=== PATIENT | female | born 1950 | race Caucasian/White ===

== ENCOUNTER → 2016-08-25 | Outpatient (CLI) | payer OTHER ==
[~2016-08-25] MED LIST: ASMTWH INH; ASPI-461 PO; CHOL1000 PO; COLLCAP PO; CYAN250T PO; FERR1TAB23 PO; FLAX12003 PO; GLC5 PO; GLC850 PO; GLIP10TA10 PO; GLIP10TA9 PO; HYDR-5688 PO; HYDR25TA4 PO; INSDGI SC; INSDGIPEN SC; LEVO125T72 PO; LEVO50TA PO; METF-383 PO; MULT-506 PO; NAPR1TAB9 PO; NORT25CA PO; PANT1TAB48 PO; PANT40TA PO; PRAV20TA PO; PROP60CA PO; VITA10004 PO; VITA400C15 PO; VITAMIN D PO; ZOLP5TAB PO
[2016-08-25 18:53] LABS: LYME DISEASE AB IGG NEG (NEG); LYME DISEASE AB IGM NEG (NEG)
[2016-09-03 04:52] LABS: ANTI-CENTROMERE AB <1.0 NEG AI (<1.0 NEG); ANTI-SS-A <1.0 NEG AI (<1.0 NEG); ANTI-SS-B <1.0 NEG AI (<1.0 NEG); DNA ds CRITHIDIA NEGATIVE (NEGATIVE); Sm Antibody <1.0 NEG AI (<1.0 NEG)
[2016-09-04 14:39] LABS: ANA TITER > OR = 1:1280 TITER (<1:40)
== END | disposition home or self-care (01) ==
LOC: C.LABBFT 12:41
PROVIDERS: ATTEND Psychiatry & Neurology Neurology
DX: M54.81 Occipital neuralgia (principal)

== ENCOUNTER → 2016-08-31 | Outpatient (CLI) | payer OTHER ==
--- NOTE | 2016-08-31 12:17 | DIAGNOSTIC IMAGING REPORT ---
VIDEO SWALLOW STUDY CLINICAL HISTORY: Dysphagia. COMPARISON STUDY: CT scan of the neck dated 07/23/2014. Fluoroscopy time: 2.7 minutes. FINDINGS: Fluoroscopic guidance was provided to the Department of Speech Pathology in performing a video swallow study. The patient consumed barium-impregnated pudding, cracker with paste, nectar thick liquids, and thin barium while the swallowing mechanism was observed in real-time. No penetration or aspiration was seen with any of the sampled textures. Mild pharyngeal residuals were noted with the pudding and nectar thick liquid textures. IMPRESSION: No penetration or aspiration was seen with any of the sampled textures. See dedicated speech pathology report for detailed findings and recommendations. Electronically signed by: Hugo Barros M.D. 08/31/2016 12:15 PM Dictated Date/Time: 08/31/2016 12:13 PM
--- NOTE | 2016-08-31 14:39 | SWALLOWING EVALUATION ---
HISTORY: This 65 year-old woman was referred for a VFSS at [facility] in order to rule out aspiration address c/o coughing with meals. She also reports that medications tend to get stuck in her throat, in particular larger pills. The patient has a PMH significant for Chiari Malformation, cirrhosis due to steatohepatitis, grade 1 varices, DM II with neuropathy and gastroparesis, GERD, asthma, partial thyroidectomy, hypertension, and depression. Currently the patient's diet level is regular. PROCEDURE: The patient was seen in the Radiology Department of [facility] for the VFSS. Cursory examination of the oral cavity revealed adequate dentition. Movement of the articulators was WNL. The patient was seated on a stool and was viewed in both the Anterior-Posterior (A-P) and Lateral planes. Volitional phonation exercises completed in the A-P plane revealed bilateral vocal fold movement and vocal intensity within functional limits. In the lateral plane, the patient was given the following boluses: 1 tsp. thin liquid barium x 2, single swallow thin liquid barium self-presented from a cup, sequential swallows of thin liquid barium self-presented from a straw, 1 tsp. nectar-thick liquid barium, single swallow nectar-thick liquid barium self-presented from a cup, 1 tsp. barium pudding, and 1 club cracker with barium paste. The patient was then repositioned into the A-P plane and given the following boluses: 1 tsp. nectar-thick liquid barium, 1 tsp. barium pudding, and 1 barium tablet. RESULTS: Oral Stage: Lip closure was adequate. The patient was able to maintain a cohesive liquid bolus in the oral cavity without any lateral or posterior loss. Mastication was timely and efficient. Lingual motion for bolus transfer was brisk. There was trace retention along the tongue after the swallow. The initiation of the pharyngeal swallow occurred when the bolus head reached the valleculae. Pharyngeal Stage: Soft palate elevation was complete. Laryngeal elevation revealed complete superior motion of the thyroid cartilage with completed approximation of the arytenoids to the epiglottic base. Anterior hyoid excursion, epiglottic deflection, and laryngeal vestibular closure were complete. The pharyngeal stripping wave was present and complete, as was pharyngeal contraction. The opening to the pharyngoesophageal segment was complete with distention and duration of the opening. Tongue base retraction was complete. There was trace retention located in the valleculae and pyriforms after the swallow. There was no evidence of laryngeal penetration, aspiration, or significant retention located in the pharynx after the swallow. Esophageal Stage: In the lateral view, the patient presented with cervical osteophytes that did not appear to impact bolus flow. There was also an emerging cricopharyngeus impression. There was mild distal esophageal retention of solids, which did pass into the stomach given extra time. The same occurred with a barium tablet. SUMMARY/RECOMMENDATIONS: This patient presents with normal prashanth-pharyngeal swallowing mechanics. The patient presents with s/s esophageal dysfunction. The following is recommended: 1. Regular diet, slippery, and thin liquids. 2. GERD precautions. Do not lay flat including while sleeping. 3. Alternate solids and liquids. Place medications in a carrier (such as applesauce) as needed. 4. Follow up with PCP as needed. Adjust reflux medications as needed with any increased c/o esophageal dysfunction. A summary of the results and recommendations was discussed with the patient and verbal understanding was given. The patient indicated that she has difficulty with swallowing meats and red meat in particular. Information, both written and verbal, was provided on following a "slippery diet" (i.e., avoiding foods that are dry, thick, pasty). This was reviewed and verbal understanding was given. She reports she is currently taking reflux medications which she feels are generally effective. Thank you for referral of this patient. Please contact me at if any additional information is needed.
== END | disposition home or self-care (01) ==
LOC: C.RAD 11:11
PROVIDERS: ATTEND Hospitalist
DX: R13.10 Dysphagia, unspecified (principal)

== ENCOUNTER → 2016-09-01 | Outpatient (CLI) | payer OTHER ==
[2016-09-01 18:37] LABS: BLOOD UREA NITROGEN 19 mg/dl (7-18); BUN/CREATININE RATIO 18.9 (10-20); CALCIUM 9.4 mg/dl (8.5-10.1); CARBON DIOXIDE 22 mmol/L (21-32); CHLORIDE 98 mmol/L (98-107); GLUCOSE 321 mg/dl (70-99); POTASSIUM 4.1 mmol/L (3.5-5.1); SODIUM 134 mmol/L (136-145)
== END | disposition home or self-care (01) ==
LOC: C.LAB 17:16
PROVIDERS: ATTEND Surgery
DX: R51 Headache (principal); Z01.812 Encounter for preprocedural laboratory examination

== ENCOUNTER 2016-09-04 08:24 | Day surgery (SDC) | payer OTHER ==
[~2016-09-04] VITALS: Ht 158.8 cm; Wt 87.7 kg
[~2016-09-04 08:24] MED LIST changes: +CEFAZOLIN 2000 MG/60 ML D5W IV SCH; +CEFAZOLIN IV 2,000 MG in DEXTROSE 5% 50ML 50 ML IV SCH; -CHOL1000 PO; -COLLCAP PO; -FERR1TAB23 PO; -GLC5 PO; -GLIP10TA10 PO; -HYDR-5688 PO; -INSDGIPEN SC; -LEVO50TA PO; -METF-383 PO; -MULT-506 PO; -NAPR1TAB9 PO; -PANT1TAB48 PO; -PROP60CA PO; -VITA10004 PO
[2016-09-04 08:45] VITALS: BP 144/84; PULSE 75; TEMP 36.5; O2SAT 93; Ht 158.8 cm; Wt 87.7 kg
[2016-09-04] MEDS ORDERED: NAPR1TAB9 PO (09:07)
--- NOTE | 2016-09-04 09:07 | History & Physical Bridge Note ---
H&P Re-Evaluation Bridge Note: I have examined the patient, reviewed the History & Physical and in the interval since the performance of the History & Physical I have noted the following changes of clinical significance: No changes noted
[2016-09-04] MEDS ORDERED: EpHEDrine SULFATE INJ 50 MG/ML AMP IV PRN (09:15)
[2016-09-04] MEDS ORDERED: ATROPINE SULFATE 0.1 MG/ML 5ML SYR IV PRN (09:15)
[2016-09-04] MEDS ORDERED: LIDOCAINE HCL 2% 2 ML VIAL (20MG/ML) ONE (10:20)
[2016-09-04] MEDS ORDERED: MIDAZOLAM HCL 1 MG/ML 2ML VIAL ONE (10:20)
[2016-09-04] MEDS ORDERED: PROPOFOL IV EMULSION 10 MG/ML 20 ML VIAL IV ONE (10:20)
[2016-09-04] MEDS ORDERED: HYDR-5688 PO (10:42)
--- NOTE | 2016-09-04 10:43 | Discharge Instructions ---
Discharge Instructions Visit Reason for Visit: Headache, Diabetes Discharge Discharge Diagnosis / Problem: headache Discharge Goals Goal(s): Decrease discomfort, Improve function, Improve disease control Activity Recommendations Activity Limitations: as noted below Lifting Limitations: gradually increase as tolerated Exercise/Sports Limitations: until after follow-up appointment May Resume Sexual Activity: when tolerated Shower/Bathe: tomorrow Driving or Machine Use: resume 1 day after discharge SPECIAL CARE INSTRUCTIONS: * Cover incisions and change daily for comfort/drainage. * May use ibuprofen for pain as tolerated. * Expect some swelling and bruising. Call your doctor if: * Temperature above 101 degrees * Pain not relieved by pain medicine ordered * There is increased drainage or redness from any incision * You have any unanswered questions or concerns [phone]. FOLLOW UP VISIT: If not already scheduled, please call the office for a follow-up visit. for next week- [facility] OFFICE PHONE NUMBER: Dr. Galarza Office Anesthesia . Post Anesthesia Instructions: If you have had General Anesthesia or IV Sedation: * Do not drive today. * Resume driving when surgeon permits. * Do not make important decisions or sign legal documents today. * Call surgeon for: 1. Temperature elevations greater than 101 degrees F. 2. Uncontrollable pain. 3. Excessive bleeding. 4. Persistent nausea and vomiting. 5. Medication intolerance (nausea, vomiting or rash). * For nausea and vomiting use only clear liquids such as: tea, soda, bouillon until nausea subsides, then gradually increase diet as tolerated. * If you have any concerns or questions, call your surgeon's office. If physician is unavailable and it is an emergency, call 911 or go to the nearest emergency room. . Diet Recommendations Recommended Home Diet: resume previous diet Pending Studies Studies pending at discharge: no Medical Emergencies . Who to Call and When: Medical Emergencies: If at any time you feel your situation is an emergency, please call 911 immediately. . Non-Emergent Contact Non-Emergency issues call your: Surgeon . . "Provider Documentation" section prepared by Kel Galarza.
[2016-09-04] MEDS ORDERED: LIDOCAINE HCL 1% 20 ML VIAL INJ ONE (11:44)
--- NOTE | 2016-09-04 11:51 | [facility] Operative Report ---
Operative Report Operative Date Sep 04, 2016. Pre-Operative Diagnosis headache Post-Operative Diagnosis same Procedure(s) Performed Lt temporal artery bx Surgeon Dr. Kel Galarza Pharmacy Technician Per Diem Surgeon(s) None Estimated Blood Loss 5ml Findings temporal artery Specimens A. Left Temporal Artery Anesthesia local/ sedation Complication(s) None Disposition Recovery Room / PACU I attest to the content of the Intraoperative Record and any orders documented therein. Any exceptions are noted below.
[2016-09-04] MEDS ORDERED: HYDROCODONE/ACETAMOPHEN 5/325MG TAB PO PRN ×2 (12:00)
[2016-09-04] MEDS ORDERED: ONDANSETRON INJ 2 MG/ML 2 ML VIAL IV PRN (12:00)
--- NOTE | 2016-09-04 12:03 | OPERATIVE REPORT ---
DATE OF OPERATION: 09/04/2016 NAME OF OPERATION: Left temporal artery biopsy. PREOPERATIVE DIAGNOSIS: Headache. POSTOPERATIVE DIAGNOSIS: Same. STAFF SURGEON: Dr. Galarza. ANESTHESIA: 1% plain lidocaine with sedation. PROCEDURE: The patient was brought into the operating room and placed on the operating table in a supine position. Her hair in the left temporal artery area was clipped and then the patient prepped and draped in the usual fashion. Incision was made over the left temporal area using 1% plain lidocaine for skin and subcutaneous tissue, carrying dissection down through the fascia, identifying the artery. Approximately 1.5 to 2 cm of artery was dissected free, ligated on both ends using 2-0 chromic and 4-0 silk suture. At this point, the specimen was sent for routine pathology. Deep tissue was reapproximated using running 4-0 chromic catgut suture, then the skin reapproximated using running 5-0 Prolene suture. The patient was transferred to recovery room in stable condition. I attest to the content of the Intraoperative Record and any orders documented therein. Any exceptio ns are noted below.
--- NOTE | 2016-09-04 12:19 | Anesthesiology Progress Note ---
Anesthesia Post Op Note Date & Time Sep 04, 2016 at 12:19 Vital Signs Pain Intensity: 0 Vital Signs Past 12 Hours Date Time Temp Pulse Resp B/P Pulse Ox O2 Delivery O2 Flow Rate FiO2 09/04/16 12:05 66 12 117/65 94 Room Air 09/04/16 11:57 36.6 86 12 125/66 99 Room Air 09/04/16 08:45 36.5 75 20 144/84 93 Room Air Notes Mental Status: alert / awake / arousable, participated in evaluation Pt Amnestic to Procedure: Yes Nausea / Vomiting: adequately controlled Pain: adequately controlled Airway Patency, RR, SpO2: stable & adequate BP & HR: stable & adequate Hydration State: stable & adequate Anesthetic Complications: no major complications apparent
[2016-09-04 12:23] VITALS: BP 121/64; PULSE 68; TEMP 36.5; O2SAT 98
[2016-09-04 13:00] VITALS: BP 149/62; PULSE 72; TEMP 36.5; O2SAT 98
[2016-09-04] MEDS ORDERED: NURSING VERBAL MED ORDER ONE (13:00)
[2016-09-04] MEDS ORDERED: HYDROCODONE/ACETAMOPHEN 5/325MG TAB ONE (13:03)
[2016-09-04 13:29] VITALS: BP 149/62; PULSE 74; TEMP 36.4; O2SAT 100
[2016-09-04 13:50] VITALS: BP 131/56; PULSE 77; TEMP 36.5; O2SAT 99
== END 2016-09-04 14:10 | disposition home or self-care (01) ==
LOC: C.ACU 08:24
PROVIDERS: ATTEND Surgery
DX: R51 Headache (principal); J45.909 Unspecified asthma, uncomplicated; I10 Essential (primary) hypertension; E11.9 Type 2 diabetes mellitus without complications; Q07.00 Arnold-Chiari syndrome without spina bifida or hydrocephalus; Z98.890 Other specified postprocedural states; Z79.4 Long term (current) use of insulin; Z90.49 Acquired absence of other specified parts of digestive tract; F32.9 Major depressive disorder, single episode, unspecified; Z90.710 Acquired absence of both cervix and uterus; Z90.89 Acquired absence of other organs; Z83.3 Family history of diabetes mellitus; Z82.3 Family history of stroke; Z80.9 Family history of malignant neoplasm, unspecified

== ENCOUNTER → 2016-09-13 | Outpatient (CLI) | payer OTHER ==
[~2016-09-13] MED LIST changes: -ASPI-461 PO; -CEFAZOLIN 2000 MG/60 ML D5W IV SCH; -CEFAZOLIN IV 2,000 MG in DEXTROSE 5% 50ML 50 ML IV SCH; +CHOL1000 PO; +COLLCAP PO; +FERR1TAB23 PO; +GLC5 PO; +GLIP10TA10 PO; +HYDR-5688 PO; +INSDGIPEN SC; +LEVO50TA PO; +METF-383 PO; +MULT-506 PO; +NAPR1TAB9 PO; +PANT1TAB48 PO; +PROP60CA PO; +VITA10004 PO
[2016-09-13 17:50] LABS: URINE APPEARANCE CLEAR (CLEAR); URINE BILIRUBIN NEG (NEG); URINE COLOR YELLOW; URINE EPITHELIAL CELL AUTO >30 /lpf (0-5); URINE NITRITE NEG (NEG); URINE SPECIFIC GRAVITY 1.018 (1.000-1.030); UROBILINOGEN NEG (NEG)
[2016-09-13 17:54] LABS: MANUAL MICROSCOPIC REQUIRED? NO; REVIEW REQ? NO
== END | disposition home or self-care (01) ==
LOC: C.LABBFT 12:29
PROVIDERS: ATTEND Internal Medicine
DX: R39.9 Unspecified symptoms and signs involving the genitourinary system (principal)

== ENCOUNTER → 2016-09-15 | Outpatient (CLI) | payer OTHER ==
[2016-09-15 17:48] LABS: BLOOD UREA NITROGEN 12 mg/dl (7-18); BUN/CREATININE RATIO 14.1 (10-20); CALCIUM 9.2 mg/dl (8.5-10.1); CARBON DIOXIDE 25 mmol/L (21-32); CHLORIDE 96 mmol/L (98-107); CREATININE 0.88 mg/dl (0.60-1.20); GLUCOSE 183 mg/dl (70-99); POTASSIUM 3.7 mmol/L (3.5-5.1); SODIUM 133 mmol/L (136-145)
[2016-09-15 18:13] LABS: URINE APPEARANCE CLEAR (CLEAR); URINE COLOR ORANGE; URINE EPITHELIAL CELL AUTO >30 /lpf (0-5); URINE NITRITE POS (NEG); URINE PH 5.5 (4.5-7.5); URINE SPECIFIC GRAVITY 1.023 (1.000-1.030); UROBILINOGEN NEG (NEG)
[2016-09-15 18:15] LABS: MANUAL MICROSCOPIC REQUIRED? NO; REVIEW REQ? YES
[2016-09-15 18:17] LABS: URINE BILIRUBIN NEG (NEG)
== END | disposition home or self-care (01) ==
LOC: C.LABBFT 11:58
PROVIDERS: ATTEND Internal Medicine
DX: R53.83 Other fatigue (principal); R60.9 Edema, unspecified; R39.9 Unspecified symptoms and signs involving the genitourinary system

== ENCOUNTER → 2016-11-24 | Outpatient (CLI) | payer OTHER ==
[~2016-11-24] MED LIST changes: +CYAN100020 PO; +GADOXETATE DISODIUM (NON-WT BASED PROCEDURE) IV PRN; +ONDA4TAB46 PO; +PROP1TAB PO
--- NOTE | 2016-11-24 09:58 | DIAGNOSTIC IMAGING REPORT ---
MRI OF THE ABDOMEN COMBO CLINICAL HISTORY: Follow-up unspecified liver lesion. COMPARISON STUDY: Abdominal CT dated 08/23/2015. Abdominal ultrasound dated 06/08/2016. TECHNIQUE: MRI of the abdomen is performed transverse T1 and T2-weighted sequences in the axial and coronal planes. Contrast enhanced sequences were acquired following the IV administration of 10 cc of Eovist. Subtraction imaging was utilized. The examination is degraded by motion artifact. FINDINGS: Lower chest: No pleural effusion is identified. The heart is normal in size there is trace pericardial fluid. Liver: The liver is cirrhotic in morphology and heterogeneous in signal intensity. There is nodularity of the hepatic surface contour and hypertrophy of the caudate lobe. Mild central intrahepatic biliary ductal dilatation is note. No hepatic lesion is identified as clinically queried. The hepatic veins and portal veins are patent. There are perisplenic varices and a splenorenal shunt is identified. Gallbladder: Surgically absent. Spleen: The spleen is enlarged, measuring 16.6 cm in length. Pancreas: Unremarkable. Adrenal glands: Unremarkable. Kidneys: The kidneys are normal in size and without hydronephrosis. The kidneys enhance and excrete symmetrically. Abdominal aorta: Normal in course and caliber. Bowel: Visualized portions of the small bowel and colon show no evidence of obstruction. Peritoneum: There is no abdominal ascites. Lymphadenopathy: None. Skeletal structures: Visualized skeletal structures times are normal marrow signal intensity. IMPRESSION: 1. Cirrhotic liver morphology. 2. There is evidence of portal hypertension including splenomegaly, perisplenic varices, and a splenorenal shunt. 3. No hepatic lesion is identified as clinically queried. Correlation with the prior CT scan results will be required Electronically signed by: Hugo Barros M.D. 11/24/2016 9:55 AM Dictated Date/Time: 11/24/2016 9:46 AM
== END | disposition home or self-care (01) ==
LOC: C.MRI 08:28
PROVIDERS: ATTEND Internal Medicine Gastroenterology
DX: K76.9 Liver disease, unspecified (principal)

== ENCOUNTER → 2017-01-04 | Outpatient (CLI) | payer OTHER ==
[~2017-01-04] MED LIST changes: -GADOXETATE DISODIUM (NON-WT BASED PROCEDURE) IV PRN
--- NOTE | 2017-01-04 16:27 | DIAGNOSTIC IMAGING REPORT ---
CHEST 2 VIEWS ROUTINE HISTORY: Atypical CHEST PAIN,UNSPECIFIED CIRRHOSIS OF LIVER COMPARISON: Chest 08/23/2015. FINDINGS: The lungs are clear. Cardiac silhouette is normal in size. No pleural effusions. No pneumothorax. IMPRESSION: No acute process. Electronically signed by: Stephen Black M.D. 01/04/2017 4:26 PM Dictated Date/Time: 01/04/2017 4:22 PM
== END | disposition home or self-care (01) ==
LOC: C.RAD 16:04
PROVIDERS: ATTEND Internal Medicine Gastroenterology
DX: R07.9 Chest pain, unspecified (principal); K74.60 Unspecified cirrhosis of liver

== ENCOUNTER → 2017-02-14 | Outpatient (CLI) | payer OTHER ==
[2017-02-14 17:37] LABS: BASO % 0.4 %; BASO ABS # 0.01 K/uL (0-0.2); COMPLETE YES; EOS % 2.7 %; HEMATOCRIT 35.3 % (37-47); LYMPH ABS # 0.65 K/uL (1.2-3.4); MEAN CELL VOLUME 86.7 fL (80-100); MEAN CORPUSCULAR HEMOGLOBIN 26.3 pg (25-34); MEAN CORPUSCULAR HGB CONC 30.3 g/dl (32-36); MEAN PLATELET VOLUME 9.9 fL (7.4-10.4); MONO % 11.6 %; NEUT % 56.3 %; PLATELET COUNT 117 K/uL (130-400); RED BLOOD COUNT 4.07 M/uL (4.2-5.4); WHITE BLOOD COUNT 2.24 K/uL (4.8-10.8)
[2017-02-14 17:47] LABS: ALT/SGPT 36 U/L (12-78); BLOOD UREA NITROGEN 12 mg/dl (7-18); BUN/CREATININE RATIO 15.9 (10-20); CALCIUM 9.8 mg/dl (8.5-10.1); CARBON DIOXIDE 27 mmol/L (21-32); CHLORIDE 102 mmol/L (98-107); CREATININE 0.76 mg/dl (0.60-1.20); GLUCOSE 151 mg/dl (70-99); SODIUM 139 mmol/L (136-145)
[2017-02-14 17:50] LABS: ALB/GLOB RATIO 0.7 (0.9-2); ALKALINE PHOSPHATASE 92 U/L (45-117); AST/SGOT 30 U/L (15-37)
== END | disposition home or self-care (01) ==
LOC: C.LABBFT 12:19
PROVIDERS: ATTEND Internal Medicine
DX: E87.1 Hypo-osmolality and hyponatremia (principal); K74.60 Unspecified cirrhosis of liver; M85.80 Other specified disorders of bone density and structure, unspecified site

== ENCOUNTER → 2017-02-26 | Outpatient (CLI) | payer OTHER ==
[2017-03-01 08:11] LABS: ALBUMIN 3.3 G/DL (3.8-4.8); CREATININE UR 62 MG/DL (20-320); GAMMA GLOBULIN 1.3 G/DL (0.8-1.7); TOTAL PROTEIN 6.6 G/DL (6.2-8.3)
== END | disposition home or self-care (01) ==
LOC: C.LABBFT 12:23
PROVIDERS: ATTEND Internal Medicine
DX: R77.1 Abnormality of globulin (principal)

== ENCOUNTER → 2017-03-05 | Outpatient (CLI) | payer OTHER ==
[2017-03-08 05:45] LABS: CREATININE UR 28 MG/DL (20-320)
== END | disposition home or self-care (01) ==
LOC: C.LABBFT 09:05
PROVIDERS: ATTEND Internal Medicine
DX: R79.9 Abnormal finding of blood chemistry, unspecified (principal)

== ENCOUNTER 2017-04-17 09:41 | Inpatient (IN) | payer OTHER ==
[~2017-04-17] VITALS: Ht 157.5 cm; Wt 79.7 kg
[~2017-04-17 09:41] MED LIST changes: -CHOL1000 PO; -COLLCAP PO; -CYAN100020 PO; -FERR1TAB23 PO; -GLC5 PO; -GLIP10TA10 PO; -HYDR-5688 PO; -INSDGIPEN SC; -LEVO50TA PO; -METF-383 PO; -MULT-506 PO; -ONDA4TAB46 PO; -PANT1TAB48 PO; -PROP1TAB PO; -PROP60CA PO; -VITA10004 PO
[2017-04-17] MEDS ORDERED: SODIUM CHLORIDE 0.9% 250ML 250 ML IV STA (11:03)
[2017-04-17] MEDS ORDERED: FENTANYL CITRATE INJ 50 MCG/1 ML 2 ML VIAL IV STA (11:03)
[2017-04-17] MEDS ORDERED: SODIUM CHLORIDE 0.9% 1000ML 1,000 ML IV STA (11:03)
[2017-04-17] MEDS ORDERED: ONDANSETRON INJ 2 MG/ML 2 ML VIAL IV STA (11:03)
--- NOTE | 2017-04-17 11:07 | EMERGENCY ROOM VISIT NOTE ---
History Report prepared by Octaviano: Dayana Baldwin Under the Supervision of: Dr. Seema Hobson M.D. First contact with patient: 10:48 Chief Complaint: GI ASSESSMENT Stated Complaint: BLACK PASTY STOOLS, V, BK STUFF, FEVER, WEAK, FATI Nursing Triage Summary: "not feeling well for the past month or so. having abdominal pain and nausea." History of Present Illness The patient is a 66 year old female who presents to the Emergency Room with complaints of persistent abdominal pain that began a few days ago. She currently rates her discomfort as a 6/10 in severity. The patient reports that she had been experiencing abdominal pain and notes that she had a bowel movement that was black. She states that she also vomited, noting that her emesis was black. The patient reports a history of colitis with bleeding, noting that she had a blood transfusion in August 2015. She states that she additionally has a history of cirrhosis of the liver due to taking acetaminophen. The patient denies any hematochezia or hematemesis. She denies any history of diverticulitis. The patient reports weakness and fatigue today. She states that she was instructed to come to the emergency department today by her PCP. The patient notes frequent intermittent fevers and chills over the last couple months. Source of History: patient Onset: few days ago Position: abdomen Symptom Intensity: 6/10 Timing: other (persistent) Associated Symptoms: + fevers, + chills, + nausea, + vomiting, + melena, + fatigue, + weakness, No hematochezia Review of Systems See HPI for pertinent positives & negatives. A total of 10 systems reviewed and were otherwise negative. Past Medical & Surgical Medical Problems: (1) Acute blood loss anemia (2) Chiari malformation (3) Cirrhosis (4) H/O thyroidectomy Surgical Problems: (1) History of hysterectomy (2) Hx of brain surgery (3) Hx of cholecystectomy Family History Diabetes mellitus Social History Smoking Status: Never Smoker Alcohol Use: none Drug Use: none Marital Status: Housing Status: lives with significant other Occupation Status: retired Current/Historical Medications Scheduled Cholecalciferol (Vitamin D3), 1,000 UNITS PO DAILY Collagen-Vitamin C (Collagen Plus Vitamin C), 1 CAP PO DAILY Ferrous Sulfate (Iron), 325 MG PO DAILY Glipizide (Glipizide), 5 MG PO QAM Glipizide (Glipizide), 10 MG PO QPM Hydrochlorothiazide (Hctz), 25 MG PO DAILY Insulin Glargine (Lantus Solostar), 25 UNITS SC HS Levothyroxine Sodium (Synthroid), 112 MCG PO DAILY Metformin Hcl (Glucophage), 850 MG PO TIDM Multivitamin (Multivitamin), 1 TAB PO DAILY Pravastatin (Pravachol ), 10 MG PO HS Vitamin E (Vitamin E), 1 TAB PO DAILY Scheduled PRN Zolpidem Tartrate (Ambien), 5 MG PO HS PRN for Sleep Allergies Coded Allergies: No Known Allergies (Verified , 09/04/16) Physical Exam Vital Signs Date Time Temp Pulse Resp B/P (MAP) Pulse Ox O2 Delivery O2 Flow Rate FiO2 04/17/17 16:18 Room Air 04/17/17 15:26 90 18 129/76 100 Room Air 04/17/17 14:51 90 16 119/63 98 Room Air 04/17/17 13:31 88 13 04/17/17 13:16 87 13 04/17/17 13:06 133/62 97 Room Air 04/17/17 13:05 133/62 04/17/17 13:01 97 13 04/17/17 12:56 91 13 96 04/17/17 12:41 95 12 94 04/17/17 12:26 98 12 93 04/17/17 12:18 96 04/17/17 11:54 109/57 04/17/17 11:45 98 20 109/57 98 Room Air 04/17/17 09:47 36.7 109 18 131/61 97 Room Air Physical Exam Vital signs reviewed. General: Generally well-appearing female, in no significant distress. HEENT: No scleral icterus, PERRLA, neck supple. Atraumatic. Cardiovascular: Regular rate and rhythm, systolic ejection murmur. Pulmonary: Clear to auscultation bilaterally, normal work of breathing. Abdomen: Mildly obese abdomen, tender in right lower quadrant. Soft, nondistended, positive bowel sounds. Musculoskeletal: Atraumatic, no peripheral edema. Neurologic: Patient awake alert and oriented x 3 Skin: Warm, dry, no rash Stool Sample: Guaiac positive melanotic stool, normal rectal mucosa Medical Decision & Procedures ER Provider Diagnostic Interpretation: CT results as stated below per my review and radiologist interpretation: CT ABD/PELVIS IV CONTRAST ONLY CLINICAL HISTORY: Right lower quadrant abdominal pain. Gastrointestinal hemorrhage. COMPARISON STUDY: Hepatic MRI dated 11/24/2016, CT scan of the abdomen pelvis dated 08/23/2015 TECHNIQUE: Following the IV administration of 93 mL of Optiray-320, CT scan of the abdomen and pelvis was performed from the lung bases to the proximal femurs. Images are reviewed in the axial, sagittal, and coronal planes. IV contrast was administered without complication. A dose lowering technique was utilized adhering to the principles of ALARA. CT DOSE: 673.02 mGy.cm FINDINGS: Lower chest: The heart is normal in size and configuration, without pericardial effusion. The lung bases and pleural spaces are clear. Liver: The liver has a nodular cirrhotic surface consistent with cirrhosis. There are findings suggesting portal venous hypertension with splenomegaly and prominent perisplenic varices. Gallbladder: Surgically absent Spleen: The spleen is enlarged measuring 13 cm. Pancreas: Unremarkable. Adrenal glands: Unremarkable. Kidneys: No solid renal masses are visualized. There is no hydronephrosis. Bowel: There are no transition zone to indicate bowel obstruction. The appendix appears normal. There is no acute diverticulitis. There is mild nonspecific periduodenal edema. Peritoneum: There is no intraperitoneal free air or abdominal ascites. Vasculature: The abdominal aorta is normal in course and caliber. Adenopathy: None. Pelvic viscera: The uterus appears surgically absent. Skeletal structures: No destructive osseous lesions are seen. IMPRESSION: 1. Cirrhotic liver morphology with splenomegaly and prominent perisplenic varices 2. Mild nonspecific infiltration of the fat adjacent to the descending duodenum. A duodenitis cannot be excluded 3. No evidence of bowel obstruction. No evidence of free air 4. Normal appendix. No evidence of acute diverticulitis. Electronically signed by: Sumanth Johnson M.D. 04/17/2017 2:07 PM Dictated Date/Time: 04/17/2017 2:01 PM Laboratory Results Test 04/17/17 11:35 04/17/17 11:45 04/17/17 12:15 Immature Granulocyte % (Auto) 0.2 % White Blood Count 4.09 K/uL (4.8-10.8) Red Blood Count 3.66 M/uL (4.2-5.4) Hemoglobin 10.1 g/dL (12.0-16.0) Hematocrit 31.3 % (37-47) Mean Corpuscular Volume 85.5 fL (80-100) Mean Corpuscular Hemoglobin 27.6 pg (25-34) Mean Corpuscular Hemoglobin Concent 32.3 g/dl (32-36) Platelet Count 115 K/uL (130-400) Mean Platelet Volume 9.8 fL (7.4-10.4) Neutrophils (%) (Auto) 67.5 % Lymphocytes (%) (Auto) 24.2 % Monocytes (%) (Auto) 7.6 % Eosinophils (%) (Auto) 0.5 % Basophils (%) (Auto) 0.0 % Neutrophils # (Auto) 2.76 K/uL (1.4-6.5) Lymphocytes # (Auto) 0.99 K/uL (1.2-3.4) Monocytes # (Auto) 0.31 K/uL (0.11-0.59) Eosinophils # (Auto) 0.02 K/uL (0-0.5) Basophils # (Auto) 0.00 K/uL (0-0.2) Immature Granulocyte # (Auto) 0.01 K/uL (0.00-0.02) Prothrombin Time 11.6 SECONDS (9.0-12.0) Prothromb Time International Ratio 1.1 (0.9-1.1) Activated Partial Thromboplast Time 22.6 SECONDS (21.0-31.0) Partial Thromboplastin Ratio 0.9 Total Bilirubin 0.5 mg/dl (0.2-1) Direct Bilirubin 0.2 mg/dl (0-0.2) Aspartate Amino Transf (AST/SGOT) 43 U/L (15-37) Alanine Aminotransferase (ALT/SGPT) 46 U/L (12-78) Alkaline Phosphatase 97 U/L (45-117) Total Protein 7.1 gm/dl (6.4-8.2) Albumin 2.9 gm/dl (3.4-5.0) Lipase 238 U/L (73-393) Hepatitis C Antibody Screen NEG (NEG) Bedside Hemoglobin 10.9 g/dl (12.0-16.0) Bedside Hematocrit 32 % (37-47) Bedside Sodium 138 mEq/L (135-144) Bedside Potassium 4.2 mEq/L (3.3-5.0) Bedside Chloride 102 mEq/L (101-112) Bedside Total CO2 25 mEq/l (24-31) Bedside Blood Urea Nitrogen 35 mg/dl (7-18) Bedside Creatinine 0.6 mg/dl (0.6-1.3) Bedside Glucose (other) 133 mg/dl (70-99) Bedside Ionized Calcium ([place]) 1.27 mmol/l (1.12-1.32) Urine Color YELLOW Urine Appearance CLEAR (CLEAR) Urine pH 5.5 (4.5-7.5) Urine Specific [place] 1.025 (1.000-1.030) Urine Protein NEG (NEG) Urine Glucose (UA) NEG (NEG) Urine Ketones 1+ (NEG) Urine Occult Blood NEG (NEG) Urine Nitrite NEG (NEG) Urine Bilirubin NEG (NEG) Urine Urobilinogen NEG (NEG) Urine Leukocyte Esterase TRACE (NEG) Urine WBC (Auto) 1-5 /hpf (0-5) Urine RBC (Auto) 0-4 /hpf (0-4) Urine Hyaline Casts (Auto) 0 /lpf (0-5) Urine Epithelial Cells (Auto) >30 /lpf (0-5) Urine Bacteria (Auto) NEG (NEG) Urine Yeast (Auto) BUDDING (NONE PRSENT) Laboratory results per my review. Medications Administered Medications (Trade) Dose Ordered Sig/Gay Route Start Time Stop Time Status Last Admin Dose Admin Sodium Chloride 250 ml @ 999 mls/hr Q16M STAT IV 04/17/17 11:03 04/17/17 11:18 DC 04/17/17 11:03 999 MLS/HR Sodium Chloride 1,000 ml @ 125 mls/hr Q8H STAT IV 04/17/17 11:03 04/17/17 17:15 DC 04/17/17 11:58 125 MLS/HR Fentanyl Citrate (Fentanyl Inj) 50 mcg NOW STAT IV 04/17/17 11:03 04/17/17 11:06 DC 04/17/17 11:57 50 MCG Ondansetron HCl (Zofran Inj) 4 mg NOW STAT IV 04/17/17 11:03 04/17/17 11:06 DC 04/17/17 11:57 4 MG Pantoprazole Sodium 80 mg/ Dextrose 120 ml @ 400 mls/hr NOW IV 04/17/17 11:15 04/17/17 17:02 DC 04/17/17 12:07 400 MLS/HR Ondansetron HCl (Zofran Inj) 4 mg Q6H PRN IV 04/17/17 16:30 05/17/17 16:29 04/17/17 23:32 4 MG Zolpidem Tartrate (Ambien Tab) 5 mg HS PRN PO 04/17/17 16:30 05/17/17 16:29 04/17/17 23:29 5 MG Morphine Sulfate (MoRPHine SULFATE INJ) 2 mg Q3H PRN IV 04/17/17 16:30 05/01/17 16:29 04/18/17 22:02 2 MG ECG Indication: abdominal pain Rate (beats per minute): 94 Rhythm: normal sinus Findings: no acute ischemic change, no ectopy, other (likely previous inferior infarct) ED Course 1101: Past medical records reviewed. The patient was evaluated in room C2B. A complete history and physical examination was performed. 1103: Ordered Zofran Inj 4 mg IV, Fentanyl Inj 50 mcg IV, Sodium Chloride 1000 ml @ 125 mls/hr IV, Sodium Chloride 250 ml @ 999 mls/hr IV. 1115: Ordered Pantoprazole Sodium 80 mg/Dextrose 120 ml @ 400 mls/hr IV. 1300: I reevaluated the patient and she is resting comfortably. I discussed the exam findings with her and I discussed the treatment plan. She verbalized complete understanding and agreement. She will be evaluated for further treatment. 1440: I discussed the patients case with Dr. [place] [facility]. He is going to evaluate the patient for further treatment. Medical Decision Differential diagnosis: Etiologies such as diverticulosis, AVM, coagulopathy, colitis, inflammatory bowel disease, malignancy, Norma-Santos tear, esophagitis, peptic ulcer disease , variceal bleed, gastritis, epistaxis, fissure, hemorrhoids, as well as others were entertained. This pt was evaluated and appeared to be in no distress. IV access was obtained and lab work was drawn. PT was placed on the cardiac monitor technician. She was hydrated with NSS, given zofran for nausea. IV protonix 80 mg bolus was initiated. Stool guaiac is positive, melanotic stools. H/H is 06/05. Pt type and crossed for 2 U PRBC. No further vomiting in the ED. Case d/w the hospitalist service who will evaluate for further management. Pt is aware of the plan and agrees. Medication Reconcilliation Current Medication List: was personally reviewed by me Blood Pressure Screening Patient's blood pressure: Normal blood pressure Blood pressure disposition: Did not require urgent referral Consults Time Called: 1412 Consulting Physician: DOMINIQUE Wise Returned Call: 1440 I discussed the patients case with DOMINIQUE Wise. He is going to evaluate the patient for further treatment. Impression Primary Impression: Upper GI bleed Scribe Attestation The scribe's documentation has been prepared under my direction and personally reviewed by me in its entirety. I confirm that the note above accurately reflects all work, treatment, procedures, and medical decision making performed by me. Departure Information Dispostion Being Evaluated By Hospitalist Referrals Landen Shah M.D. (PCP)
[2017-04-17] MEDS ORDERED: PANTOprazole INJ 80 MG in DEXTROSE 5% 100ML 100 ML IV SCH (11:15)
[2017-04-17] MEDS ORDERED: OPTIRAY 320 IV PRN (11:15)
[2017-04-17 11:47] LABS: COMPLETE YES; EOS % 0.5 %; HEMATOCRIT 31.3 % (37-47); IG% 0.2 %; LYMPH % 24.2 %; LYMPH ABS # 0.99 K/uL (1.2-3.4); MEAN CELL VOLUME 85.5 fL (80-100); MEAN CORPUSCULAR HEMOGLOBIN 27.6 pg (25-34); MEAN CORPUSCULAR HGB CONC 32.3 g/dl (32-36); MEAN PLATELET VOLUME 9.8 fL (7.4-10.4); MONO % 7.6 %; NEUT % 67.5 %; PLATELET COUNT 115 K/uL (130-400); RED BLOOD COUNT 3.66 M/uL (4.2-5.4); WHITE BLOOD COUNT 4.09 K/uL (4.8-10.8)
[2017-04-17 11:56] LABS: ISTAT CREATININE 0.6 mg/dl (0.6-1.3); ISTAT HEMOGLOBIN 10.9 g/dl (12.0-16.0); ISTAT IONIZED CALCIUM 1.27 mmol/l (1.12-1.32)
[2017-04-17 11:58] LABS: INR 1.1 (0.9-1.1); PARTIAL THROMBOPLASTIN RATIO 0.9; PROTHROMBIN TIME (PATIENT) 11.6 SECONDS (9.0-12.0)
[2017-04-17] MEDS ORDERED: FERR1TAB23 PO (12:00)
[2017-04-17] MEDS ORDERED: VITA10004 PO (12:00)
[2017-04-17] MEDS ORDERED: METF-383 PO (12:00)
[2017-04-17] MEDS ORDERED: MULT-506 PO (12:00)
[2017-04-17] MEDS ORDERED: GLC5 PO (12:00)
[2017-04-17] MEDS ORDERED: CHOL1000 PO (12:00)
[2017-04-17] MEDS ORDERED: INSDGIPEN SC (12:00)
[2017-04-17] MEDS ORDERED: PRAV20TA PO (12:00)
[2017-04-17] MEDS ORDERED: COLLCAP PO (12:00)
[2017-04-17] MEDS ORDERED: HYDR25TA4 PO (12:00)
[2017-04-17] MEDS ORDERED: GLIP10TA10 PO (12:00)
[2017-04-17] MEDS ORDERED: ZOLP5TAB PO (12:00)
[2017-04-17 12:04] LABS: BUN/CREATININE RATIO 49.7 (10-20); CALCIUM 10.3 mg/dl (8.5-10.1); CREATININE 0.75 mg/dl (0.60-1.20); POTASSIUM 4.2 mmol/L (3.5-5.1)
[2017-04-17 12:41] LABS: URINE APPEARANCE CLEAR (CLEAR); URINE BILIRUBIN NEG (NEG); URINE COLOR YELLOW; URINE EPITHELIAL CELL AUTO >30 /lpf (0-5); URINE NITRITE NEG (NEG); URINE PH 5.5 (4.5-7.5); URINE SPECIFIC GRAVITY 1.025 (1.000-1.030); UROBILINOGEN NEG (NEG); ZZUR CULT IF INDIC CLEAN CATCH YES
[2017-04-17 12:51] LABS: MANUAL MICROSCOPIC REQUIRED? NO; REVIEW REQ? YES
--- NOTE | 2017-04-17 14:08 | DIAGNOSTIC IMAGING REPORT ---
CT ABD/PELVIS IV CONTRAST ONLY CLINICAL HISTORY: Right lower quadrant abdominal pain. Gastrointestinal hemorrhage. COMPARISON STUDY: Hepatic MRI dated 11/24/2016, CT scan of the abdomen pelvis dated 08/23/2015 TECHNIQUE: Following the IV administration of 93 mL of Optiray-320, CT scan of the abdomen and pelvis was performed from the lung bases to the proximal femurs. Images are reviewed in the axial, sagittal, and coronal planes. IV contrast was administered without complication. A dose lowering technique was utilized adhering to the principles of ALARA. CT DOSE: 673.02 mGy.cm FINDINGS: Lower chest: The heart is normal in size and configuration, without pericardial effusion. The lung bases and pleural spaces are clear. Liver: The liver has a nodular cirrhotic surface consistent with cirrhosis. There are findings suggesting portal venous hypertension with splenomegaly and prominent perisplenic varices. Gallbladder: Surgically absent Spleen: The spleen is enlarged measuring 13 cm. Pancreas: Unremarkable. Adrenal glands: Unremarkable. Kidneys: No solid renal masses are visualized. There is no hydronephrosis. Bowel: There are no transition zone to indicate bowel obstruction. The appendix appears normal. There is no acute diverticulitis. There is mild nonspecific periduodenal edema. Peritoneum: There is no intraperitoneal free air or abdominal ascites. Vasculature: The abdominal aorta is normal in course and caliber. Adenopathy: None. Pelvic viscera: The uterus appears surgically absent. Skeletal structures: No destructive osseous lesions are seen. IMPRESSION: 1. Cirrhotic liver morphology with splenomegaly and prominent perisplenic varices 2. Mild nonspecific infiltration of the fat adjacent to the descending duodenum. A duodenitis cannot be excluded 3. No evidence of bowel obstruction. No evidence of free air 4. Normal appendix. No evidence of acute diverticulitis. Electronically signed by: Sumanth Johnson M.D. 04/17/2017 2:07 PM Dictated Date/Time: 04/17/2017 2:01 PM
[2017-04-17 16:18] VITALS: Ht 157.5 cm; Wt 79.7 kg
[2017-04-17] MEDS ORDERED: ALUMINUM/MAGNESIUM/SIMETH (MAALOX MAX) 30 ML UDC PO PRN (16:30)
[2017-04-17] MEDS ORDERED: MoRPHine SULFATE 2 MG/ML CARP IV PRN (16:30)
[2017-04-17] MEDS ORDERED: DEXTROSE 50% 50 ML SYR IV PRN (16:30)
[2017-04-17] MEDS ORDERED: MAGNESIUM HYDROXIDE SUSP 30 ML UDC PO PRN (16:30)
[2017-04-17] MEDS ORDERED: GLUCAGON FOR INJ 1 MG VIAL SQ PRN (16:30)
[2017-04-17] MEDS ORDERED: POLYETHYLENE (MIRALAX) 17 GM PACK PO PRN (16:30)
[2017-04-17] MEDS ORDERED: GLUCOSE 40% GEL 15 GM TUBE PO PRN (16:30)
[2017-04-17] MEDS ORDERED: GLUCOSE 10 TABS/TUBE PO PRN (16:30)
[2017-04-17] MEDS ORDERED: LEVO50TA PO (16:43)
[2017-04-17] MEDS ORDERED: OCTREOTIDE IV BOLUS & DRIP IV STA (16:54)
[2017-04-17 16:55] LABS: HEMATOCRIT 28.1 % (37-47)
[2017-04-17 17:17] VITALS: BP 131/71; PULSE 83; TEMP 37; O2SAT 98
--- NOTE | 2017-04-17 17:25 | History and Physical ---
History & Physical Date & Time of Service: Apr 17, 2017 at 16:45 Chief Complaint: Black Pasty Stools, V, Bk Stuff, Fever, Weak, Fati Primary Care Physician: Landen Shah M.D. History of Present Illness Source: patient Ms. Nolen is a 66 y/o female with PMHx of Steatohepatitis with Cirrhosis, Grade I Esophageal Varices, Chronic Anemia, Hypothyroidism, and MGUS, S/P Cholecystectomy who presents to the ED c/o melena and hematemesis x a few days. She reports chronic fatigue and abdominal pain that has been present for a couple months with associated intermittent chills/fevers and unintentional weight loss of 20 lbs. However, she reports that her abdominal pain over the past couple days has been more intense than the chronic pain she feels. She describes the pain as tender and rated a 6/10 at its worse. She said she consumed a tomato last night and approx. 1 hour after had an upset stomach but no emesis. No others are having similar GI issues. Yesterday she also noted one episode of melanotic "pasty" stool. Today, she reports continuation of melanotic stool in approximately 4-5 episodes of black emesis. She does take daily iron supplement. She denies chronic NSAID use or chronic alcohol use. She is not on blood thinners or taking daily aspirin. She reports an admission in September in [place] for GI bleeding and underwent EGD. She states at that time there was no bleeding of her varices but cannot give further details. EGD in our records from 2014 show grade 1 esophageal varices. She was admitted in August 2015 for ischemic colitis. In the ED, she is hemodynamically stable. She is pancytopenic. Hemoglobin 10.1 with repeat draw of 9. BUN 37. EKG normal sinus rhythm without ischemic findings. CT with cirrhotic liver and splenomegaly without free air or ascites and evidence of a duodenitis. She received Protonix 80 mg IV 1 dose. She will be admitted to telemetry for GI bleed. Past Medical/Surgical History 1. T2DM 2. Anemia 3. Steatohepatitis with Cirrhosis 4. Grade I Esophageal Varices 5. Hypothyroidism 6. Chiari Malformation S/P Suboccipital Craniectomy 7. S/P Cholecystectomy 8. S/P Tonsillectomy 9. S/P Total Hysterectomy Family History Diabetes mellitus Social History Smoking Status: Never Smoker Smokeless Tobacco Use: No Alcohol Use: none Drug Use: none Marital Status: Housing status: lives with family Occupational Status: retired Immunizations History of Influenza Vaccine: N/A Influenza Vaccine Date: Oct 29, 2009 History of Tetanus Vaccine?: No History of Pneumococcal: No History of Hepatitis B Vaccine: No Multi-Drug Resistant Organisms History of MDRO: No Allergies Coded Allergies: No Known Allergies (Verified , 09/04/16) Home Medications Scheduled Cholecalciferol (Vitamin D3), 1,000 UNITS PO DAILY Collagen-Vitamin C (Collagen Plus Vitamin C), 1 CAP PO DAILY Ferrous Sulfate (Iron), 325 MG PO DAILY Glipizide (Glipizide), 5 MG PO QAM Glipizide (Glipizide), 10 MG PO QPM Hydrochlorothiazide (Hctz), 25 MG PO DAILY Insulin Glargine (Lantus Solostar), 25 UNITS SC HS Levothyroxine Sodium (Synthroid), 112 MCG PO DAILY Metformin Hcl (Glucophage), 850 MG PO TIDM Multivitamin (Multivitamin), 1 TAB PO DAILY Pravastatin (Pravachol ), 10 MG PO HS Vitamin E (Vitamin E), 1 TAB PO DAILY Scheduled PRN Zolpidem Tartrate (Ambien), 5 MG PO HS PRN for Sleep Review of Systems Constitutional: + fever (intermittent - chronic), + chills (intermittent - chronic), + weight loss (20 lbs), + fatigue ENT: No nasal symptoms, No sore throat Respiratory: No cough, No shortness of breath Cardiovascular: No chest pain, No palpitations Abdomen: + pain (RUQ with extension to mid-epigastric region), + nausea, + vomiting, + GI bleeding, No diarrhea, No constipation Musculoskeletal: No swelling, No calf pain Genitourinary - Female: No dysuria, No vaginal itching Hematologic / Lymphatic: No abnormal bleeding/bruising, No clotting problems Integumentary: No rash Physical Exam Vital Signs Date Time Temp Pulse Resp B/P (MAP) Pulse Ox O2 Delivery O2 Flow Rate FiO2 04/17/17 15:26 90 18 129/76 100 Room Air 04/17/17 14:51 90 16 119/63 98 Room Air 04/17/17 13:31 88 13 9/12/17 13:16 87 13 04/17/17 13:06 133/62 97 Room Air 04/17/17 13:05 133/62 04/17/17 13:01 97 13 04/17/17 12:56 91 13 96 04/17/17 12:41 95 12 94 04/17/17 12:26 98 12 93 04/17/17 12:18 96 04/17/17 11:54 109/57 04/17/17 11:45 98 20 109/57 98 Room Air 04/17/17 09:47 36.7 109 18 131/61 97 Room Air General Appearance: WD/WN, no apparent distress Head: normocephalic, atraumatic Eyes: sclerae normal ENT: hearing grossly normal Neck: supple, no JVD, trachea midline Respiratory/Chest: lungs clear, normal breath sounds, no respiratory distress, no accessory muscle use Cardiovascular: regular rate, rhythm, no gallop, + systolic murmur Abdomen/GI: normal bowel sounds, non tender (with light and deep palpation; could not appreciate liver borders), soft Back: no CVA tenderness Extremities/Musculoskelatal: no calf tenderness, no pedal edema Neurologic/Psych: alert, oriented x 3 Skin: normal color, warm/dry Diagnostics Laboratory Results Results Past 24 Hours Test 04/17/17 11:35 04/17/17 11:45 04/17/17 12:15 04/17/17 16:30 Range/Units White Blood Count 4.09 4.8-10.8 K/uL Red Blood Count 3.66 4.2-5.4 M/uL Hemoglobin 10.1 12.0-16.0 g/dL Hematocrit 31.3 37-47 % Mean Corpuscular Volume 85.5 80-100 fL Mean Corpuscular Hemoglobin 27.6 25-34 pg Mean Corpuscular Hemoglobin Concent 32.3 32-36 g/dl Platelet Count 115 130-400 K/uL Mean Platelet Volume 9.8 7.4-10.4 fL Neutrophils (%) (Auto) 67.5 % Lymphocytes (%) (Auto) 24.2 % Monocytes (%) (Auto) 7.6 % Eosinophils (%) (Auto) 0.5 % Basophils (%) (Auto) 0.0 % Neutrophils # (Auto) 2.76 1.4-6.5 K/uL Lymphocytes # (Auto) 0.99 1.2-3.4 K/uL Monocytes # (Auto) 0.31 0.11-0.59 K/uL Eosinophils # (Auto) 0.02 0-0.5 K/uL Basophils # (Auto) 0.00 0-0.2 K/uL RDW Standard Deviation 52.9 36.4-46.3 fL RDW Coefficient of Variation 16.8 11.5-14.5 % Immature Granulocyte % (Auto) 0.2 % Immature Granulocyte # (Auto) 0.01 0.00-0.02 K/uL Prothrombin Time 11.6 9.0-12.0 SECONDS Prothromb Time International Ratio 1.1 0.9-1.1 Activated Partial Thromboplast Time 22.6 21.0-31.0 SECONDS Partial Thromboplastin Ratio 0.9 Sodium Level 138 136-145 mmol/L Potassium Level 4.2 3.5-5.1 mmol/L Chloride Level 104 98-107 mmol/L Carbon Dioxide Level 26 21-32 mmol/L Anion Gap 8.0 17.0 16-25 mmol/L Blood Urea Nitrogen 37 7-18 mg/dl Creatinine 0.75 0.60-1.20 mg/dl Est Creatinine Clear Calc Drug Dose 69.8 ml/min Estimated GFR () 94.9 Estimated GFR (Non- 81.9 BUN/Creatinine Ratio 49.7 10-20 Random Glucose 128 70-99 mg/dl Calcium Level 10.3 8.5-10.1 mg/dl Total Bilirubin 0.5 0.2-1 mg/dl Direct Bilirubin 0.2 0-0.2 mg/dl Aspartate Amino Transf (AST/SGOT) 43 15-37 U/L Alanine Aminotransferase (ALT/SGPT) 46 12-78 U/L Alkaline Phosphatase 97 45-117 U/L Total Protein 7.1 6.4-8.2 gm/dl Albumin 2.9 3.4-5.0 gm/dl Lipase 238 73-393 U/L Bedside Hemoglobin 10.9 12.0-16.0 g/dl Bedside Hematocrit 32 37-47 % Bedside Sodium 138 135-144 mEq/L Bedside Potassium 4.2 3.3-5.0 mEq/L Bedside Chloride 102 101-112 mEq/L Bedside Total CO2 25 24-31 mEq/l Bedside Blood Urea Nitrogen 35 7-18 mg/dl Bedside Creatinine 0.6 0.6-1.3 mg/dl Bedside Glucose (other) 133 70-99 mg/dl Bedside Ionized Calcium (Mus[place]) 1.27 1.12-1.32 mmol/l Urine Color YELLOW Urine Appearance CLEAR CLEAR Urine pH 5.5 4.5-7.5 Urine Specific [place] 1.025 1.000-1.030 Urine Protein NEG NEG Urine Glucose (UA) NEG NEG Urine Ketones 1+ NEG Urine Occult Blood NEG NEG Urine Nitrite NEG NEG Urine Bilirubin NEG NEG Urine Urobilinogen NEG NEG Urine Leukocyte Esterase TRACE NEG Urine WBC (Auto) 1-5 0-5 /hpf Urine RBC (Auto) 0-4 0-4 /hpf Urine Hyaline Casts (Auto) 0 0-5 /lpf Urine Epithelial Cells (Auto) >30 0-5 /lpf Urine Bacteria (Auto) NEG NEG Urine Yeast (Auto) BUDDING NONE PRSENT Microbiology Results 04/17/17 Urine Culture, Received Pending Diagnostic Radiology CT ABD/PELVIS IV CONTRAST ONLY CT DOSE: 673.02 mGy.cm FINDINGS: Lower chest: The heart is normal in size and configuration, without pericardial effusion. The lung bases and pleural spaces are clear. Liver: The liver has a nodular cirrhotic surface consistent with cirrhosis. There are findings suggesting portal venous hypertension with splenomegaly and prominent perisplenic varices. Gallbladder: Surgically absent Spleen: The spleen is enlarged measuring 13 cm. Pancreas: Unremarkable. Adrenal glands: Unremarkable. Kidneys: No solid renal masses are visualized. There is no hydronephrosis. Bowel: There are no transition zone to indicate bowel obstruction. The appendix appears normal. There is no acute diverticulitis. There is mild nonspecific periduodenal edema. Peritoneum: There is no intraperitoneal free air or abdominal ascites. Vasculature: The abdominal aorta is normal in course and caliber. Adenopathy: None. Pelvic viscera: The uterus appears surgically absent. Skeletal structures: No destructive osseous lesions are seen. IMPRESSION: 1. Cirrhotic liver morphology with splenomegaly and prominent perisplenic varices 2. Mild nonspecific infiltration of the fat adjacent to the descending duodenum. A duodenitis cannot be excluded 3. No evidence of bowel obstruction. No evidence of free air 4. Normal appendix. No evidence of acute diverticulitis. EKG Normal sinus rhythm Normal ECG When compared with ECG of 01-SEP-2016 17:48, Right bundle branch block is no longer Present Confirmed by GIANFRANCO OLIVA ([id number]) on 04/17/2017 12:23:25 PM Impression Assessment and Plan Ms. Nolen is a 66 y/o female with PMHx of Steatohepatitis with Cirrhosis, Grade I Esophageal Varices, Chronic Anemia, Hypothyroidism, and MGUS, S/P Cholecystectomy who presents to the ED c/o melena and hematemesis x a few days. GI Bleed with Melena and Hematemesis: Known Grade I Esophageal Varices - H&H Q6H and will transfuse if Hgb < 7 - Protonix gtt and Octreotide bolus/gtt - Clear liquid diet with NPO at midnight for EGD tomorrow - NSS at 80 mL/hr - GI consulted - discussed case with Dr. Ontiveros and recommendations given; plan for EGD tomorrow AM possibly by Dr. Partida Pancytopenia 2/2 Likely Liver Cirrhosis: - Continue to monitor with routine labs Acute Blood Loss Anemia on Chronic Anemia: - Tx as above - hold iron supplement while NPO and with N/V T2DM: - Hold oral anti-diabetics and Lantus with limited oral intake and cover with SSI Hypothyroidism: - Levothyroxine 112 mcg daily when not NPO DVT Prophylaxis: SCDs Code Status: FULL RESUSCITATION Disposition: - Await EGD findings - possible D/C 2-3 days Level of Care Telemetry Advanced Directives Existing Living Will: Yes Existing Power of [employer] Analyst: Yes Resuscitation Status FULL RESUSCITATION VTE Prophylaxis VTE Risk Assessment Done? Y/N: Yes Risk Level: Moderate Given or contraindicated: SCD's Social Service Consult None Apply
[2017-04-17] MEDS ORDERED: OCTREOTIDE ACETATE INJ 100 MCG in SYRINGE 9 ML IV SCH (17:30)
[2017-04-17] MEDS: OCTREOTIDE ACETATE INJ 500 MCG in DEXTROSE 5% 100ML 100 ML IV SCH (18:08)
[2017-04-17] MEDS: PANTOprazole INJ 40 MG in DEXTROSE 5% 100ML IV SCH ×2 (18:08→22:27)
[2017-04-17] MEDS: SODIUM CHLORIDE 0.9% 1000ML 1,000 ML IV SCH (18:08)
[2017-04-17] MEDS: PRAVASTATIN SOD 10 MG TAB PO SCH (21:17)
[2017-04-17] MEDS: INSULIN ASPART 100 UNITS/ML 3 ML PEN SC SCH (21:19)
[2017-04-17 23:10] VITALS: BP 119/66; PULSE 74; TEMP 37; O2SAT 97
[2017-04-17] MEDS: ZOLPIDEM TARTRATE 5 MG TAB PO PRN (23:29)
[2017-04-17] MEDS: ONDANSETRON INJ 2 MG/ML 2 ML VIAL IV PRN (23:32)
[2017-04-18 03:40] VITALS: BP 106/78; PULSE 65; TEMP 36.7; O2SAT 95
[2017-04-18] MEDS: PANTOprazole INJ 40 MG in DEXTROSE 5% 100ML IV SCH ×5 (03:45→23:46)
[2017-04-18] MEDS: OCTREOTIDE ACETATE INJ 500 MCG in DEXTROSE 5% 100ML 100 ML IV SCH ×2 (03:45→13:26)
[2017-04-18 05:21] VITALS: BP 110/64; PULSE 84; TEMP 36.7; O2SAT 99
[2017-04-18] MEDS: LEVOTHYROXINE 112 MCG TAB PO SCH (06:27)
[2017-04-18] MEDS: SODIUM CHLORIDE 0.9% 1000ML 1,000 ML IV SCH ×2 (06:27→18:25)
[2017-04-18 07:31] LABS: HEMATOCRIT 24.2 % (37-47); MEAN CELL VOLUME 84.6 fL (80-100); MEAN CORPUSCULAR HEMOGLOBIN 28.3 pg (25-34); MEAN CORPUSCULAR HGB CONC 33.5 g/dl (32-36); RED BLOOD COUNT 2.86 M/uL (4.2-5.4); WHITE BLOOD COUNT 1.87 K/uL (4.8-10.8)
[2017-04-18 07:41] LABS: MEAN PLATELET VOLUME 9.7 fL (7.4-10.4); PLATELET COUNT 92 K/uL (130-400)
[2017-04-18] MEDS: INSULIN ASPART 100 UNITS/ML 3 ML PEN SC SCH ×4 (07:45→21:08)
[2017-04-18 07:58] LABS: BUN/CREATININE RATIO 30.8 (10-20); CREATININE 0.73 mg/dl (0.60-1.20); POTASSIUM 4.2 mmol/L (3.5-5.1)
[2017-04-18] MEDS: FERROUS SULFATE 325 MG TAB PO SCH (08:00)
[2017-04-18 08:08] VITALS: BP 109/67; PULSE 69; TEMP 36.6; O2SAT 98
[2017-04-18 11:30] VITALS: BP 110/64; PULSE 84; TEMP 36.7; O2SAT 99
[2017-04-18 11:41] LABS: HEMATOCRIT 27.1 % (37-47)
--- NOTE | 2017-04-18 12:32 | Hospitalist Progress Note ---
Hospitalist Progress Note Date of Service Apr 18, 2017. (Diane Pace PA-C) Subjective Pt evaluation today including: conversation w/ patient, conversation w/ family , physical exam, chart review, lab review, review of studies, review of inpatient medication list Patient seen and evaluated. No acute events overnight. Hgb dropped but remaining stable. Vitals stable. Continues to have intermittent abdominal pain but reporting some improvement. Did have episode of emesis last night during revisit but states it was not black. Continues to have melanotic stool. Due for EGD today. Constitutional: No fever, No chills Respiratory: No shortness of breath Cardiovascular: No chest pain, No palpitations Abdomen: + pain (intermittent RUQ), + vomiting (x1 episode last night - resolved), + GI bleeding (melena), No nausea, No diarrhea, No constipation Musculoskeletal: No swelling, No calf pain Female : No dysuria Heme: No abnormal bleeding/bruising (Diane Pace PA-C) Medications Current Inpatient Medications Medications (Trade) Dose Ordered Sig/Gay Route Start Time Stop Time Status Last Admin Dose Admin Ioversol (Optiray 320) 100 ml UD PRN IV 04/17/17 11:15 04/21/17 11:14 Sodium Chloride 1,000 ml @ 80 mls/hr [id number] IV 04/17/17 17:30 05/17/17 17:29 04/18/17 06:27 80 MLS/HR Al Hydrox/Mg Hydrox/Simethicone (Maalox Max Susp) 15 ml Q4H PRN PO 04/17/17 16:30 05/17/17 16:29 Magnesium Hydroxide (Milk Of Magnesia Susp) 30 ml Q12H PRN PO 04/17/17 16:30 05/17/17 16:29 Ondansetron HCl (Zofran Inj) 4 mg Q6H PRN IV 04/17/17 16:30 05/17/17 16:29 04/17/17 23:32 4 MG Polyethylene (Miralax Powder Packet) 17 gm DAILY PRN PO 04/17/17 16:30 05/17/17 16:29 Insulin Aspart (novoLOG ASPART) SLIDING SCALE If C... ACHS SC 04/17/17 21:00 05/17/17 20:59 9/12/17 21:19 2 UNITS Glucose (Glucose 40% Gel) 15-30 GRAMS 15 GRAMS... UD PRN PO 04/17/17 16:30 05/17/17 16:29 Glucose (Glucose Chew Tab) 4-8 Tablets 4 Tabl... UD PRN PO 04/17/17 16:30 05/17/17 16:29 Dextrose (Dextrose 50% 50ML Syringe) 25-50ML OF 50% DW IV FOR... UD PRN IV 04/17/17 16:30 05/17/17 16:29 Glucagon (Glucagon Inj) 1 mg UD PRN SQ 04/17/17 16:30 05/17/17 16:29 Pravastatin Sodium (Pravachol Tab) 10 mg HS PO 04/17/17 21:00 05/17/17 20:59 04/17/17 21:17 10 MG Zolpidem Tartrate (Ambien Tab) 5 mg HS PRN PO 04/17/17 16:30 05/17/17 16:29 04/17/17 23:29 5 MG Ferrous Sulfate (Feosol Tab) 325 mg DAILY PO 04/18/17 09:00 05/18/17 08:59 Morphine Sulfate (MoRPHine SULFATE INJ) 1 mg Q3H PRN IV 04/17/17 16:30 05/01/17 16:29 Morphine Sulfate (MoRPHine SULFATE INJ) 2 mg Q3H PRN IV 04/17/17 16:30 05/01/17 16:29 Levothyroxine Sodium (Synthroid Tab) 112 mcg DAILYBB PO 04/18/17 06:30 05/18/17 06:59 Pantoprazole Sodium 40 mg/ Dextrose 100 ml @ 20 mls/hr Q5H IV 04/17/17 17:30 05/17/17 17:29 04/18/17 08:07 20 MLS/HR Octreotide Acetate 500 mcg/ Dextrose 105 ml @ 10 mls/hr [id number] IV 04/17/17 17:30 05/17/17 17:29 04/18/17 03:45 10 MLS/HR Diphenhydramine HCl (Benadryl Cap) 25 mg HS PRN PO 04/17/17 23:15 05/17/17 23:14 (Diane Pace, MAGGI) Objective Vital Signs Date Time Temp Pulse Resp B/P (MAP) Pulse Ox O2 Delivery O2 Flow Rate FiO2 04/18/17 11:30 36.7 84 16 110/64 (79) 99 Room Air 04/18/17 08:08 36.6 69 16 109/67 (81) 98 Room Air 04/18/17 08:00 Room Air 04/18/17 05:02 Room Air 04/18/17 04:00 Room Air 04/18/17 03:40 36.7 65 16 106/78 (87) 95 Room Air 04/18/17 00:05 Room Air 04/17/17 23:10 37.0 74 18 119/66 (83) 97 Room Air 04/17/17 20:05 Room Air 04/17/17 17:17 37.0 83 16 131/71 (91) 98 Room Air 04/17/17 16:53 37.2 68 18 130/56 97 Room Air 04/17/17 16:18 Room Air 04/17/17 15:26 90 18 129/76 100 Room Air 04/17/17 14:51 90 16 119/63 98 Room Air 04/17/17 13:31 88 13 04/17/17 13:16 87 13 04/17/17 13:06 133/62 97 Room Air 04/17/17 13:05 133/62 04/17/17 13:01 97 13 04/17/17 12:56 91 13 96 04/17/17 12:41 95 12 94 (Diane Pace PA-C) Physical Exam General Appearance: WD/WN, no apparent distress Eyes: sclerae normal ENT: hearing grossly normal Neck: supple, no JVD, trachea midline Respiratory/Chest: lungs clear, normal breath sounds, no respiratory distress, no accessory muscle use Cardiovascular: regular rate, rhythm, no gallop, + systolic murmur Abdomen: normal bowel sounds, non tender, soft Extremities: no pedal edema, no calf tenderness Neurologic/Psychiatric: alert, oriented x 3 Skin: normal color, warm/dry (Diane Pace PA-C) Laboratory Results Last 24 Hours Test 04/17/17 16:50 04/17/17 20:57 04/17/17 22:39 04/18/17 06:46 Hemoglobin 9.0 g/dL 8.6 g/dL 8.1 g/dL Hematocrit 28.1 % 27.0 % 24.2 % Bedside Glucose 224 mg/dl White Blood Count 1.87 K/uL Red Blood Count 2.86 M/uL Mean Corpuscular Volume 84.6 fL Mean Corpuscular Hemoglobin 28.3 pg Mean Corpuscular Hemoglobin Concent 33.5 g/dl RDW Standard Deviation 52.9 fL RDW Coefficient of Variation 17.0 % Platelet Count 92 K/uL Mean Platelet Volume 9.7 fL Sodium Level 143 mmol/L Potassium Level 4.2 mmol/L Chloride Level 111 mmol/L Carbon Dioxide Level 26 mmol/L Anion Gap 6.0 mmol/L Blood Urea Nitrogen 22 mg/dl Creatinine 0.73 mg/dl Est Creatinine Clear Calc Drug Dose 72.4 ml/min Estimated GFR () 98.1 Estimated GFR (Non- 84.6 BUN/Creatinine Ratio 30.8 Random Glucose 128 mg/dl Calcium Level 8.0 mg/dl Magnesium Level 2.0 mg/dl Vitamin B12 Level 645 pg/mL Folate 17.67 ng/mL Test 04/18/17 07:02 04/18/17 11:09 04/18/17 11:24 Bedside Glucose 137 mg/dl 149 mg/dl Hemoglobin 8.7 g/dL Hematocrit 27.1 % (Diane Pace, PA-C) Assessment and Plan Ms. Nolen is a 66 y/o female with PMHx of Steatohepatitis with Cirrhosis, Grade I Esophageal Varices, Chronic Anemia, Hypothyroidism, and MGUS, S/P Cholecystectomy who presents to the ED c/o melena and hematemesis x a few days. GI Bleed with Melena and Hematemesis: Known Grade I Esophageal Varices - Hemoglobin stable in 8s. Continue to monitor and transfuse if < 7 - Protonix gtt and Octreotide bolus/gtt - NSS at 80 mL/hr - GI following - due for EGD today by Dr. Partida Pancytopenia 2/2 Likely Liver Cirrhosis: - Continue to monitor with routine labs Acute Blood Loss Anemia on Chronic Anemia: - Tx as above - hold iron supplement while NPO and with N/V T2DM: - Hold oral anti-diabetics and Lantus with limited oral intake and cover with SSI Hypothyroidism: - Levothyroxine 112 mcg daily when not NPO DVT Prophylaxis: SCDs Code Status: FULL RESUSCITATION Disposition: - Await EGD findings - treatment based on findings - possible D/C 1-2 days Continued [facility] stay due to: multiple IV medications needed Discharge planning: home (Diane Pace, PAAlirezaC) Reviewed: Pt Seen/Exam by Me (Amber [place], ) History Pt is very upset that she has had to wait for her EGD. Her only other concern is UE itching that has been ongoing since admission. She states that she did not report it to anyone "because I didn't want it to delay my test". No abd pain , n/v. Had continued to have black stools. Agree with HPI/ROS as noted. (Amber Rock, ) General Appearance: WD/WN, no apparent distress Respiratory: normal breath sounds, no respiratory distress Cardiovascular: normal peripheral pulses, regular rate, rhythm Gastrointestinal: non tender, soft Extremities: non-tender, no pedal edema Neurologic/Psychiatric: alert, oriented x 3 Skin Characteristics: normal color, warm/dry (Amber Rock, ) Assessment/Plan Agree with plan as outlined above EGD pending Hx of varices IV benadryl for itching (Amber Rock, )
[2017-04-18] MEDS ORDERED: DiphenhydrAMINE INJ 25 MG in SYRINGE 0 ML IV ONE (13:15)
[2017-04-18] MEDS ORDERED: DiphenhydrAMINE HCL 50 MG/ML VIAL IV ONE (13:45)
[2017-04-18] MEDS ORDERED: LIDOCAINE HCL 2% 2 ML VIAL (20MG/ML) ONE (15:32)
[2017-04-18] MEDS ORDERED: PROPOFOL IV EMULSION 10 MG/ML 20 ML VIAL IV ONE ×2 (15:32→16:15)
--- NOTE | 2017-04-18 15:32 | History & Physical Bridge Note ---
H&P Re-Evaluation Bridge Note: I have examined the patient, reviewed the History & Physical and in the interval since the performance of the History & Physical I have noted the following changes of clinical significance: No changes noted For EGD for melena- hx portal HTN
[2017-04-18 16:00] VITALS: O2SAT 100
--- NOTE | 2017-04-18 16:22 | GI REPORT ---
Procedure Date: 04/18/2017 3:39 PM Procedure: Upper GI endoscopy Indications: Coffee-ground emesis, Melena Medicines: Propofol per Anesthesia Complications: No immediate complications. Estimated blood loss: None. Estimated Blood Loss: Estimated blood loss: none. Procedure: Pre-Anesthesia Assessment: - Prior to the procedure, a History and Physical was performed, and patient medications and allergies were reviewed. The patient's tolerance of previous anesthesia was also reviewed. The risks and benefits of the procedure and the sedation options and risks were discussed with the patient. All questions were answered, and informed consent was obtained. Prior Anticoagulants: The patient has taken no previous anticoagulant or antiplatelet agents. ASA Grade Assessment: II - A patient with mild systemic disease. After reviewing the risks and benefits, the patient was deemed in satisfactory condition to undergo the procedure. After obtaining informed consent, the endoscope was passed under direct vision. Throughout the procedure, the patient's blood pressure, pulse, and oxygen saturations were monitored continuously. The scope was introduced through the mouth, and advanced to the second part of duodenum. The upper GI endoscopy was accomplished without difficulty. The patient tolerated the procedure well. Findings: The upper third of the esophagus was normal. Two columns of non-bleeding grade II varices were found in the middle third of the esophagus, in the lower third of the esophagus and at the gastroesophageal junction, 35 to 39 cm from the incisors. They were 3 mm in largest diameter. No stigmata of recent bleeding were evident and red santos signs were present. Two bands were successfully placed with complete eradication, resulting in deflation of varices. There was no bleeding during, and at the end, of the procedure. Mild portal hypertensive gastropathy was found in the gastric fundus and in the gastric body. The exam of the stomach was otherwise normal. The examined duodenum was normal. Retained gastric contents are not identified on this exam. The cardia and gastric fundus were otherwise normal on retroflexion. Impression: - Normal upper third of esophagus. - Non-bleeding grade II esophageal varices. Completely eradicated. Banded. - Portal hypertensive gastropathy. - Normal examined duodenum. - No specimens collected. Recommendation: - [facility]. - Full liquid diet today. - Repeat the upper endoscopy in 4 weeks per protocol. - Return to GI clinic as previously scheduled. - If Hb remains stable, can consider d/c octreotide. Non selective beta osvaldo for portal HTN can be considered. MD Gilberto Louis MD 04/18/2017 4:21:26 PM This report has been signed electronically. Note Initiated On: 04/18/2017 3:39 PM I attest to the content of the Intraoperative Record and orders documented therein, exceptions below
[2017-04-18] MEDS: MoRPHine SULFATE 2 MG/ML CARP IV PRN ×2 (17:31→22:02)
--- NOTE | 2017-04-18 17:41 | Anesthesiology Progress Note ---
Anesthesia Post Op Note Date & Time Apr 18, 2017 at 17:41 Vital Signs Pain Intensity: 8.0 Vital Signs Past 12 Hours Date Time Temp Pulse Resp B/P (MAP) Pulse Ox O2 Delivery O2 Flow Rate FiO2 04/18/17 16:47 67 16 121/80 (94) 97 Room Air 04/18/17 16:33 75 16 115/69 (84) 98 Room Air 04/18/17 16:24 69 16 128/79 (95) 98 Room Air 04/18/17 16:19 67 18 128/66 (86) 99 Room Air 04/18/17 16:00 100 Room Air 04/18/17 14:52 37 72 18 107/61 (76) 100 Room Air 04/18/17 12:00 Room Air 04/18/17 11:30 36.7 84 16 110/64 (79) 99 Room Air 04/18/17 08:08 36.6 69 16 109/67 (81) 98 Room Air 04/18/17 08:00 Room Air Notes Mental Status: alert / awake / arousable, participated in evaluation Pt Amnestic to Procedure: Yes Nausea / Vomiting: adequately controlled Pain: adequately controlled Airway Patency, RR, SpO2: stable & adequate BP & HR: stable & adequate Hydration State: stable & adequate Anesthetic Complications: no major complications apparent
[2017-04-18 20:00] VITALS: BP 126/57; PULSE 58; TEMP 36.7; O2SAT 100; O2SAT 97
[2017-04-18] MEDS: PRAVASTATIN SOD 10 MG TAB PO SCH (21:03)
[2017-04-19] VITALS (7 sets, daily range): BP systolic 94–152; BP diastolic 52–76; PULSE 65–80; TEMP 36.6–36.9; O2SAT 92–100
--- NOTE | 2017-04-19 00:11 | GASTROINTESTINAL CONSULTATION ---
DATE OF CONSULTATION: 04/18/2017 INDICATION: Coffee-ground emesis, now in history of portal hypertension and cirrhosis. HISTORY OF PRESENT ILLNESS: Ms. Nolen is a 66-year-old white female with a history of SHARMA with cirrhosis and prior upper endoscopy that revealed grade 1 esophageal varices along with chronic anemia, hypothyroidism, MGUS, and status post cholecystectomy. Her most recent upper endoscopy was in [place] in September 2016, where she had a GI bleeding event. At that time she does not recall any band ligation performed. She reports melena and hematemesis over the past couple days as well as an increasing level of fatigue and abdominal pain. The pain itself has been present off and on intermittently for the last couple months, that this may have intensified during this recent presentation to the ER. The patient reports weight loss in addition to a melenic stool, she had episodes of black emesis. The patient does not use NSAIDs or aspirin and does not use alcoholic beverages. She does use iron products. In 2014, patient had evidence of grade 1 esophageal varices. There was also a history of ischemic colitis. PAST MEDICAL HISTORY: Type 2 diabetes mellitus, anemia, SHARMA with cirrhosis, history of portal hypertension with prior grade I esophageal varices, hypothyroidism, Chiari malformation suboccipital craniotomy, cholecystectomy, tonsillectomy, and total hysterectomy. FAMILY HISTORY: Significant for diabetes but no specific liver diseases reported by patient. SOCIAL HISTORY: The patient denies tobacco use. Does not use alcoholic beverages. She is and lives with her family. She is retired. ALLERGIES: No known drug allergies. HOME MEDICATIONS: Include vitamin D3, vitamin C, iron tablets daily, glipizide, hydrochlorothiazide, insulin Glargine, levothyroxine, metformin, multivitamins, pravastatin. REVIEW OF SYSTEMS: Otherwise noncontributory based on 13-point exam except for mentioned above. She denies odynophagia, dysphagia, dysuria or hematuria. PHYSICAL EXAMINATION: VITAL SIGNS: On admission BP 131/61, heart rate 109, respirations 18, 97% on room air, 36.7 temperature. Subsequent values prior to endoscopy today revealed afebrile status at 36.7, blood pressure 110/64, respirations 16, heart rate 84, 99% on room air. The patient before endoscopy was interviewed and examined. GENERAL: The patient is awake, alert and oriented x3. HEENT: Sclerae are anicteric, conjunctiva moist. Oral mucosa moist. NEUROLOGIC: Nonfocal. The patient has normal range of motion in all extremities. HEART: Normal S1, S2. LUNGS: Clear to auscultation. ABDOMEN: Soft, nontender, nondistended with good bowel sounds. There is no rebound or guarding. I do not appreciate hepatosplenomegaly. There is no apparent ascites or shifting dullness. EXTREMITIES: Without clubbing, cyanosis or edema. I do not appreciate asterixis at this time. RECTAL: Deferred. LABORATORY STUDIES: On admission show white count 4, hemoglobin 10.1, MCV 85, platelets are 115,000. Hemoglobin on admission was 10.1 and prior to endoscopy today was 8.7. The patient did not receive any packed red blood cells. Serum chemistries; B12 and folic acid levels were in normal range. BUN and creatinine were elevated on admission at 37 and 0.75; after hydration and 18 hours later BUN was 22 and 0.73. Calcium is 8.0. LFTs show AST 43, ALT 46, alkaline phosphatase 97, albumin 2.9, lipase 238, total protein 7.1, total and direct bilirubin of 0.5 and 0.2 respectively. Hepatitis C antibody screen was negative. Imaging performed yesterday 04/17/2017 revealed a nodular cirrhotic surface of the liver, also changes of portal venous hypertension with splenomegaly and prominent perisplenic varices. There may be possible duodenitis in the descending duodenum. No evidence for bowel obstruction, diverticulitis, or appendicitis. Uterus is surgically absent. There was no evidence of ascites or free air on CT scan of the abdominal peritoneum. IMPRESSION: The patient with a history of nonalcoholic steatohepatitis cirrhosis with episodes of gastrointestinal bleeding in [place] in September 2016 and again during this admission through the Emergency Room. In the past, patient also had grade 1 esophageal varices. Differential includes portal hypertension, bleeding from portal gastropathy or esophageal or gastric varices as well as gastritis or possibly peptic ulcer disease, although there is no NSAID use. I made the following recommendations. EGD which was performed and did show evidence of 2-channel esophageal varices that did not flatten with insufflation (grade II) for which bands were placed distally just at the Z line with good obliteration of proximal variceal changes above the banding sites. The stomach had a mild pattern of portal gastropathy. There was no evidence for ulceration, blood in the stomach or esophagus, and the duodenum appeared normal. The patient was on with octreotide as well as a PPI drip. Based on these findings and the lack of any bleeding after band ligation today, I believe octreotide can be withdrawn. PPI should be continued. Consideration for a nonselective beta osvaldo if tolerated is prudent to reduce portal hypertension; this would be propranolol, nadolol, or carvedilol. These should be carefully titrated to heart rate with an approximate 20% reduction at baseline or to strive for heart rate of around 55-60. The patient will require repeat banding session in 4 weeks to ensure that the varices are obliterated in the esophagus or additional application as warranted. We will continue to follow with you. Would monitor hemoglobin daily serially. The patient can have a liquid diet this evening and this can be slowly advanced as tolerated. The patient is aware that the placement of the bands can sometimes lead to chest discomfort, particularly on the first banding session. All questions answered. MTDD
[2017-04-19] MEDS: OCTREOTIDE ACETATE INJ 500 MCG in DEXTROSE 5% 100ML 100 ML IV SCH (01:32)
[2017-04-19] MEDS: PANTOprazole INJ 40 MG in DEXTROSE 5% 100ML IV SCH ×4 (04:37→19:57)
[2017-04-19] MEDS: LEVOTHYROXINE 112 MCG TAB PO SCH (06:08)
[2017-04-19] MEDS: INSULIN ASPART 100 UNITS/ML 3 ML PEN SC SCH ×4 (06:30→21:05)
[2017-04-19] MEDS: SODIUM CHLORIDE 0.9% 1000ML 1,000 ML IV SCH (06:32)
[2017-04-19] MEDS: FERROUS SULFATE 325 MG TAB PO SCH (08:57)
[2017-04-19 10:33] LABS: MEAN CELL VOLUME 87.1 fL (80-100); MEAN CORPUSCULAR HEMOGLOBIN 27.2 pg (25-34); MEAN CORPUSCULAR HGB CONC 31.2 g/dl (32-36); RED BLOOD COUNT 2.87 M/uL (4.2-5.4)
[2017-04-19 10:45] LABS: MEAN PLATELET VOLUME 8.9 fL (7.4-10.4); PLATELET COUNT 90 K/uL (130-400)
[2017-04-19 11:16] LABS: BUN/CREATININE RATIO 14.7 (10-20); CREATININE 0.81 mg/dl (0.60-1.20); POTASSIUM 4.1 mmol/L (3.5-5.1)
[2017-04-19 11:32] LABS: PLT ESTIMATE DECREASED
[2017-04-19] MEDS ORDERED: COUGH DROP (SUGAR FREE) LOZ 24 LOZ/1 BOX PO PRN (12:00)
--- NOTE | 2017-04-19 13:34 | Hospitalist Progress Note ---
Hospitalist Progress Note Date of Service Apr 19, 2017. (Diane Pace PA-C) Subjective Pt evaluation today including: conversation w/ patient, physical exam, chart review, lab review, review of studies, review of inpatient medication list Patient seen and evaluated. No acute events overnight. EGD with grade II esophageal varices but not evidence of recent bleeding but were banded. Hemoglobin dropped to 7.8 but is asymptomatic and will recheck this afternoon. Reporting some irritative sore throat but no further emesis. Constitutional: No fever, No chills Cardiovascular: No chest pain, No palpitations Abdomen: No pain, No nausea, No vomiting Musculoskeletal: No swelling, No calf pain Female : No dysuria Heme: No abnormal bleeding/bruising (Diane Pace PA-C) Medications Current Inpatient Medications Medications (Trade) Dose Ordered Sig/Gay Route Start Time Stop Time Status Last Admin Dose Admin Ioversol (Optiray 320) 100 ml UD PRN IV 04/17/17 11:15 04/21/17 11:14 Sodium Chloride 1,000 ml @ 80 mls/hr [id number] IV 04/17/17 17:30 05/17/17 17:29 04/19/17 06:32 80 MLS/HR Al Hydrox/Mg Hydrox/Simethicone (Maalox Max Susp) 15 ml Q4H PRN PO 04/17/17 16:30 05/17/17 16:29 Magnesium Hydroxide (Milk Of Magnesia Susp) 30 ml Q12H PRN PO 04/17/17 16:30 05/17/17 16:29 Ondansetron HCl (Zofran Inj) 4 mg Q6H PRN IV 04/17/17 16:30 05/17/17 16:29 04/17/17 23:32 4 MG Polyethylene (Miralax Powder Packet) 17 gm DAILY PRN PO 04/17/17 16:30 05/17/17 16:29 Insulin Aspart (novoLOG ASPART) SLIDING SCALE If C... ACHS SC 04/17/17 21:00 05/17/17 20:59 04/18/17 21:08 2 UNITS Glucose (Glucose 40% Gel) 15-30 GRAMS 15 GRAMS... UD PRN PO 04/17/17 16:30 05/17/17 16:29 Glucose (Glucose Chew Tab) 4-8 Tablets 4 Tabl... UD PRN PO 04/17/17 16:30 05/17/17 16:29 Dextrose (Dextrose 50% 50ML Syringe) 25-50ML OF 50% DW IV FOR... UD PRN IV 04/17/17 16:30 05/17/17 16:29 Glucagon (Glucagon Inj) 1 mg UD PRN SQ 04/17/17 16:30 05/17/17 16:29 Pravastatin Sodium (Pravachol Tab) 10 mg HS PO 04/17/17 21:00 05/17/17 20:59 04/18/17 21:03 10 MG Zolpidem Tartrate (Ambien Tab) 5 mg HS PRN PO 04/17/17 16:30 05/17/17 16:29 04/17/17 23:29 5 MG Ferrous Sulfate (Feosol Tab) 325 mg DAILY PO 04/18/17 09:00 05/18/17 08:59 04/19/17 08:57 325 MG Morphine Sulfate (MoRPHine SULFATE INJ) 1 mg Q3H PRN IV 04/17/17 16:30 05/01/17 16:29 Morphine Sulfate (MoRPHine SULFATE INJ) 2 mg Q3H PRN IV 04/17/17 16:30 05/01/17 16:29 04/18/17 22:02 2 MG Levothyroxine Sodium (Synthroid Tab) 112 mcg DAILYBB PO 04/18/17 06:30 05/18/17 06:59 04/19/17 06:08 112 MCG Pantoprazole Sodium 40 mg/ Dextrose 100 ml @ 20 mls/hr Q5H IV 04/17/17 17:30 05/17/17 17:29 04/19/17 08:58 20 MLS/HR Diphenhydramine HCl (Benadryl Cap) 25 mg HS PRN PO 04/17/17 23:15 05/17/17 23:14 Menthol (Nice [place]ura) 1 ventura Q1H PRN PO 04/19/17 12:00 05/19/17 11:59 (Diane Pace, MAGGI) Objective Vital Signs Date Time Temp Pulse Resp B/P (MAP) Pulse Ox O2 Delivery O2 Flow Rate FiO2 04/19/17 11:24 36.8 71 18 126/69 (88) 98 Room Air 04/19/17 07:36 36.9 66 18 110/61 (77) 95 Room Air 04/19/17 05:41 36.6 73 18 122/68 (86) 92 Room Air 04/19/17 04:00 Room Air 04/19/17 00:15 36.8 65 18 94/59 (71) 95 Room Air 04/19/17 00:00 Room Air 04/18/17 20:00 100 Room Air 04/18/17 20:00 36.7 58 18 126/57 (80) 97 Room Air 04/18/17 16:47 67 16 121/80 (94) 97 Room Air 04/18/17 16:33 75 16 115/69 (84) 98 Room Air 04/18/17 16:24 69 16 128/79 (95) 98 Room Air 04/18/17 16:19 67 18 128/66 (86) 99 Room Air 04/18/17 16:00 100 Room Air 04/18/17 14:52 37 72 18 107/61 (76) 100 Room Air (Diane Pace, PA-C) Physical Exam General Appearance: WD/WN, no apparent distress Eyes: sclerae normal ENT: hearing grossly normal Neck: supple, no JVD, trachea midline Respiratory/Chest: lungs clear, normal breath sounds, no respiratory distress, no accessory muscle use Cardiovascular: regular rate, rhythm, no gallop, + systolic murmur Abdomen: normal bowel sounds, non tender, soft Extremities: no pedal edema, no calf tenderness Neurologic/Psychiatric: alert, oriented x 3 Skin: normal color, warm/dry (Diane Pace, PA-C) Laboratory Results Last 24 Hours Test 04/18/17 16:59 04/18/17 20:23 04/19/17 05:58 04/19/17 07:47 Bedside Glucose 126 mg/dl 232 mg/dl 158 mg/dl Sodium Level 140 mmol/L Potassium Level 4.1 mmol/L Chloride Level 109 mmol/L Carbon Dioxide Level 25 mmol/L Anion Gap 6.0 mmol/L Blood Urea Nitrogen 12 mg/dl Creatinine 0.81 mg/dl Est Creatinine Clear Calc Drug Dose 65.0 ml/min Estimated GFR () 86.5 Estimated GFR (Non- 74.6 BUN/Creatinine Ratio 14.7 Random Glucose 269 mg/dl Calcium Level 8.0 mg/dl Test 04/19/17 10:10 04/19/17 11:36 White Blood Count 2.00 K/uL Red Blood Count 2.87 M/uL Hemoglobin 7.8 g/dL Hematocrit 25.0 % Mean Corpuscular Volume 87.1 fL Mean Corpuscular Hemoglobin 27.2 pg Mean Corpuscular Hemoglobin Concent 31.2 g/dl RDW Standard Deviation 55.2 fL RDW Coefficient of Variation 17.3 % Platelet Count 90 K/uL Mean Platelet Volume 8.9 fL Platelet Estimate DECREASED Bedside Glucose 241 mg/dl (Diane Pace PA-C) Assessment and Plan Ms. Nolen is a 66 y/o female with PMHx of Steatohepatitis with Cirrhosis, Grade I Esophageal Varices, Chronic Anemia, Hypothyroidism, and MGUS, S/P Cholecystectomy who presents to the ED c/o melena and hematemesis x a few days. GI Bleed with Melena and Hematemesis: Known Esophageal Varices - Hemoglobin at 7.8 and will recheck today. Continue to monitor and transfuse if < 7 - EGD with grade II esophageal varices with bands placed - no signs of recent bleeding but some red santos signs present - Protonix gtt and will D/C Octreotide at this time - GI following - plan for F/U EGD in 4 weeks Pancytopenia 2/2 Likely Liver Cirrhosis: - Continue to monitor with routine labs Acute Blood Loss Anemia on Chronic Anemia: - Continue iron supplementation T2DM: - Hold oral anti-diabetics and Lantus with limited oral intake and cover with SSI Hypothyroidism: - Levothyroxine 112 mcg daily when not NPO DVT Prophylaxis: SCDs Code Status: FULL RESUSCITATION Disposition: - Await repeat Hgb - will await GI input for diet advancement - possible D/C tomorrow Continued [facility] stay due to: multiple IV medications needed Discharge planning: home (Diane Pace PA-C) I examined patient and agree with the SOAP note. Physical Exam General Appearance: WD/WN, no apparent distress Eyes: sclerae normal ENT: hearing grossly normal Neck: supple, no JVD, trachea midline Respiratory/Chest: lungs clear, normal breath sounds, no respiratory distress, no accessory muscle use Cardiovascular: regular rate, rhythm, no gallop, + systolic murmur Abdomen: normal bowel sounds, non tender, soft Extremities: no pedal edema, no calf tenderness Neurologic/Psychiatric: alert, oriented x 3 Skin: normal color, warm/dry I reviewed the A/P and discussed plan with APC. I agree with this plan (Cuate Warren M.D.)
[2017-04-19 15:07] LABS: HEMATOCRIT 27.8 % (37-47)
[2017-04-19] MEDS: MoRPHine SULFATE 2 MG/ML CARP IV PRN (16:27)
--- NOTE | 2017-04-19 16:47 | GASTROENTEROLOGY PROGRESS NOTE ---
DATE: 04/19/2017 SUBJECTIVE: The patient underwent an EGD yesterday for GI bleeding with detection of grade 2 esophageal varices and underwent banding with a band ligation with 2 bands. The patient is experience some chest discomfort, which is not unexpected following band placement. This seemed to control with the use of morphine. She is tolerating liquid and cream of wheat. She has had no melena, bright red blood per rectum, hematemesis or coffee-ground emesis since admission. Her laboratory studies this morning show a hemoglobin of 7.8, white count 2.0, and platelets 90,000. However, repeat hemoglobin at 03:00 p.m. was 8.7 without transfusions. MEDICATIONS: Reviewed. Octreotide was discontinued. PPI is continued. REVIEW OF SYSTEMS: Otherwise noncontributory based on 13-point exam. PHYSICAL EXAMINATION: VITAL SIGNS: Today blood pressure is 131/75, respirations 18, heart rate 77, afebrile at 36.9 and saturations 99% on room air. HEART: Normal S1 and S2. LUNGS: Clear to auscultation. ABDOMEN: Soft, nontender, and nondistended with good bowel sounds. EXTREMITIES: Without clubbing or cyanosis. Trace edema is noted. RECTAL: Deferred. IMPRESSION AND PLAN: The patient is with a history of nonalcoholic steatohepatitis cirrhosis with portal hypertension and grade 2 esophageal varices and underwent band ligation yesterday. There is no evidence of ongoing bleeding and except for some discomfort with swallowing and esophageal spasms, the patient is otherwise doing well. I made the following recommendations. Would check hemoglobin tomorrow and if stable, it is reasonable to discharge the patient. I will arrangements for the patient to follow up with Dr. Ontiveros over the next few weeks with band ligation per protocol in 4 weeks. A nonselective beta osvaldo could be considered provided that the patient can tolerate affects on heart rate and blood pressure. If needed either topical viscous Xylocaine or a GI cocktail, may relieve some of the spasms occurring in the chest. Would avoid extremes in temperature and citrus or acidic base foods. PPI should be continued. MTDD
[2017-04-19] MEDS: PRAVASTATIN SOD 10 MG TAB PO SCH (19:56)
[2017-04-19] MEDS: ZOLPIDEM TARTRATE 5 MG TAB PO PRN (23:11)
[2017-04-20] MEDS: PANTOprazole INJ 40 MG in DEXTROSE 5% 100ML IV SCH ×3 (00:49→10:35)
[2017-04-20 04:29] VITALS: BP 136/73; PULSE 70; TEMP 36.9; O2SAT 97
[2017-04-20] MEDS: LEVOTHYROXINE 112 MCG TAB PO SCH (05:31)
[2017-04-20 07:17] LABS: HEMATOCRIT 25.6 % (37-47); MEAN CELL VOLUME 85.9 fL (80-100); MEAN CORPUSCULAR HEMOGLOBIN 27.5 pg (25-34); RED BLOOD COUNT 2.98 M/uL (4.2-5.4); WHITE BLOOD COUNT 2.38 K/uL (4.8-10.8)
[2017-04-20] MEDS: ONDANSETRON INJ 2 MG/ML 2 ML VIAL IV PRN (07:28)
[2017-04-20 07:29] LABS: PLATELET COUNT 85 K/uL (130-400)
[2017-04-20 07:35] VITALS: BP 122/68; PULSE 74; TEMP 36.8; O2SAT 95
[2017-04-20 07:52] LABS: BUN/CREATININE RATIO 10.6 (10-20); CALCIUM 8.3 mg/dl (8.5-10.1); CREATININE 0.67 mg/dl (0.60-1.20); POTASSIUM 3.9 mmol/L (3.5-5.1)
[2017-04-20 08:00] VITALS: O2SAT 95
[2017-04-20] MEDS: FERROUS SULFATE 325 MG TAB PO SCH (08:36)
[2017-04-20] MEDS: INSULIN ASPART 100 UNITS/ML 3 ML PEN SC SCH ×2 (08:36→13:02)
[2017-04-20 12:03] VITALS: BP 123/73; PULSE 85; TEMP 37; O2SAT 100
[2017-04-20] MEDS ORDERED: PANT1TAB48 PO (16:10)
[2017-04-20] MEDS ORDERED: PROP60CA PO (16:10)
--- NOTE | 2017-04-20 16:15 | Discharge Instructions ---
Discharge Instructions Date of Service Apr 20, 2017. Admission Reason for Admission: Gi Bleed Discharge Discharge Diagnosis / Problem: Grade 2 Esophageal Varices 2nd to SHARMA Discharge Goals Goal(s): Improve function, Increase independence Activity Recommendations Activity Limitations: resume your previous activity Get up slowly from bed as medication will decrease heart rate reflex. . Instructions / Follow-Up Instructions / Follow-Up F/U in 4 weeks with gastro f/u WITH PCP in 7 days or less Current Hospital Diet Patient's current hospital diet: Regular Diet Discharge Diet Recommended Diet: Regular Diet Procedures Procedures Performed: EGD Pending Studies Studies pending at discharge: no Laboratory Results Test 04/17/17 11:35 04/17/17 11:45 04/17/17 12:15 04/18/17 06:46 Immature Granulocyte % (Auto) 0.2 White Blood Count 4.09 Red Blood Count 3.66 Hemoglobin 10.1 Hematocrit 31.3 Mean Corpuscular Volume 85.5 Mean Corpuscular Hemoglobin 27.6 Mean Corpuscular Hemoglobin Concent 32.3 Platelet Count 115 Mean Platelet Volume 9.8 Neutrophils (%) (Auto) 67.5 Lymphocytes (%) (Auto) 24.2 Monocytes (%) (Auto) 7.6 Eosinophils (%) (Auto) 0.5 Basophils (%) (Auto) 0.0 Neutrophils # (Auto) 2.76 Lymphocytes # (Auto) 0.99 Monocytes # (Auto) 0.31 Eosinophils # (Auto) 0.02 Basophils # (Auto) 0.00 Immature Granulocyte # (Auto) 0.01 Prothrombin Time 11.6 Prothrombin Time INR 1.1 PTT 22.6 Partial Thromboplastin Ratio 0.9 Total Bilirubin 0.5 Direct Bilirubin 0.2 Aspartate Amino Transferase (AST) 43 Alanine Aminotransferase (ALT) 46 Alkaline Phosphatase 97 Total Protein 7.1 Albumin 2.9 Lipase 238 Hepatitis C Antibody Screen NEG POC Hemoglobin 10.9 POC Hematocrit 32 POC Sodium 138 POC Potassium 4.2 POC Chloride 102 POC Total CO2 25 POC Blood Urea Nitrogen 35 POC Creatinine 0.6 POC Glucose 133 POC Ionized Calcium ([place]) 1.27 Urine Color YELLOW Urine Appearance CLEAR Urine pH 5.5 Urine Specific [place] 1.025 Urine Protein NEG Urine Glucose (UA) NEG Urine Ketones 1+ Urine Occult Blood NEG Urine Nitrite NEG Urine Bilirubin NEG Urine Urobilinogen NEG Urine Leukocyte Esterase TRACE Urine WBC (Auto) 1-5 Urine RBC (Auto) 0-4 Urine Hyaline Casts (Auto) 0 Urine Epithelial Cells (Auto) >30 Urine Bacteria (Auto) NEG Urine Yeast (Auto) BUDDING Magnesium Level 2.0 Vitamin B12 Level 645 Folate 17.67 Test 04/19/17 05:58 04/19/17 10:10 04/19/17 14:57 04/20/17 07:04 Sodium Level 140 139 Potassium Level 4.1 3.9 Chloride Level 109 108 Carbon Dioxide Level 25 27 Anion Gap 6.0 4.0 Blood Urea Nitrogen 12 7 Creatinine 0.81 0.67 Est Creatinine Clear Calc Drug Dose 65.0 78.6 Estimated GFR () 86.5 104.7 Estimated GFR (Non- 74.6 90.3 BUN/Creatinine Ratio 14.7 10.6 Random Glucose 269 172 Calcium Level 8.0 8.3 White Blood Count 2.00 2.38 Red Blood Count 2.87 2.98 Mean Corpuscular Volume 87.1 85.9 Mean Corpuscular Hemoglobin 27.2 27.5 Mean Corpuscular Hemoglobin Concent 31.2 32.0 RDW Standard Deviation 55.2 52.5 RDW Coefficient of Variation 17.3 16.8 Platelet Count 90 85 Mean Platelet Volume 8.9 9.0 Platelet Estimate DECREASED Hemoglobin 8.7 8.2 Hematocrit 27.8 25.6 POC Glucose 177 Test 04/20/17 11:32 POC Glucose 213 Medical Emergencies . Who to Call and When: Medical Emergencies: If at any time you feel your situation is an emergency, please call 911 immediately. . Non-Emergent Contact Non-Emergency issues call your: Primary Care Provider Call Non-Emergent contact if: you have any medication questions dizzy, blood in stool or sputum, or dark stools . "Provider Documentation" section prepared by Cuate Warren. . VTE Core Measure Inpt VTE Proph given/why not?: SCD's
[2017-04-20 16:23] VITALS: BP 123/73; PULSE 85; TEMP 37; O2SAT 100
--- NOTE | 2017-04-20 22:39 | Discharge Summary ---
Discharge Summary Date of Service Apr 20, 2017. Discharge Summary Admission Date: Apr 17, 2017 at 16:37 Discharge Date: Apr 20, 2017 Discharge Disposition: Home Principal Diagnosis: GI Bleed with Melena and Hematemesis: Known Esophageal Varices Problems/Secondary Diagnoses: CIRRHOSIS Immunizations: Have You Had Influenza Vaccine: N/A Influenza Vaccine Date: Oct 29, 2009 History of Tetanus Vaccine?: No History of Pneumococcal: No History of Hepatitis B Vaccine: No Medication Reconciliation New Medications: Pantoprazole (Protonix) 40 Mg Tab 40 MG PO DAILY for 30 Days, #30 TAB Propranolol HCl (Propranolol HCl ER) 60 Mg Capcr 1 CAP PO DAILY for 30 Days, #30 CAP 1 Refill Continued Medications: Cholecalciferol (Vitamin D3) 1,000 Unit Tab 1000 UNITS PO DAILY for 90 Days, TAB 3 Refills Collagen-Vitamin C (Collagen Plus Vitamin C) 1 Cap Cap 1 CAP PO DAILY Ferrous Sulfate (Iron) 325 Mg Tab 325 MG PO DAILY Glipizide (Glipizide) 5 Mg Tab 5 MG PO QAM Glipizide (Glipizide) 10 Mg Tab 10 MG PO QPM Hydrochlorothiazide (Hctz) 25 Mg Tab 25 MG PO DAILY, TAB Insulin Glargine (Lantus Solostar) 100 Unit/Ml Inj 25 UNITS SC HS, PEN Levothyroxine Sodium (Synthroid) 50 Mcg Tab 112 MCG PO DAILY Metformin Hcl (Glucophage) 850 Mg Tab 850 MG PO TIDM, TAB Multivitamin (Multivitamin) Tab 1 TAB PO DAILY, TAB Pravastatin (Pravachol ) 20 Mg Tab 10 MG PO HS, TAB Vitamin E (Vitamin E) 1,000 Unit Cap 1 TAB PO DAILY Zolpidem Tartrate (Ambien) 5 Mg Tab 5 MG PO HS PRN for Sleep, TAB Discharge Exam Review of Systems: Constitutional: No fever Eyes: No worsening of vision ENT: No hearing loss, No unusual epistaxis, No nasal symptoms, No sore throat, No tinnitus, No dental problems Respiratory: No cough, No sputum, No wheezing Cardiovascular: No chest pain, No orthopnea, No PND Abdomen: No pain, No nausea, No vomiting Musculoskeletal: No joint pain Genitourinary - Female: No dysuria Neurologic: No memory loss, No paralysis, No weakness Integumentary: + itch, No rash Physical Exam: General Appearance: WD/WN, no apparent distress ENT: normal ENT inspection Neck: supple, no adenopathy Respiratory/Chest: chest non-tender, lungs clear, normal breath sounds Cardiovascular: regular rate, rhythm, no edema, no gallop, + systolic murmur Abdomen / GI: normal bowel sounds, non tender, soft Skin: normal color, warm/dry Hospital Course HPI Ms. Nolen is a 66 y/o female with PMHx of Steatohepatitis with Cirrhosis, Grade I Esophageal Varices, Chronic Anemia, Hypothyroidism, and MGUS, S/P Cholecystectomy who presents to the ED c/o melena and hematemesis x a few days. She reports chronic fatigue and abdominal pain that has been present for a couple months with associated intermittent chills/fevers and unintentional weight loss of 20 lbs. However, she reports that her abdominal pain over the past couple days has been more intense than the chronic pain she feels. She describes the pain as tender and rated a 6/10 at its worse. She said she consumed a tomato last night and approx. 1 hour after had an upset stomach but no emesis. No others are having similar GI issues. Yesterday she also noted one episode of melanotic "pasty" stool. Today, she reports continuation of melanotic stool in approximately 4-5 episodes of black emesis. She does take daily iron supplement. She denies chronic NSAID use or chronic alcohol use. She is not on blood thinners or taking daily aspirin. She reports an admission in September in [place] for GI bleeding and underwent EGD. She states at that time there was no bleeding of her varices but cannot give further details. EGD in our records from 2014 show grade 1 esophageal varices. She was admitted in August 2015 for ischemic colitis. In the ED, she is hemodynamically stable. She is pancytopenic. Hemoglobin 10.1 with repeat draw of 9. BUN 37. EKG normal sinus rhythm without ischemic findings. CT with cirrhotic liver and splenomegaly without free air or ascites and evidence of a duodenitis. She received Protonix 80 mg IV 1 dose. She will be admitted to telemetry for GI bleed. Analysis and plan from last hospital day Ms. Nolen is a 66 y/o female with PMHx of Steatohepatitis with Cirrhosis, Grade I Esophageal Varices, Chronic Anemia, Hypothyroidism, and MGUS, S/P Cholecystectomy who presents to the ED c/o melena and hematemesis x a few days. GI Bleed with Melena and Hematemesis: Known Esophageal Varices - Hemoglobin remained staBle - EGD with grade II esophageal varices with bands placed - no signs of recent bleeding but some red santos signs present - Placed on oral PPI - GI following - plan for F/U EGD in 4 weeks Pancytopenia 2/2 Likely Liver Cirrhosis: - monitor as outpatient Acute Blood Loss Anemia on Chronic Anemia: - Continue iron supplementation T2DM: - resume home meds Hypothyroidism: - Levothyroxine 112 mcg daily DVT Prophylaxis: SCDs Code Status: FULL RESUSCITATION Total Time Spent: Greater than 30 minutes This includes examination of the patient, discharge planning, medication reconciliation, and communication with other providers. Discharge Instructions Please refer to the electronic Patient Visit Report (Discharge Instructions) for additional information. Follow-Up G/U with GI for repeat EGD in 4 weeks F/U with PCP in 1 week.
[2017-05-16] MEDS ORDERED: PANT40TA PO (13:15)
[2017-05-16] MEDS ORDERED: PROP1TAB PO (13:15)
[2017-05-16] MEDS ORDERED: ONDA4TAB46 PO (13:15)
[2017-05-16] MEDS ORDERED: CYAN100020 PO (13:15)
[2017-05-16] MEDS ORDERED: PRAV20TA PO (13:15)
== END 2017-04-20 16:45 | disposition home or self-care (01) | DRG 441 ==
LOC: C.EDB 09:43 → C.MED 16:37 → ENRESERV 16:52
PROVIDERS: ADMIT Hospitalist; ATTEND Family Medicine
PROC: 06L34CZ Occlusion of Esophageal Vein with Extraluminal Device, Percutaneous Endoscopic Approach (ICD-10-PCS; principal; 2017-04-18 14:50)
DX: K75.81 Nonalcoholic steatohepatitis (NASH) (principal); I85.11 Secondary esophageal varices with bleeding; K92.1 Melena; D61.818 Other pancytopenia; K76.6 Portal hypertension; D62 Acute posthemorrhagic anemia; K74.60 Unspecified cirrhosis of liver; E03.9 Hypothyroidism, unspecified; E11.9 Type 2 diabetes mellitus without complications; K31.89 Other diseases of stomach and duodenum

== ENCOUNTER → 2017-04-26 | Outpatient (CLI) | payer OTHER ==
[~2017-04-26] MED LIST changes: -ASMTWH INH; +CHOL1000 PO; +COLLCAP PO; +CYAN100020 PO; -CYAN250T PO; +FERR1TAB23 PO; -FLAX12003 PO; +GLC5 PO; -GLC850 PO; +GLIP10TA10 PO; -GLIP10TA9 PO; -INSDGI SC; +INSDGIPEN SC; -LEVO125T72 PO; +LEVO50TA PO; +METF-383 PO; +MULT-506 PO; -NAPR1TAB9 PO; -NORT25CA PO; +ONDA4TAB46 PO; +PANT1TAB48 PO; +PROP1TAB PO; +PROP60CA PO; +VITA10004 PO; -VITA400C15 PO; -VITAMIN D PO
[2017-04-26 17:36] LABS: HEMATOCRIT 27.2 % (37-47); MEAN CORPUSCULAR HEMOGLOBIN 27.5 pg (25-34); MEAN CORPUSCULAR HGB CONC 31.3 g/dl (32-36); PLATELET COUNT 120 K/uL (130-400); RED BLOOD COUNT 3.09 M/uL (4.2-5.4); WHITE BLOOD COUNT 2.26 K/uL (4.8-10.8)
[2017-04-26 17:45] LABS: BLOOD UREA NITROGEN 8 mg/dl (7-18); BUN/CREATININE RATIO 11.1 (10-20); CALCIUM 9.7 mg/dl (8.5-10.1); CARBON DIOXIDE 28 mmol/L (21-32); CHLORIDE 101 mmol/L (98-107); CREATININE 0.74 mg/dl (0.60-1.20); GLUCOSE 223 mg/dl (70-99); POTASSIUM 4.2 mmol/L (3.5-5.1); SODIUM 137 mmol/L (136-145)
== END | disposition home or self-care (01) ==
LOC: C.LABBFT 11:12
PROVIDERS: ATTEND Physician Assistant Medical
DX: I85.00 Esophageal varices without bleeding (principal)

== ENCOUNTER → 2017-05-23 | Outpatient (CLI) | payer OTHER ==
[~2017-05-23] MED LIST changes: -PANT1TAB48 PO; -PROP60CA PO
[2017-05-23 12:23] LABS: BASO % 0.3 %; BASO ABS # 0.01 K/uL (0-0.2); COMPLETE YES; HEMATOCRIT 29.4 % (37-47); LYMPH % 34.6 %; LYMPH ABS # 1.03 K/uL (1.2-3.4); MEAN CELL VOLUME 83.3 fL (80-100); MEAN CORPUSCULAR HEMOGLOBIN 26.3 pg (25-34); MEAN CORPUSCULAR HGB CONC 31.6 g/dl (32-36); MEAN PLATELET VOLUME 9.7 fL (7.4-10.4); MONO % 9.4 %; NEUT % 52.7 %; PLATELET COUNT 141 K/uL (130-400); RED BLOOD COUNT 3.53 M/uL (4.2-5.4); WHITE BLOOD COUNT 2.98 K/uL (4.8-10.8)
[2017-05-23 12:30] LABS: URINE APPEARANCE CLEAR (CLEAR); URINE BILIRUBIN NEG (NEG); URINE COLOR YELLOW; URINE EPITHELIAL CELL AUTO 20-30 /lpf (0-5); URINE NITRITE NEG (NEG); URINE PH 5.5 (4.5-7.5); URINE SPECIFIC GRAVITY 1.017 (1.000-1.030); UROBILINOGEN NEG (NEG)
[2017-05-23 12:32] LABS: MANUAL MICROSCOPIC REQUIRED? NO; REVIEW REQ? NO
[2017-05-27 20:21] LABS: ALBUMIN 3.4 G/DL (3.8-4.8); ANTI-CENTROMERE AB <1.0 NEG AI (<1.0 NEG); ANTI-SS-A <1.0 NEG AI (<1.0 NEG); ANTI-SS-B <1.0 NEG AI (<1.0 NEG); DNA ds CRITHIDIA NEGATIVE (NEGATIVE); GAMMA GLOBULIN 1.4 G/DL (0.8-1.7); Sm Antibody <1.0 NEG AI (<1.0 NEG); TOTAL PROTEIN 6.8 G/DL (6.2-8.3)
[2017-05-28 10:52] LABS: ANA TITER > OR = 1:1280 TITER (<1:40)
== END | disposition home or self-care (01) ==
LOC: C.LAB1850 11:09
PROVIDERS: ATTEND Internal Medicine Rheumatology
DX: D64.9 Anemia, unspecified (principal); R76.8 Other specified abnormal immunological findings in serum; K74.60 Unspecified cirrhosis of liver

== ENCOUNTER → 2017-05-30 | Day surgery (SDC) | payer OTHER ==
[2017-05-16 13:16] VITALS: Ht 159.4 cm; Wt 78.6 kg
[~2017-05-30] VITALS: Ht 159.4 cm; Wt 78.6 kg
[~2017-05-30] MED LIST changes: +LIDOCAINE HCL 2% 2 ML VIAL (20MG/ML) ONE; +PROPOFOL IV EMULSION 10 MG/ML 20 ML VIAL IV ONE; +SODIUM CHLORIDE 0.9% 500ML 500 ML IV ONE
--- NOTE | 2017-05-30 14:46 | Endo History and Physical ---
History & Physical Date of Service: May 30, 2017. Chief Complaint: eso varices for repeat banding Referring Physician: History of Present Illness eso varices- assess for rebanding Past Medical History Diabetes, Asthma, Gastrointestinal Disorder, Reflux, Cancer, High Cholesterol, Heart Disease, Hypertension, Thyroid Disease, Liver Disease, Depression Past Surgical History Hx Cardiac Surgery: No Hx Internal Defibrillator: No Hx Abdominal Surgery: Yes (HYSTERECTOMY, CAROL ANN) Hx Post-Op Nausea and Vomiting: No Hx Cancer Surgery: Yes (TOTAL THYROIDECTOMY) Hx Thoracic Surgery: No Hx Orthopedic: No Hx Urinary Tract Surgery: No Family History None Social History Smoking Status: Never Smoker Hx Substance Use: No Hx Alcohol Use: No Allergies Coded Allergies: No Known Allergies (Verified , 05/16/17) Current Medications Reported Home Medications Medications Dose Route/Sig Max Daily Dose Days Date Category Zofran (Ondansetron HCl) 4 Mg Tab 4 Mg PO DIRECTED PRN 05/16/17 Reported Pravachol (Pravastatin Sodium) 20 Mg Tab 10 Mg PO HS 05/16/17 Reported Vitamin B12 (Cyanocobalamin) 1,000 Mcg Tab 1 Tab PO DAILY 05/16/17 Reported Inderal (Propranolol HCl) 60 Mg Tab 60 Mg PO QAM 05/16/17 Reported Synthroid (Levothyroxine Sodium) 50 Mcg Tab 112 Mcg PO QAM 04/17/17 Reported Collagen Plus Vitamin C (Collagen-Vitamin C) 1 Cap Cap 1 Cap PO DAILY 04/17/17 Reported Multivitamin (Multivitamins) Tab 1 Tab PO DAILY 04/17/17 Reported Ambien (Zolpidem Tartrate) 5 Mg Tab 5 Mg PO HS PRN 04/17/17 Reported Vitamin E 1,000 Unit Cap 1 Tab PO DAILY 04/17/17 Reported Vitamin D3 (Cholecalciferol) 1,000 Unit Tab 1,000 Units PO DAILY 90 04/17/17 Reported Glucophage (Metformin Hcl) 850 Mg Tab 850 Mg PO TIDM 04/17/17 Reported Lantus Solostar (Insulin Glargine) 100 Unit/Ml Inj 25 Units SC HS 04/17/17 Reported Iron (Ferrous Sulfate) 325 Mg Tab 325 Mg PO DAILY 04/17/17 Reported Hctz (Hydrochlorothiazide) 25 Mg Tab 25 Mg PO QAM 04/17/17 Reported Glipizide 10 Mg Tab 10 Mg PO QPM 04/17/17 Reported Glipizide 5 Mg Tab 5 Mg PO QAM 04/17/17 Reported Vital Signs Weight (Kilograms): 78.64 Height (Feet): 5 Height (Inches): 2.75 Physical Exam General Appearance: WD/WN, no apparent distress Respiratory/Chest: Auscultation: breath sounds normal Cardiovascular: Heart Auscultation: RRR Abdomen: Bowel Sounds: normal Inspection & Palpation: soft, non-distended, no tenderness, guarding & rebound Assessment and Plan EGD for possible rebanding torin
--- NOTE | 2017-05-30 15:47 | Discharge Instructions ---
Endoscopy Patient Instructions Date / Procedure(s) Performed May 30, 2017. EGD Allergy Information Coded Allergies: No Known Allergies (Verified , 05/16/17) Discharge Date / Findings May 30, 2017. portal gastropathy no appreciable eso varices no bands placed today Medication Instructions Restart Stopped Medication(s): Reported Home Medications Medications Dose Route/Sig Max Daily Dose Days Date Category Zofran (Ondansetron HCl) 4 Mg Tab 4 Mg PO DIRECTED PRN 05/16/17 Reported Pravachol (Pravastatin Sodium) 20 Mg Tab 10 Mg PO HS 05/16/17 Reported Vitamin B12 (Cyanocobalamin) 1,000 Mcg Tab 1 Tab PO DAILY 05/16/17 Reported Inderal (Propranolol HCl) 60 Mg Tab 60 Mg PO QAM 05/16/17 Reported Synthroid (Levothyroxine Sodium) 50 Mcg Tab 112 Mcg PO QAM 04/17/17 Reported Collagen Plus Vitamin C (Collagen-Vitamin C) 1 Cap Cap 1 Cap PO DAILY 04/17/17 Reported Multivitamin (Multivitamins) Tab 1 Tab PO DAILY 04/17/17 Reported Ambien (Zolpidem Tartrate) 5 Mg Tab 5 Mg PO HS PRN 04/17/17 Reported Vitamin E 1,000 Unit Cap 1 Tab PO DAILY 04/17/17 Reported Vitamin D3 (Cholecalciferol) 1,000 Unit Tab 1,000 Units PO DAILY 90 04/17/17 Reported Glucophage (Metformin Hcl) 850 Mg Tab 850 Mg PO TIDM 04/17/17 Reported Lantus Solostar (Insulin Glargine) 100 Unit/Ml Inj 25 Units SC HS 04/17/17 Reported Iron (Ferrous Sulfate) 325 Mg Tab 325 Mg PO DAILY 04/17/17 Reported Hctz (Hydrochlorothiazide) 25 Mg Tab 25 Mg PO QAM 04/17/17 Reported Glipizide 10 Mg Tab 10 Mg PO QPM 04/17/17 Reported Glipizide 5 Mg Tab 5 Mg PO QAM 04/17/17 Reported Reported Home Medications Medications Dose Route/Sig Max Daily Dose Days Date Category Zofran (Ondansetron HCl) 4 Mg Tab 4 Mg PO DIRECTED PRN 05/16/17 Reported Pravachol (Pravastatin Sodium) 20 Mg Tab 10 Mg PO HS 05/16/17 Reported Vitamin B12 (Cyanocobalamin) 1,000 Mcg Tab 1 Tab PO DAILY 05/16/17 Reported Inderal (Propranolol HCl) 60 Mg Tab 60 Mg PO QAM 05/16/17 Reported Synthroid (Levothyroxine Sodium) 50 Mcg Tab 112 Mcg PO QAM 04/17/17 Reported Collagen Plus Vitamin C (Collagen-Vitamin C) 1 Cap Cap 1 Cap PO DAILY 04/17/17 Reported Multivitamin (Multivitamins) Tab 1 Tab PO DAILY 04/17/17 Reported Ambien (Zolpidem Tartrate) 5 Mg Tab 5 Mg PO HS PRN 04/17/17 Reported Vitamin E 1,000 Unit Cap 1 Tab PO DAILY 04/17/17 Reported Vitamin D3 (Cholecalciferol) 1,000 Unit Tab 1,000 Units PO DAILY 90 04/17/17 Reported Glucophage (Metformin Hcl) 850 Mg Tab 850 Mg PO TIDM 04/17/17 Reported Lantus Solostar (Insulin Glargine) 100 Unit/Ml Inj 25 Units SC HS 04/17/17 Reported Iron (Ferrous Sulfate) 325 Mg Tab 325 Mg PO DAILY 04/17/17 Reported Hctz (Hydrochlorothiazide) 25 Mg Tab 25 Mg PO QAM 04/17/17 Reported Glipizide 10 Mg Tab 10 Mg PO QPM 04/17/17 Reported Glipizide 5 Mg Tab 5 Mg PO QAM 04/17/17 Reported Provider Instructions Activity Restrictions - No exercising or heavy lifting for 24 hours. - Do not drink alcohol the day of the procedure. - Do not drive a car or operate machinery until the day after the procedure. - Do not make any important decisions or sign important papers in 24 hours after the procedure. Following Day: - Return to full activity which may include returning to work/school. Diet Start your diet with liquids and light foods (jello, soup, juice, toast). Then eat your usual diet if not nauseated. Treatment For Common After Affects For mild abdominal pain, bloating, or excessive gas: - Rest - Eat lightly - Lie on right side Follow-Up Information Follow-up with DR. DENNEY as scheduled Followup with Dr Ontiveros as previously scheduled. Anesthesia Information What You Should Know You have had a procedure that required some medicine to reduce anxiety and discomfort. This treatment is called moderate sedation. After receiving the treatment, you may be sleepy, but you will be able to breathe on your own. The effects of the treatment may last for several hours. Follow these instructions along with Activity/Diet recommendations noted above: * Do NOT do anything where dizziness or clumsiness would be dangerous. * Rest quietly at home today, then you can be up and about tomorrow. * Have a responsible person stay with you the rest of today. * You may have had an I.V. today. If so, you may take the dressing off later today. Recommendations Call your doctor if: * Trouble breathing * Continuous vomiting for more than 24 hours * Temperature above 101 degrees * Severe abdominal pain or bloating * Pain not relieved by pain medicine ordered * There is increased drainage or redness from any incision * A large amount of rectal bleeding greater than 2-3 tablespoons. (If you had a polyp/s removed or have hemorrhoids, a small amount of blood - from the rectum is to be expected.) * You have any unanswered questions or concerns. IN THE EVENT OF A SERIOUS EMERGENCY, GO TO THE NEAREST EMERGENCY ROOM Your discharge instructions were prepared by provider Gilberto Partida. Patient Instructions Signature Page Alma Nolen Patient (or Guardian) Signature/Date: I have read and understand the instructions given to me by my caregivers. Caregiver/RN/Doctor Signature/Date: The above-named patient and/or guardian has received patient instructions on this date. + Original Patient Signature Page (only) stays with chart. Please make copy for patient.
[2017-05-30 16:15] VITALS: BP 145/63; PULSE 57; O2SAT 100
--- NOTE | 2017-05-30 16:24 | Anesthesiology Progress Note ---
Anesthesia Post Op Note Date & Time May 30, 2017 at 16:24 Vital Signs Pain Intensity: 0 Vital Signs Past 12 Hours Date Time Temp Pulse Resp B/P (MAP) Pulse Ox O2 Delivery O2 Flow Rate FiO2 05/30/17 16:15 57 16 145/63 (90) 100 Room Air 05/30/17 16:00 51 16 95/55 (68) 99 Room Air 05/30/17 15:57 99/49 (66) 05/30/17 15:45 51 16 86/45 (59) 97 Room Air 05/30/17 14:48 36.5 55 16 127/57 (80) 100 Room Air Notes Mental Status: alert / awake / arousable, participated in evaluation Pt Amnestic to Procedure: Yes Nausea / Vomiting: adequately controlled Pain: adequately controlled Airway Patency, RR, SpO2: stable & adequate BP & HR: stable & adequate Hydration State: stable & adequate Anesthetic Complications: no major complications apparent
--- NOTE | 2017-05-30 20:25 | GI REPORT ---
Procedure Date: 05/30/2017 2:57 PM Procedure: Upper GI endoscopy Indications: Esophageal varices, For therapy of esophageal varices Medicines: Propofol per Anesthesia Complications: No immediate complications. Estimated Blood Loss: Estimated blood loss: none. Procedure: Pre-Anesthesia Assessment: - Prior to the procedure, a History and Physical was performed, and patient medications and allergies were reviewed. The patient's tolerance of previous anesthesia was also reviewed. The risks and benefits of the procedure and the sedation options and risks were discussed with the patient. All questions were answered, and informed consent was obtained. Prior Anticoagulants: The patient has taken no previous anticoagulant or antiplatelet agents. ASA Grade Assessment: III - A patient with severe systemic disease. After reviewing the risks and benefits, the patient was deemed in satisfactory condition to undergo the procedure. After obtaining informed consent, the endoscope was passed under direct vision. Throughout the procedure, the patient's blood pressure, pulse, and oxygen saturations were monitored continuously. The scope was introduced through the mouth, and advanced to the second part of duodenum. The upper GI endoscopy was accomplished without difficulty. The patient tolerated the procedure well. Findings: The examined esophagus was normal. A post variceal banding scar was found in the lower third of the esophagus. The scar tissue was healthy in appearance. Mild portal hypertensive gastropathy was found in the cardia, in the gastric fundus, in the gastric body, on the greater curvature of the stomach and on the lesser curvature of the stomach. The examined duodenum was normal. Retained gastric contents are not identified on this exam. The cardia and gastric fundus were otherwise normal on retroflexion. Impression: - Normal esophagus. - Scar in the lower third of the esophagus. - Portal hypertensive gastropathy. - Normal examined duodenum. - No specimens collected. Recommendation: - Discharge patient to home (ambulatory). - Return to GI clinic as previously scheduled. MD Gilberto Louis MD 05/30/2017 3:44:17 PM This report has been signed electronically. Note Initiated On: 05/30/2017 2:57 PM I attest to the content of the Intraoperative Record and orders documented therein, exceptions below
== END | disposition home or self-care (01) ==
LOC: C.GI 13:33
PROVIDERS: ATTEND Internal Medicine Gastroenterology
DX: I85.00 Esophageal varices without bleeding (principal); R19.8 Other specified symptoms and signs involving the digestive system and abdomen; K31.89 Other diseases of stomach and duodenum; E11.9 Type 2 diabetes mellitus without complications; I10 Essential (primary) hypertension; Z68.30 Body mass index [BMI] 30.0-30.9, adult; Z79.4 Long term (current) use of insulin; Z79.899 Other long term (current) drug therapy; Z85.850 Personal history of malignant neoplasm of thyroid; R79.9 Abnormal finding of blood chemistry, unspecified

== ENCOUNTER → 2017-05-30 | Outpatient (CLI) | payer OTHER ==
[~2017-05-30] MED LIST changes: -LIDOCAINE HCL 2% 2 ML VIAL (20MG/ML) ONE; -PROPOFOL IV EMULSION 10 MG/ML 20 ML VIAL IV ONE; -SODIUM CHLORIDE 0.9% 500ML 500 ML IV ONE
== END | disposition home or self-care (01) ==
LOC: C.LAB1850 16:41
PROVIDERS: ATTEND Internal Medicine
DX: R79.9 Abnormal finding of blood chemistry, unspecified (principal)

== ENCOUNTER → 2017-07-13 | Outpatient (CLI) | payer OTHER ==
[~2017-07-13] MED LIST changes: -PANT40TA PO
--- NOTE | 2017-07-13 10:09 | DIAGNOSTIC IMAGING REPORT ---
ABDOMEN COMPLETE (US) HISTORY: Pain. Nausea. UNSPECIFIED CIRROSIS, LUQ PAIN. COMPARISON: CT 04/17/2017 FINDINGS: Pancreas: The pancreas demonstrates a normal echotexture. Liver: Heterogeneous with a cortical lobulation the outer cortical liver margin. This appearance suggests cirrhotic change. Gallbladder: Prior cholecystectomy CBD: 7 mm presumably on a post procedural bases Kidneys: No hydronephrosis. Spleen: Mildly prominent at 15 cm Aorta: Normal in caliber. IVC: Patent. IMPRESSION: 1. Findings consistent with hepatic cirrhosis. 2. Mild splenomegaly. The above report was generated using voice recognition software. It may contain grammatical, syntax or spelling errors. Electronically signed by: Gabriel Anderson M.D. 07/13/2017 10:08 AM Dictated Date/Time: 07/13/2017 10:06 AM
== END | disposition home or self-care (01) ==
LOC: C.ULTRBC 09:14
PROVIDERS: ATTEND Internal Medicine Gastroenterology
DX: K74.60 Unspecified cirrhosis of liver (principal); R10.12 Left upper quadrant pain; R16.1 Splenomegaly, not elsewhere classified

== ENCOUNTER → 2017-08-29 | Outpatient (CLI) | payer OTHER ==
[2017-08-29 17:37] LABS: BASO % 0.3 %; BASO ABS # 0.01 K/uL (0-0.2); EOS % 2.3 %; EOS ABS # 0.09 K/uL (0-0.5); HEMATOCRIT 36.5 % (37-47); IG# 0.01 K/uL (0.00-0.02); LYMPH ABS # 1.57 K/uL (1.2-3.4); MEAN CELL VOLUME 88.2 fL (80-100); MEAN CORPUSCULAR HGB CONC 32.9 g/dl (32-36); MEAN PLATELET VOLUME 10.4 fL (7.4-10.4); MONO % 9.4 %; MONO ABS # 0.36 K/uL (0.11-0.59); NEUT % 46.7 %; NEUT ABS # 1.79 K/uL (1.4-6.5); PLATELET COUNT 101 K/uL (130-400); RED CELL DISTRIBUTION WIDTH CV 17.7 % (11.5-14.5); RED CELL DISTRIBUTION WIDTH SD 57.5 fL (36.4-46.3); WHITE BLOOD COUNT 3.83 K/uL (4.8-10.8)
== END | disposition home or self-care (01) ==
LOC: C.LABBFT 15:08
PROVIDERS: ATTEND Internal Medicine
DX: E89.0 Postprocedural hypothyroidism (principal); E11.9 Type 2 diabetes mellitus without complications; E78.00 Pure hypercholesterolemia, unspecified; E55.9 Vitamin D deficiency, unspecified

== ENCOUNTER → 2017-08-30 | Outpatient (CLI) | payer OTHER ==
[~2017-08-30] MED LIST changes: +GLC850 PO; +HYDR25TA5 PO; +INSDGI SC; +LEVO100T7 PO; +ONDA4TAB9 PO; +PROP60CA PO; +PRVC/20 PO; +TRL300 PO; +ZOLP5TAB6 PO
[2017-08-30 17:39] LABS: ALBUMIN 3.1 gm/dl (3.4-5.0); ALT/SGPT 46 U/L (12-78); AST/SGOT 41 U/L (15-37); BLOOD UREA NITROGEN 17 mg/dl (7-18); CALCIUM 9.2 mg/dl (8.5-10.1); CARBON DIOXIDE 28 mmol/L (21-32); CREATININE 0.92 mg/dl (0.60-1.20); GLUCOSE 152 mg/dl (70-99); POTASSIUM 4.4 mmol/L (3.5-5.1); SODIUM 132 mmol/L (136-145)
[2017-08-30 17:41] LABS: ALKALINE PHOSPHATASE 110 U/L (45-117); TOTAL PROTEIN 7.7 gm/dl (6.4-8.2)
== END | disposition home or self-care (01) ==
LOC: C.LABBFT 14:31
PROVIDERS: ATTEND Internal Medicine
DX: E11.9 Type 2 diabetes mellitus without complications (principal); E55.9 Vitamin D deficiency, unspecified

== ENCOUNTER → 2017-09-03 | Outpatient (CLI) | payer OTHER ==
--- NOTE | 2017-09-03 12:49 | DIAGNOSTIC IMAGING REPORT ---
SOFT TISS HEAD/NECK-THYROID CLINICAL HISTORY: 66 years-old Female presenting with MALIGNANT NEOPLASM OF THYROID GLAND, history of thyroidectomy. TECHNIQUE: Real-time grayscale and color Doppler ultrasound imaging of the thyroid and base of the neck was performed. COMPARISON: CT from 07/23/2014. FINDINGS: Normal sonographic appearance of the thyroidectomy bed. No suspicious recurrent hyperechogenic soft tissue. Normal visualized portion of the cervical vasculature. No cervical lymphadenopathy identified. IMPRESSION: Expected postsurgical appearance status post thyroidectomy. No convincing sonographic evidence of recurrent disease. Electronically signed by: Jamel Mackay M.D. 09/03/2017 12:47 PM Dictated Date/Time: 09/03/2017 12:46 PM
== END | disposition home or self-care (01) ==
LOC: C.ULTR 11:12
PROVIDERS: ATTEND Internal Medicine
DX: C73 Malignant neoplasm of thyroid gland (principal)

== ENCOUNTER 2017-09-04 15:02 | Inpatient (IN) | payer OTHER ==
[~2017-09-04] VITALS: Ht 157.5 cm; Wt 83.1 kg
[~2017-09-04 15:02] MED LIST changes: -GLC850 PO; -HYDR25TA5 PO; -INSDGI SC; -LEVO100T7 PO; -ONDA4TAB9 PO; -PROP60CA PO; -PRVC/20 PO; -TRL300 PO; -ZOLP5TAB6 PO
[2017-09-04] MEDS ORDERED: SODIUM CHLORIDE 0.9% 1000ML 1,000 ML IV STA ×2 (15:24→18:46)
[2017-09-04] MEDS ORDERED: HYDR25TA5 PO (15:45)
[2017-09-04] MEDS ORDERED: ZOLP5TAB6 PO (15:45)
[2017-09-04] MEDS ORDERED: LEVO100T7 PO (15:45)
[2017-09-04] MEDS ORDERED: GLC850 PO (15:45)
[2017-09-04] MEDS ORDERED: TRL300 PO (15:45)
[2017-09-04] MEDS ORDERED: PROP60CA PO (15:45)
[2017-09-04] MEDS ORDERED: PRVC/20 PO (15:45)
[2017-09-04] MEDS ORDERED: INSDGI SC (15:45)
[2017-09-04] MEDS ORDERED: ONDA4TAB9 PO (15:45)
--- NOTE | 2017-09-04 15:47 | DIAGNOSTIC IMAGING REPORT ---
CHEST ONE VIEW PORTABLE CLINICAL HISTORY: Pain, radiating to the abdomen. COMPARISON STUDY: 01/04/2017 FINDINGS: The heart is mildly enlarged. There is no failure. There is no focal pulmonary consolidation. No pleural effusions are visualized. There is no free intraperitoneal air. Slight prominence the upper lobe markings likely relates to technical factors.[ IMPRESSION: AP portable study. No acute findings. No evidence of free intraperitoneal air. Electronically signed by: Sumanth Johnson M.D. 09/04/2017 3:45 PM Dictated Date/Time: 09/04/2017 3:44 PM
--- NOTE | 2017-09-04 16:11 | EMERGENCY ROOM VISIT NOTE ---
History Report prepared by Octaviano: Renea Sanchez Under the Supervision of: Dr. Raji Díaz M.D. First contact with patient: 15:11 Chief Complaint: RECTAL BLEEDING Stated Complaint: DARK STOOL, DIZZY, WEAK FOR 5 DAYS History of Present Illness The patient is a 66 year old female who presents to the Emergency Room with complaints of persistent dark, loose stools for two days. She does not believe the stools are black in color. She has a history of GI bleed. She also reports abdominal pain for five days. She denies eating any beets in the last few days. She has taken Pepto Bismol twice with mild relief. She notes nausea, fevers, chills, weakness, fatigue, gas, and lightheadedness. She notes the lightheadedness worsens with exertion and standing. She denies any vomiting, coughs, or congestion. She notes chest pain with exertion for two months, though is unsure why. She is expected to have a stress test in the near future. She has a history of colitis. She is currently taking blood pressure medication. Source of History: patient Onset: two days Position: other (global) Quality: other (dark, loose stools) Timing: other (persistent) Modifying Factors (Relieving): other (Pepto Bismol) Associated Symptoms: + fevers, + chills, + chest pain (on exertion), + nausea, + abdominal pain, + fatigue, + weakness, No cough, No vomiting Note: She notes gas and lightheadedness. She denies any congestion. Review of Systems See HPI for pertinent positives and negatives. A total of ten systems were reviewed and were otherwise negative. Past Medical & Surgical Medical Problems: (1) Acute blood loss anemia (2) Carpal tunnel syndrome (3) Chiari malformation (4) Cirrhosis (5) H/O thyroidectomy Surgical Problems: (1) History of hysterectomy (2) Hx of brain surgery (3) Hx of cholecystectomy Family History Cancer Diabetes mellitus Gallbladder disease Heart disease Hypertension Social History Smoking Status: Never Smoker Alcohol Use: none Drug Use: none Marital Status: Housing Status: lives with significant other Occupation Status: retired Current/Historical Medications Scheduled Cholecalciferol (Vitamin D3), 1,000 INTER.UNIT PO DAILY Cyanocobalamin (Vitamin B12), 1,000 MCG PO DAILY Ferrous Sulfate (Iron), 325 MG PO DAILY Glipizide (Glipizide), 5 MG PO QAM Glipizide (Glipizide), 10 MG PO QPM Hydrochlorothiazide (Hydrochlorothiazide), 25 MG PO QAM Insulin Glargine (Lantus), 25 UNITS SC HS Levothyroxine Sodium (Levothyroxine Sodium), 100 MCG PO QAM Metformin HCl (Metformin HCl), 850 MG PO TIDM Multivitamin (Multivitamin), 1 TAB PO DAILY Oxcarbazepine (Oxcarbazepine), 300 MG PO BID Pravastatin Sod (Pravastatin Sodium), 10 MG PO HS Propranolol HCl (Propranolol HCl ER), 60 MG PO QAM Vitamin E (Vitamin E), 1,000 INTER.UNIT PO DAILY Zolpidem Tartrate (Zolpidem Tartrate), 5 MG PO HS Scheduled PRN Ondansetron (Ondansetron HCl), 4 MG PO Q8 PRN for Nausea Allergies Coded Allergies: Shrimp (Verified Allergy, Intermediate, Funny sensation around mouth, 09/04) Vinegar (Verified Adverse Reaction, Intermediate, Mouth/tongue irritation/ burning sensation, 09/04/17) Physical Exam Vital Signs Date Time Temp Pulse Resp B/P (MAP) Pulse Ox O2 Delivery O2 Flow Rate FiO2 09/04/17 21:30 60 20 150/63 97 Room Air 09/04/17 20:53 59 09/04/17 20:30 63 164/52 Room Air 09/04/17 19:30 53 20 150/61 100 Room Air 09/04/17 16:47 63 20 175/74 100 Room Air 09/04/17 16:15 59 09/04/17 15:04 36.9 63 20 160/79 99 Room Air Physical Exam GENERAL: Awake, alert, fatigued-appearing, in no distress HENT: Normocephalic, atraumatic. Oropharynx dry cracked mucus membranes. EYES: Normal conjunctiva. Sclera non-icteric. NECK: Supple. No nuchal rigidity. FROM. No JVD. RESPIRATORY: Clear to auscultation. CARDIAC: Regular rate, normal rhythm. Extremities warm and well perfused. Pulses equal. ABDOMEN: Soft, non-distended. No rebound or guarding. No masses. Generalized abdominal discomfort, no discreet tenderness, or peritoneal signs RECTAL: Brown stool. Guaiac negative. MUSCULOSKELETAL: Chest examination reveals no tenderness. The back is symmetrical on inspection without obvious abnormality. There is no CVA tenderness to palpation. No joint edema. LOWER EXTREMITIES: Calves are equal size bilaterally and non-tender. No edema. No discoloration. NEURO: Normal sensorium. No sensory or motor deficits noted. SKIN: No rash or jaundice noted. Medical Decision & Procedures ER Provider Diagnostic Interpretation: Radiology results as stated below per my review and radiologist interpretation: CHEST ONE VIEW PORTABLE CLINICAL HISTORY: Pain, radiating to the abdomen. COMPARISON STUDY: 01/04/2017 FINDINGS: The heart is mildly enlarged. There is no failure. There is no focal pulmonary consolidation. No pleural effusions are visualized. There is no free intraperitoneal air. Slight prominence the upper lobe markings likely relates to technical factors.[ IMPRESSION: AP portable study. No acute findings. No evidence of free intraperitoneal air. Electronically signed by: Sumanth Johnson M.D. 09/04/2017 3:45 PM Dictated Date/Time: 09/04/2017 3:[address] SCAN OF THE ABDOMEN AND PELVIS WITH IV CONTRAST CLINICAL HISTORY: Rectal bleeding. Melanotic stool. COMPARISON STUDY: Abdominal CT dated 04/17/2017. TECHNIQUE: Following the IV administration of 115 cc of Optiray 320, CT scan of the abdomen and pelvis is performed from the lung bases to the proximal femora. Images are reviewed in the axial, sagittal, and coronal planes. IV contrast was administered without complication. A dose lowering technique was utilized adhering to the principles of ALARA. CT DOSE: 755.47 mGy.cm FINDINGS: Lung bases: The heart is normal in size and without pericardial effusion. The lung bases are clear noting dependent atelectasis. Liver: The contrast-enhanced liver is cirrhotic in morphology and heterogeneous in attenuation. There is enlargement of the left lobe and caudate as well as nodularity of the surface contour. There is no intrahepatic biliary ductal dilatation. The hepatic veins and portal veins are patent. There are perisplenic varices and a splenorenal shunt. Gallbladder: Surgically absent. Spleen: The spleen is enlarged, measuring 15.2 cm in length. Pancreas: Unremarkable. Adrenal glands: Unremarkable. Kidneys: The contrast enhanced kidneys are normal in size and without hydronephrosis. The kidneys enhance symmetrically. Abdominal vasculature: The abdominal aorta is normal in course and caliber noting mild atherosclerotic calcification. Bowel: Mild wall thickening and edema is suggested involving the distal stomach/proximal duodenum. Mild surrounding stranding inflammatory change is suggested. No bowel obstruction is seen. The appendix is well-visualized and normal. Peritoneum: There is no intraperitoneal free air or abdominal ascites. Lymphadenopathy: An enlarged lymph node is present in the alhaji hepatis on image #142. This measures 3.1 x 1.6 cm. A prominent portacaval node on image #151 measures 9 mm short axis. These are likely related to chronic liver disease. No mesenteric, retroperitoneal, pelvic, or inguinal adenopathy is seen. Pelvic viscera: The bladder is decompressed and grossly unremarkable. The uterus is surgically absent. No adnexal lesion is seen. Skeletal structures: The skeletal structures are osteopenic. There is mild lumbosacral spondylosis. No lytic or blastic lesions are seen. IMPRESSION: 1. Cirrhotic liver morphology with evidence of portal hypertension including splenomegaly, perisplenic varices, and a splenorenal shunt. 2. Mild wall thickening and edema is suggested involving the distal stomach/proximal duodenum. Findings suggest gastritis/duodenitis. Clinical correlation will be essential. If further assessment is desired then endoscopy would be appropriate. 3. No intraperitoneal free air or abdominal ascites is seen. 4. Additional findings as above. Electronically signed by: Hugo Barros M.D. 09/04/2017 6:18 PM Dictated Date/Time: 09/04/2017 6:11 PM Laboratory Results Test 09/04/17 16:54 09/04/17 18:23 09/04/17 19:21 Neutrophils % (Manual) 61.4 % Lymphocytes % (Manual) 18.4 % Variant Lymphocytes % (manual) 14.9 % Monocytes % (Manual) 2.6 % Eosinophils % (Manual) 1.8 % Basophils % (Manual) 0.9 % Neutrophils # (Manual) 1.35 K/uL (1.4-6.5) Total Absolute Neutrophils 1.35 K/uL (1.4-6.5) Lymphocytes # (Manual) 0.40 K/uL (1.2-3.4) Absolute Variant Lymphocytes 0.33 K/uL Total Absolute Lymphocytes 0.73 K/uL (1.2-3.4) Monocytes # (Manual) 0.06 K/uL (0.11-0.59) Eosinophils # (Manual) 0.04 K/uL (0-0.5) Basophils # (Manual) 0.02 K/uL (0-0.2) Toxic Vacuolation 1+ Platelet Estimate DECREASED Anisocytosis PRESENT Activated Partial Thromboplast Time 28.9 SECONDS (21.0-31.0) Partial Thromboplastin Ratio 1.1 Direct Bilirubin 0.2 mg/dl (0-0.2) Troponin I < 0.015 ng/ml (0-0.045) Lipase 197 U/L (73-393) Influenza Type A Antigen Neg for Influ A (NEG) Influenza Type B Antigen Neg for Influ B (NEG) Urine Color YELLOW Urine Appearance CLEAR (CLEAR) Urine pH 7.5 (4.5-7.5) Urine Specific [place] 1.013 (1.000-1.030) Urine Protein NEG (NEG) Urine Glucose (UA) NEG (NEG) Urine Ketones NEG (NEG) Urine Occult Blood NEG (NEG) Urine Nitrite NEG (NEG) Urine Bilirubin NEG (NEG) Urine Urobilinogen NEG (NEG) Urine Leukocyte Esterase TRACE (NEG) Urine WBC (Auto) 1-5 /hpf (0-5) Urine RBC (Auto) 0-4 /hpf (0-4) Urine Hyaline Casts (Auto) 0 /lpf (0-5) Urine Epithelial Cells (Auto) 10-20 /lpf (0-5) Urine Bacteria (Auto) NEG (NEG) Laboratory results reviewed by me Medications Administered Medications (Trade) Dose Ordered Sig/Gay Route Start Time Stop Time Status Last Admin Dose Admin Sodium Chloride 1,000 ml @ 999 mls/hr Q1H1M STAT IV 09/04/17 15:24 09/04/17 16:24 DC 09/04/17 16:46 999 MLS/HR Pantoprazole Sodium 40 mg/ Syringe 10 ml @ 5 mls/min NOW ONCE IV 09/04/17 17:00 09/04/17 17:01 DC 09/04/17 17:46 5 MLS/MIN Sodium Chloride 1,000 ml @ 999 mls/hr Q1H1M STAT IV 09/04/17 18:46 09/04/17 19:46 DC 09/04/17 18:46 999 MLS/HR Metoclopramide HCl (Reglan Inj) 5 mg NOW STAT IV 09/04/17 18:46 09/04/17 18:50 DC 09/04/17 19:27 5 MG Prochlorperazine Edisylate (Compazine Inj) 10 mg NOW STAT IV 09/04/17 20:37 09/04/17 20:38 DC 09/04/17 20:37 10 MG Sodium Chloride 1,000 ml @ 75 mls/hr [id number] IV 09/04/17 21:45 10/04/17 21:44 09/05/17 18:11 100 MLS/HR ECG Indication: abdominal pain Rate (beats per minute): 57 Rhythm: sinus bradycardia Findings: no acute ischemic change, other (Normal axis. ) Change: Patient's electrocardiogram interpreted by me. ED Course 1644: The patient was evaluated in room C3. A complete history and physical exam was performed. 1840: I reassessed the patient at this time. She is resting comfortably. I discussed the results and treatment plan with the patient. I answered all pertaining questions that she had. She expressed understanding and verbalized agreement. The patient will be further evaluated. 1904: I spoke with Dr. Lobo, hospitalist. We discussed the patients case. The patient will be evaluated by the [facility] for further management. Medical Decision I reviewed the patient's past medical history, medications, and the nursing notes as described above. Differential diagnosis: Etiologies such as appendicitis, diverticulitis, PUD, biliary pathology, UTI, pancreatitis, obstruction, mesenteric ischemia, aortic pathology, infections, inflammatory bowel disease, renal colic, variceal bleeding, peptic ulcer, diverticula bleeding, as well as others were entertained. The patient is a 66-year-old woman with a past medical history of cirrhosis and portal hypertension with associated varices status post banding who presents emergency Department with generalized weakness and dark brown stools per hpi. On arrival, the patient is fatigued appearing but in no acute distress, afebrile stable vital signs. She has generalized abdominal discomfort but no discrete tenderness or peritoneal signs. Rectal exam performed by the resident with brown stool and was guaiac negative. Labs notable for persistent leukopenia and thrombocytopenia. Hbg 12 similar to recent. INR newly elevated to 1.4 in the setting of the patient cirrhosis. Sodium 126 in the setting of the patient's clinically dry appearance. Lactate marginally elevated to 2.3, likely related to the patient's dehydration. CT of abdomen and pelvis demonstrates gastritis and duodenitis. Known varices observed on CT however, patient denies hematemesis and given stable H/H unlikely to be variceal bleed at this time. Patient given IV Protonix and IV fluids and feeling improved however will admit the patient given her prolonged symptoms and associated hyponatremia to 126. Case d/w Dr. Hawkins, [facility] hospitalist, who will admit the patient for further management. I discussed the case with the resident physician, examined the patient, and agree with the findings and plan as documented in the residents note unless otherwise clarified here by me. Medication Reconcilliation Current Medication List: was personally reviewed by me Blood Pressure Screening Patient's blood pressure: Elevated blood pressure Blood pressure disposition: Elevated BP felt to be situational Consults Time Called: 1849 Consulting Physician: Dr. Lobo, hospitalist Returned Call: [address] Lobo, hospitalist. We discussed the patients case. The patient will be evaluated by the [facility] for further management. Impression Primary Impression: Gastritis and duodenitis Additional Impression: Hyponatremia Scribe Attestation The scribe's documentation has been prepared under my direction and personally reviewed by me in its entirety. I confirm that the note above accurately reflects all work, treatment, procedures, and medical decision making performed by me. Departure Information Dispostion Being Evaluated By Hospitalist Referrals Landen Shah M.D. (PCP) Patient Instructions My [facility] Problem Qualifiers
--- NOTE | 2017-09-04 16:22 | EMERGENCY ROOM VISIT NOTE ---
History First contact with patient: 15:29 Chief Complaint: RECTAL BLEEDING Stated Complaint: DARK STOOL, DIZZY, WEAK FOR 5 DAYS History of Present Illness The patient is a 66 year old female who presents to the Emergency Room with complaints of loose dark stools x 2 days, and a h/o 5 days of diffuse, gassy abdominal pain. She reports having used pepto bismol the last 2 days for relief. Reports nausea without emesis, and generalized fatigue, lightheadedness with exertion and standing up. Pt denies blood thinners or chronic use of NSAIDs. Denies having eaten beets lately. PMH is sig for cirrhosis and bleeding varices which were banded last fall. She' s being followed by Dr. Ontiveros and assessed for future liver transplant. Also has a h/o colitis x 2 years. Review of Systems ROS otherwise nl, see HPI Past Medical/Surgical History Medical Problems: (1) Acute blood loss anemia (2) Carpal tunnel syndrome (3) Chiari malformation (4) Cirrhosis (5) H/O thyroidectomy Surgical Problems: (1) History of hysterectomy (2) Hx of brain surgery (3) Hx of cholecystectomy Family History Diabetes mellitus Social History Smoking Status: Never Smoker Alcohol Use: none Drug Use: none Marital Status: Housing Status: lives with significant other Occupation Status: retired Current/Historical Medications Scheduled Cholecalciferol (Vitamin D3), 1,000 INTER.UNIT PO DAILY Cyanocobalamin (Vitamin B12), 1,000 MCG PO DAILY Ferrous Sulfate (Iron), 325 MG PO DAILY Glipizide (Glipizide), 5 MG PO QAM Glipizide (Glipizide), 10 MG PO QPM Hydrochlorothiazide (Hydrochlorothiazide), 25 MG PO QAM Insulin Glargine (Lantus), 25 UNITS SC HS Levothyroxine Sodium (Levothyroxine Sodium), 100 MCG PO QAM Metformin HCl (Metformin HCl), 850 MG PO TIDM Multivitamin (Multivitamin), 1 TAB PO DAILY Oxcarbazepine (Oxcarbazepine), 300 MG PO BID Pravastatin Sod (Pravastatin Sodium), 10 MG PO HS Propranolol HCl (Propranolol HCl ER), 60 MG PO QAM Vitamin E (Vitamin E), 1,000 INTER.UNIT PO DAILY Zolpidem Tartrate (Zolpidem Tartrate), 5 MG PO HS Scheduled PRN Ondansetron (Ondansetron HCl), 4 MG PO Q8 PRN for Nausea Physical Exam Vital Signs Date Time Temp Pulse Resp B/P (MAP) Pulse Ox O2 Delivery O2 Flow Rate FiO2 09/04/17 16:47 63 20 175/74 100 Room Air 09/04/17 16:15 59 09/04/17 15:04 36.9 63 20 160/79 99 Room Air Physical Exam as below General Appearance: WD/WN, no apparent distress Respiratory/Chest: lungs clear, normal breath sounds Cardiovascular: regular rate, rhythm, no edema, no gallop, + systolic murmur (2-3/6 best heard over aortic area) Abdomen / GI: normal bowel sounds, soft, normal rectal exam (brown stool, guaiac negative.), + distended, + pertinent finding (neg for guarding. Diffusely tender) Back: normal inspection Neurologic/Psych: alert, normal mood/affect, oriented x 3 Medical Decision & Procedures Laboratory Results 09/04/17 16:54 Red Blood Count 4.12, Mean Corpuscular Volume 84.0, Mean Corpuscular Hemoglobin 29.1, Mean Corpuscular Hemoglobin Concent 34.7, Mean Platelet Volume 9.5 09/04/17 16:54 Test 09/04/17 15:24 09/04/17 16:54 White Blood Count 2.20 K/uL (4.8-10.8) Red Blood Count 4.12 M/uL (4.2-5.4) Hemoglobin 12.0 g/dL (12.0-16.0) Hematocrit 34.6 % (37-47) Mean Corpuscular Volume 84.0 fL (80-100) Mean Corpuscular Hemoglobin 29.1 pg (25-34) Mean Corpuscular Hemoglobin Concent 34.7 g/dl (32-36) Platelet Count 65 K/uL (130-400) Mean Platelet Volume 9.5 fL (7.4-10.4) RDW Standard Deviation 49.3 fL (36.4-46.3) RDW Coefficient of Variation 16.0 % (11.5-14.5) Neutrophils % (Manual) 61.4 % Lymphocytes % (Manual) 18.4 % Variant Lymphocytes % (manual) 14.9 % Monocytes % (Manual) 2.6 % Eosinophils % (Manual) 1.8 % Basophils % (Manual) 0.9 % Neutrophils # (Manual) 1.35 K/uL (1.4-6.5) Total Absolute Neutrophils 1.35 K/uL (1.4-6.5) Lymphocytes # (Manual) 0.40 K/uL (1.2-3.4) Absolute Variant Lymphocytes 0.33 K/uL Total Absolute Lymphocytes 0.73 K/uL (1.2-3.4) Monocytes # (Manual) 0.06 K/uL (0.11-0.59) Eosinophils # (Manual) 0.04 K/uL (0-0.5) Basophils # (Manual) 0.02 K/uL (0-0.2) Toxic Vacuolation 1+ Platelet Estimate DECREASED Anisocytosis PRESENT Erythrocyte Sedimentation Rate 58 mm/hr (0-21) Prothrombin Time 14.3 SECONDS (9.0-12.0) Prothromb Time International Ratio 1.4 (0.9-1.1) Activated Partial Thromboplast Time 28.9 SECONDS (21.0-31.0) Partial Thromboplastin Ratio 1.1 Anion Gap 10.0 mmol/L (3-11) Est Creatinine Clear Calc Drug Dose 74.7 ml/min Estimated GFR () 99.7 Estimated GFR (Non- 86.1 BUN/Creatinine Ratio 14.7 (10-20) Lactic Acid Level 2.3 mmol/L (0.4-2.0) Calcium Level 8.6 mg/dl (8.5-10.1) Total Bilirubin 0.6 mg/dl (0.2-1) Direct Bilirubin 0.2 mg/dl (0-0.2) Aspartate Amino Transf (AST/SGOT) 59 U/L (15-37) Alanine Aminotransferase (ALT/SGPT) 50 U/L (12-78) Alkaline Phosphatase 99 U/L (45-117) Troponin I < 0.015 ng/ml (0-0.045) C-Reactive Protein 0.91 mg/dl (0-0.29) Total Protein 7.2 gm/dl (6.4-8.2) Albumin 2.9 gm/dl (3.4-5.0) Lipase 197 U/L (73-393) Medications Administered Medications (Trade) Dose Ordered Sig/Gay Route Start Time Stop Time Status Last Admin Dose Admin Sodium Chloride 1,000 ml @ 999 mls/hr Q1H1M STAT IV 09/04/17 15:24 09/04/17 16:24 DC 09/04/17 16:46 999 MLS/HR ED Course 1545 Reviewed records, saw and assessed pt including rectal exam supervised by nurse Weinberg. 1605 presented to attending 1610 ordered additional labs inc ESR, CRP, lac. CT abd/pelv IV contrast only. 1630 IV team being paged due to difficult IV access Medical Decision Ddx: LGIB due to varices, colitis, diverticulitis. Gastroenteritis, hemmorrhoids. Iatrogenic due to bismuth subsalicylate. Impression Primary Impression: Dark stools Departure Information Patient Instructions [facility]
[2017-09-04] MEDS ORDERED: OPTIRAY 320 IV PRN (16:30)
[2017-09-04] MEDS ORDERED: PANTOprazole INJ 40 MG in SYRINGE 0 ML IV ONE (17:00)
[2017-09-04 17:06] LABS: HEMATOCRIT 34.6 % (37-47); MEAN CORPUSCULAR HEMOGLOBIN 29.1 pg (25-34); MEAN CORPUSCULAR HGB CONC 34.7 g/dl (32-36); RED CELL DISTRIBUTION WIDTH SD 49.3 fL (36.4-46.3)
[2017-09-04 17:16] LABS: INR 1.4 (0.9-1.1); PTT PATIENT 28.9 SECONDS (21.0-31.0)
[2017-09-04 17:22] LABS: ALBUMIN 2.9 gm/dl (3.4-5.0); ALT/SGPT 50 U/L (12-78); BLOOD UREA NITROGEN 11 mg/dl (7-18); CALCIUM 8.6 mg/dl (8.5-10.1); CARBON DIOXIDE 25 mmol/L (21-32); CREATININE 0.72 mg/dl (0.60-1.20); GLUCOSE 116 mg/dl (70-99); LIPASE 197 U/L (73-393); POTASSIUM 3.9 mmol/L (3.5-5.1); SODIUM 126 mmol/L (136-145)
[2017-09-04 17:27] LABS: ALKALINE PHOSPHATASE 99 U/L (45-117); AST/SGOT 59 U/L (15-37); TOTAL PROTEIN 7.2 gm/dl (6.4-8.2)
[2017-09-04 17:29] LABS: MEAN PLATELET VOLUME 9.5 fL (7.4-10.4); PLATELET COUNT 65 K/uL (130-400)
--- NOTE | 2017-09-04 18:20 | DIAGNOSTIC IMAGING REPORT ---
CT SCAN OF THE ABDOMEN AND PELVIS WITH IV CONTRAST CLINICAL HISTORY: Rectal bleeding. Melanotic stool. COMPARISON STUDY: Abdominal CT dated 04/17/2017. TECHNIQUE: Following the IV administration of 115 cc of Optiray 320, CT scan of the abdomen and pelvis is performed from the lung bases to the proximal femora. Images are reviewed in the axial, sagittal, and coronal planes. IV contrast was administered without complication. A dose lowering technique was utilized adhering to the principles of ALARA. CT DOSE: 755.47 mGy.cm FINDINGS: Lung bases: The heart is normal in size and without pericardial effusion. The lung bases are clear noting dependent atelectasis. Liver: The contrast-enhanced liver is cirrhotic in morphology and heterogeneous in attenuation. There is enlargement of the left lobe and caudate as well as nodularity of the surface contour. There is no intrahepatic biliary ductal dilatation. The hepatic veins and portal veins are patent. There are perisplenic varices and a splenorenal shunt. Gallbladder: Surgically absent. Spleen: The spleen is enlarged, measuring 15.2 cm in length. Pancreas: Unremarkable. Adrenal glands: Unremarkable. Kidneys: The contrast enhanced kidneys are normal in size and without hydronephrosis. The kidneys enhance symmetrically. Abdominal vasculature: The abdominal aorta is normal in course and caliber noting mild atherosclerotic calcification. Bowel: Mild wall thickening and edema is suggested involving the distal stomach/proximal duodenum. Mild surrounding stranding inflammatory change is suggested. No bowel obstruction is seen. The appendix is well-visualized and normal. Peritoneum: There is no intraperitoneal free air or abdominal ascites. Lymphadenopathy: An enlarged lymph node is present in the alhaji hepatis on image #142. This measures 3.1 x 1.6 cm. A prominent portacaval node on image #151 measures 9 mm short axis. These are likely related to chronic liver disease. No mesenteric, retroperitoneal, pelvic, or inguinal adenopathy is seen. Pelvic viscera: The bladder is decompressed and grossly unremarkable. The uterus is surgically absent. No adnexal lesion is seen. Skeletal structures: The skeletal structures are osteopenic. There is mild lumbosacral spondylosis. No lytic or blastic lesions are seen. IMPRESSION: 1. Cirrhotic liver morphology with evidence of portal hypertension including splenomegaly, perisplenic varices, and a splenorenal shunt. 2. Mild wall thickening and edema is suggested involving the distal stomach/proximal duodenum. Findings suggest gastritis/duodenitis. Clinical correlation will be essential. If further assessment is desired then endoscopy would be appropriate. 3. No intraperitoneal free air or abdominal ascites is seen. 4. Additional findings as above. Electronically signed by: Hugo Barros M.D. 09/04/2017 6:18 PM Dictated Date/Time: 09/04/2017 6:11 PM
[2017-09-04] MEDS ORDERED: METOCLOPRAMIDE HCL INJ 5 MG/ML 2 ML VIAL IV STA (18:46)
[2017-09-04 18:59] LABS: INFLUENZA B ANTIGEN Neg for Influ B (NEG)
[2017-09-04] MEDS ORDERED: GLUCOSE 40% GEL 15 GM TUBE PO PRN (19:15)
[2017-09-04] MEDS ORDERED: GLUCOSE 10 TABS/TUBE PO PRN (19:15)
[2017-09-04] MEDS ORDERED: GLUCAGON FOR INJ 1 MG VIAL SQ PRN (19:15)
[2017-09-04] MEDS ORDERED: PROCHLORPERAZINE 5 MG/ML 2 ML VIAL IV STA (20:37)
--- NOTE | 2017-09-04 20:49 | History and Physical ---
History & Physical Date & Time of Service: Sep 04, 2017 at 20:48 Chief Complaint: Dark Stool, Dizzy, Weak For 5 Days Primary Care Physician: Landen Shah M.D. History of Present Illness Source: patient, family Ms. Nolen is a 66 y/o female with PMHx of steatohepatitis with cirrhosis, grade I esophageal varices s/p banding, chronic anemia, DM II, hypothyroidism, and MGUS, s/p cholecystectomy who presents to the ED c/o 4 day history of intermittent abdominal pain across the upper region with no consistent trigger ( not improved or exacerbated with activity or food), followed by fatigue/weakness , and soft dark stool for the last 2 days, without bright read blood or change in frequency of stools. Patient describes subjective fevers 3 nights ago, but none since. She has had intermittent nausea but no vomiting, denies feeling bloated, and has diminished appetite overall. She admits she may not be drinking fluids adequately. Use of Pepto Bismol has provided minimal benefits. Patient denies use of blood thinners or NSAIDs. She does not eat chocolate or spicy foods. She consumes 2 cups of coffee daily. Patient had GERD in the past, but has been off medication x 2 years because she felt it was not helpful. Patient follows with for her cirrhosis, and is being assessed for future liver transplant. She also has a h/o colitis. With regards to activity, patient notes she feels wobbly with ambulation, though at baseline she ambulates independently. She has not had any falls. Patient has been having exertional symptoms and h/o chest symptoms over the past month and has an outpatient echo and stress test scheduled. She currently denies fevers/chills, CP, palpitations, dyspnea, abdominal pain, lower extremity swelling, rashes, or any urinary symptoms or changes in urine. ROS is unremarkable except as noted above. Past Medical/Surgical History Past Medical History 1. T2DM 2. Anemia 3. Steatohepatitis with Cirrhosis 4. Grade I Esophageal Varices 5. Hypothyroidism 6. Chiari Malformation S/P Suboccipital Craniectomy Past Surgical History S/P Cholecystectomy S/P Tonsillectomy S/P Total Hysterectomy S/P Total thyroidectomy Family History Cancer Diabetes mellitus Gallbladder disease Heart disease Hypertension Diabetes (mother, father, sister, brothers x 3), cancer (GB- mother, stomach cancer - brother), strokes (dad and bothers x 2), sister had valve replacement, another sister had aneurysm Social History Smoking Status: Never Smoker Drug Use: none Marital Status: Housing status: lives with family Occupational Status: retired Immunizations History of Influenza Vaccine: N/A Influenza Vaccine Date: Oct 29, 2009 History of Tetanus Vaccine?: No History of Pneumococcal: No History of Hepatitis B Vaccine: No Multi-Drug Resistant Organisms History of MDRO: No Allergies Coded Allergies: Shrimp (Verified Allergy, Intermediate, Funny sensation around mouth, 09/04) Vinegar (Verified Adverse Reaction, Intermediate, Mouth/tongue irritation/ burning sensation, 09/04/17) Home Medications Scheduled Cholecalciferol (Vitamin D3), 1,000 INTER.UNIT PO DAILY Cyanocobalamin (Vitamin B12), 1,000 MCG PO DAILY Ferrous Sulfate (Iron), 325 MG PO DAILY Glipizide (Glipizide), 5 MG PO QAM Glipizide (Glipizide), 10 MG PO QPM Hydrochlorothiazide (Hydrochlorothiazide), 25 MG PO QAM Insulin Glargine (Lantus), 25 UNITS SC HS Levothyroxine Sodium (Levothyroxine Sodium), 100 MCG PO QAM Metformin HCl (Metformin HCl), 850 MG PO TIDM Multivitamin (Multivitamin), 1 TAB PO DAILY Oxcarbazepine (Oxcarbazepine), 300 MG PO BID Pravastatin Sod (Pravastatin Sodium), 10 MG PO HS Propranolol HCl (Propranolol HCl ER), 60 MG PO QAM Vitamin E (Vitamin E), 1,000 INTER.UNIT PO DAILY Zolpidem Tartrate (Zolpidem Tartrate), 5 MG PO HS Scheduled PRN Ondansetron (Ondansetron HCl), 4 MG PO Q8 PRN for Nausea Physical Exam Vital Signs Date Time Temp Pulse Resp B/P (MAP) Pulse Ox O2 Delivery O2 Flow Rate FiO2 09/04/17 19:30 53 20 150/61 100 Room Air 09/04/17 16:47 63 20 175/74 100 Room Air 09/04/17 16:15 59 09/04/17 15:04 36.9 63 20 160/79 99 Room Air General Appearance: WD/WN, no apparent distress Head: normocephalic, atraumatic Eyes: normal inspection ENT: hearing grossly normal, pharynx normal, + pertinent finding (tacky mucous membranes) Neck: supple, no adenopathy, no carotid bruits Respiratory/Chest: normal breath sounds, no respiratory distress, no accessory muscle use Cardiovascular: regular rate, rhythm, normal peripheral pulses, + systolic murmur (grade 3, best auscultated at aortic region') Abdomen/GI: normal bowel sounds, soft, + tenderness (LLQ on palpation - minimal ), + pertinent finding (Non ascitic, no guarding or rigidity) Back: normal inspection, no CVA tenderness, no muscle spasm Extremities/Musculoskelatal: no calf tenderness, normal capillary refill, no pedal edema Neurologic/Psych: no motor/sensory deficits (strength 5/5 in all 4 extremities) , alert, normal mood/affect, oriented x 3 Skin: normal color, warm/dry, no rash Diagnostics Laboratory Results Results Past 24 Hours Test 09/04/17 16:54 09/04/17 18:23 09/04/17 19:21 Range/Units White Blood Count 2.20 4.8-10.8 K/uL Red Blood Count 4.12 4.2-5.4 M/uL Hemoglobin 12.0 12.0-16.0 g/dL Hematocrit 34.6 37-47 % Mean Corpuscular Volume 84.0 80-100 fL Mean Corpuscular Hemoglobin 29.1 25-34 pg Mean Corpuscular Hemoglobin Concent 34.7 32-36 g/dl Platelet Count 65 130-400 K/uL Mean Platelet Volume 9.5 7.4-10.4 fL RDW Standard Deviation 49.3 36.4-46.3 fL RDW Coefficient of Variation 16.0 11.5-14.5 % Neutrophils % (Manual) 61.4 % Lymphocytes % (Manual) 18.4 % Variant Lymphocytes % (manual) 14.9 % Monocytes % (Manual) 2.6 % Eosinophils % (Manual) 1.8 % Basophils % (Manual) 0.9 % Neutrophils # (Manual) 1.35 1.4-6.5 K/uL Total Absolute Neutrophils 1.35 1.4-6.5 K/uL Lymphocytes # (Manual) 0.40 1.2-3.4 K/uL Absolute Variant Lymphocytes 0.33 K/uL Total Absolute Lymphocytes 0.73 1.2-3.4 K/uL Monocytes # (Manual) 0.06 0.11-0.59 K/uL Eosinophils # (Manual) 0.04 0-0.5 K/uL Basophils # (Manual) 0.02 0-0.2 K/uL Toxic Vacuolation 1+ Platelet Estimate DECREASED Anisocytosis PRESENT Erythrocyte Sedimentation Rate 58 0-21 mm/hr Prothrombin Time 14.3 9.0-12.0 SECONDS Prothromb Time International Ratio 1.4 0.9-1.1 Activated Partial Thromboplast Time 28.9 21.0-31.0 SECONDS Partial Thromboplastin Ratio 1.1 Sodium Level 126 136-145 mmol/L Potassium Level 3.9 3.5-5.1 mmol/L Chloride Level 91 98-107 mmol/L Carbon Dioxide Level 25 21-32 mmol/L Anion Gap 10.0 3-11 mmol/L Blood Urea Nitrogen 11 7-18 mg/dl Creatinine 0.72 0.60-1.20 mg/dl Est Creatinine Clear Calc Drug Dose 74.7 ml/min Estimated GFR () 99.7 Estimated GFR (Non- 86.1 BUN/Creatinine Ratio 14.7 10-20 Random Glucose 116 70-99 mg/dl Lactic Acid Level 2.3 0.4-2.0 mmol/L Calcium Level 8.6 8.5-10.1 mg/dl Total Bilirubin 0.6 0.2-1 mg/dl Direct Bilirubin 0.2 0-0.2 mg/dl Aspartate Amino Transf (AST/SGOT) 59 15-37 U/L Alanine Aminotransferase (ALT/SGPT) 50 12-78 U/L Alkaline Phosphatase 99 45-117 U/L Troponin I < 0.015 0-0.045 ng/ml C-Reactive Protein 0.91 0-0.29 mg/dl Total Protein 7.2 6.4-8.2 gm/dl Albumin 2.9 3.4-5.0 gm/dl Lipase 197 73-393 U/L Influenza Type A Antigen Neg for Influ A NEG Influenza Type B Antigen Neg for Influ B NEG Urine Color YELLOW Urine Appearance CLEAR CLEAR Urine pH 7.5 4.5-7.5 Urine Specific [place] 1.013 1.000-1.030 Urine Protein NEG NEG Urine Glucose (UA) NEG NEG Urine Ketones NEG NEG Urine Occult Blood NEG NEG Urine Nitrite NEG NEG Urine Bilirubin NEG NEG Urine Urobilinogen NEG NEG Urine Leukocyte Esterase TRACE NEG Urine WBC (Auto) 1-5 0-5 /hpf Urine RBC (Auto) 0-4 0-4 /hpf Urine Hyaline Casts (Auto) 0 0-5 /lpf Urine Epithelial Cells (Auto) 10-20 0-5 /lpf Urine Bacteria (Auto) NEG NEG Diagnostic Radiology CHEST ONE VIEW PORTABLE CLINICAL HISTORY: Pain, radiating to the abdomen. COMPARISON STUDY: 01/04/2017 FINDINGS: The heart is mildly enlarged. There is no failure. There is no focal pulmonary consolidation. No pleural effusions are visualized. There is no free intraperitoneal air. Slight prominence the upper lobe markings likely relates to technical factors.[ IMPRESSION: AP portable study. No acute findings. No evidence of free intraperitoneal air. CT SCAN OF THE ABDOMEN AND PELVIS WITH IV CONTRAST CLINICAL HISTORY: Rectal bleeding. Melanotic stool. COMPARISON STUDY: Abdominal CT dated 04/17/2017. TECHNIQUE: Following the IV administration of 115 cc of Optiray 320, CT scan of the abdomen and pelvis is performed from the lung bases to the proximal femora. Images are reviewed in the axial, sagittal, and coronal planes. IV contrast was administered without complication. A dose lowering technique was utilized adhering to the principles of ALARA. CT DOSE: 755.47 mGy.cm FINDINGS: Lung bases: The heart is normal in size and without pericardial effusion. The lung bases are clear noting dependent atelectasis. Liver: The contrast-enhanced liver is cirrhotic in morphology and heterogeneous in attenuation. There is enlargement of the left lobe and caudate as well as nodularity of the surface contour. There is no intrahepatic biliary ductal dilatation. The hepatic veins and portal veins are patent. There are perisplenic varices and a splenorenal shunt. Gallbladder: Surgically absent. Spleen: The spleen is enlarged, measuring 15.2 cm in length. Pancreas: Unremarkable. Adrenal glands: Unremarkable. Kidneys: The contrast enhanced kidneys are normal in size and without hydronephrosis. The kidneys enhance symmetrically. Abdominal vasculature: The abdominal aorta is normal in course and caliber noting mild atherosclerotic calcification. Bowel: Mild wall thickening and edema is suggested involving the distal stomach/proximal duodenum. Mild surrounding stranding inflammatory change is suggested. No bowel obstruction is seen. The appendix is well-visualized and normal. Peritoneum: There is no intraperitoneal free air or abdominal ascites. Lymphadenopathy: An enlarged lymph node is present in the alhaji hepatis on image #[id number]. This measures 3.1 x 1.6 cm. A prominent portacaval node on image #151 measures 9 mm short axis. These are likely related to chronic liver disease. No mesenteric, retroperitoneal, pelvic, or inguinal adenopathy is seen. Pelvic viscera: The bladder is decompressed and grossly unremarkable. The uterus is surgically absent. No adnexal lesion is seen. Skeletal structures: The skeletal structures are osteopenic. There is mild lumbosacral spondylosis. No lytic or blastic lesions are seen. IMPRESSION: 1. Cirrhotic liver morphology with evidence of portal hypertension including splenomegaly, perisplenic varices, and a splenorenal shunt. 2. Mild wall thickening and edema is suggested involving the distal stomach/proximal duodenum. Findings suggest gastritis/duodenitis. Clinical correlation will be essential. If further assessment is desired then endoscopy would be appropriate. 3. No intraperitoneal free air or abdominal ascites is seen. 4. Additional findings as above. Impression Assessment and Plan 66 y/o female with PMHx of steatohepatitis with cirrhosis, grade I esophageal varices s/p banding, chronic anemia, DM II, hypothyroidism, and MGUS, s/p cholecystectomy who presents to the ED c/o intermittent abdominal discomfort and fatigue/weakness. Given no source of infection, will hold antibiotics currently. Lactic acid borderline elevated possibly secondary to dehydration. Hyponatremia and dehydration - IVF NSS @100cc/hr - Trend BMP Gastritis/Duodenitis - PO pantoprazole daily - Diet is full liquids for now only - Zofran PRN nausea - Trend ESR/CRP/lactate Weakness - PT/OT evaluations Liver cirrhosis - Trend LFT and INR - INR possibly elevated due to progressive disease vs. hemoconcentration Pancytopenia 2/2 likely liver cirrhosis: - Trend CBC Chronic anemia - no evidence of acute blood loss, FOBT negative. - Continue Fe supplementation - Trend CBC T2DM - Hold oral anti-diabetics and Lantus with limited oral intake and cover with ISS with checs ac/hs Hypothyroidism - Continue levothyroxine VTE PPx - SCDs - Chemical ppx avoided due to high risk of GI bleed and low platelets FULL RESUSCITATION Resident Physician Supervision Note: Pt evaluated independently. I discussed the case with the resident and agree with the findings and plan as documented in the note. Any exceptions or clarifications are listed here: 66 y/o F Hx Cirrhosis, varices, DM II, anemia, hypothyroidism. Presenting with weakness and abdominal pain. Initial labs revealed hyponatremia. A CT abdomen is consistent with duodenitis. OE AAO x 3 S1,2 R CTAB Mild diffuse abdominal tenderness No CCE No Deficits P: We will provide IVF, pain control and a liquid diet Na will be trended and she can be clinically reassessed when at baseline - we will check a TSH We will not start antibiotics presently - no significant ascites is present Placed on SS Documented By: Cyril Hawkins Level of Care Med/Surg Advanced Directives Existing Advance Directive: No Existing Living Will: No Existing Power of Costume Technician: No Existing Health Care Proxy: Yes ( Samuel) Resuscitation Status FULL RESUSCITATION VTE Prophylaxis VTE Risk Assessment Done? Y/N: Yes Risk Level: Moderate Given or contraindicated: SCD's Resident Tracking Resident Involvement: Resident Care Provided Care Provided: Adult Hospital Medicine
[2017-09-04] MEDS ORDERED: MAGNESIUM HYDROXIDE SUSP 30 ML UDC PO PRN (21:45)
[2017-09-04] MEDS ORDERED: POLYETHYLENE (MIRALAX) 17 GM PACK PO PRN (21:45)
[2017-09-04] MEDS ORDERED: ONDANSETRON 4 MG TAB PO PRN (21:45)
[2017-09-04] MEDS ORDERED: ALUMINUM/MAGNESIUM/SIMETH (MAALOX MAX) 30 ML UDC PO PRN (21:45)
[2017-09-04] MEDS ORDERED: ONDANSETRON INJ 2 MG/ML 2 ML VIAL IV PRN (21:45)
[2017-09-04] MEDS: SODIUM CHLORIDE 0.9% 1000ML 1,000 ML IV SCH (22:30)
[2017-09-04 22:47] VITALS: O2SAT 99; Ht 157.5 cm; Wt 83.1 kg
[2017-09-04 23:21] VITALS: BP 132/69; PULSE 63; TEMP 36.7; O2SAT 99
[2017-09-04] MEDS ORDERED: IV FLUIDS COMPLETED PRN (23:45)
[2017-09-05] MEDS ORDERED: TRAMADOL HCL 50 MG TAB PO ONE (04:00)
[2017-09-05 06:06] LABS: HEMOGLOBIN 10.8 g/dL (12.0-16.0); MEAN CELL VOLUME 84.5 fL (80-100); MEAN CORPUSCULAR HEMOGLOBIN 29.4 pg (25-34); MEAN CORPUSCULAR HGB CONC 34.8 g/dl (32-36); RED CELL DISTRIBUTION WIDTH SD 49.5 fL (36.4-46.3); WHITE BLOOD COUNT 1.82 K/uL (4.8-10.8)
[2017-09-05] MEDS: LEVOTHYROXINE 100 MCG TAB PO SCH (06:09)
[2017-09-05 06:16] LABS: MEAN PLATELET VOLUME 9.7 fL (7.4-10.4); PLATELET COUNT 54 K/uL (130-400)
[2017-09-05 06:30] LABS: INR 1.2 (0.9-1.1)
[2017-09-05 06:39] LABS: EOS % 1.6 %; EOS ABS # 0.03 K/uL (0-0.5); LYMPH % 30.2 %; LYMPH ABS # 0.55 K/uL (1.2-3.4); MONO % 12.1 %; MONO ABS # 0.22 K/uL (0.11-0.59); NEUT % 56.1 %; NEUT ABS # 1.02 K/uL (1.4-6.5)
[2017-09-05 06:41] LABS: ALBUMIN 2.7 gm/dl (3.4-5.0); CALCIUM 8.1 mg/dl (8.5-10.1); CREATININE 0.67 mg/dl (0.60-1.20); POTASSIUM 3.5 mmol/L (3.5-5.1)
[2017-09-05 06:50] LABS: PHOSPHORUS 2.4 mg/dl (2.5-4.9); TOTAL PROTEIN 6.8 gm/dl (6.4-8.2)
[2017-09-05 07:17] VITALS: BP 152/75; PULSE 63; TEMP 36.7; O2SAT 98
[2017-09-05] MEDS: INSULIN ASPART 100 UNITS/ML 3 ML PEN SC SCH ×4 (09:00→21:27)
[2017-09-05] MEDS ORDERED: HYDROCHLOROTHIAZIDE 25 MG TAB PO SCH (09:00)
[2017-09-05] MEDS: OXCARBAZEPINE 150 MG TAB PO SCH ×2 (09:02→21:29)
[2017-09-05] MEDS: MULTIVITAMIN TAB PO SCH (09:02)
[2017-09-05] MEDS: TOCOPHERYL, DL-ALPHA 100 INTERUNIT CAP PO SCH (09:02)
[2017-09-05] MEDS: SODIUM CHLORIDE 0.9% 1000ML 1,000 ML IV SCH ×2 (09:02→18:11)
[2017-09-05] MEDS: PANTOprazole SOD 40 MG TAB PO SCH (09:03)
[2017-09-05] MEDS: PROPRANOLOL HCL 60 MG LA CAP PO SCH (09:03)
[2017-09-05] MEDS: CYANOCOBALAMIN 500 MCG TAB (VIT B-12) PO SCH (09:03)
[2017-09-05] MEDS: TOCOPHERYL, DL-ALPHA 400 INTER.UNIT CAP PO SCH (09:03)
[2017-09-05] MEDS: CHOLECALCIFEROL 1000 INTER.UNIT TAB PO SCH (09:04)
[2017-09-05] MEDS: FERROUS SULFATE 325 MG TAB PO SCH (09:04)
[2017-09-05] MEDS ORDERED: TRAMADOL HCL 50 MG TAB PO PRN (12:45)
[2017-09-05] MEDS ORDERED: NURSING VERBAL MED ORDER ONE (12:45)
[2017-09-05 14:41] VITALS: BP 155/64; PULSE 57; TEMP 36.5; O2SAT 98
[2017-09-05] MEDS ORDERED: PROCHLORPERAZINE INJ 5 MG in SYRINGE 4 ML IV PRN (18:45)
--- NOTE | 2017-09-05 19:00 | Hospitalist Progress Note ---
Hospitalist Progress Note Date of Service Sep 05, 2017. Subjective Pt evaluation today including: conversation w/ patient Pt has a h/o chronic HAs from occipital neuralgia, has had a KIRBY all day but was also NPO until dinner time in case of EGD. Now KIRBY is improved with eating dinner, requesting compazine for KIRBY though. Abd pain is completely resolved now. Plans for EGD tomorrow given her history of varices and given findings on CT. No hematochezia or melena, no hematemesis All Other Systems: Reviewed and Negative Objective Vital Signs Date Time Temp Pulse Resp B/P (MAP) Pulse Ox O2 Delivery O2 Flow Rate FiO2 09/05/17 16:00 Room Air 09/05/17 14:41 36.5 57 20 155/64 (94) 98 Room Air 09/05/17 08:40 Room Air 09/05/17 07:17 36.7 63 20 152/75 (100) 98 Room Air 09/05/17 00:00 Room Air 09/04/17 23:21 36.7 63 16 132/69 (90) 99 Room Air 09/04/17 22:47 99 Room Air 09/04/17 22:18 59 20 155/58 99 09/04/17 21:30 60 20 150/63 97 Room Air 09/04/17 20:53 59 09/04/17 20:30 63 164/52 Room Air 09/04/17 19:30 53 20 150/61 100 Room Air Physical Exam General Appearance: WD/WN, no apparent distress (sitting in chair) Eyes: normal inspection, sclerae normal ENT: hearing grossly normal Neck: trachea midline Respiratory/Chest: lungs clear, normal breath sounds, no respiratory distress, no accessory muscle use Cardiovascular: regular rate, rhythm, no edema, + systolic murmur (2/6 EUSEBIO at [facility]) Abdomen: normal bowel sounds, non tender, soft Extremities: normal inspection, no pedal edema, no calf tenderness Neurologic/Psychiatric: alert, normal mood/affect, oriented x 3 Skin: normal color, warm/dry, no rash Laboratory Results Last 24 Hours Test 09/04/17 19:21 09/05/17 05:57 09/05/17 07:35 09/05/17 11:38 Urine Color YELLOW Urine Appearance CLEAR Urine pH 7.5 Urine Specific [place] 1.013 Urine Protein NEG Urine Glucose (UA) NEG Urine Ketones NEG Urine Occult Blood NEG Urine Nitrite NEG Urine Bilirubin NEG Urine Urobilinogen NEG Urine Leukocyte Esterase TRACE Urine WBC (Auto) 1-5 /hpf Urine RBC (Auto) 0-4 /hpf Urine Hyaline Casts (Auto) 0 /lpf Urine Epithelial Cells (Auto) 10-20 /lpf Urine Bacteria (Auto) NEG White Blood Count 1.82 K/uL Red Blood Count 3.67 M/uL Hemoglobin 10.8 g/dL Hematocrit 31.0 % Mean Corpuscular Volume 84.5 fL Mean Corpuscular Hemoglobin 29.4 pg Mean Corpuscular Hemoglobin Concent 34.8 g/dl Platelet Count 54 K/uL Mean Platelet Volume 9.7 fL Neutrophils (%) (Auto) 56.1 % Lymphocytes (%) (Auto) 30.2 % Monocytes (%) (Auto) 12.1 % Eosinophils (%) (Auto) 1.6 % Basophils (%) (Auto) 0.0 % Neutrophils # (Auto) 1.02 K/uL Lymphocytes # (Auto) 0.55 K/uL Monocytes # (Auto) 0.22 K/uL Eosinophils # (Auto) 0.03 K/uL Basophils # (Auto) 0.00 K/uL RDW Standard Deviation 49.5 fL RDW Coefficient of Variation 16.0 % Immature Granulocyte % (Auto) 0.0 % Immature Granulocyte # (Auto) 0.00 K/uL Large Platelets 1+ Erythrocyte Sedimentation Rate 54 mm/hr Prothrombin Time 12.5 SECONDS Prothromb Time International Ratio 1.2 Sodium Level 130 mmol/L Potassium Level 3.5 mmol/L Chloride Level 99 mmol/L Carbon Dioxide Level 25 mmol/L Anion Gap 6.0 mmol/L Blood Urea Nitrogen 7 mg/dl Creatinine 0.67 mg/dl Est Creatinine Clear Calc Drug Dose 80.3 ml/min Estimated GFR () 104.7 Estimated GFR (Non- 90.3 BUN/Creatinine Ratio 10.8 Random Glucose 155 mg/dl Lactic Acid Level 1.2 mmol/L Calcium Level 8.1 mg/dl Phosphorus Level 2.4 mg/dl Magnesium Level 1.4 mg/dl Total Bilirubin 0.6 mg/dl Aspartate Amino Transf (AST/SGOT) 51 U/L Alanine Aminotransferase (ALT/SGPT) 47 U/L Alkaline Phosphatase 95 U/L C-Reactive Protein 0.78 mg/dl Total Protein 6.8 gm/dl Albumin 2.7 gm/dl Globulin 4.1 gm/dl Albumin/Globulin Ratio 0.7 Thyroid Stimulating Hormone (TSH) 1.640 uIu/ml Bedside Glucose 130 mg/dl 109 mg/dl Test 09/05/17 16:19 Bedside Glucose 98 mg/dl Assessment and Plan This pt is a 66 y/o female with PMHx of steatohepatitis with cirrhosis, grade I esophageal varices s/p banding, chronic anemia, DM II, hypothyroidism, and MGUS , s/p cholecystectomy who presents to the ED c/o intermittent abdominal discomfort and fatigue/weakness, poor po intake. She was found to have evidence of gastritis and duodenitis on CT abd/pel. No fevers or leukocytosis. Lactic acid borderline elevated, hyponatremic with Na+ 126 secondary to dehydration. Hyponatremia and dehydration, hypomagnesemia-Na+ improved today after IVFs. Secondary to poor po intake likely from viral GE? -hold HCTZ - decrease IVF NSS to 75 cc/hr -replace Mg IV - Trend BMP Gastritis/Duodenitis/Abd pain-Given no source of infection, will continue to hold antibiotics. COuld be viral syndrome given subjective recent fevers at home. ESR elevated at 58. Lipase normal. Abd pain is actually resolved at this time. - continue PO pantoprazole daily - Diet is full liquids for now only, NPO after midnight for EGD tomorrow as per GI - Zofran PRN nausea - compazine prn Liver cirrhosis-pancytopenia, splenomegaly, with portal HTN and h/o esophageal varices, elevated INR. Followed by Dr. Ontiveros with [facility]. No evidence of ascites on CT abd/pel - continue propranolol -holding HCTZ for now - Trend CBC -GI consult appreciated Chronic anemia - no evidence of acute blood loss, FOBT negative. - Continue Fe supplementation - Trend CBC T2DM- no A1C in our system in 2 years - Hold oral anti-diabetics and Lantus with limited oral intake and cover with ISS with checks ac/hs -check A1C Hypothyroidism-TSH here 1.64 and normal - Continue levothyroxine Chronic occipital neuralgia with HAs- flared right now and is being considered for repeat nerve ablation as outpt -IV compazine, tramadol as needed VTE PPx - SCDs - Chemical ppx avoided due to high risk of GI bleed and low platelets FULL RESUSCITATION
[2017-09-05] MEDS: MAGNESIUM SULFATE 1GM / D5W 1 GM in PREMIXED IN D5W 100 ML IV SCH ×2 (20:19→21:20)
[2017-09-05] MEDS ORDERED: INSULIN GLARGINE SOLOSTAR 100 UNITS/ML 3 ML PEN SC SCH (21:00)
[2017-09-05] MEDS: ZOLPIDEM TARTRATE 5 MG TAB PO SCH (21:28)
[2017-09-05] MEDS: PRAVASTATIN SOD 10 MG TAB PO SCH (21:29)
--- NOTE | 2017-09-05 22:04 | GASTROINTESTINAL CONSULTATION ---
DATE OF CONSULTATION: 09/05/2017 CHIEF COMPLAINT: Abdominal discomfort, abnormal CT scan, and history of cirrhosis. HISTORY OF PRESENT ILLNESS: Mrs. Nolen is a 66-year-old white female known to me from prior hospitalization. She presented to the Emergency Room on September 04 with at approximately 4-day history of abdominal pain that occurred across the upper abdomen that lasted for approximately hours. She may have also identified some dark stools for the past couple days, although she denies that they are melenic or bright red blood per rectum. She may have had a fever a couple nights ago, but this did not persist. She thought at some point she may have been getting the flu, but respiratory illnesses did not seem to materialize. She did have Pepto-Bismol use and this may have been responsive for the patient's dark stools. PAST MEDICAL HISTORY: Includes type 2 diabetes, anemia, steatohepatitis with cirrhosis (fatty liver), grade 1 esophageal varices and underwent banding, hypothyroidism and craniotomy. PAST SURGICAL HISTORY: Surgically, she has had a cholecystectomy, hysterectomy, thyroidectomy and tonsillectomy. FAMILY HISTORY: Significant for cancer, diabetes, gallbladder, hypertension and heart disease. SOCIAL HISTORY: The patient denies tobacco use, does not use alcoholic beverages. She is , lives with her family and is retired at the present time. ALLERGIES: SHE IS ALLERGIC TO SHRIMP AND VINEGAR, but has no known drug allergies. HOME MEDICATIONS: Include vitamin D3, B12, ferrous sulfate, glipizide, hydrochlorothiazide, insulin Glargine, levothyroxine, metformin, multivitamins, oxcarbazepine, pravastatin, Inderal for varices, vitamin A and zolpidem; this patient has p.r.n. Zofran ordered. REVIEW OF SYSTEMS: Otherwise noncontributory based on 13-point exam except for mentioned above. She had no hematemesis or coffee ground emesis, reports no dysuria or hematuria and denied to have any features of confusion or abdominal swelling. PHYSICAL EXAMINATION: VITAL SIGNS: Today - blood pressure on admission 160/79, afebrile at 36.9, heart rate 63, respirations 20, 99% on room air. GENERAL: The patient is awake, alert and oriented x3 and accompanied by a friend. The patient has no evidence of asterixis. HEENT: Sclerae are anicteric, conjunctivae moist. Oral mucosa moist. HEART: Normal S1, S2. LUNGS: Clear to auscultation without rales, rhonchi or wheezes. ABDOMEN: Soft, nontender, nondistended with positive bowel sounds. There is no rebound or guarding. I do not appreciate hepatosplenomegaly. EXTREMITIES: There is no clubbing, cyanosis or edema. There is no evidence for ascites or shifting dullness. The patient's extremities show normal range of motion. NEUROLOGIC: There is nonfocal. SKIN: Warm and dry without rashes. HEAD: Normocephalic and atraumatic. NECK: Normal range of motion. LABORATORY STUDIES: Blood test on admission showed a white count of 2.2, hemoglobin 12, MCV 84, platelets 65,000. INR is elevated at 1.4. Sodium 126, potassium 3.9, BUN and creatinine 11 and 0.7. Alkaline phosphatase 99, AST 59, ALT 50, C-reactive protein 91, albumin 2.9, lipase 197. Influenza type A and B were negative on admission. Urinalysis without evidence of infection. IMAGING DATA: Chest x-ray showed no acute respiratory findings or free abdominal air. The CT scan suggested liver that showed a heterogeneous pattern consistent with a nodular surface and cirrhosis. There are perisplenic varices and splenorenal shunt, there is no evidence for intrahepatic bile duct dilation and hepatic portal veins are patent. Adrenals unremarkable as is the pancreas, there is mild bowel wall thickening and edema in the distal stomach and proximal duodenum with stranding to suggest, perhaps mild gastritis and duodenitis. There is no evidence of ascites. There is an enlarged lymph node in the alhaji hepatis at 3.1 x 1.6 cm. ADDITIONAL LABORATORY STUDIES: Include a white count that is down to 1.82, hemoglobin 10.8, platelets 54,000. Sed rate remains elevated at 54 and was elevated on admission at 58. The patient has no evidence for influenza by antigen testing. Sodium is 130, potassium 3.5, AST 51, ALT 47 and C-reactive protein 0.78. TSH 1.64. IMPRESSION: Cirrhotic liver with probable duodenitis, gastritis. IMPRESSION AND PLAN: Mrs. Nolen has a history of probable nonalcoholic fatty liver disease cirrhosis with evidence of portal hypertension. She did have an upper endoscopy on May 30, which was a followup study which revealed evidence of portal hypertensive gastropathy in the cardia and body; however, there were no esophageal varices with a well-healed tissue in the vicinity of prior banding 1 month earlier. For this, at this time, a followup EGD. Her prior imaging involving an endoscopy that is not currently available in [facility]. However, I believe this was performed by me for which bands were placed for the first time by the patient's history. The patient with evidence of portal hypertension, prior varices with banding and obliteration, would followup 1 month later. The source of the patient's couple days of darker appearing stools may have been related to Pepto-Bismol as her hemoglobin did not seem to be markedly diminished on admission. She did not have any nausea or vomiting with this and the pain that occurred across the upper abdomen seemed to resolve on its own. This may reflect gastritis or duodenitis. We will plan for an upper endoscopy tomorrow and keep the patient n.p.o. after midnight. She can have a light meal this evening, if tolerated. Would continue beta blockers. There is no evidence or need for octreotide drip as I do not appreciate a clear gastrointestinal hemorrhage at this point. Further recommendations once upper endoscopy is completed. All questions answered.
[2017-09-05 23:42] VITALS: BP 149/69; PULSE 57; TEMP 36.4; O2SAT 97
[2017-09-06] MEDS: LEVOTHYROXINE 100 MCG TAB PO SCH (06:14)
[2017-09-06 07:19] VITALS: BP 149/56; PULSE 46; TEMP 36.6; O2SAT 96
[2017-09-06 07:33] LABS: HEMOGLOBIN A1C 7.1 % (4.5-5.6)
[2017-09-06 07:39] LABS: HEMATOCRIT 31.7 % (37-47); HEMOGLOBIN 10.8 g/dL (12.0-16.0); MEAN CELL VOLUME 85.7 fL (80-100); MEAN CORPUSCULAR HEMOGLOBIN 29.2 pg (25-34); MEAN CORPUSCULAR HGB CONC 34.1 g/dl (32-36); MEAN PLATELET VOLUME 9.7 fL (7.4-10.4); PLATELET COUNT 66 K/uL (130-400); RED CELL DISTRIBUTION WIDTH CV 16.3 % (11.5-14.5); RED CELL DISTRIBUTION WIDTH SD 51.1 fL (36.4-46.3); WHITE BLOOD COUNT 1.94 K/uL (4.8-10.8)
[2017-09-06 07:51] LABS: CALCIUM 8.3 mg/dl (8.5-10.1); CREATININE 0.69 mg/dl (0.60-1.20); POTASSIUM 3.9 mmol/L (3.5-5.1)
[2017-09-06] MEDS: INSULIN ASPART 100 UNITS/ML 3 ML PEN SC SCH ×4 (08:11→21:00)
[2017-09-06] MEDS: TOCOPHERYL, DL-ALPHA 400 INTER.UNIT CAP PO SCH (08:17)
[2017-09-06] MEDS: CHOLECALCIFEROL 1000 INTER.UNIT TAB PO SCH (08:17)
[2017-09-06] MEDS: SODIUM CHLORIDE 0.9% 1000ML 1,000 ML IV SCH ×2 (08:17→21:07)
[2017-09-06] MEDS: FERROUS SULFATE 325 MG TAB PO SCH (08:17)
[2017-09-06] MEDS: PANTOprazole SOD 40 MG TAB PO SCH (08:18)
[2017-09-06] MEDS: PROPRANOLOL HCL 60 MG LA CAP PO SCH (08:18)
[2017-09-06] MEDS: MULTIVITAMIN TAB PO SCH (08:18)
[2017-09-06] MEDS: OXCARBAZEPINE 150 MG TAB PO SCH ×2 (08:18→21:07)
[2017-09-06] MEDS: TOCOPHERYL, DL-ALPHA 100 INTERUNIT CAP PO SCH (08:18)
[2017-09-06] MEDS: CYANOCOBALAMIN 500 MCG TAB (VIT B-12) PO SCH (08:18)
[2017-09-06 08:48] LABS: EOS % 2.6 %; EOS ABS # 0.05 K/uL (0-0.5); LYMPH % 37.6 %; LYMPH ABS # 0.73 K/uL (1.2-3.4); MONO % 12.4 %; MONO ABS # 0.24 K/uL (0.11-0.59); NEUT % 47.4 %; NEUT ABS # 0.92 K/uL (1.4-6.5)
--- NOTE | 2017-09-06 12:20 | History & Physical Bridge Note ---
H&P Re-Evaluation Bridge Note: I have examined the patient, reviewed the History & Physical and in the interval since the performance of the History & Physical I have noted the following changes of clinical significance: No changes noted consent obtained for EGD/possible bx and banding as needed torin
--- NOTE | 2017-09-06 12:46 | GI REPORT ---
Procedure Date: 09/06/2017 12:20 PM Procedure: Upper GI endoscopy Indications: Abnormal CT of the GI tract Medicines: Propofol per Anesthesia Complications: No immediate complications. Estimated blood loss: Minimal. Estimated Blood Loss: Estimated blood loss was minimal. Procedure: Pre-Anesthesia Assessment: - Prior to the procedure, a History and Physical was performed, and patient medications and allergies were reviewed. The patient's tolerance of previous anesthesia was also reviewed. The risks and benefits of the procedure and the sedation options and risks were discussed with the patient. All questions were answered, and informed consent was obtained. Prior Anticoagulants: The patient has taken no previous anticoagulant or antiplatelet agents. ASA Grade Assessment: III - A patient with severe systemic disease. After reviewing the risks and benefits, the patient was deemed in satisfactory condition to undergo the procedure. After obtaining informed consent, the endoscope was passed under direct vision. Throughout the procedure, the patient's blood pressure, pulse, and oxygen saturations were monitored continuously. The scope was introduced through the mouth, and advanced to the third part of duodenum. The upper GI endoscopy was accomplished without difficulty. The patient tolerated the procedure well. Findings: The examined esophagus was normal. The Z-line was regular and was found 40 cm from the incisors. Patchy mildly erythematous mucosa without bleeding was found in the gastric body and in the gastric antrum. Biopsies were taken with a cold forceps for histology. Estimated blood loss was minimal. Verification of patient identification for the specimen was done by the physician and watch repair technician using the patient's name and medical record number. Mild portal hypertensive gastropathy was found in the gastric fundus and in the gastric body. Retained gastric contents are not identified on this exam. The examined duodenum was normal. Biopsies were taken with a cold forceps for histology. Estimated blood loss was minimal. Verification of patient identification for the specimen was done by the physician and watch repair technician using the patient's name and medical record number. The cardia and gastric fundus were normal on retroflexion. Impression: - Normal esophagus. - Z-line regular, 40 cm from the incisors. - Erythematous mucosa in the gastric body and antrum. Biopsied. - Portal hypertensive gastropathy. - Normal examined duodenum. Biopsied. - Esophageal or gastric varices are not identified. Duodenitis is not identified. Recommendation: - [facility]. - Advance diet as tolerated. - Continue present medications. - Await pathology results. - Return to GI clinic at appointment to be scheduled. MD Gilberto Louis MD 09/06/2017 12:45:53 PM This report has been signed electronically. Note Initiated On: 09/06/2017 12:20 PM I attest to the content of the Intraoperative Record and orders documented therein, exceptions below
[2017-09-06] MEDS ORDERED: LIDOCAINE HCL 2% 2 ML VIAL (20MG/ML) ONE (12:47)
[2017-09-06] MEDS ORDERED: PROPOFOL IV EMULSION 10 MG/ML 20 ML VIAL IV ONE (12:47)
--- NOTE | 2017-09-06 12:51 | Anesthesiology Progress Note ---
Anesthesia Post Op Note Date & Time Sep 06, 2017 at 12:51 Vital Signs Pain Intensity: 0.0 Vital Signs Past 12 Hours Date Time Temp Pulse Resp B/P (MAP) Pulse Ox O2 Delivery O2 Flow Rate FiO2 09/06/17 12:43 51 18 92/52 (65) 97 Room Air 09/06/17 11:54 36.6 51 18 160/78 (105) 100 Room Air 09/06/17 08:30 Room Air 09/06/17 07:19 36.6 46 18 149/56 (87) 96 Room Air Notes Mental Status: alert / awake / arousable, participated in evaluation Pt Amnestic to Procedure: Yes Nausea / Vomiting: adequately controlled Pain: adequately controlled Airway Patency, RR, SpO2: stable & adequate BP & HR: stable & adequate Hydration State: stable & adequate Anesthetic Complications: no major complications apparent
--- NOTE | 2017-09-06 14:23 | Progress Note ---
Subjective Date of Service: Sep 06, 2017. Subjective Pt evaluation today including: conversation w/ patient, conversation w/ family Pt states she is feeling overall improved. No SOB or chest pain. Her lightheadedness and fevers have resolved. She is still weak, but better. She is feeling "fuzzy" in terms of thinking still, but better. She is awaiting PO s/ p EGD. Pt denies fever, abd pain, n/v/c/d, LE pain or swelling. Problem List Medical Problems: (1) Colitis Status: Acute (2) Dark stools Status: Acute (3) Gastritis and duodenitis Status: Acute (4) GI bleed Status: Acute (5) GI bleeding Status: Acute (6) Hyponatremia Status: Acute (7) Symptomatic anemia Status: Acute (8) Upper GI bleed Status: Acute Review of Systems All Other Systems: Reviewed and Negative Objective Vital Signs Date Time Temp Pulse Resp B/P (MAP) Pulse Ox O2 Delivery O2 Flow Rate FiO2 09/06/17 13:15 59 18 158/58 (91) 99 Room Air 09/06/17 13:00 51 18 135/55 (81) 98 Room Air 09/06/17 12:43 51 18 92/52 (65) 97 Room Air 09/06/17 11:54 36.6 51 18 160/78 (105) 100 Room Air 09/06/17 08:30 Room Air 09/06/17 07:19 36.6 46 18 149/56 (87) 96 Room Air 09/06/17 00:00 Room Air 09/05/17 23:42 36.4 57 18 149/69 (95) 97 Room Air 09/05/17 16:00 Room Air 09/05/17 14:41 36.5 57 20 155/64 (94) 98 Room Air Physical Exam General Appearance: WD/WN, no apparent distress Eyes: normal inspection, sclerae normal Respiratory/Chest: normal breath sounds, no respiratory distress Cardiovascular: regular rate, rhythm, + normal peripheral pulses Abdomen: non tender, soft Extremities: non-tender, no pedal edema Neurologic/Psychiatric: alert, normal mood/affect Skin: normal color, warm/dry Laboratory Results Last 24 Hours Test 09/05/17 16:19 09/05/17 19:38 09/06/17 07:07 09/06/17 07:32 Bedside Glucose 98 mg/dl 183 mg/dl 115 mg/dl White Blood Count 1.94 K/uL Red Blood Count 3.70 M/uL Hemoglobin 10.8 g/dL Hematocrit 31.7 % Mean Corpuscular Volume 85.7 fL Mean Corpuscular Hemoglobin 29.2 pg Mean Corpuscular Hemoglobin Concent 34.1 g/dl Platelet Count 66 K/uL Mean Platelet Volume 9.7 fL Neutrophils (%) (Auto) 47.4 % Lymphocytes (%) (Auto) 37.6 % Monocytes (%) (Auto) 12.4 % Eosinophils (%) (Auto) 2.6 % Basophils (%) (Auto) 0.0 % Neutrophils # (Auto) 0.92 K/uL Lymphocytes # (Auto) 0.73 K/uL Monocytes # (Auto) 0.24 K/uL Eosinophils # (Auto) 0.05 K/uL Basophils # (Auto) 0.00 K/uL RDW Standard Deviation 51.1 fL RDW Coefficient of Variation 16.3 % Immature Granulocyte % (Auto) 0.0 % Immature Granulocyte # (Auto) 0.00 K/uL Sodium Level 133 mmol/L Potassium Level 3.9 mmol/L Chloride Level 103 mmol/L Carbon Dioxide Level 25 mmol/L Anion Gap 5.0 mmol/L Blood Urea Nitrogen 6 mg/dl Creatinine 0.69 mg/dl Est Creatinine Clear Calc Drug Dose 78.0 ml/min Estimated GFR () 103.7 Estimated GFR (Non- 89.4 BUN/Creatinine Ratio 9.4 Random Glucose 110 mg/dl Estimated Average Glucose 157 mg/dl Hemoglobin A1c 7.1 % Calcium Level 8.3 mg/dl Magnesium Level 1.6 mg/dl Test 09/06/17 11:25 Bedside Glucose 117 mg/dl Assessment and Plan This pt is a 66 y/o female with PMHx of steatohepatitis with cirrhosis, grade I esophageal varices s/p banding, chronic anemia, DM II, hypothyroidism, and MGUS , s/p cholecystectomy who presents to the ED c/o intermittent abdominal discomfort and fatigue/weakness, poor po intake. She was found to have evidence of gastritis and duodenitis on CT abd/pel. No fevers or leukocytosis. Lactic acid borderline elevated, hyponatremic with Na+ 126 secondary to dehydration. Hyponatremia and dehydration, hypomagnesemia-Na+ improving s/p replacement Likely, secondary to poor po intake possibly related to viral GE? -hold HCTZ - IVF NSS to 75 cc/hr -replace Mg IV - Trend BMP Gastritis/Duodenitis/Abd pain-Given no source of infection, will continue to hold antibiotics. Culd be viral syndrome given subjective recent fevers at home. ESR elevated at 58. Lipase normal. Abd pain is actually resolved at this time. - continue PO pantoprazole daily - EGD 09/06 was negative for bleeding, no banding done ADAT Liver cirrhosis-pancytopenia, splenomegaly, with portal HTN and h/o esophageal varices, elevated INR. Followed by Dr. Ontiveros with [facility]. No evidence of ascites on CT abd/pel - continue propranolol -holding HCTZ for now - Trend CBC -GI consult appreciated Chronic anemia - no evidence of acute blood loss, FOBT negative. - Continue Fe supplementation - Trend CBC T2DM- - Hold oral anti-diabetics and Lantus with limited oral intake and cover with ISS with checks ac/hs A1c 7.9 Hypothyroidism-TSH here 1.64 and normal - Continue levothyroxine Chronic occipital neuralgia with HAs- flared right now and is being considered for repeat nerve ablation as outpt -IV compazine, tramadol as needed VTE PPx - SCDs - Chemical ppx avoided due to high risk of GI bleed and low platelets FULL RESUSCITATION
[2017-09-06 16:02] VITALS: BP 138/56; PULSE 38; TEMP 36.6; O2SAT 98
[2017-09-06 17:24] VITALS: PULSE 40
--- NOTE | 2017-09-06 18:18 | GASTROENTEROLOGY PROGRESS NOTE ---
DATE: 09/06/2017 GASTROENTEROLOGY INPATIENT PROGRESS UPDATE SUBJECTIVE: The patient underwent upper endoscopy today for abnormal features on CT scan, recent abdominal discomfort as well as to reassess for portal hypertensive changes. The esophagus revealed no evidence for varices and there were no gastric varices, although a mild pattern of portal gastropathy was identified. The lower third of the stomach and the distal body and antrum a pattern of erythema, although no masses, ulcerations were identified. It is unclear if this correlates with the CT scan findings. Biopsies were taken of this region as well as of the duodenum, although the duodenal bulb and duodenum examine did not show any evidence of duodenitis endoscopically. Biopsies are pending at this time. The patient feels well overall and would recommend advancing diet tonight to clears and then full liquids and if doing well, can have a light meal. Ultimately, the patient can be discharged to home, if she is tolerating food, from a GI perspective. The patient will follow with Dr. Ontiveros in GI Clinic in January and I recommend an upper endoscopy in 1 year (August 2018) for variceal surveillance. All questions answered. The patient should maintain her current medications. She knows to contact the GI office if there is any change in her symptoms.
[2017-09-06] MEDS: PRAVASTATIN SOD 10 MG TAB PO SCH (21:07)
[2017-09-06] MEDS: ZOLPIDEM TARTRATE 5 MG TAB PO SCH (21:07)
[2017-09-06 22:49] VITALS: BP 115/67; PULSE 47; TEMP 36.8; O2SAT 96
[2017-09-07] MEDS: LEVOTHYROXINE 100 MCG TAB PO SCH (06:15)
[2017-09-07 07:31] VITALS: BP 184/71; PULSE 49; TEMP 36.8; O2SAT 100
[2017-09-07] MEDS: TOCOPHERYL, DL-ALPHA 100 INTERUNIT CAP PO SCH (08:53)
[2017-09-07] MEDS: CHOLECALCIFEROL 1000 INTER.UNIT TAB PO SCH (08:53)
[2017-09-07] MEDS: MULTIVITAMIN TAB PO SCH (08:53)
[2017-09-07] MEDS: OXCARBAZEPINE 150 MG TAB PO SCH (08:53)
[2017-09-07] MEDS: CYANOCOBALAMIN 500 MCG TAB (VIT B-12) PO SCH (08:53)
[2017-09-07] MEDS: PANTOprazole SOD 40 MG TAB PO SCH (08:53)
[2017-09-07] MEDS: FERROUS SULFATE 325 MG TAB PO SCH (08:53)
[2017-09-07] MEDS: TOCOPHERYL, DL-ALPHA 400 INTER.UNIT CAP PO SCH (08:53)
[2017-09-07] MEDS: PROPRANOLOL HCL 60 MG LA CAP PO SCH (09:00)
[2017-09-07] MEDS: INSULIN ASPART 100 UNITS/ML 3 ML PEN SC SCH (09:03)
[2017-09-07 09:09] VITALS: BP 144/52; PULSE 38; O2SAT 98
[2017-09-07] MEDS: SODIUM CHLORIDE 0.9% 1000ML 1,000 ML IV SCH (09:25)
--- NOTE | 2017-09-07 10:04 | Discharge Instructions ---
Discharge Instructions Date of Service Sep 07, 2017. Admission Reason for Admission: Gastritis And Duodenitis, Hyponatremia Discharge Discharge Diagnosis / Problem: Portal hypertensive gastropathy Discharge Goals Goal(s): Decrease discomfort, Improve function, Increase independence Activity Recommendations Activity Limitations: resume your previous activity . Instructions / Follow-Up Instructions / Follow-Up Follow up with Dr. Shah next week Follow up with Dr. Ontiveros in January You will need a repeat EGD next August for follow up Current Hospital Diet Patient's current hospital diet: Diabetes Type 2 Diet Discharge Diet Recommended Diet: Diabetes Type 2 Diet Procedures Procedures Performed: EGD, BX Pending Studies Studies pending at discharge: yes List of pending studies: EGD biopsy pathology Laboratory Results Hemoglobin A1c Test 09/06/17 07:07 Range/Units Estimated Average Glucose 157 mg/dl Hemoglobin A1c 7.1 H 4.5-5.6 % Lipid Panel Test 08/29/17 15:16 Range/Units Triglycerides Level 137 0-150 mg/dl Cholesterol Level 139 0-200 mg/dl HDL Cholesterol 54 mg/dl Cholesterol/HDL Ratio 2.6 LDL Cholesterol, Calculated 58 mg/dl Medical Emergencies . Who to Call and When: Medical Emergencies: If at any time you feel your situation is an emergency, please call 911 immediately. . Non-Emergent Contact Non-Emergency issues call your: Primary Care Provider, [facility] . . "Provider Documentation" section prepared by Amber Rock. . VTE Core Measure Inpt VTE Proph given/why not?: SCD's
--- NOTE | 2017-09-07 10:05 | Discharge Summary ---
Discharge Summary Date of Service Sep 07, 2017. Discharge Summary Admission Date: Sep 05, 2017 at 10:59 Discharge Date: Sep 07, 2017 Discharge Disposition: Home Principal Diagnosis: Portal hypertention gastropathy Problems/Secondary Diagnoses: Cirrhosis Esophageal varices Chronic anemia DM Hypothyroid MGUS Occipital neuralgia Chiari malformation s/p suboccipital craniotomy Immunizations: Have You Had Influenza Vaccine: N/A Influenza Vaccine Date: Oct 29, 2009 History of Tetanus Vaccine?: No History of Pneumococcal: No History of Hepatitis B Vaccine: No Procedures: EGD 09/06 Consultations: GI Medication Reconciliation New Medications: Propranolol (Inderal) 10 Mg Tab 10 MG PO BID for 30 Days, #60 TAB Continued Medications: Cholecalciferol (Vitamin D3) 1,000 Unit Tab 1000 INTER.UNIT PO DAILY, TAB Cyanocobalamin (Vitamin B12) 1,000 Mcg Tab 1000 MCG PO DAILY Ferrous Sulfate (Iron) 325 Mg Tab 325 MG PO DAILY Glipizide (Glipizide) 5 Mg Tab 5 MG PO QAM Glipizide (Glipizide) 10 Mg Tab 10 MG PO QPM Hydrochlorothiazide (Hydrochlorothiazide) 25 Mg Tab 25 MG PO QAM Insulin Glargine (Lantus) 100 Unit/Ml Inj 25 UNITS SC HS Levothyroxine Sodium (Levothyroxine Sodium) 100 Mcg Tab 100 MCG PO QAM Metformin HCl (Metformin HCl) 850 Mg Tab 850 MG PO TIDM Multivitamin (Multivitamin) Tab 1 TAB PO DAILY, TAB Ondansetron (Ondansetron HCl) 4 Mg Tab 4 MG PO Q8 PRN for Nausea Oxcarbazepine (Oxcarbazepine) 300 Mg Tab 300 MG PO BID Pravastatin Sod (Pravastatin Sodium) 20 Mg Tab 10 MG PO HS Vitamin E (Vitamin E) 1,000 Unit Cap 1000 INTER.UNIT PO DAILY Zolpidem Tartrate (Zolpidem Tartrate) 5 Mg Tab 5 MG PO HS Discontinued Medications: Propranolol HCl (Propranolol HCl ER) 60 Mg Capcr 60 MG PO QAM Discharge Exam Pt is doing well. She has been tolerating PO without issue. Overnight, she had an episode of bradycardia to 28 and was lightheaded with this. She has been in the 40s today and no further lightheadedness. She feels well and would like to d/c home today if possible. Pt denies fever, SOB, chest pain, abd pain , n/v/c/d, LE pain or swelling. Physical Exam: General Appearance: WD/WN, no apparent distress Eyes: normal inspection, sclerae normal Respiratory/Chest: normal breath sounds, no respiratory distress Cardiovascular: regular rate, rhythm, no edema Abdomen / GI: non tender, soft Extremities: no calf tenderness, no pedal edema Neurologic/Psychiatric: alert, normal mood/affect, oriented x 3 Skin: normal color, warm/dry Hospital Course This pt is a 66 y/o female with PMHx of steatohepatitis with cirrhosis, grade I esophageal varices s/p banding, chronic anemia, DM II, hypothyroidism, and MGUS , s/p cholecystectomy who presents to the ED c/o intermittent abdominal discomfort and fatigue/weakness, poor po intake. She was found to have evidence of gastritis and duodenitis on CT abd/pel. No fevers or leukocytosis. Lactic acid borderline elevated, hyponatremic with Na+ 126 secondary to dehydration. Hyponatremia and dehydration, hypomagnesemia-Na+ improving s/p replacement Likely, secondary to poor po intake, possibly related to viral GE? Na on d/c is stable at 133 Can resume home medications and monitor Gastritis/Duodenitis/Abd pain-Given no source of infection, will continue to hold antibiotics. Could be viral syndrome given subjective recent fevers at home. ESR elevated at 58. Lipase normal. Abd pain has not been an issue for pt and tolerated advanced diet - continue PO pantoprazole daily - EGD 09/06 was negative for bleeding, no banding done, dx is portal hypertension gastropathy Liver cirrhosis-pancytopenia, splenomegaly, with portal HTN and h/o esophageal varices, elevated INR. Followed by Dr. Ontiveros with [facility]. No evidence of ascites on CT AP Adjustments made to propranolol due to bradycardia Bradycardia: pt has been in the 40s and 50s for most of her admission, however last night she did drop to 28 and was lightheaded with this. Today, on day of d /c, she has been up OOB and active and no further lightheadedness with HR in the 40s. I did discuss this with Dr. Partida. He feels that the propranolol LA 60mg was perhaps too high of a dose for pt. His goal HR for her related to her portal HTN is 25% of her prior regular resting HR, which is typically in the 50s. He recommended for d/c of propranolol LA in favor of propranolol 10mg BID and to monitor HR. She should f/u with GI sooner than January if maintaining these HR goals is not achievable with lower dose propranolol. This can be titrated further to 5mg if needed EKG prior to d/c was sinus erasmo with 1st degree AV block. Pt was asx with this and ME interval was minimal prolonged at 0.210. Propranolol is only contraindicated in 2nd and 3rd degree heart block. This will be continued at a lower dose with monitoring. Chronic anemia - no evidence of acute blood loss, FOBT negative. - Continue Fe supplementation T2DM- - Resume home dosing A1c 7.9 Hypothyroidism-TSH 1.64 - Continue levothyroxine Chronic occipital neuralgia with HAs- being considered for repeat nerve ablation as outpt Total Time Spent: Greater than 30 minutes This includes examination of the patient, discharge planning, medication reconciliation, and communication with other providers. Discharge Instructions Please refer to the electronic Patient Visit Report (Discharge Instructions) for additional information. Follow-Up Follow up with Dr. Shah next week Follow up with Dr. Ontiveros in January Repeat EGD next August for follow up Additional Copies To Ramez Ontiveros M.D.; Landen Shah M.D.
[2017-09-07] MEDS ORDERED: NURSING VERBAL MED ORDER ONE (10:15)
[2017-09-07] MEDS ORDERED: PROP10TA7 PO (10:32)
[2017-09-07 10:54] VITALS: BP 144/52; PULSE 38; TEMP 36.8; O2SAT 98
== END 2017-09-07 11:44 | disposition home or self-care (01) | DRG 392 ==
LOC: C.EDB 15:03 → C.MS2W 21:49 → ENRESERV 22:01 → OBSVTOIN 09-05 10:59
PROVIDERS: ADMIT Internal Medicine; ATTEND Family Medicine
PROC: 0DB68ZX Excision of Stomach, Via Natural or Artificial Opening Endoscopic, Diagnostic (ICD-10-PCS; principal; 2017-09-06 11:49)
DX: K31.89 Other diseases of stomach and duodenum (principal); K76.6 Portal hypertension; D61.818 Other pancytopenia; E87.1 Hypo-osmolality and hyponatremia; K29.80 Duodenitis without bleeding; E86.0 Dehydration; E11.9 Type 2 diabetes mellitus without complications; E03.9 Hypothyroidism, unspecified; E83.42 Hypomagnesemia; M54.81 Occipital neuralgia; K75.81 Nonalcoholic steatohepatitis (NASH); Z79.4 Long term (current) use of insulin; Z79.84 Long term (current) use of oral hypoglycemic drugs; Z79.899 Other long term (current) drug therapy; Z83.3 Family history of diabetes mellitus

== ENCOUNTER 2017-09-11 15:19 | Inpatient (IN) | payer OTHER ==
[~2017-09-11] VITALS: Ht 157.5 cm; Wt 80.3 kg
[~2017-09-11 15:19] MED LIST changes: -COLLCAP PO; +GLC850 PO; -HYDR25TA4 PO; +HYDR25TA5 PO; +INSDGI SC; -INSDGIPEN SC; +LEVO100T7 PO; -LEVO50TA PO; -METF-383 PO; -ONDA4TAB46 PO; +ONDA4TAB9 PO; -PRAV20TA PO; +PROP10TA7 PO; -PROP1TAB PO; +PRVC/20 PO; +TRL300 PO; -ZOLP5TAB PO; +ZOLP5TAB6 PO
[2017-09-11 16:04] LABS: HEMATOCRIT 35.4 % (37-47); HEMOGLOBIN 12.4 g/dL (12.0-16.0); MEAN CELL VOLUME 84.9 fL (80-100); MEAN CORPUSCULAR HEMOGLOBIN 29.7 pg (25-34); RED CELL DISTRIBUTION WIDTH CV 16.2 % (11.5-14.5); RED CELL DISTRIBUTION WIDTH SD 49.1 fL (36.4-46.3); WHITE BLOOD COUNT 3.62 K/uL (4.8-10.8)
--- NOTE | 2017-09-11 16:05 | DIAGNOSTIC IMAGING REPORT ---
CHEST ONE VIEW PORTABLE HISTORY: 66 years-old Female EVALUATE RESPIRATORY DISTRESS.DYSPNEA acute respiratory distress with dyspnea COMPARISON: Chest radiograph 09/04/2017 TECHNIQUE: Portable AP view of the chest FINDINGS: Cardiac silhouette is mildly enlarged, unchanged. Atherosclerosis of the aorta. No pneumothorax, pleural effusion, focal airspace consolidation or overt pulmonary edema. Mild right hemidiaphragmatic elevation is unchanged. Degenerative changes are seen within the shoulders and spine. IMPRESSION: Cardiomegaly without acute process. The above report was generated using voice recognition software. It may contain grammatical, syntax or spelling errors. Electronically signed by: Shane Arana M.D. 09/11/2017 4:04 PM Dictated Date/Time: 09/11/2017 4:02 PM
[2017-09-11 16:11] LABS: MEAN PLATELET VOLUME 9.5 fL (7.4-10.4); PLATELET COUNT 97 K/uL (130-400)
--- NOTE | 2017-09-11 16:12 | EMERGENCY ROOM VISIT NOTE ---
History Report prepared by Octaviano: Sera Ozuna Under the Supervision of: Dr. Douglas Raines D.O. First contact with patient: 15:40 Chief Complaint: CARDIAC ASSESSMENT Stated Complaint: IRREGULAR EKG SENT BY History of Present Illness The patient is a 66 year old female who presents to the Emergency Room with complaints of constant dizziness beginning last week. The patient reports dehydration, fatigue, and increased swelling in legs. She states her symptoms worsen when she stands up. The patient was at Dr. Shah's office prior to arrival who sent her to the ED because of her abnormal EKG. The patient was admitted to the hospital last week for gastritis. She states during her hospital stay her propranolol was reduced. The patient has a history of GI bleeds, diabetes, and cirrhosis Source of History: patient Onset: last week Position: other (generalized) Quality: other (dizziness) Timing: constant Modifying Factors (Worsening): other (standing) Associated Symptoms: + fatigue Review of Systems See HPI for pertinent positives & negatives. A total of 10 systems reviewed and were otherwise negative. Past Medical & Surgical Medical Problems: (1) Acute blood loss anemia (2) bradycardia (3) bradycardia (4) Carpal tunnel syndrome (5) Chiari malformation (6) Cirrhosis (7) H/O thyroidectomy Surgical Problems: (1) History of hysterectomy (2) Hx of brain surgery (3) Hx of cholecystectomy Family History Cancer Diabetes mellitus Gallbladder disease Heart disease Hypertension Social History Smoking Status: Never Smoker Alcohol Use: none Drug Use: none Marital Status: Housing Status: lives with significant other Occupation Status: retired Current/Historical Medications Scheduled Cholecalciferol (Vitamin D3), 1,000 INTER.UNIT PO DAILY Cyanocobalamin (Vitamin B12), 1,000 MCG PO DAILY Ferrous Sulfate (Iron), 325 MG PO DAILY Glipizide (Glipizide), 5 MG PO QAM Glipizide (Glipizide), 10 MG PO QPM Hydrochlorothiazide (Hydrochlorothiazide), 25 MG PO QAM Insulin Glargine (Lantus), 25 UNITS SC HS Levothyroxine Sodium (Levothyroxine Sodium), 100 MCG PO QAM Metformin HCl (Metformin HCl), 850 MG PO TIDM Multivitamin (Multivitamin), 1 TAB PO DAILY Oxcarbazepine (Oxcarbazepine), 300 MG PO BID Pravastatin Sod (Pravastatin Sodium), 10 MG PO HS Propranolol (Inderal), 10 MG PO BID Vitamin E (Vitamin E), 1,000 INTER.UNIT PO DAILY Zolpidem Tartrate (Zolpidem Tartrate), 5 MG PO HS Scheduled PRN Ondansetron (Ondansetron HCl), 4 MG PO Q8 PRN for Nausea Allergies Coded Allergies: Shrimp (Verified Allergy, Intermediate, Funny sensation around mouth, ) Vinegar (Verified Adverse Reaction, Intermediate, Mouth/tongue irritation/ burning sensation, 09/11/17) Physical Exam Vital Signs Date Time Temp Pulse Resp B/P (MAP) Pulse Ox O2 Delivery O2 Flow Rate FiO2 09/11/17 17:38 37 20 134/60 97 Room Air 09/11/17 16:09 33 20 134/73 100 Room Air 09/11/17 15:50 96 Room Air 09/11/17 15:50 96 Room Air 09/11/17 15:46 96 Room Air 09/11/17 15:40 46 09/11/17 15:22 36.4 33 18 140/59 97 Room Air Physical Exam GENERAL: Patient is awake, alert, and in no acute distress. Patient is mildly anxious appearing. EYES: The conjunctivae are clear. The pupils are round and reactive. EARS, NOSE, MOUTH AND THROAT: The nose is without any evidence of any deformity. Mucous membranes are moist tongue is midline NECK: The neck is nontender and supple. RESPIRATORY: Lung sounds diminished at both bases, no tachypnea or conversational dyspnea. CARDIOVASCULAR: Bradycardic, no definite murmur noted. GASTROINTESTINAL: The abdomen is soft. Bowel sounds are present in all quadrants. Abdomen is nontender PELVIS: The Pelvis is stable. No tenderness to palpation is noted. BACK: No midline tenderness or or step-off noted range of motion in flexion extension as well as rotation no signs of muscle spasm noted MUSCULOSKELETAL/EXTREMITIES: There is no evidence of gross deformity full range of motion is noted in the hips and shoulders SKIN: Trace pedal edema noted bilaterally. There is no obvious evidence of any rash. There are no petechiae, pallor or cyanosis noted. NEUROLOGIC: Patient is awake alert and oriented x3. Medical Decision & Procedures ER Provider Diagnostic Interpretation: Radiology results as stated below per my review and radiologist interpretation: CHEST ONE VIEW PORTABLE FINDINGS: Cardiac silhouette is mildly enlarged, unchanged. Atherosclerosis of the aorta. No pneumothorax, pleural effusion, focal airspace consolidation or overt pulmonary edema. Mild right hemidiaphragmatic elevation is unchanged. Degenerative changes are seen within the shoulders and spine. IMPRESSION: Cardiomegaly without acute process. The above report was generated using voice recognition software. It may contain grammatical, syntax or spelling errors. Electronically signed by: Shane Arana M.D. Laboratory Results 09/11/17 15:50 Red Blood Count 4.17, Mean Corpuscular Volume 84.9, Mean Corpuscular Hemoglobin 29.7, Mean Corpuscular Hemoglobin Concent 35.0, Mean Platelet Volume 9.5 09/11/17 15:50 09/11/17 16:37 Test 09/11/17 15:50 09/11/17 16:37 09/11/17 18:06 09/11/17 18:25 White Blood Count 3.62 K/uL (4.8-10.8) Red Blood Count 4.17 M/uL (4.2-5.4) Hemoglobin 12.4 g/dL (12.0-16.0) Hematocrit 35.4 % (37-47) Mean Corpuscular Volume 84.9 fL (80-100) Mean Corpuscular Hemoglobin 29.7 pg (25-34) Mean Corpuscular Hemoglobin Concent 35.0 g/dl (32-36) Platelet Count 97 K/uL (130-400) Mean Platelet Volume 9.5 fL (7.4-10.4) RDW Standard Deviation 49.1 fL (36.4-46.3) RDW Coefficient of Variation 16.2 % (11.5-14.5) Neutrophils % (Manual) 58.8 % Lymphocytes % (Manual) 21.1 % Variant Lymphocytes % (manual) 14.0 % Monocytes % (Manual) 3.5 % Eosinophils % (Manual) 2.6 % Neutrophils # (Manual) 2.13 K/uL (1.4-6.5) Total Absolute Neutrophils 2.13 K/uL (1.4-6.5) Lymphocytes # (Manual) 0.76 K/uL (1.2-3.4) Absolute Variant Lymphocytes 0.51 K/uL Total Absolute Lymphocytes 1.27 K/uL (1.2-3.4) Monocytes # (Manual) 0.13 K/uL (0.11-0.59) Eosinophils # (Manual) 0.09 K/uL (0-0.5) Platelet Estimate DECREASED Anion Gap 9.0 mmol/L (3-11) Est Creatinine Clear Calc Drug Dose 66.8 ml/min Estimated GFR () 82.8 Estimated GFR (Non- 71.4 BUN/Creatinine Ratio 10.0 (10-20) Calcium Level 8.8 mg/dl (8.5-10.1) Total Bilirubin 0.6 mg/dl (0.2-1) Alanine Aminotransferase (ALT/SGPT) 44 U/L (12-78) Alkaline Phosphatase 109 U/L (45-117) Pro-B-Type Natriuretic Peptide 403 pg/ml (0-900) Total Protein 7.7 gm/dl (6.4-8.2) Albumin 3.0 gm/dl (3.4-5.0) Globulin 4.7 gm/dl (2.5-4.0) Albumin/Globulin Ratio 0.6 (0.9-2) Thyroid Stimulating Hormone (TSH) 1.980 uIu/ml (0.300-4.500) Free Thyroxine 1.02 ng/dl (0.80-1.60) Prothrombin Time 12.2 SECONDS (9.0-12.0) Prothromb Time International Ratio 1.2 (0.9-1.1) Activated Partial Thromboplast Time 29.1 SECONDS (21.0-31.0) Partial Thromboplastin Ratio 1.1 Magnesium Level 1.3 mg/dl (1.8-2.4) Aspartate Amino Transf (AST/SGOT) 33 U/L (15-37) Total Creatine Kinase 71 U/L (26-192) Creatine Kinase MB Ratio (0-3.0) Urine Color YELLOW Urine Appearance CLEAR (CLEAR) Urine pH 7.0 (4.5-7.5) Urine Specific [place] 1.019 (1.000-1.030) Urine Protein NEG (NEG) Urine Glucose (UA) NEG (NEG) Urine Ketones NEG (NEG) Urine Occult Blood NEG (NEG) Urine Nitrite NEG (NEG) Urine Bilirubin NEG (NEG) Urine Urobilinogen POS (NEG) Urine Leukocyte Esterase SMALL (NEG) Urine WBC (Auto) 1-5 /hpf (0-5) Urine RBC (Auto) 0-4 /hpf (0-4) Urine Hyaline Casts (Auto) 0 /lpf (0-5) Urine Epithelial Cells (Auto) 20-30 /lpf (0-5) Urine Bacteria (Auto) NEG (NEG) Laboratory results per my review. Medications Administered Medications (Trade) Dose Ordered Sig/Gay Route Start Time Stop Time Status Last Admin Dose Admin Magnesium Sulfate (Magnesium Sulfate) 2 gm NOW STAT IV 09/11/17 17:21 09/11/17 17:23 DC 09/11/17 17:38 2 GM ECG Indication: palpitations Rate (beats per minute): 31 Rhythm: other (junctional bradycardia) Findings: other (no PVC, no acute ST segment abnormalities) Comparison ECG Date: 09/07/17 Change: junctional bradycardia replaces sinus bradycardia EKG interpreted by me. ED Course 1545: The patient was evaluated in room A10. A complete history and physical examination were performed. 1721: Ordered Magnesium Sulfate 2 gm IV. 1728: I discussed the patient's case with Dr. Albert. The patient will be evaluated for further management. 1735: I updated the patient on her test results. Medical Decision Differential diagnosis: Etiologies such as premature contractions, electrolyte abnormality, cardiac dysrhythmia, thyroid dysfunction, pulmonary embolism, infection, gastrointestinal, as well as others were entertained. Nursing notes reviewed. The patient is a 66-year-old female who presented to the emergency department from her primary care physician. The patient was experiencing episodes of bradycardia. She currently takes a beta osvaldo for hypertension. She recently had the dosage of her beta osvaldo decreased but continues to have symptoms and presented to the emergency department today from her primary care physician's office. I discussed the patient's laboratory and radiographic studies with her. I also discussed her case with the on-call [facility] hospitalist group. They 've agreed to evaluate the patient in the emergency department for further management and disposition. The patient had significant episodes of bradycardia but also had what appeared to be ectopic atrial rhythm intermixed with her bradycardia. Bradycardia at times was sinus bradycardia but also appeared to be junctional. She was placed on a transcutaneous pacer. Medication Reconcilliation Current Medication List: was personally reviewed by me Blood Pressure Screening Patient's blood pressure: Elevated blood pressure Blood pressure disposition: Referred to PCP (evaluated by hospitalist) Consults Time Called: 172 Consulting Physician: Dr. Albert Returned Call: [phone] I discussed the patient's case with Dr. Albert. The patient will be evaluated for further management. Impression Primary Impression: Symptomatic bradycardia Additional Impression: Junctional bradycardia Scribe Attestation The scribe's documentation has been prepared under my direction and personally reviewed by me in its entirety. I confirm that the note above accurately reflects all work, treatment, procedures, and medical decision making performed by me. Departure Information Dispostion Being Evaluated By Hospitalist Referrals Landen Shah M.D. (PCP) Patient Instructions [facility] Problem Qualifiers
[2017-09-11 16:37] LABS: ALKALINE PHOSPHATASE 109 U/L (45-117); ALT/SGPT 44 U/L (12-78); BLOOD UREA NITROGEN 8 mg/dl (7-18); CALCIUM 8.8 mg/dl (8.5-10.1); CARBON DIOXIDE 25 mmol/L (21-32); CKMB 2.1 ng/ml (0.5-3.6); CREATININE 0.84 mg/dl (0.60-1.20); GLUCOSE 119 mg/dl (70-99); SODIUM 122 mmol/L (136-145); TOTAL PROTEIN 7.7 gm/dl (6.4-8.2)
[2017-09-11 16:57] LABS: INR 1.2 (0.9-1.1); PTT PATIENT 29.1 SECONDS (21.0-31.0)
[2017-09-11 17:00] LABS: POTASSIUM 4.1 mmol/L (3.5-5.1)
[2017-09-11] MEDS ORDERED: MAGNESIUM SULFATE 1GM / D5W 1 GM BAG IV STA (17:21)
[2017-09-11] MEDS ORDERED: MAGNESIUM HYDROXIDE SUSP 30 ML UDC PO PRN (18:00)
[2017-09-11] MEDS ORDERED: ZOLPIDEM TARTRATE 5 MG TAB PO PRN (18:00)
[2017-09-11] MEDS ORDERED: ALUMINUM/MAGNESIUM/SIMETH (MAALOX MAX) 30 ML UDC PO PRN (18:00)
[2017-09-11] MEDS ORDERED: POLYETHYLENE (MIRALAX) 17 GM PACK PO PRN (18:00)
[2017-09-11] MEDS ORDERED: ONDANSETRON INJ 2 MG/ML 2 ML VIAL IV PRN (18:00)
--- NOTE | 2017-09-11 18:18 | History and Physical ---
History & Physical Date of Service Sep 11, 2017. History & Physical Symptomatic bradycardia Moderate hyponatremia Severe hypomagnesemia History of GI bleeding pcu only with pacer in bedside [id number]
--- NOTE | 2017-09-11 19:32 | HISTORY & PHYSICAL EXAMINATION ---
DATE OF ADMISSION: 09/11/2017 This is level 3 inpatient admission, 35 minutes. CHIEF COMPLAINT: Bradycardia associated with dizziness for 1 week. HISTORY OF PRESENT ILLNESS: The patient is a 66-year-old white female with a significant past medical history of GI bleeding, acute blood loss anemia, history of liver cirrhosis, thyroidectomy, brain surgeries, cholecystectomy coming into the hospital Emergency Department because of the above chief complaint. The patient was seen by PCP today, complained about constant dizziness for 1 week associated with fatigue, increasing swelling in the lower extremities. Symptom is getting worse when she is standing up. In the PCP's office, she was found to have bradycardia, heart rate at 28 beats per minutes. Therefore, PCP sent her to the Emergency Room. She was in this hospital last week because of gastritis and she was having liver cirrhosis. Propranolol was decreased. Other medical history includes GI bleeding, diabetes, liver cirrhosis. When I interviewed with the patient, she was awake, alert and orientated confirming the above information. She does not have any dizziness for now when she is in the bed. She reported generalized weakness and denied palpitations. Denied chest pain. Denied cough, sputum, shortness of breath. Denied nausea, vomiting, abdominal pain, diarrhea, constipation. Denied dysuria, urgency and frequencies. She did report her urine stream is low. Denied facial droop, slurry speeches or weakness. Denied fever or chills. Denies skin rashes, but like I mentioned, she reported lower extremity swelling, left side bigger than right side. ALLERGIES: SHRIMP AND VINEGAR. PAST MEDICAL HISTORY: Include diabetes, liver cirrhosis, GI bleedings, acute blood loss anemia, carpal tunnel syndrome, Chiari malformation, thyroidectomy and hypothyroidism, history of hysterectomy and brain surgeries and cholecystectomy. FAMILY HISTORY: Include cancer, diabetes, gallbladder disease, heart disease and hypertension. SOCIAL HISTORY: Never smoked. Denied alcohol abuse disorder, denied illicit drug abuse. The patient lives with significant others. REVIEW OF SYSTEMS: Please see HPI, otherwise 14 points organ system review were negative. CURRENT MEDICATIONS: Include vitamin D 1000 international units p.o. daily, vitamin B12 5000 mcg p.o. daily, ferrous sulfate 325 mg p.o. daily, glipizide 5 mg p.o. q.a.m. and 10 mg p.o. q.p.m., HCTZ 25 mg p.o. q.a.m., insulin Glargine 25 units subQ at bedtime, levothyroxine 100 mcg p.o. q.a.m., metformin 850 mg p.o. t.i.d. with meal, multiple vitamin 1 tab p.o. daily, oxcarbazepine 300 mg p.o. b.i.d., pravastatin 10 mg p.o. at bedtime, Inderal 10 mg p.o. b.i.d., Vitamin E 1000 international units p.o. daily, zolpidem 5 mg p.o. at bedtime, Zofran 4 mg p.o. q. 8 hours p.r.n. for nausea. PHYSICAL EXAMINATION: VITAL SIGNS: Temperature is 36.4, heart rate lowest was 33, highest was 46, respiration rate was 18, blood pressure was 140/58, pulse ox was 97% in room air. GENERAL: The patient is a white female, awake, alert and orientated, in no acute distress. Not anxious. HEENT: Conjunctivae no injection. Sclerae nonicterus. Pupils equal, round responds to light. Nose was normal. Ear was normal. NECK: Supple. LUNGS: Clear to auscultation. No wheezing, rhonchi, or crackles. HEART: Regular rhythm, bradycardia. No murmurs. ABDOMEN: Soft, nontender. Bowel sound was positive. EXTREMITIES: Bilateral CVA was nontender. T-spine and L-spine has no tenderness. No limited range of motion in extremities. Left lower extremity swelling bigger than right lower extremities. SKIN: Has no edema. The patient is awake, alert, and orientated. NEUROLOGIC: Cranial nerve II-XII was intact. There was no neurological deficits. IMAGING STUDIES: Chest x-ray: Cardiomegaly without acute process. EKG shows normal sinus rhythm, bradycardia. Heart rate at 31. There was no acute ST-T phase changes. LABORATORY STUDIES: WBC 3.6, hemoglobin 12, platelet 97. Sodium 122, BUN 8, creatinine 0.8. Blood glucose 119. Potassium 4. Magnesium 1.3. ASSESSMENT AND PLAN: A 66-year-old white female with the conditions see below: 1. Significant symptomatic bradycardia with heart rate at 30. 2. History of atrioventricular block. 3. History of liver cirrhosis on Inderal. 4. History of gastrointestinal bleeding. 5. History of thyroidectomy with hypothyroidism. 6. Moderate hyponatremia. 7. Severe hypomagnesemia. The patient's condition need to be admission to PCU only. Bedside pacer if needed. ED physician has discussed with on-call cardiology already. We will hold Inderal and pacer in bedside, If there is anything worsening bradycardia need to call the on-call engineer first assistant, Cardiac enzyme troponin was negative x1 set, already. We will give gentle IV fluid. I will keep her n.p.o. because if she may need urgent emergency procedure. NSS 70 mL per hour. ED has replaced magnesium. We will continue to follow up labs include a CBC, BMP, mag and phosphatase for tomorrow morning labs. Because patient is n.p.o. I cut Lantus at 1/3 of home dose. Cut half dose of or levothyroxine to IV. Also adding insulin sliding scale and then will go from there. Because the patient has GI bleeding and currently has thrombocytopenia, platelet at 97, her thrombocytopenia probably is chronic, which is because patient has liver cirrhosis. therefore, I would only give SCD for DVT prophylaxis. GI prophylaxis is covered. The patient is full code. Discussed with patient about the care plan. I answered all the questions. EDDIE
[2017-09-11 19:33] LABS: CKMB 1.9 ng/ml (0.5-3.6)
[2017-09-11 19:51] VITALS: BP 124/63; PULSE 36; TEMP 36.6; Ht 157.5 cm; Wt 80.3 kg
[2017-09-11] MEDS ORDERED: GLUCOSE 40% GEL 15 GM TUBE PO PRN (20:00)
[2017-09-11] MEDS ORDERED: GLUCAGON FOR INJ 1 MG VIAL SQ PRN (20:00)
[2017-09-11] MEDS ORDERED: DEXTROSE 50% 50 ML SYR IV PRN (20:00)
[2017-09-11] MEDS ORDERED: GLUCOSE 10 TABS/TUBE PO PRN (20:00)
[2017-09-11] MEDS: INSULIN ASPART 100 UNITS/ML 3 ML PEN SC SCH (20:38)
[2017-09-11] MEDS: INSULIN GLARGINE SOLOSTAR 100 UNITS/ML 3 ML PEN SC SCH (21:00)
[2017-09-11] MEDS ORDERED: INSULIN GLARGINE SOLOSTAR 100 UNITS/ML 3 ML PEN SC SCH (21:00)
[2017-09-11] MEDS: ZOLPIDEM TARTRATE 5 MG TAB PO SCH (21:00)
[2017-09-11] MEDS: SODIUM CHLORIDE 0.9% 1000ML 1,000 ML IV SCH (21:15)
[2017-09-11 23:31] VITALS: BP 132/57; PULSE 39; TEMP 36.6; O2SAT 97
[2017-09-12] VITALS (8 sets, daily range): BP systolic 115–154; BP diastolic 42–79; PULSE 44–86; TEMP 36.6–37.1; O2SAT 95–98
[2017-09-12] MEDS: ACETAMINOPHEN 325 MG TAB PO PRN (02:37)
[2017-09-12 05:09] LABS: HEMATOCRIT 34.2 % (37-47); MEAN CELL VOLUME 83.2 fL (80-100); MEAN CORPUSCULAR HEMOGLOBIN 29.2 pg (25-34); MEAN CORPUSCULAR HGB CONC 35.1 g/dl (32-36); RED CELL DISTRIBUTION WIDTH CV 15.8 % (11.5-14.5); RED CELL DISTRIBUTION WIDTH SD 48.1 fL (36.4-46.3); WHITE BLOOD COUNT 4.21 K/uL (4.8-10.8)
[2017-09-12 05:27] LABS: INR 1.2 (0.9-1.1)
[2017-09-12 05:30] LABS: CALCIUM 8.4 mg/dl (8.5-10.1); CREATININE 0.68 mg/dl (0.60-1.20); POTASSIUM 3.7 mmol/L (3.5-5.1)
[2017-09-12 05:31] LABS: PHOSPHORUS 2.7 mg/dl (2.5-4.9)
[2017-09-12 05:32] LABS: MEAN PLATELET VOLUME 9.2 fL (7.4-10.4); PLATELET COUNT 99 K/uL (130-400)
[2017-09-12] MEDS ORDERED: LACTULOSE SYRUP 30 GM/45 ML UDP PO ONE (05:42)
--- NOTE | 2017-09-12 05:47 | Progress Note ---
Progress Note Date of Service Sep 12, 2017. Progress Note Called re: obtunded patient Records reviewed. Vitals, labs, imaging WNL No indication of infection or stroke. ?delerium Ordered ammonia level. Result 151 Ordered lactulose TID, with stat dose. Ordered ammonia level recheck midday. Resident Tracking Resident Involvement: Resident Care Provided Care Provided: Adult [facility] Medicine
[2017-09-12] MEDS: LEVOTHYROXINE 100 MCG TAB PO SCH (05:58)
[2017-09-12] MEDS: INSULIN ASPART 100 UNITS/ML 3 ML PEN SC SCH ×4 (07:02→23:43)
[2017-09-12 07:03] LABS: BASO % 0.2 %; BASO ABS # 0.01 K/uL (0-0.2); EOS % 1.9 %; EOS ABS # 0.08 K/uL (0-0.5); LYMPH % 36.3 %; LYMPH ABS # 1.53 K/uL (1.2-3.4); MONO % 13.3 %; MONO ABS # 0.56 K/uL (0.11-0.59); NEUT % 48.3 %; NEUT ABS # 2.03 K/uL (1.4-6.5)
--- NOTE | 2017-09-12 07:22 | Cardiology Consultation ---
Cardiology Consultation Date of Consultation: Sep 12, 2017. Requesting Physician: Ludy Reason for Consultation: Bradycardia Pt evaluation today including: conversation w/ patient, physical exam, chart review, lab review, review of studies, review of inpatient medication list History of Present Illness The patient is a 66 year old woman with a history of cirrhosis. She was recently admitted to [facility] for hyponatremia and duodenitis with abdominal pain. She was noted at that time to have an element of bradycardia. This prompted a reduction in her propranolol dose. She presented yesterday for routine f/u with her PCP. She was noted to have significant bradycardia and was complaining of weakness and dizziness. This morning the patient is somnolent and confused at times. She was noted by the nursing staff to be less interactive and was also noted by her daughter last evening to be acting slightly "off". She is currently complaining of being "slow". She states she is having some pain but could not characterize this further. She reclls being dizzy and weak since discharge. She reports some abdominal pain. She reports eating well and not having nausea or vomiting. She did not endorse any loose stools or melena. 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 Surgical History Cholecystectomy Temporal artery bx sinus surgery Thyroid surgery Tonsillectomy Hysterectomy Carpal tunnel release Drainage of thigh hematoma Drainage of liver abcess x2 Family History Cancer Diabetes mellitus Gallbladder disease Heart disease Hypertension No premature cardiac disease Social History Smoking Status: Never Smoker History of Alcohol Use: No Patient said she was "retired" but could not tell me from what. Claims to live at home with her . All Other Systems: Reviewed and Negative Allergies Coded Allergies: Shrimp (Verified Allergy, Intermediate, Funny sensation around mouth, ) Vinegar (Verified Adverse Reaction, Intermediate, Mouth/tongue irritation/ burning sensation, 09/11/17) Medications Current Inpatient Medications Medications (Trade) Dose Ordered Sig/Gya Route Start Time Stop Time Status Last Admin Dose Admin Sodium Chloride 1,000 ml @ 75 mls/hr [id number] IV 09/11/17 17:59 10/11/17 17:58 09/11/17 21:15 75 MLS/HR Acetaminophen (Tylenol Tab) 650 mg Q4H PRN PO 09/11/17 18:00 10/11/17 17:59 09/12/17 02:37 650 MG Al Hydrox/Mg Hydrox/Simethicone (Maalox Max Susp) 15 ml Q4H PRN PO 09/11/17 18:00 10/11/17 17:59 Magnesium Hydroxide (Milk Of Magnesia Susp) 30 ml Q12H PRN PO 09/11/17 18:00 10/11/17 17:59 Ondansetron HCl (Zofran Inj) 4 mg Q6H PRN IV 09/11/17 18:00 10/11/17 17:59 Polyethylene (Miralax Powder Packet) 17 gm DAILY PRN PO 09/11/17 18:00 10/11/17 17:59 Cholecalciferol (Vitamin D Tab) 1,000 inter.unit DAILY PO 09/12/17 09:00 10/12/17 08:59 Levothyroxine Sodium (Synthroid Tab) 100 mcg DAILYBB PO 09/12/17 06:00 10/12/17 05:59 09/12/17 05:58 100 MCG Zolpidem Tartrate (Ambien Tab) 5 mg HS PO 09/11/17 21:00 10/11/17 20:59 Cyanocobalamin (Vitamin B-12 Tab) 1,000 mcg DAILY PO 09/12/17 09:00 10/12/17 08:59 Ferrous Sulfate (Feosol Tab) 325 mg DAILY PO 09/12/17 08:00 10/12/17 07:59 Insulin Aspart (novoLOG ASPART) SLIDING SCALE G... Q6 SC 09/12/17 00:00 10/12/17 00:00 Insulin Glargine (Lantus Solostar Pen) 8 units Q12 SC 09/11/17 21:00 10/11/17 20:59 Pantoprazole Sodium 40 mg/ Syringe 10 ml @ 5 mls/min DAILY@11 IV 09/12/17 11:00 09/16/17 10:59 Glucose (Glucose 40% Gel) 15-30 GRAMS 15 GRAMS... UD PRN PO 09/11/17 20:00 10/11/17 19:59 Glucose (Glucose Chew Tab) 4-8 Tablets 4 Tabl... UD PRN PO 09/11/17 20:00 10/11/17 19:59 Dextrose (Dextrose 50% 50ML Syringe) 25-50ML OF 50% DW IV FOR... UD PRN IV 09/11/17 20:00 10/11/17 19:59 Glucagon (Glucagon Inj) 1 mg UD PRN SQ 09/11/17 20:00 10/11/17 19:59 Lactulose (Chronulac Syrup) 30 gm TID PO 09/12/17 09:00 10/12/17 08:59 Physical Exam Vital Signs Past 12 Hours Date Time Temp Pulse Resp B/P (MAP) Pulse Ox O2 Delivery O2 Flow Rate FiO2 09/12/17 04:06 36.6 46 16 137/48 (77) 97 Room Air 09/12/17 04:00 Room Air 09/12/17 00:00 Room Air 09/11/17 23:31 36.6 39 16 132/57 (82) 97 Room Air 09/11/17 19:51 36.6 36 18 124/63 Room Air Somnolent but arousable. SHe repeated herself at times and had trouble with recall. HEENT: No icterus. eye movements intact Lungs: Clear. No wheezes or rales Cardiac: Regular but slow. No murmurs. Abdomen: Soft. Non-tender. Extremities: No edema Neuro" Cranial nerves intact. Positive "flapping" with arm extension and hand dorsiflection. Skin: No rashes noted. Some ecchymosis Data Laboratory Results: Last 24 Hours Test 09/11/17 15:50 09/11/17 16:37 09/11/17 18:06 09/11/17 18:25 White Blood Count 3.62 K/uL Red Blood Count 4.17 M/uL Hemoglobin 12.4 g/dL Hematocrit 35.4 % Mean Corpuscular Volume 84.9 fL Mean Corpuscular Hemoglobin 29.7 pg Mean Corpuscular Hemoglobin Concent 35.0 g/dl Platelet Count 97 K/uL Mean Platelet Volume 9.5 fL RDW Standard Deviation 49.1 fL RDW Coefficient of Variation 16.2 % Neutrophils % (Manual) 58.8 % Lymphocytes % (Manual) 21.1 % Variant Lymphocytes % (manual) 14.0 % Monocytes % (Manual) 3.5 % Eosinophils % (Manual) 2.6 % Neutrophils # (Manual) 2.13 K/uL Total Absolute Neutrophils 2.13 K/uL Lymphocytes # (Manual) 0.76 K/uL Absolute Variant Lymphocytes 0.51 K/uL Total Absolute Lymphocytes 1.27 K/uL Monocytes # (Manual) 0.13 K/uL Eosinophils # (Manual) 0.09 K/uL Platelet Estimate DECREASED Sodium Level 122 mmol/L Potassium Level mmol/L 4.1 mmol/L Chloride Level 88 mmol/L Carbon Dioxide Level 25 mmol/L Anion Gap 9.0 mmol/L Blood Urea Nitrogen 8 mg/dl Creatinine 0.84 mg/dl Est Creatinine Clear Calc Drug Dose 66.8 ml/min Estimated GFR () 82.8 Estimated GFR (Non- 71.4 BUN/Creatinine Ratio 10.0 Random Glucose 119 mg/dl Calcium Level 8.8 mg/dl Magnesium Level mg/dl 1.3 mg/dl Total Bilirubin 0.6 mg/dl Aspartate Amino Transf (AST/SGOT) U/L 33 U/L Alanine Aminotransferase (ALT/SGPT) 44 U/L Alkaline Phosphatase 109 U/L Total Creatine Kinase U/L 71 U/L Creatine Kinase MB 2.1 ng/ml 1.9 ng/ml Creatine Kinase MB Ratio Troponin I < 0.015 ng/ml < 0.015 ng/ml Pro-B-Type Natriuretic Peptide 403 pg/ml Total Protein 7.7 gm/dl Albumin 3.0 gm/dl Globulin 4.7 gm/dl Albumin/Globulin Ratio 0.6 Thyroid Stimulating Hormone (TSH) 1.980 uIu/ml Free Thyroxine 1.02 ng/dl Prothrombin Time 12.2 SECONDS Prothromb Time International Ratio 1.2 Activated Partial Thromboplast Time 29.1 SECONDS Partial Thromboplastin Ratio 1.1 Urine Color YELLOW Urine Appearance CLEAR Urine pH 7.0 Urine Specific [place] 1.019 Urine Protein NEG Urine Glucose (UA) NEG Urine Ketones NEG Urine Occult Blood NEG Urine Nitrite NEG Urine Bilirubin NEG Urine Urobilinogen POS Urine Leukocyte Esterase SMALL Urine WBC (Auto) 1-5 /hpf Urine RBC (Auto) 0-4 /hpf Urine Hyaline Casts (Auto) 0 /lpf Urine Epithelial Cells (Auto) 20-30 /lpf Urine Bacteria (Auto) NEG Test 09/11/17 20:11 09/12/17 00:26 09/12/17 04:19 09/12/17 04:55 Bedside Glucose 93 mg/dl 77 mg/dl 84 mg/dl White Blood Count 4.21 K/uL Red Blood Count 4.11 M/uL Hemoglobin 12.0 g/dL Hematocrit 34.2 % Mean Corpuscular Volume 83.2 fL Mean Corpuscular Hemoglobin 29.2 pg Mean Corpuscular Hemoglobin Concent 35.1 g/dl Platelet Count 99 K/uL Mean Platelet Volume 9.2 fL RDW Standard Deviation 48.1 fL RDW Coefficient of Variation 15.8 % Prothrombin Time 12.2 SECONDS Prothromb Time International Ratio 1.2 Sodium Level 123 mmol/L Potassium Level 3.7 mmol/L Chloride Level 89 mmol/L Carbon Dioxide Level 27 mmol/L Anion Gap 7.0 mmol/L Blood Urea Nitrogen 8 mg/dl Creatinine 0.68 mg/dl Est Creatinine Clear Calc Drug Dose 80.7 ml/min Estimated GFR () 104.2 Estimated GFR (Non- 89.9 BUN/Creatinine Ratio 11.6 Random Glucose 85 mg/dl Calcium Level 8.4 mg/dl Phosphorus Level 2.7 mg/dl Magnesium Level 1.7 mg/dl Ammonia 151.0 umol/L Test 09/12/17 06:43 Bedside Glucose 85 mg/dl Imaging: Chest x-ray did not demonstrate any acute process EKG:Severe sinus bradycardia with competing junctional escape. Telemetry reviewed:Sinus bradycardia with competing junctional escape Echocardiogram 09/2016: Both TTE and AIYANA (to rule out vegetation) performed in [facility]. Normal LV function. No significant valvular disease. Assessment & Plan 1. Bradycardia: This is due to sinus node dysfunction. She had an element of bradycardia during her last admission. She actually has a very rempte history of an ectopic atrial (low atrial) rhythm detected on EKG and did have some of this rhythm yesterday on her EKG as well. She may have long-standing sinus node dysfunction. She is on a low dose of propranolol which is being held. Unclear if her encephalopathy is also contributing. I don't think continued propranolol will be a good treatment in the absence of a pacemaker. She may need a pacemaker in any event if her sinus rate does not improve over the next day or so. She has a reliable junctional escape and I don't think there is an urgent need for a temporary pacemaker. A good alternative to a temporary transvenous pacemaker in the setting of more severe symptoms would be isoproterenol or dopamine as a temporizing measure if required. However, she has been in this circumstance for several days at least and I would not anticipate any rapid change in her condition (hopefully it will improve without BB) 2. Altered mentation: I don't think this is directly related to her bradycardia. She had similar heart rates for a few days without sx. She has a markedly elevated ammonia level and evidence of encephalopathy on exam. She is also very hyponatremic. 3. Chest Pain: Not reported currently, but her outpatient record suggests she did have some severe chest pain over the past few months. She was referred for stress testing which has not been completed due to her othher illnesses and hospitalizations. I think we can re-evaluate her symptoms when she has regained her normal mentation.
[2017-09-12] MEDS: SODIUM CHLORIDE 0.9% 1000ML 1,000 ML IV SCH (08:00)
[2017-09-12] MEDS: FERROUS SULFATE 325 MG TAB PO SCH ×2 (08:01→08:06)
[2017-09-12] MEDS: CHOLECALCIFEROL 1000 INTER.UNIT TAB PO SCH (08:01)
[2017-09-12] MEDS: CYANOCOBALAMIN 500 MCG TAB (VIT B-12) PO SCH (08:02)
[2017-09-12] MEDS ORDERED: LEVOTHYROXINE SODIUM INJ 50 MCG in SYRINGE 0 ML IV SCH (09:00)
[2017-09-12] MEDS: LACTULOSE SYRUP 30 GM/45 ML UDP PO SCH ×3 (09:27→20:39)
[2017-09-12] MEDS: INSULIN GLARGINE SOLOSTAR 100 UNITS/ML 3 ML PEN SC SCH ×2 (09:30→20:41)
--- NOTE | 2017-09-12 09:30 | DIAGNOSTIC IMAGING REPORT ---
VENOUS DOPPLER LWR EXT BILA CLINICAL HISTORY: 66 years-old Female presenting with maryann lower ext swelling , L>R, want to rule out DVT. TECHNIQUE: Real-time grayscale and color and spectral Doppler ultrasound imaging of the veins of the bilateral lower extremities was performed. Compression and augmentation were also utilized. COMPARISON: 09/20/2011. FINDINGS: Right: Common femoral vein: Patent. Greater saphenous vein: Patent. Deep femoral vein: Patent. Femoral vein: Patent. Popliteal vein: Patent. Calf veins: Limited visualization. Left: Common femoral vein: Patent. Greater saphenous vein: Patent. Deep femoral vein: Patent. Femoral vein: Patent. Popliteal vein: Patent. Calf veins: Limited visualization. Other: None. IMPRESSION: No evidence of deep venous thrombosis. Electronically signed by: Jamel Mackay M.D. 09/12/2017 9:28 AM Dictated Date/Time: 09/12/2017 9:28 AM
--- NOTE | 2017-09-12 10:01 | Clinical Documentation Query ---
RICKY TEJADA : CLINICAL DOCUMENTATION QUERY Patient is a 66 year old female admitted for evaluation and treatment of bradycardia. Early this a.m. (09/12), nursing reported a more somnolent, disoriented status to the nocturnal physician. Serum ammonia level obtained and returned at 151. She was administered Lactulose STAT and TID via NGT if necessary. As appropriate, consider capture of this clinical information as suggested below in order to capture the severity of illness and risk of mortality associated with these clinical conditions. Thank you. In your clinical opinion is this patient being managed for: ( x ) Metabolic encephalopathy associated with acute/subacute hepatic failure in the setting of liver cirrhosis ( ) Not Agree ( ) Other explanation of clinical findings (Please Explain) ( ) Unable to determine (Please Define) ( ) Need to Discuss The medical record reflects the following clinical findings, treatment, and risk factors. Clinical Indicators: AMS, lethargy, in the setting of hyperammonemia Treatment: Lactulose STAT and TID Risk Factors: Liver cirrhosis Please clarify and document your clinical opinion in the progress notes and discharge summary. Terms such as "probable", "suspected", "likely", "questionable", "possible", or "still to be ruled out" are acceptable. IF IN AGREEMENT, YOU MUST DOCUMENT ABOVE DIAGNOSTIC STATEMENT IN DAILY PROGRESS NOTES AND DISCHARGE SUMMARY. This document is not part of the patient's record. Thank You, Ronald Crisostomo, CANDY [phone]
--- NOTE | 2017-09-12 10:53 | Hospitalist Progress Note ---
Hospitalist Progress Note Date of Service Sep 12, 2017. (Navya Slaughter .MANUEL) Subjective Pt evaluation today including: conversation w/ patient, physical exam, chart review, lab review, review of inpatient medication list Voiding: no voiding problems Ms. Nolen is lethargic but does respond to verbal stimulus. She reports that she does not feel good but is unable to clarify other than to deny any positives on ROS ROS Constitutional: no chills, aches, sweats or fever Respiratory: no sob,cough, sputum, or wheezing Cardiac: no chest pain, palpitations, edema, orthopnea or lightheadedness GI: no abdominal pain, nausea, vomiting, diarrhea or constipation : no dysuria or hesitancy Extremities: no joint pain or weakness Skin: no rash All other systems reviewed and negative (Navya Slaughter .MANUEL) Medications Medications Administered Medications (Trade) Dose Ordered Sig/Gay Route Start Time Stop Time Status Last Admin Dose Admin Magnesium Sulfate (Magnesium Sulfate) 2 gm NOW STAT IV 09/11/17 17:21 09/11/17 17:23 DC 09/11/17 17:38 2 GM Sodium Chloride 1,000 ml @ 75 mls/hr [id number] IV 09/11/17 17:59 09/12/17 08:27 DC 09/12/17 08:00 75 MLS/HR Acetaminophen (Tylenol Tab) 650 mg Q4H PRN PO 09/11/17 18:00 10/11/17 17:59 09/12/17 02:37 650 MG Cholecalciferol (Vitamin D Tab) 1,000 inter.unit DAILY PO 09/12/17 09:00 10/12/17 08:59 09/12/17 08:01 1,000 INTER.UNIT Levothyroxine Sodium (Synthroid Tab) 100 mcg DAILYBB PO 09/12/17 06:00 10/12/17 05:59 09/12/17 05:58 100 MCG Cyanocobalamin (Vitamin B-12 Tab) 1,000 mcg DAILY PO 09/12/17 09:00 10/12/17 08:59 09/12/17 08:02 1,000 MCG Ferrous Sulfate (Feosol Tab) 325 mg DAILY PO 09/12/17 08:00 10/12/17 07:59 09/12/17 08:06 325 MG Miscellaneous Information (Pending Order) 1 ea TODAY@0000 N/A 09/12/17 00:00 09/12/17 02:00 DC 09/12/17 00:27 1 EA Lactulose (Chronulac Syrup) 30 gm TID PO 09/12/17 09:00 10/12/17 08:59 09/12/17 09:27 30 GM Lactulose (Chronulac Syrup) 30 gm 0542 ONCE PO 09/12/17 05:42 09/12/17 05:49 DC 09/12/17 07:02 30 GM (Navya Slaughter CRNP) Objective Vital Signs Date Time Temp Pulse Resp B/P (MAP) Pulse Ox O2 Delivery O2 Flow Rate FiO2 09/12/17 08:00 Room Air 09/12/17 07:11 37.1 86 18 136/79 (98) 95 09/12/17 04:06 36.6 46 16 137/48 (77) 97 Room Air 09/12/17 04:00 Room Air 09/12/17 00:00 Room Air 09/11/17 23:31 36.6 39 16 132/57 (82) 97 Room Air 09/11/17 19:51 36.6 36 18 124/63 Room Air 09/11/17 18:30 37 20 140/59 99 Room Air 09/11/17 17:38 37 20 134/60 97 Room Air 09/11/17 16:09 33 20 134/73 100 Room Air 09/11/17 15:50 96 Room Air 09/11/17 15:50 96 Room Air 09/11/17 15:46 96 Room Air 09/11/17 15:40 46 09/11/17 15:22 36.4 33 18 140/59 97 Room Air (Navya Slaughter CRNP) Physical Exam Notes: General: no distress Eyes: normal inspection, PERLL Respiratory: chest non tender, clear to auscultation, normal breath sounds, no respiratory distress, no accessory muscle use Cardiac: regular rate and rhythm, no rub or gallop, 2/6 systolic murmur, no edema, no jvd GI/: active bowel sounds, no abd pain or tenderness, soft, non distended Extremities: normal range of motion, normal strength, non tender Neuro/Psych: lethargic and oriented x 3, flat affect, unable to follow directions very well 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 Skin: normal color, dry (Navya Slaughter, MANUEL) Laboratory Results Last 24 Hours Test 09/11/17 15:50 09/11/17 16:37 09/11/17 18:06 09/11/17 18:25 White Blood Count 3.62 K/uL Red Blood Count 4.17 M/uL Hemoglobin 12.4 g/dL Hematocrit 35.4 % Mean Corpuscular Volume 84.9 fL Mean Corpuscular Hemoglobin 29.7 pg Mean Corpuscular Hemoglobin Concent 35.0 g/dl Platelet Count 97 K/uL Mean Platelet Volume 9.5 fL RDW Standard Deviation 49.1 fL RDW Coefficient of Variation 16.2 % Neutrophils % (Manual) 58.8 % Lymphocytes % (Manual) 21.1 % Variant Lymphocytes % (manual) 14.0 % Monocytes % (Manual) 3.5 % Eosinophils % (Manual) 2.6 % Neutrophils # (Manual) 2.13 K/uL Total Absolute Neutrophils 2.13 K/uL Lymphocytes # (Manual) 0.76 K/uL Absolute Variant Lymphocytes 0.51 K/uL Total Absolute Lymphocytes 1.27 K/uL Monocytes # (Manual) 0.13 K/uL Eosinophils # (Manual) 0.09 K/uL Platelet Estimate DECREASED Sodium Level 122 mmol/L Potassium Level mmol/L 4.1 mmol/L Chloride Level 88 mmol/L Carbon Dioxide Level 25 mmol/L Anion Gap 9.0 mmol/L Blood Urea Nitrogen 8 mg/dl Creatinine 0.84 mg/dl Est Creatinine Clear Calc Drug Dose 66.8 ml/min Estimated GFR () 82.8 Estimated GFR (Non- 71.4 BUN/Creatinine Ratio 10.0 Random Glucose 119 mg/dl Calcium Level 8.8 mg/dl Magnesium Level mg/dl 1.3 mg/dl Total Bilirubin 0.6 mg/dl Aspartate Amino Transf (AST/SGOT) U/L 33 U/L Alanine Aminotransferase (ALT/SGPT) 44 U/L Alkaline Phosphatase 109 U/L Total Creatine Kinase U/L 71 U/L Creatine Kinase MB 2.1 ng/ml 1.9 ng/ml Creatine Kinase MB Ratio Troponin I < 0.015 ng/ml < 0.015 ng/ml Pro-B-Type Natriuretic Peptide 403 pg/ml Total Protein 7.7 gm/dl Albumin 3.0 gm/dl Globulin 4.7 gm/dl Albumin/Globulin Ratio 0.6 Thyroid Stimulating Hormone (TSH) 1.980 uIu/ml Free Thyroxine 1.02 ng/dl Prothrombin Time 12.2 SECONDS Prothromb Time International Ratio 1.2 Activated Partial Thromboplast Time 29.1 SECONDS Partial Thromboplastin Ratio 1.1 Urine Color YELLOW Urine Appearance CLEAR Urine pH 7.0 Urine Specific [place] 1.019 Urine Protein NEG Urine Glucose (UA) NEG Urine Ketones NEG Urine Occult Blood NEG Urine Nitrite NEG Urine Bilirubin NEG Urine Urobilinogen POS Urine Leukocyte Esterase SMALL Urine WBC (Auto) 1-5 /hpf Urine RBC (Auto) 0-4 /hpf Urine Hyaline Casts (Auto) 0 /lpf Urine Epithelial Cells (Auto) 20-30 /lpf Urine Bacteria (Auto) NEG Test 09/11/17 20:11 09/12/17 00:26 09/12/17 04:19 09/12/17 04:55 Bedside Glucose 93 mg/dl 77 mg/dl 84 mg/dl White Blood Count 4.21 K/uL Red Blood Count 4.11 M/uL Hemoglobin 12.0 g/dL Hematocrit 34.2 % Mean Corpuscular Volume 83.2 fL Mean Corpuscular Hemoglobin 29.2 pg Mean Corpuscular Hemoglobin Concent 35.1 g/dl Platelet Count 99 K/uL Mean Platelet Volume 9.2 fL Neutrophils (%) (Auto) 48.3 % Lymphocytes (%) (Auto) 36.3 % Monocytes (%) (Auto) 13.3 % Eosinophils (%) (Auto) 1.9 % Basophils (%) (Auto) 0.2 % Neutrophils # (Auto) 2.03 K/uL Lymphocytes # (Auto) 1.53 K/uL Monocytes # (Auto) 0.56 K/uL Eosinophils # (Auto) 0.08 K/uL Basophils # (Auto) 0.01 K/uL RDW Standard Deviation 48.1 fL RDW Coefficient of Variation 15.8 % Immature Granulocyte % (Auto) 0.0 % Immature Granulocyte # (Auto) 0.00 K/uL Prothrombin Time 12.2 SECONDS Prothromb Time International Ratio 1.2 Sodium Level 123 mmol/L Potassium Level 3.7 mmol/L Chloride Level 89 mmol/L Carbon Dioxide Level 27 mmol/L Anion Gap 7.0 mmol/L Blood Urea Nitrogen 8 mg/dl Creatinine 0.68 mg/dl Est Creatinine Clear Calc Drug Dose 80.7 ml/min Estimated GFR () 104.2 Estimated GFR (Non- 89.9 BUN/Creatinine Ratio 11.6 Random Glucose 85 mg/dl Calcium Level 8.4 mg/dl Phosphorus Level 2.7 mg/dl Magnesium Level 1.7 mg/dl Ammonia 151.0 umol/L Test 09/12/17 06:43 09/12/17 10:10 Bedside Glucose 85 mg/dl (Navya Slaughter CRNP) Assessment and Plan Ms. Nolen is a 66 year old woman here with metabolic encephalopathy as well as significant bradycardia Bradycardia with heart rate at 30 with history of AV block - heart rate in the 30s - denies symptoms but with ams - propranolol held yesterday - per cardiology if heart rate does not improve over the next day or two, may need pacer - blood pressures stable - keep transcutaneous pacer at bedside - trops wnl Hyponatremia - felt to be d/t poor intake last admission however as it is persistent will check urine osmo, serum osmo, and urine sodium to r/o SIADH - TSH last admission was 1.64 - trend - will repeat prp in am Metabolic encephalopathy with acute on chronic hepatic failure in setting of liver cirrhosis - Ammonia 151 this am - continue lactulose TID - 2 BM this morning - trend platelets - likely low due to liver function - INR borderline high at 1.2 - likely due to liver function - trend History of thyroidectomy with hypothyroidism. - Continue home levothyroxine Hypomagnesemia - replaced DMII - Lantus reduced for NPO - bsgs ac and HS History of esophageal varices/GI bleed - protonix IV push while NPO - propranolol on hold for heart rate Patient is NPO - will keep her as such while her mental status remains lethargic , continue gentle hydration with IVF DVT proph - SCDS - no chemoprophylaxis for now as platelets are low and INR is borderline high Full code (Navya Slaughter CRNP) i personally examined pt and verified all bernal points w Rosalia JACKSON feeling a bit better more alert, knows where she is and loosely what's going on no other new complaints vitals noted nad breathing unlabored, conversational at this point AMS -likely hepatic and metabolic encephalopathy (ammonia and low Na) - both correcting hyponatremia -likely cirrhosis related, responding to fluid restriction hepatic encephalopathy/hyperammonia - lactulose symptomatic bradycardia -w portal HTN that just bled, med managemetn appears necessary w beta blockers; further her bradycardia seems disproportionate to her beta osvaldo dose -- both of which make a pacer likely necessary. appreciate cardiology input in this regard (Yo Rodriguez D.O.)
[2017-09-12] MEDS ORDERED: MAGNESIUM SULFATE 1GM / D5W 1 GM in PREMIXED IN D5W 100 ML IV ONE (11:00)
[2017-09-12] MEDS: PANTOprazole INJ 40 MG in SYRINGE 0 ML IV SCH (11:26)
[2017-09-12 13:25] LABS: CALCIUM 8.5 mg/dl (8.5-10.1); CREATININE 0.8 mg/dl (0.60-1.20); POTASSIUM 3.8 mmol/L (3.5-5.1)
[2017-09-12] MEDS: ZOLPIDEM TARTRATE 5 MG TAB PO SCH (20:46)
[2017-09-13] VITALS (12 sets, daily range): BP systolic 120–164; BP diastolic 67–89; PULSE 52–62; TEMP 36.6–37; O2SAT 95–100
[2017-09-13 04:18] LABS: OSMOLALITY,URINE 167 mOms/kg (500-800)
[2017-09-13 05:04] LABS: SODIUM RANDOM URINE 27 mEq/L
[2017-09-13] MEDS: INSULIN ASPART 100 UNITS/ML 3 ML PEN SC SCH ×4 (06:00→20:47)
[2017-09-13] MEDS: LEVOTHYROXINE 100 MCG TAB PO SCH (06:16)
[2017-09-13 06:28] LABS: HEMATOCRIT 32.5 % (37-47); HEMOGLOBIN 11.5 g/dL (12.0-16.0); MEAN CORPUSCULAR HEMOGLOBIN 29.7 pg (25-34); MEAN CORPUSCULAR HGB CONC 35.4 g/dl (32-36); RED CELL DISTRIBUTION WIDTH SD 49.3 fL (36.4-46.3); WHITE BLOOD COUNT 2.15 K/uL (4.8-10.8)
[2017-09-13 06:30] LABS: MEAN PLATELET VOLUME 8.9 fL (7.4-10.4); PLATELET COUNT 71 K/uL (130-400)
[2017-09-13 06:37] LABS: INR 1.2 (0.9-1.1)
[2017-09-13 07:04] LABS: CALCIUM 8.5 mg/dl (8.5-10.1); CREATININE 0.68 mg/dl (0.60-1.20); POTASSIUM 3.6 mmol/L (3.5-5.1)
[2017-09-13] MEDS: PANTOprazole INJ 40 MG in SYRINGE 0 ML IV SCH (08:36)
[2017-09-13] MEDS: INSULIN GLARGINE SOLOSTAR 100 UNITS/ML 3 ML PEN SC SCH ×2 (08:36→20:48)
[2017-09-13] MEDS: FERROUS SULFATE 325 MG TAB PO SCH (09:00)
[2017-09-13] MEDS: LACTULOSE SYRUP 30 GM/45 ML UDP PO SCH ×2 (09:00→20:50)
[2017-09-13] MEDS: CYANOCOBALAMIN 500 MCG TAB (VIT B-12) PO SCH (09:00)
[2017-09-13] MEDS: CHOLECALCIFEROL 1000 INTER.UNIT TAB PO SCH (09:00)
[2017-09-13] MEDS: MAGNESIUM OXIDE 400 MG TAB PO SCH (09:56)
--- NOTE | 2017-09-13 11:52 | Pre Sedation Assessment ---
Pre Sedation Assessment General Date of Sedation: Sep 13, 2017. Vital Signs Past 12 Hours Date Time Temp Pulse Resp B/P (MAP) Pulse Ox O2 Delivery O2 Flow Rate FiO2 09/13/17 11:32 36.7 54 18 120/70 (87) 98 Room Air 09/13/17 08:00 Room Air 09/13/17 07:40 36.6 52 20 138/73 (94) 97 Room Air 09/13/17 04:21 36.7 52 16 132/81 (98) 95 Room Air 09/13/17 04:00 Room Air 09/13/17 00:00 Room Air Review Cardiovascular: regular rate, rhythm Lungs: lungs clear Pre-Sedation Airway Assessment Smoking Status: Never Smoker Hx of Sleep Apnea: No Hx of difficult intubation: No Short Thick Neck: No Thyro-mental Distance: > 3 Finger Breadths Oral Cavity: WNL Mallampati Classification: Class III ASA Classification: Class III NPO Status Date of Last Intake of Fluids: Sep 12, 2017 Time of Last Intake of Fluids: 0000 Date of Last Intake of Solids: Sep 11, 2017 Procedure Planning Contraindications for Sedation: None Current Medications Reviewed: Yes Notes The planned sedation has been discussed with the patient. Informed Consent was obtained. I have identified the patient, determined the appropriateness of sedation and have assessed the patient immediately prior to the procedure. All medicine(s) and interventions are by my order.
[2017-09-13] MEDS ORDERED: CEFAZOLIN SOD 1 GM VIAL ONE (11:53)
[2017-09-13] MEDS ORDERED: MIDAZOLAM HCL 5 MG/ML 1 ML VIAL ONE (11:57)
[2017-09-13] MEDS ORDERED: FENTANYL CITRATE INJ 50 MCG/1 ML 2 ML VIAL ONE (11:57)
[2017-09-13] MEDS ORDERED: BUPIVACAINE 0.5 % 5 MG/1 ML MPF 30ML VIAL ONE (12:05)
--- NOTE | 2017-09-13 12:49 | [facility] Operative Report ---
Operative Report Date of Service Sep 13, 2017. Operative Report Procedure performed: Implantation of dual-chamber permanent pacemaker Staff respooler: Landen Palacios MD Indication: Patient is a 58-year-old woman who was admitted to [facility] with symptomatic bradycardia. She was noted to have a junctional rhythm. She was on propranolol for portal hypertension. After discussion with her other physicians it was clear that she require propranolol therapy for treatment of her portal hypertension and therefore a permanent pacemaker was felt to be indicated for symptomatic non reversible sinus node dysfunction. Dual-chamber device was selected as the patient is currently in sinus rhythm which to maintain AV synchrony. Procedure in detail: The patient was informed of the risks benefits and alternatives to the intended procedure and she wished to proceed. She was taken to the electrophysiology suite in a fasting state. A preoperative antibiotic had been administered. The patient was monitored electrocardiographically throughout today's procedure and conscious sedation was administered per protocol. The left upper pectoral area is prepped and draped in usual sterile fashion. This area was anesthetized using subcutaneous menstruation of a xylocaine solution. An incision was made at this site and carried down to the prepectoralis fascia using sharp dissection. Electrocautery was also employed for dissection as well as for hemostasis. A device pocket was fashioned tissues above the pectoralis muscle. Subsequent to this maneuver the left axillary vein was accessed using modified Seldinger technique. Sheaths were placed over guidewires at this site and used to facilitate passage of the pacing leads to the respective chambers under fluoroscopic guidance. This included right atrial and right ventricular leads. Adequate sensing and threshold parameters were obtained prior to Active fixation of the leads to the endocardial surface. The proximal portion leads were then sutured the prepectoral fascia using nonabsorbable suture. The device pocket was irrigated with antibiotic solution. The leads were then attached to the device. The device and leads were then placed in the pocket and pocket was closed in 3 layers of absorbable suture. Steri-Strips and sterile dressing were applied. The device was tested noninvasively prior to conclusion the procedure. The patient tolerated procedure well there no immediate complications. Equipment used: New pulse generator: Geriatric Case Manager [employer]. Model number:A2DR01 serial number [id number] Right atrial lead: Geriatric Case Manager Medtronic. Model number: 4076 serial number [id number] Right ventricular lead: Geriatric Case Manager Medtronic. Model number: 4076 serial number [id number] Measured data: Right atrial lead: P-waves measured 2.8 millivolts. Pacing threshold 0.6 volts at 0.4 milliseconds with a pacing impedance of 630 Ohms Right ventricular lead: R-waves measured 6.4 millivolts pacing threshold 0.8 volts at 0.4 milliseconds with a pacing impedance of 518 Ohms Impression: Successful implantation of dual-chamber permanent pacemaker I attest to the content of the Intraoperative Record and any orders documented therein. Any exceptions are noted below.
--- NOTE | 2017-09-13 13:44 | Hospitalist Progress Note ---
Hospitalist Progress Note Date of Service Sep 13, 2017. (Navya Slaughter ., MANUEL) Subjective Pt evaluation today including: conversation w/ patient, physical exam, chart review, lab review, review of inpatient medication list Voiding: no voiding problems Ms. Nolen is much more alert and coherent today. She continues to have bradycardia in the 40s-50s but is not experiencing lightheadedness, chest pain or palpitations. ROS Constitutional: no chills, aches, sweats or fever Respiratory: no sob,cough, sputum, or wheezing Cardiac: see HPI GI: no abdominal pain, nausea, vomiting, diarrhea or constipation : no dysuria or hesitancy Extremities: no joint pain or weakness Skin: no rash All other systems reviewed and negative (Navya Slaughter CRNP) Medications Medications Administered Medications (Trade) Dose Ordered Sig/Gay Route Start Time Stop Time Status Last Admin Dose Admin Magnesium Sulfate (Magnesium Sulfate) 2 gm NOW STAT IV 09/11/17 17:21 09/11/17 17:23 DC 09/11/17 17:38 2 GM Sodium Chloride 1,000 ml @ 75 mls/hr [id number] IV 09/11/17 17:59 09/12/17 08:27 DC 09/12/17 08:00 75 MLS/HR Acetaminophen (Tylenol Tab) 650 mg Q4H PRN PO 09/11/17 18:00 10/11/17 17:59 09/12/17 02:37 650 MG Cholecalciferol (Vitamin D Tab) 1,000 inter.unit DAILY PO 09/12/17 09:00 10/12/17 08:59 09/12/17 08:01 1,000 INTER.UNIT Levothyroxine Sodium (Synthroid Tab) 100 mcg DAILYBB PO 09/12/17 06:00 10/12/17 05:59 09/13/17 06:16 100 MCG Zolpidem Tartrate (Ambien Tab) 5 mg HS PO 09/11/17 21:00 10/11/17 20:59 09/12/17 20:46 5 MG Cyanocobalamin (Vitamin B-12 Tab) 1,000 mcg DAILY PO 09/12/17 09:00 10/12/17 08:59 09/12/17 08:02 1,000 MCG Ferrous Sulfate (Feosol Tab) 325 mg DAILY PO 09/12/17 08:00 10/12/17 07:59 09/12/17 08:06 325 MG Insulin Aspart (novoLOG ASPART) SLIDING SCALE G... Q6 SC 09/12/17 00:00 10/12/17 00:00 09/12/17 23:43 1 UNITS Pantoprazole Sodium 40 mg/ Syringe 10 ml @ 5 mls/min DAILY@11 IV 09/12/17 11:00 10/12/17 10:59 09/13/17 08:36 5 MLS/MIN Miscellaneous Information (Pending Order) 1 ea TODAY@0000 N/A 09/12/17 00:00 09/12/17 02:00 DC 09/12/17 00:27 1 EA Lactulose (Chronulac Syrup) 30 gm TID PO 09/12/17 09:00 10/12/17 08:59 09/12/17 13:19 30 GM Lactulose (Chronulac Syrup) 30 gm 0542 ONCE PO 09/12/17 05:42 09/12/17 05:49 DC 09/12/17 07:02 30 GM Magnesium Sulfate 1 gm/Prmx 100 ml @ 100 mls/hr NOW ONCE IV 09/12/17 11:00 09/12/17 11:59 DC 09/12/17 11:30 100 MLS/HR Cefazolin Sodium (Ancef Inj) 2,000 mg STK-MED ONCE .ROUTE 09/13/17 11:53 09/13/17 11:54 DC 09/13/17 11:53 2,000 MG Fentanyl Citrate (Fentanyl Inj) 100 mcg STK-MED ONCE .ROUTE 09/13/17 11:57 09/13/17 11:58 DC 09/13/17 11:57 25 MCG Midazolam HCl (Versed Inj) 5 mg STK-MED ONCE .ROUTE 09/13/17 11:57 09/13/17 11:58 DC 09/13/17 11:57 0.5 MG Bupivacaine HCl (Marcaine 0.5% MPF Inj) 30 ml STK-MED ONCE .ROUTE 09/13/17 12:05 09/13/17 12:06 DC 09/13/17 12:05 30 ML (Navya Slaughter CRNP) Objective Vital Signs Date Time Temp Pulse Resp B/P (MAP) Pulse Ox O2 Delivery O2 Flow Rate FiO2 09/13/17 13:30 61 18 161/82 (108) 99 Room Air 61 09/13/17 13:13 36.7 61 18 164/75 (104) 99 Room Air 61 09/13/17 12:50 60 18 152/72 (98) 98 Room Air 09/13/17 12:42 60 18 154/72 (99) 98 Room Air 09/13/17 12:00 Room Air 09/13/17 11:32 36.7 54 18 120/70 (87) 98 Room Air 09/13/17 08:00 Room Air 09/13/17 07:40 36.6 52 20 138/73 (94) 97 Room Air 09/13/17 04:21 36.7 52 16 132/81 (98) 95 Room Air 09/13/17 04:00 Room Air 09/13/17 00:00 Room Air 09/12/17 23:17 36.6 44 16 115/42 (66) 95 Room Air 09/12/17 20:00 96 Room Air 09/12/17 19:45 36.8 50 20 154/77 (102) 98 Room Air 09/12/17 16:00 95 Room Air 09/12/17 15:34 37.0 86 18 124/68 (86) 95 (Navya Slaughter CRNP) Physical Exam Notes: General: no distress Eyes: normal inspection, PERLL Respiratory: chest non tender, clear to auscultation, normal breath sounds, no respiratory distress, no accessory muscle use Cardiac: regular rate and rhythm, no rub or gallop, no murmur, no edema, no jvd GI/: active bowel sounds, no abd pain or tenderness, soft, non distended Extremities: normal range of motion, normal strength, non tender Neuro/Psych: alert and oriented x 3 with some confusion, normal mood and affect Skin: normal color, dry (Navya Slaughter CRNP) Laboratory Results Last 24 Hours Test 09/12/17 17:58 09/12/17 20:37 09/12/17 23:39 09/13/17 04:00 Bedside Glucose 80 mg/dl 76 mg/dl 155 mg/dl Urine Osmolality 167 mOms/kg Urine Random Sodium 27 mEq/L Test 2/8/18 06:16 09/13/17 06:51 White Blood Count 2.15 K/uL Red Blood Count 3.87 M/uL Hemoglobin 11.5 g/dL Hematocrit 32.5 % Mean Corpuscular Volume 84.0 fL Mean Corpuscular Hemoglobin 29.7 pg Mean Corpuscular Hemoglobin Concent 35.4 g/dl RDW Standard Deviation 49.3 fL RDW Coefficient of Variation 16.0 % Platelet Count 71 K/uL Mean Platelet Volume 8.9 fL Prothrombin Time 12.4 SECONDS Prothromb Time International Ratio 1.2 Sodium Level 132 mmol/L Potassium Level 3.6 mmol/L Chloride Level 100 mmol/L Carbon Dioxide Level 25 mmol/L Anion Gap 7.0 mmol/L Blood Urea Nitrogen 7 mg/dl Creatinine 0.68 mg/dl Est Creatinine Clear Calc Drug Dose 77.7 ml/min Estimated GFR () 104.2 Estimated GFR (Non- 89.9 BUN/Creatinine Ratio 9.9 Random Glucose 82 mg/dl Calcium Level 8.5 mg/dl Bedside Glucose 86 mg/dl (Navya Slaughter, MANUEL) Assessment and Plan Ms. Nolen is a 66 year old woman here with metabolic encephalopathy as well as significant bradycardia Bradycardia with heart rate at 30 with history of AV block - heart rate in the 30s - denies symptoms but with ams - propranolol held 09/12 - heart rate improved but remains 40s and 50s - for pacer today - blood pressures stable - trops wnl Hyponatremia - felt to be d/t poor intake last admission however - improving - Na 136 today - TSH last admission was 1.64 - trend - will repeat prp in am - continue IVF until taking po Hepatic encephalopathy with acute on chronic hepatic failure in setting of liver cirrhosis - Ammonia 151 this am - continue lactulose TID - 2 BM this morning - trend platelets - likely low due to liver function - INR borderline high at 1.2 - likely due to liver function - trend History of thyroidectomy with hypothyroidism. - Continue home levothyroxine Hypomagnesemia - replaced DMII - Lantus reduced for NPO - bsgs ac and HS History of esophageal varices/GI bleed - protonix IV push while NPO - propranolol on hold for heart rate DVT proph - SCDS - no chemoprophylaxis for now as platelets are low and INR is borderline high Full code (Navya Slaughter ., MANUEL) i personally examined pt and verified all bernal points linnea JACKSON alert, talkative, coherent extensive discussion on risks/benefits of pacer vs no pacer, and of propranolol vs none for esophageal varices, and how both tie together vitals noted nad breathing unlabored, awake/oriented/coherent bradycardia - appearing relative erasmo far more than expected, and far too erasmo for low dose beta osvaldo - suspect working towards sick sinus either way - and pacer sooner rather than later allows for more optimal treatment of esophageal varices (whcih pose most imminent threat) portal HTN - resume beta osvaldo once possible hepatic and metabolic encephalopathy (high ammonia and low Na) - improving. fer poor forward flow from erasmo significant contributor DVT proph - pharmacologic contraindicated due to the many bleed-risk manifestations of her cirrhosis (Yo Rodriguez D.O.)
--- NOTE | 2017-09-13 14:46 | Cardiology Follow-Up ---
Subjective Date of Service: Sep 13, 2017. Pt evaluation today including: conversation w/ patient, conversation w/ family , physical exam, chart review, lab review, review of studies, review of inpatient medication list, conversation w/ attending History of Present Illness This morning the patient is feeling much better. She states that her dizziness is improved. She is not reporting any pain. She denies any breathing difficulty. She is not aware of any palpitations. She has been complaining of frequent bowel movements. Social History Smoking Status: Never Smoker History of Alcohol Use: No Objective Vital Signs Past 12 Hours Date Time Temp Pulse Resp B/P (MAP) Pulse Ox O2 Delivery O2 Flow Rate FiO2 09/13/17 14:30 60 18 141/87 (105) 99 Room Air 60 09/13/17 14:00 60 18 147/89 (108) 99 Room Air 60 09/13/17 13:45 60 18 135/82 (99) 100 Room Air 60 09/13/17 13:30 61 18 161/82 (108) 99 Room Air 61 09/13/17 13:13 36.7 61 18 164/75 (104) 99 Room Air 61 09/13/17 12:50 60 18 152/72 (98) 98 Room Air 09/13/17 12:42 60 18 154/72 (99) 98 Room Air 09/13/17 12:00 Room Air 09/13/17 11:32 36.7 54 18 120/70 (87) 98 Room Air 09/13/17 08:00 Room Air 09/13/17 07:40 36.6 52 20 138/73 (94) 97 Room Air 09/13/17 04:21 36.7 52 16 132/81 (98) 95 Room Air 09/13/17 04:00 Room Air Last Recorded Weight-Kilograms: 80.300 Intake & Output 8-Hour Column 09/13/17 09/13/17 09/14/17 15:59 23:59 07:59 Output Total 1600 ml Balance -1600 ml 24-Hour Column 09/14/17 07:59 Output Total 1600 ml Balance -1600 ml Physical Exam Alert and oriented. She seemed just mildly forgetful but overall appropriate. She is alert and oriented x3. Mood affect appear normal. She answered all questions appropriately. HEENT: Sclerae are anicteric. Pupils are equal and reactive to light and accommodation. Extraocular movements were intact. Neuro: Cranial nerves intact Neck: Examination of the submandibular region did not reveal any significant lymphadenopathy. Carotids are palpable bilaterally and free of bruits on auscultation. There was no evidence of jugular venous distention. The thyroid was not enlarged. Lungs: Lungs are clear to auscultation bilaterally. There are no rales wheezes or rhonchi. She has normal respiratory effort without use of accessory muscles. There is normal pulmonary excursion. Cardiac: The rhythm was regular. S1 and S2 were normal. There are no murmurs on examination. The PMI was not markedly displaced on palpation. Abdomen: The abdomen was soft and nontender. Extremities: Patient has bilateral radial pulses that are equal in intensity. There is no evidence cyanosis or clubbing. There was no evidence of significant peripheral edema bilaterally. Skin: There are no rashes noted on examination today. Data Laboratory Results: Last 24 Hours Test 09/12/17 17:58 09/12/17 20:37 09/12/17 23:39 09/13/17 04:00 Bedside Glucose 80 mg/dl 76 mg/dl 155 mg/dl Urine Osmolality 167 mOms/kg Urine Random Sodium 27 mEq/L Test 09/13/17 06:16 09/13/17 06:51 White Blood Count 2.15 K/uL Red Blood Count 3.87 M/uL Hemoglobin 11.5 g/dL Hematocrit 32.5 % Mean Corpuscular Volume 84.0 fL Mean Corpuscular Hemoglobin 29.7 pg Mean Corpuscular Hemoglobin Concent 35.4 g/dl RDW Standard Deviation 49.3 fL RDW Coefficient of Variation 16.0 % Platelet Count 71 K/uL Mean Platelet Volume 8.9 fL Prothrombin Time 12.4 SECONDS Prothromb Time International Ratio 1.2 Sodium Level 132 mmol/L Potassium Level 3.6 mmol/L Chloride Level 100 mmol/L Carbon Dioxide Level 25 mmol/L Anion Gap 7.0 mmol/L Blood Urea Nitrogen 7 mg/dl Creatinine 0.68 mg/dl Est Creatinine Clear Calc Drug Dose 77.7 ml/min Estimated GFR () 104.2 Estimated GFR (Non- 89.9 BUN/Creatinine Ratio 9.9 Random Glucose 82 mg/dl Calcium Level 8.5 mg/dl Bedside Glucose 86 mg/dl Telemetry reviewed: Mostly sinus bradycardia Assessment and Plan 1. Bradycardia: Her heart rates have improved without the beta-blockade. In the absence of a need for medical therapy she would not likely require permanent pacing. However after discussion with her other team members it seems that propranolol is the preferred treatment for her portal hypertension and known esophageal varices. In this setting a permanent pacemaker will be required. I did discuss the risks benefits alternatives with the patient and her today. She is in favor proceeding will perform this today. 2. Altered mentation: Much improved. Ammonia level is down. Sodium is near normal. Bradycardia has resolved.. 3. Chest Pain: She did describe this chest pain of which she was concern. This is mostly left shoulder pain. It was fairly severe around Mylene time. She will occasionally have episodes of left shoulder discomfort but these occur primarily at rest almost exclusively when she is in bed at night. Did not appear to occur with exertion. I think this is a low likelihood of cardiac ischemia. I would not advocate any additional evaluation during this admission.
[2017-09-13] MEDS ORDERED: NURSING VERBAL MED ORDER ONE (15:30)
[2017-09-13] MEDS: CEFAZOLIN IV 2,000 MG in SYRINGE 0 ML IV SCH (20:08)
[2017-09-13] MEDS: ACETAMINOPHEN 325 MG TAB PO PRN (21:47)
[2017-09-13] MEDS: ZOLPIDEM TARTRATE 5 MG TAB PO SCH (21:47)
[2017-09-14] VITALS (11 sets, daily range): BP systolic 105–151; BP diastolic 64–82; PULSE 59–74; TEMP 36.5–37; O2SAT 93–99
[2017-09-14] MEDS: CEFAZOLIN IV 2,000 MG in SYRINGE 0 ML IV SCH ×2 (03:36→22:38)
[2017-09-14] MEDS: LEVOTHYROXINE 100 MCG TAB PO SCH (05:07)
[2017-09-14] MEDS ORDERED: CEFAZOLIN SOD 1000MG/7.5 ML IV PUSH IV SCH (06:00)
[2017-09-14 07:00] LABS: HEMATOCRIT 36.6 % (37-47); HEMOGLOBIN 12.8 g/dL (12.0-16.0); MEAN CELL VOLUME 85.7 fL (80-100); RED CELL DISTRIBUTION WIDTH CV 16.4 % (11.5-14.5); RED CELL DISTRIBUTION WIDTH SD 51.6 fL (36.4-46.3); WHITE BLOOD COUNT 3.13 K/uL (4.8-10.8)
[2017-09-14 07:08] LABS: INR 1.2 (0.9-1.1)
[2017-09-14 07:09] LABS: MEAN PLATELET VOLUME 9.2 fL (7.4-10.4); PLATELET COUNT 67 K/uL (130-400)
[2017-09-14] MEDS: ACETAMINOPHEN 325 MG TAB PO PRN (07:11)
--- NOTE | 2017-09-14 07:24 | DIAGNOSTIC IMAGING REPORT ---
TWO VIEW CHEST CLINICAL HISTORY: Status post cardiac pacemaker implantation. FINDINGS: PA and lateral chest radiographs are compared to study dated 09/11/2017 and correlated with chest CT dated 11/16/2011. A 2-lead cardiac pacemaker has been placed and partially obscures the left upper chest. Leads project over the ventricles. The heart is enlarged and there is atherosclerotic calcification of the thoracic aorta. The pulmonary vasculature is noncongested. Chronic interstitial thickening is similar to previous. The lungs and pleural spaces are clear. There is no pneumothorax. The skeletal structures are osteopenic. Degenerative change is noted in the thoracic spine. IMPRESSION: 1. Status post 2-lead cardiac pacemaker placement as above. No pneumothorax is identified post procedure. 2. Cardiomegaly without radiographic evidence of congestive failure. 3. No airspace consolidation or pleural effusion is identified. Electronically signed by: Hugo Barros M.D. 09/14/2017 7:22 AM Dictated Date/Time: 09/14/2017 7:21 AM
[2017-09-14 07:26] LABS: CALCIUM 9.4 mg/dl (8.5-10.1); CREATININE 0.81 mg/dl (0.60-1.20)
[2017-09-14] MEDS: LACTULOSE SYRUP 30 GM/45 ML UDP PO SCH ×2 (08:10→21:54)
[2017-09-14] MEDS: FERROUS SULFATE 325 MG TAB PO SCH (08:10)
[2017-09-14] MEDS: MAGNESIUM OXIDE 400 MG TAB PO SCH (08:10)
[2017-09-14] MEDS: CHOLECALCIFEROL 1000 INTER.UNIT TAB PO SCH (08:10)
[2017-09-14] MEDS: CYANOCOBALAMIN 500 MCG TAB (VIT B-12) PO SCH (08:10)
[2017-09-14] MEDS: INSULIN ASPART 100 UNITS/ML 3 ML PEN SC SCH ×4 (08:18→21:53)
[2017-09-14] MEDS: INSULIN GLARGINE SOLOSTAR 100 UNITS/ML 3 ML PEN SC SCH ×2 (08:26→21:53)
--- NOTE | 2017-09-14 12:06 | Cardiology Follow-Up ---
Subjective Date of Service: Sep 14, 2017. Pt evaluation today including: conversation w/ patient, physical exam History of Present Illness Overall patient is feeling well. She has some mild discomfort at the implant site. She has been up in a chair and she ate breakfast. Social History Smoking Status: Never Smoker History of Alcohol Use: No Objective Vital Signs Past 12 Hours Date Time Temp Pulse Resp B/P (MAP) Pulse Ox O2 Delivery O2 Flow Rate FiO2 09/14/17 11:03 36.7 67 20 105/65 (78) 95 Room Air 09/14/17 08:00 Room Air 09/14/17 07:22 36.5 74 20 143/82 (102) 98 Room Air 09/14/17 04:00 97 Room Air 09/14/17 03:19 37.0 69 16 129/67 (87) 94 Last Recorded Weight-Kilograms: 81.000 Physical Exam Alert and oriented. Mentation appears normal this morning She is alert and oriented x3. Mood affect appear normal. She answered all questions appropriately. Chest: The implant site appears clean dry and intact. No significant hematoma or ecchymosis. Data Laboratory Results: Last 24 Hours Test 09/13/17 16:17 09/13/17 20:05 09/14/17 06:45 09/14/17 07:01 Bedside Glucose 191 mg/dl 261 mg/dl 106 mg/dl White Blood Count 3.13 K/uL Red Blood Count 4.27 M/uL Hemoglobin 12.8 g/dL Hematocrit 36.6 % Mean Corpuscular Volume 85.7 fL Mean Corpuscular Hemoglobin 30.0 pg Mean Corpuscular Hemoglobin Concent 35.0 g/dl RDW Standard Deviation 51.6 fL RDW Coefficient of Variation 16.4 % Platelet Count 67 K/uL Mean Platelet Volume 9.2 fL Prothrombin Time 12.3 SECONDS Prothromb Time International Ratio 1.2 Sodium Level 135 mmol/L Potassium Level mmol/L Chloride Level 103 mmol/L Carbon Dioxide Level 24 mmol/L Anion Gap 8.0 mmol/L Blood Urea Nitrogen 8 mg/dl Creatinine 0.81 mg/dl Est Creatinine Clear Calc Drug Dose 65.6 ml/min Estimated GFR () 86.5 Estimated GFR (Non- 74.6 BUN/Creatinine Ratio 10.2 Random Glucose 105 mg/dl Calcium Level 9.4 mg/dl Test 09/14/17 07:50 Potassium Level 4.0 mmol/L Imaging: Chest x-ray this morning revealed dislodgement of the right atrial lead. No pneumothorax Telemetry reviewed: Patient had atrial pacing in till very early this morning. There was some abnormal pacing rhythms due to inappropriate sensing from the dislodged lead Assessment and Plan 1. Bradycardia: Resolved with permanent pacer. Once the device function is stable would seem reasonable to reinitiate beta-blockade 2. Altered mentation: Resolved.. 3. Chest Pain: She did describe this chest pain of which she was concern. This is mostly left shoulder pain. It was fairly severe around Brady time. She will occasionally have episodes of left shoulder discomfort but these occur primarily at rest almost exclusively when she is in bed at night. Did not appear to occur with exertion. I think this is a low likelihood of cardiac ischemia. I would not advocate any additional evaluation during this admission. 4. Atrial lead dislodgement: Appears on her x-ray that the atrial lead has dislodged. I described this to the patient. Unfortunately, she will require a lead revision later this afternoon. If that goes well and there are no additional complications she would have an anticipated discharge of tomorrow
[2017-09-14] MEDS: PANTOprazole INJ 40 MG in SYRINGE 0 ML IV SCH (12:15)
[2017-09-14] MEDS ORDERED: MIDAZOLAM HCL 5 MG/ML 1 ML VIAL ONE (13:55)
[2017-09-14] MEDS ORDERED: CEFAZOLIN SOD 1 GM VIAL ONE ×2 (13:55→14:03)
[2017-09-14] MEDS ORDERED: FENTANYL CITRATE INJ 50 MCG/1 ML 2 ML VIAL ONE (14:07)
[2017-09-14] MEDS ORDERED: BACITRACIN 50000 UNIT VIAL ONE (14:16)
[2017-09-14] MEDS ORDERED: BUPIVACAINE 0.5 % 5 MG/1 ML MPF 30ML VIAL ONE (14:17)
[2017-09-14] MEDS ORDERED: LIDOCAINE HCL 1% 20 ML VIAL ONE (14:17)
--- NOTE | 2017-09-14 14:55 | [facility] Operative Report ---
Operative Report Date of Service Sep 14, 2017. Operative Report Procedure: Atrial lead revision Refractory Mixer: Landen Palacios MD Indication: The patient is a 66-year-old woman with a history of sick sinus syndrome or underwent implantation of dual-chamber permanent pacemaker 1 day prior. She was noted on routine evaluation this morning to have suffered an atrial lead dislodgement. In order to rectify the situation, the patient was brought back to the electrophysiology suite for repositioning. Procedure in detail: The patient was informed of the risks benefits and alternatives to the intended procedure. She understood such which proceed. She was taken to the electrophysiology suite in a fasting state. A preoperative antibiotic had been administered. The patient was monitored electrocardiographically throughout today's procedure and conscious sedation was administered per protocol. The left upper pectoral area was prepped and draped in usual sterile fashion this area was anesthetized using subcutaneous administration of xylocaine and Marcaine solution. The incision made yesterday was opened using sharp dissection. Electrocautery was also employ for dissection as well as for hemostasis. The sutures placed yesterday were removed. The device pocket and device were then accessed. Device was removed from the pocket. The atrial lead was disconnected from the pulse generator. The helix was retracted and a stylet was inserted. Under fluoroscopic guidance the lead was Re position. Once adequate sensing and threshold parameters were obtained the lead was secured into place using active fixation. The proximal portion of lead was then sutured to the prepectoralis fascia using nonabsorbable suture. The device pocket was irrigated with antibiotic solution. The lead was then attached to the pulse generator. The pulse generator was wrapped in an antibiotic envelope and placed back in the pocket. The pocket was subsequently closed with 3 layers of absorbable suture. Steri-Strips and a sterile dressing were then applied. Device was tested noninvasively prior to conclusion the procedure. The patient tolerated procedure well. There were no immediate complications. Equipment used: retained pulse generator: Inventory Auditor [employer]. Model number A2DR01 serial number [id number] Retained and repositioned right atrial lead: Inventory Auditor Medtr[employer]. Model 4. 076 serial number [id number] Retained right ventricular lead: Inventory Auditor [employer]. Model 4. 076 serial number [id number] Measured data: Right atrial lead: P-waves measured 3 millivolts pacing threshold was 1.25 volts at 0.4 millisecond with a pacing impedance of 456 Ohms Right ventricular lead: R-waves measured 10.4 millivolts pacing threshold was 0.5 volts at 0.4 milliseconds with a pacing impedance of 456 Ohms Impression: Successful repositioning of right atrial lead I attest to the content of the Intraoperative Record and any orders documented therein. Any exceptions are noted below.
--- NOTE | 2017-09-14 15:33 | Hospitalist Progress Note ---
Hospitalist Progress Note Date of Service Sep 14, 2017. (Navya Slaughter CRNP) Subjective Pt evaluation today including: conversation w/ patient, physical exam, chart review, lab review, review of inpatient medication list Voiding: no voiding problems Ms. Nolen is seated in a chair, feeling well, no further confusion. She will have her pacer wires re-placed today with cardiology ROS Constitutional: no chills, aches, sweats or fever Respiratory: no sob,cough, sputum, or wheezing Cardiac: no chest pain, palpitations, edema, orthopnea or lightheadedness GI: no abdominal pain, nausea, vomiting, diarrhea or constipation : no dysuria or hesitancy Extremities: no joint pain or weakness Skin: no rash All other systems reviewed and negative (Navya Slaughter CRNP) Medications Medications Administered Medications (Trade) Dose Ordered Sig/Gay Route Start Time Stop Time Status Last Admin Dose Admin Magnesium Sulfate (Magnesium Sulfate) 2 gm NOW STAT IV 09/11/17 17:21 09/11/17 17:23 DC 09/11/17 17:38 2 GM Sodium Chloride 1,000 ml @ 75 mls/hr [id number] IV 09/11/17 17:59 09/12/17 08:27 DC 09/12/17 08:00 75 MLS/HR Acetaminophen (Tylenol Tab) 650 mg Q4H PRN PO 09/11/17 18:00 10/11/17 17:59 09/14/17 07:11 650 MG Ondansetron HCl (Zofran Inj) 4 mg Q6H PRN IV 09/11/17 18:00 10/11/17 17:59 09/13/17 21:43 4 MG Cholecalciferol (Vitamin D Tab) 1,000 inter.unit DAILY PO 09/12/17 09:00 10/12/17 08:59 09/14/17 08:10 1,000 INTER.UNIT Levothyroxine Sodium (Synthroid Tab) 100 mcg DAILYBB PO 09/12/17 06:00 10/12/17 05:59 09/14/17 05:07 100 MCG Zolpidem Tartrate (Ambien Tab) 5 mg HS PO 09/11/17 21:00 10/11/17 20:59 09/13/17 21:47 5 MG Cyanocobalamin (Vitamin B-12 Tab) 1,000 mcg DAILY PO 09/12/17 09:00 10/12/17 08:59 09/14/17 08:10 1,000 MCG Ferrous Sulfate (Feosol Tab) 325 mg DAILY PO 09/12/17 08:00 10/12/17 07:59 09/14/17 08:10 325 MG Insulin Aspart (novoLOG ASPART) SLIDING SCALE G... Q6 SC 09/12/17 00:00 09/13/17 15:28 DC 09/12/17 23:43 1 UNITS Insulin Glargine (Lantus Solostar Pen) 8 units Q12 SC 09/11/17 21:00 10/11/17 20:59 09/13/17 20:48 8 UNITS Pantoprazole Sodium 40 mg/ Syringe 10 ml @ 5 mls/min DAILY@11 IV 09/12/17 11:00 10/12/17 10:59 09/14/17 12:15 5 MLS/MIN Miscellaneous Information (Pending Order) 1 ea TODAY@0000 N/A 09/12/17 00:00 09/12/17 02:00 DC 09/12/17 00:27 1 EA Lactulose (Chronulac Syrup) 30 gm TID PO 09/12/17 09:00 09/13/17 15:02 DC 09/12/17 13:19 30 GM Lactulose (Chronulac Syrup) 30 gm 0542 ONCE PO 09/12/17 05:42 09/12/17 05:49 DC 09/12/17 07:02 30 GM Magnesium Oxide (Mag-Ox Tab) 400 mg QAM PO 09/13/17 09:00 10/13/17 08:59 09/14/17 08:10 400 MG Magnesium Sulfate 1 gm/Prmx 100 ml @ 100 mls/hr NOW ONCE IV 09/12/17 11:00 09/12/17 11:59 DC 09/12/17 11:30 100 MLS/HR Cefazolin Sodium (Ancef Inj) 2,000 mg STK-MED ONCE .ROUTE 09/13/17 11:53 09/13/17 11:54 DC 09/13/17 11:53 2,000 MG Fentanyl Citrate (Fentanyl Inj) 100 mcg STK-MED ONCE .ROUTE 09/13/17 11:57 09/13/17 11:58 DC 09/13/17 11:57 25 MCG Midazolam HCl (Versed Inj) 5 mg STK-MED ONCE .ROUTE 09/13/17 11:57 09/13/17 11:58 DC 09/13/17 11:57 0.5 MG Bupivacaine HCl (Marcaine 0.5% MPF Inj) 30 ml STK-MED ONCE .ROUTE 09/13/17 12:05 09/13/17 12:06 DC 09/13/17 12:05 30 ML Cefazolin Sodium 2000 mg/Syringe 15 ml @ 3.75 mls/ min Q8H IV 09/13/17 20:00 09/14/17 04:35 DC 09/14/17 03:36 3.75 MLS/MIN Lactulose (Chronulac Syrup) 30 gm BID PO 09/13/17 21:00 10/12/17 08:59 09/14/17 08:10 30 GM Insulin Aspart (novoLOG ASPART) SLIDING SCALE G... ACHS SC 09/13/17 16:15 10/13/17 16:14 09/14/17 11:00 3 UNITS Midazolam HCl (Versed Inj) 5 mg STK-MED ONCE .ROUTE 09/14/17 13:55 09/14/17 13:56 DC 09/14/17 13:55 3 MG Cefazolin Sodium (Ancef Inj) 1,000 mg STK-MED ONCE .ROUTE 09/14/17 13:55 09/14/17 13:56 DC 09/14/17 13:55 1,000 MG Cefazolin Sodium (Ancef Inj) 1,000 mg STK-MED ONCE .ROUTE 09/14/17 14:03 09/14/17 14:04 DC 09/14/17 14:03 1,000 MG Fentanyl Citrate (Fentanyl Inj) 100 mcg STK-MED ONCE .ROUTE 09/14/17 14:07 09/14/17 14:08 DC 09/14/17 14:07 75 MCG (Navya Slaughter CRNP) Objective Vital Signs Date Time Temp Pulse Resp B/P (MAP) Pulse Ox O2 Delivery O2 Flow Rate FiO2 09/14/17 15:00 69 18 132/78 (96) 97 09/14/17 14:45 69 18 142/69 (93) 100 Mask 3 09/14/17 12:00 Room Air 09/14/17 11:03 36.7 67 20 105/65 (78) 95 Room Air 09/14/17 08:00 Room Air 09/14/17 07:22 36.5 74 20 143/82 (102) 98 Room Air 09/14/17 04:00 97 Room Air 09/14/17 03:19 37.0 69 16 129/67 (87) 94 09/14/17 00:00 36.7 66 129/67 (87) 97 Room Air 09/14/17 00:00 97 Room Air 09/13/17 20:00 96 Room Air 09/13/17 19:35 37.0 62 16 146/67 (93) 96 09/13/17 16:00 36.8 60 18 141/69 (93) 96 60 09/13/17 16:00 Room Air (Navya Slaughter CRNP) Physical Exam Notes: General: no distress Eyes: normal inspection, PERLL Respiratory: chest non tender, clear to auscultation, normal breath sounds, no respiratory distress, no accessory muscle use Cardiac: regular rate and rhythm, no rub or gallop, systolic murmur, no edema, no jvd GI/: active bowel sounds, no abd pain or tenderness, soft, non distended Extremities: normal range of motion, normal strength, non tender Neuro/Psych: alert and oriented x 3, normal mood and affect Skin: normal color, dry (Navya Slaughter CRNP) Laboratory Results Last 24 Hours Test 09/13/17 16:17 09/13/17 20:05 09/14/17 06:45 09/14/17 07:01 Bedside Glucose 191 mg/dl 261 mg/dl 106 mg/dl White Blood Count 3.13 K/uL Red Blood Count 4.27 M/uL Hemoglobin 12.8 g/dL Hematocrit 36.6 % Mean Corpuscular Volume 85.7 fL Mean Corpuscular Hemoglobin 30.0 pg Mean Corpuscular Hemoglobin Concent 35.0 g/dl RDW Standard Deviation 51.6 fL RDW Coefficient of Variation 16.4 % Platelet Count 67 K/uL Mean Platelet Volume 9.2 fL Prothrombin Time 12.3 SECONDS Prothromb Time International Ratio 1.2 Sodium Level 135 mmol/L Potassium Level mmol/L Chloride Level 103 mmol/L Carbon Dioxide Level 24 mmol/L Anion Gap 8.0 mmol/L Blood Urea Nitrogen 8 mg/dl Creatinine 0.81 mg/dl Est Creatinine Clear Calc Drug Dose 65.6 ml/min Estimated GFR () 86.5 Estimated GFR (Non- 74.6 BUN/Creatinine Ratio 10.2 Random Glucose 105 mg/dl Calcium Level 9.4 mg/dl Test 09/14/17 07:50 09/14/17 11:48 Potassium Level 4.0 mmol/L Bedside Glucose 222 mg/dl (Navya Slaughter CRNP) Assessment and Plan Ms. Nolen is a 66 year old woman here with metabolic encephalopathy as well as significant bradycardia Bradycardia with heart rate at 30 with history of AV block - propranolol held 09/12 - heart rate improved but remains 40s and 50s - however given her history of esophageal varices, she will need to be on BB - for pacer today - repeat pacer placement today - blood pressures stable - trops wnl Hyponatremia - felt to be d/t poor intake last admission - improving - Na 135 today - TSH last admission was 1.64 - trend - will repeat prp in am Hepatic encephalopathy in setting of liver cirrhosis - Ammonia peaked at 151 - lactulose improved ammonia and mentation - continue lactulose bid - trend platelets - likely low due to liver function - INR borderline high at 1.2 - likely due to liver function - trend History of thyroidectomy with hypothyroidism. - Continue home levothyroxine Hypomagnesemia - replaced DMII - Lantus returned to home dose as patient no longer npo - bsgs ac and HS History of esophageal varices/GI bleed - protonix IV push while NPO - propranolol on hold for heart rate - restart following pacer placement DVT proph - SCDS - no chemoprophylaxis for now as platelets are low and INR is borderline high Full code (Navya Slaughter CRNP) DIRECTOR REPORT Physician Supervision Note: I interviewed and examined the patient. Discussed with Navya Slaughter NP and agree with findings and plan as documented in the note. Any exceptions or clarifications are listed here: None Patient was seen after she had her pacemaker wire re-replaced. This appear to be the atrial lead. After speaking with her fine artist if her x-ray in the morning does not show any dislodged leads and her pacemaker function is normal she is planned to be discharged on 09/15 Her vitals are stable she is minor tenderness over the pacemaker site her heart appears to be regular at this time Patient is a pacemaker for symptom of bradycardia, plan is as above Documented By: Jemal Galindo (Jemal Galindo M.D.)
[2017-09-14] MEDS ORDERED: CEFAZOLIN IV 1,000 MG in DEXTROSE 5% 50ML 50 ML IV SCH (22:00)
[2017-09-14] MEDS: ZOLPIDEM TARTRATE 5 MG TAB PO SCH (22:38)
[2017-09-15] VITALS: BP 158/68; PULSE 68; TEMP 36.8; O2SAT 97
[2017-09-15] MEDS: OXYCODONE HCL IR 5 MG TAB (IMMEDIATE RELEASE) PO PRN ×2 (02:55→08:38)
[2017-09-15 03:10] VITALS: BP 146/77; PULSE 73; TEMP 37.3; O2SAT 98
[2017-09-15 04:00] VITALS: O2SAT 96
[2017-09-15 05:55] LABS: HEMATOCRIT 34.4 % (37-47); HEMOGLOBIN 11.6 g/dL (12.0-16.0); MEAN CELL VOLUME 86.6 fL (80-100); MEAN CORPUSCULAR HEMOGLOBIN 29.2 pg (25-34); MEAN CORPUSCULAR HGB CONC 33.7 g/dl (32-36); NUCLEATED RED BLOOD CELL ABS 0.03 K/uL (0-0); RED CELL DISTRIBUTION WIDTH CV 16.3 % (11.5-14.5); RED CELL DISTRIBUTION WIDTH SD 51.8 fL (36.4-46.3); WHITE BLOOD COUNT 2.72 K/uL (4.8-10.8)
[2017-09-15] MEDS ORDERED: CEFAZOLIN SOD 1000MG/7.5 ML IV PUSH IV SCH (06:00)
[2017-09-15] MEDS: LEVOTHYROXINE 100 MCG TAB PO SCH (06:10)
[2017-09-15] MEDS: CEFAZOLIN IV 2,000 MG in SYRINGE 0 ML IV SCH (06:10)
[2017-09-15 06:13] LABS: MEAN PLATELET VOLUME 9.1 fL (7.4-10.4); PLATELET COUNT 61 K/uL (130-400)
[2017-09-15 06:17] LABS: INR 1.2 (0.9-1.1)
[2017-09-15 06:31] LABS: CALCIUM 8.5 mg/dl (8.5-10.1); CREATININE 0.74 mg/dl (0.60-1.20); POTASSIUM 4.1 mmol/L (3.5-5.1)
--- NOTE | 2017-09-15 07:21 | DIAGNOSTIC IMAGING REPORT ---
CHEST 2 VIEWS ROUTINE CLINICAL HISTORY: 66 years-old Female presenting with EXACT TIME ORDERED Evaluate for pneumothorax and lead placement. TECHNIQUE: PA and lateral views of the chest were obtained. COMPARISON: 09/14/2017. FINDINGS: Left subclavian pacer with leads to the right atrium and right ventricular apex. Atherosclerosis of the aortic arch. Cardiac silhouette normal in size. Lungs and pleural spaces clear. Osseous structures normal. Upper abdomen normal. IMPRESSION: 1. Appropriately positioned 2-lead pacer. No pneumothorax. Electronically signed by: Jamel Mackay M.D. 09/15/2017 7:20 AM Dictated Date/Time: 09/15/2017 7:19 AM
[2017-09-15 08:00] VITALS: BP 161/67; PULSE 85; TEMP 36.6; O2SAT 97
--- NOTE | 2017-09-15 08:07 | Cardiology Follow-Up ---
Subjective Date of Service: Sep 15, 2017. Pt evaluation today including: conversation w/ patient, physical exam, chart review, lab review, review of studies History of Present Illness Overall patient is feeling well. She has some mild discomfort at the implant site. Social History Smoking Status: Never Smoker History of Alcohol Use: No Objective Vital Signs Past 12 Hours Date Time Temp Pulse Resp B/P (MAP) Pulse Ox O2 Delivery O2 Flow Rate FiO2 09/15/17 04:00 96 Room Air 09/15/17 03:10 37.3 73 18 146/77 (100) 98 Room Air 09/15/17 00:00 36.8 68 158/68 (98) 97 Room Air 09/15/17 00:00 97 Room Air Last Recorded Weight-Kilograms: 80.300 Physical Exam SHe is a little more somnolent this morning She is alert and oriented x3. Mood affect appear normal. She answered all questions appropriately. Chest: The implant site appears clean dry and intact. No significant hematoma or ecchymosis. Data Laboratory Results: Last 24 Hours Test 09/14/17 11:48 09/14/17 16:13 09/14/17 19:58 09/15/17 05:14 Bedside Glucose 222 mg/dl 87 mg/dl 169 mg/dl White Blood Count 2.72 K/uL Red Blood Count 3.97 M/uL Hemoglobin 11.6 g/dL Hematocrit 34.4 % Mean Corpuscular Volume 86.6 fL Mean Corpuscular Hemoglobin 29.2 pg Mean Corpuscular Hemoglobin Concent 33.7 g/dl RDW Standard Deviation 51.8 fL RDW Coefficient of Variation 16.3 % Platelet Count 61 K/uL Mean Platelet Volume 9.1 fL Nucleated RBC Absolute Count (auto) 0.03 K/uL Nucleated Red Blood Cells % 0.9 % Prothrombin Time 12.4 SECONDS Prothromb Time International Ratio 1.2 Sodium Level 135 mmol/L Potassium Level 4.1 mmol/L Chloride Level 103 mmol/L Carbon Dioxide Level 27 mmol/L Anion Gap 5.0 mmol/L Blood Urea Nitrogen 9 mg/dl Creatinine 0.74 mg/dl Est Creatinine Clear Calc Drug Dose 71.4 ml/min Estimated GFR () 96.5 Estimated GFR (Non- 83.2 BUN/Creatinine Ratio 12.8 Random Glucose 139 mg/dl Calcium Level 8.5 mg/dl Test 09/15/17 06:45 Bedside Glucose 117 mg/dl Imaging: Chest x-ray demonstrates good lead position without PTX Telemetry reviewed: Sinus/ectopic atrial rhythm with occasional A-pacing Interrogation of her pacemaker reveals good sensing and thresholds on both leads Assessment and Plan 1. Bradycardia: Resolved with permanent pacer. Normal device function. OK to initiate BB if necessary 2. Altered mentation: Resolved.. 3. Chest Pain: She did describe this chest pain of which she was concern. This is mostly left shoulder pain. It was fairly severe around Mylene time. She will occasionally have episodes of left shoulder discomfort but these occur primarily at rest almost exclusively when she is in bed at night. Did not appear to occur with exertion. I think this is a low likelihood of cardiac ischemia. I would not advocate any additional evaluation during this admission. 4. Atrial lead dislodgement: Revised yesterday. Normal function today. Keep the wound dry and steri-strip intact until f/u in our clinic next week (TBA). No lifting left arm above shoulder or behind neck for 6 weeks.
[2017-09-15] MEDS: CHOLECALCIFEROL 1000 INTER.UNIT TAB PO SCH (08:38)
[2017-09-15] MEDS: FERROUS SULFATE 325 MG TAB PO SCH (08:38)
[2017-09-15] MEDS: CYANOCOBALAMIN 500 MCG TAB (VIT B-12) PO SCH (08:38)
[2017-09-15] MEDS: MAGNESIUM OXIDE 400 MG TAB PO SCH (08:38)
[2017-09-15] MEDS: INSULIN ASPART 100 UNITS/ML 3 ML PEN SC SCH ×2 (08:42→12:35)
[2017-09-15] MEDS: INSULIN GLARGINE SOLOSTAR 100 UNITS/ML 3 ML PEN SC SCH (08:42)
[2017-09-15] MEDS: LACTULOSE SYRUP 30 GM/45 ML UDP PO SCH (08:43)
[2017-09-15] MEDS ORDERED: RXC5 PO (09:11)
--- NOTE | 2017-09-15 09:18 | Discharge Instructions ---
Discharge Instructions Date of Service Sep 15, 2017. Admission Reason for Admission: Bradycardia, Junctional Bradycardia Discharge Discharge Diagnosis / Problem: symptomatic bradycardia, pacemaker placement Discharge Goals Goal(s): Diagnostic testing, Therapeutic intervention Activity Recommendations Activity Limitations: as noted below Please follow lifting restriction with left arm as per DR Palacios instructions, no lifting until office visit recheck . Instructions / Follow-Up Instructions / Follow-Up Call 911 or immediately go to the Hospital Emergency Department nearest your location if you feel you have an emergent problem. ACTIVITY RECOMMENDATIONS: * Do not lift over 5 pounds until after post-operative visit. * You may travel as a passenger in a car, but do not drive yourself until permitted by the doctor. * You may climb stairs three times each day, but not if tired or feeling weak. * Wear a sling for 10 days on the arm on the side of the incision if a pacemaker was implanted. * Do not raise the arm above your head on the side of the incision if a pacemaker was implanted. SPECIAL CARE INSTRUCTIONS: PLEASE CALL THE DOCTOR IF: * You measure your temperature with a thermometer and it is over 102 degrees F. * There is unexpected redness, swelling, pain or drainage from an incision. * You have unexpected shortness of breath. * You have increasing pain not helped by your medication. * You have urgent concerns about your surgery. * You are unable to eat or drink well. * You have uncontrollable nausea, vomiting or diarrhea. * You cannot eat your food. INCISION WOUND CARE: * Cover incision with sterile 4x4 gauze and secure with tape for 5 days. * Change the 4x4 gauze daily. * Do not use ointments or creams on the surgical wound. * You may shower 5 days after surgery. Be sure to dry off the wound. * Do not take a tub bath until after you are seen in the doctor's office. * Your surgery wound can be open to air five days after surgery. * Cover groin entry site with band-aid for 48 hours. TOBACCO AND ALCOHOL: * Alcohol should not be used. * Tobacco should not be used. SKIN IRRITATION: * You may experience some redness and/or swelling in the area where radiation was administered. If any skin irritation occurs, please contact your family physician. FOLLOW-UP VISIT: DOCTOR APPOINTMENT: * Please keep your appointment with the surgeon as scheduled. * Call the surgeon's office if an appointment change is needed. Current Hospital Diet Patient's current hospital diet: AHA Diet (Heart Healthy), Diabetes Type 2 Diet Discharge Diet Recommended Diet: Regular Diet Pending Studies Studies pending at discharge: no Laboratory Results Hemoglobin A1c Test 09/06/17 07:07 Range/Units Estimated Average Glucose 157 mg/dl Hemoglobin A1c 7.1 H 4.5-5.6 % Lipid Panel Test 08/29/17 15:16 Range/Units Triglycerides Level 137 0-150 mg/dl Cholesterol Level 139 0-200 mg/dl HDL Cholesterol 54 mg/dl Cholesterol/HDL Ratio 2.6 LDL Cholesterol, Calculated 58 mg/dl Medical Emergencies . Who to Call and When: Medical Emergencies: If at any time you feel your situation is an emergency, please call 911 immediately. . Non-Emergent Contact Non-Emergency issues call your: Primary Care Provider, Hydroponics Worker Call Non-Emergent contact if: temperature is above 101, your pain is unusual for you . . "Provider Documentation" section prepared by Jemal Galindo. . VTE Core Measure Inpt VTE Proph given/why not?: SCD's, Contraindicated (due to procedure)
[2017-09-15 10:26] VITALS: BP 161/67; PULSE 85; TEMP 36.6; O2SAT 97
[2017-09-15 11:15] VITALS: BP 130/67; PULSE 58; TEMP 36.7; O2SAT 97
[2017-09-15] MEDS: PANTOprazole INJ 40 MG in SYRINGE 0 ML IV SCH (11:44)
--- NOTE | 2017-09-15 14:36 | Discharge Summary ---
Discharge Summary Date of Service Sep 15, 2017. Discharge Summary Admission Date: Sep 11, 2017 at 18:06 Discharge Date: Sep 15, 2017 Discharge Disposition: Home Principal Diagnosis: symptomatic bradycardia, s/p Pacemaker insertion Immunizations: Have You Had Influenza Vaccine: N/A Influenza Vaccine Date: Oct 29, 2009 History of Tetanus Vaccine?: No History of Pneumococcal: No History of Hepatitis B Vaccine: No Consultations: Dr Palacios Medication Reconciliation New Medications: Oxycodone HCl (Oxycodone HCl) 5 Mg Tab 5 MG PO Q6 PRN for Pain, #10 TAB Continued Medications: Cholecalciferol (Vitamin D3) 1,000 Unit Tab 1000 INTER.UNIT PO DAILY, TAB Cyanocobalamin (Vitamin B12) 1,000 Mcg Tab 1000 MCG PO DAILY Ferrous Sulfate (Iron) 325 Mg Tab 325 MG PO DAILY Glipizide (Glipizide) 5 Mg Tab 5 MG PO QAM Glipizide (Glipizide) 10 Mg Tab 10 MG PO QPM Insulin Glargine (Lantus) 100 Unit/Ml Inj 25 UNITS SC HS Levothyroxine Sodium (Levothyroxine Sodium) 100 Mcg Tab 100 MCG PO QAM Metformin HCl (Metformin HCl) 850 Mg Tab 850 MG PO TIDM Multivitamin (Multivitamin) Tab 1 TAB PO DAILY, TAB Ondansetron (Ondansetron HCl) 4 Mg Tab 4 MG PO Q8 PRN for Nausea Pravastatin Sod (Pravastatin Sodium) 20 Mg Tab 10 MG PO HS Propranolol (Inderal) 10 Mg Tab 10 MG PO BID for 30 Days, #60 TAB Vitamin E (Vitamin E) 1,000 Unit Cap 1000 INTER.UNIT PO DAILY Zolpidem Tartrate (Zolpidem Tartrate) 5 Mg Tab 5 MG PO HS Discontinued Medications: Hydrochlorothiazide (Hydrochlorothiazide) 25 Mg Tab 25 MG PO QAM Oxcarbazepine (Oxcarbazepine) 300 Mg Tab 300 MG PO BID Discharge Exam Review of Systems: Constitutional: No fever, No chills, No weakness, No fatigue Respiratory: No shortness of breath, No dyspnea on exertion Cardiovascular: + chest pain (near procedure sight) Abdomen: No pain, No nausea Physical Exam: General Appearance: WD/WN, + mild distress Eyes: normal inspection, sclerae normal Respiratory/Chest: lungs clear, normal breath sounds Cardiovascular: regular rate, rhythm, no murmur Skin: + pertinent finding (pacemaker sight is tender but not reddened or fluctuant, is swollen with STS) Hospital Course 66 F metabolic encephalopathy associated with acute/subacute hepatic failure in the setting of cirrhosis exacerbated by symptomatic bradycardia Bradycardia with heart rate at 30 with history of AV block - propranolol held 09/12 - heart rate improved but remained 40s and 50s - however given her history of esophageal varices, she needs to be on BB - did have pacemaker but needed lead revision 09/14, lead in good position, will have home . some pain at pacemaker sight, will have home with small amount of oxycodone Hyponatremia improved Hepatic encephalopathy in setting of liver cirrhosis, responsible for toxic encephalopathy-since she had previously not needed lactulose and did not have significant lft changes, consider if hepatic congestion from low heart rate and perfusion played a role, will not have home on lactulose but will have suggestion to have outpt ammonia level checked if pt has issues with lethargy and confusion. History of thyroidectomy with hypothyroidism. levothyroxine Hypomagnesemia- replaced DMII- Lantus returned to home dose History of esophageal varices/GI bleed propranolol - restarted following pacer placement DVT proph - SCDS Total Time Spent: Greater than 30 minutes This includes examination of the patient, discharge planning, medication reconciliation, and communication with other providers. Discharge Instructions Please refer to the electronic Patient Visit Report (Discharge Instructions) for additional information.
== END 2017-09-15 14:25 | disposition home or self-care (01) | DRG 242 ==
LOC: C.EDB 15:20 → C.2T 18:06 → ENRESERV 18:54
PROVIDERS: ADMIT Hospitalist; ATTEND Internal Medicine
PROC: 02H63JZ Insertion of Pacemaker Lead into Right Atrium, Percutaneous Approach (ICD-10-PCS; principal; 2017-09-13 11:52)
PROC: 0JH606Z Insertion of Pacemaker, Dual Chamber into Chest Subcutaneous Tissue and Fascia, Open Approach (ICD-10-PCS; principal; 2017-09-13 11:52)
PROC: 02HK3JZ Insertion of Pacemaker Lead into Right Ventricle, Percutaneous Approach (ICD-10-PCS; principal; 2017-09-13 11:52)
PROC: 02WA3MZ Revision of Cardiac Lead in Heart, Percutaneous Approach (ICD-10-PCS; 2017-09-14)
DX: I49.5 Sick sinus syndrome (principal); G93.41 Metabolic encephalopathy; K72.00 Acute and subacute hepatic failure without coma; E87.1 Hypo-osmolality and hyponatremia; K76.6 Portal hypertension; I85.00 Esophageal varices without bleeding; T82.128A Displacement of other cardiac electronic device, initial encounter; K74.60 Unspecified cirrhosis of liver; E83.42 Hypomagnesemia; E11.9 Type 2 diabetes mellitus without complications; E03.9 Hypothyroidism, unspecified; Z79.4 Long term (current) use of insulin; Z79.899 Other long term (current) drug therapy; Z91.013 Allergy to seafood; Z83.3 Family history of diabetes mellitus; M25.512 Pain in left shoulder; Y83.1 Surgical operation with implant of artificial internal device as the cause of abnormal reaction of the patient, or of later complication, without mention of misadventure at the time of the procedure

== ENCOUNTER 2017-09-24 13:45 | Emergency (ER) | payer OTHER ==
[~2017-09-24] VITALS: Ht 157.5 cm; Wt 79.0 kg
[~2017-09-24 13:45] MED LIST changes: -GLC850 PO; -HYDR25TA5 PO; +METF850T10 PO; +RXC5 PO; -TRL300 PO
[2017-09-24 13:51] VITALS: Ht 157.5 cm; Wt 79.0 kg
[2017-09-24] MEDS ORDERED: GUAIFENESIN 600 MG TABCR PO STA (14:37)
[2017-09-24] MEDS ORDERED: SODIUM CHLORIDE 0.9% 500ML 500 ML IV STA (14:37)
[2017-09-24] MEDS ORDERED: ALBUT/IPRATROP 3MG/0.5MG NEB 3 ML VIAL INH STA (14:37)
[2017-09-24] MEDS ORDERED: ONDANSETRON INJ 2 MG/ML 2 ML VIAL IV STA (14:43)
[2017-09-24] MEDS ORDERED: SODIUM CHLORIDE 0.65% NA SOLN 45 ML (OCEAN) ONE (14:45)
--- NOTE | 2017-09-24 15:13 | EMERGENCY ROOM VISIT NOTE ---
History Report prepared by Octaviano: Ana Jeronimo Under the Supervision of: Dr. Raji Díaz M.D. First contact with patient: 14:34 Chief Complaint: COUGH Stated Complaint: COUGH History of Present Illness The patient is a 66 year old female who presents to the Emergency Room with complaints of a worsening flu like symptoms that began one week ago. The patient states that she first began having a sore throat 5 days ago, noting that she then started coughing and having fevers. She notes that for a couple of days her fever resolved, but is currently experiencing them again. She reports that she took 2 Tylenol tabs yesterday, noting it did not help relieve her symptoms. The patient states that she is nauseous, noting Zofran usually helps relieve her symptoms. She had a pace maker put in place on 09/13/17, noting she had to have it fixed on 09/14/17 due to some complication with the wires by her farrowing worker, Dr. Palacios. She denies history of asthma, COPD, or taking blood thinners. Source of History: patient Onset: one week ago Position: other (global) Quality: other (flu like symptoms) Timing: other (persistent) Associated Symptoms: + fevers, + sorethroat, + cough, + nausea Review of Systems See HPI for pertinent positives and negatives. A total of ten systems were reviewed and were otherwise negative. Past Medical & Surgical Medical Problems: (1) Acute blood loss anemia (2) bradycardia (3) bradycardia (4) Carpal tunnel syndrome (5) Chiari malformation (6) Cirrhosis (7) H/O thyroidectomy Surgical Problems: (1) History of hysterectomy (2) Hx of brain surgery (3) Hx of cholecystectomy Family History Cancer Diabetes mellitus Gallbladder disease Heart disease Hypertension Social History Smoking Status: Never Smoker Alcohol Use: none Drug Use: none Marital Status: Housing Status: lives with significant other Occupation Status: retired Current/Historical Medications Scheduled Azithromycin (Zithromax), 250 MG PO DAILY Cholecalciferol (Vitamin D3), 1,000 INTER.UNIT PO DAILY Cyanocobalamin (Vitamin B12), 1,000 MCG PO DAILY Ferrous Sulfate (Iron), 325 MG PO DAILY Glipizide (Glipizide), 5 MG PO QAM Glipizide (Glipizide), 10 MG PO QPM Insulin Glargine (Lantus), 22 UNITS SC HS Levothyroxine Sodium (Levothyroxine Sodium), 100 MCG PO QAM Metformin HCl (Metformin HCl), 850 MG PO TIDM Multivitamin (Multivitamin), 1 TAB PO DAILY Oseltamivir Phosphate (Tamiflu), 75 MG PO BID Pravastatin Sod (Pravastatin Sodium), 10 MG PO HS Propranolol (Inderal), 10 MG PO BID Vitamin E (Vitamin E), 1,000 INTER.UNIT PO DAILY Zolpidem Tartrate (Zolpidem Tartrate), 5 MG PO HS Scheduled PRN Ondansetron (Ondansetron HCl), 4 MG PO Q8 PRN for Nausea Oxycodone HCl (Oxycodone HCl), 5 MG PO Q6 PRN for Pain Allergies Coded Allergies: Shrimp (Verified Allergy, Intermediate, Funny sensation around mouth, 09/24) Vinegar (Verified Adverse Reaction, Intermediate, Mouth/tongue irritation/ burning sensation, 09/24/17) Physical Exam Vital Signs Date Time Temp Pulse Resp B/P (MAP) Pulse Ox O2 Delivery O2 Flow Rate FiO2 09/24/17 20:43 37.0 84 18 133/67 97 Room Air 09/24/17 19:19 37.5 95 18 133/67 95 Room Air 09/24/17 19:16 95 09/24/17 17:48 37.3 94 18 131/57 96 Room Air 09/24/17 16:59 81 16 96 Room Air 09/24/17 15:42 39.4 91 18 122/56 96 Room Air 09/24/17 15:25 96 Room Air 09/24/17 15:25 96 Room Air 09/24/17 14:38 96 09/24/17 13:51 37.3 84 20 164/101 97 Physical Exam GENERAL: Awake, alert, fatigued-appearing, uncomfortable, in no distress HENT: Normocephalic, atraumatic. Oropharynx with Dry mucous membranes and otherwise unremarkable. EYES: Normal conjunctiva. Sclera non-icteric. NECK: Supple. No nuchal rigidity. FROM. No JVD. RESPIRATORY: Scant intermittent rhonchi and wheezes throughout, otherwise clear. CARDIAC: Regular rate, normal rhythm. Extremities warm and well perfused. Pulses equal. ABDOMEN: Soft, non-distended. No tenderness to palpation. No rebound or guarding. No masses. RECTAL: Deferred. MUSCULOSKELETAL: Chest examination reveals no tenderness. The back is symmetrical on inspection without obvious abnormality. There is no CVA tenderness to palpation. No joint edema. LOWER EXTREMITIES: Calves are equal size bilaterally and non-tender. No edema. No discoloration. NEURO: Normal sensorium. No sensory or motor deficits noted. SKIN: No rash or jaundice noted. Left upper chest PPM incision site c/d/i without erythema, edema, or warmth. Medical Decision & Procedures ER Provider Diagnostic Interpretation: Radiology results as stated below per my review and radiologist interpretation: SINGLE VIEW CHEST CLINICAL HISTORY: Cough. Atypical chest pain. FINDINGS: An AP, portable, upright chest radiograph is compared to study dated 09/15/2017. The examination is mildly degraded by portable technique and patient rotation. A 2-lead cardiac pacemaker is unchanged and partially obscures the left upper chest. The heart is top normal for projection and there is atherosclerotic calcification of the thoracic aorta. The pulmonary vasculature is noncongested. There is mild bibasilar atelectasis. No airspace consolidation or pleural effusion is identified. No pneumothorax is seen. The skeletal structures are osteopenic. The bony thorax is grossly intact. IMPRESSION: No acute cardiopulmonary abnormality. Electronically signed by: Hugo Barros M.D. 09/24/2017 3:52 PM Dictated Date/Time: 09/24/2017 3:50 PM Laboratory Results 09/24/17 15:15 Red Blood Count 3.91, Mean Corpuscular Volume 87.0, Mean Corpuscular Hemoglobin 29.9, Mean Corpuscular Hemoglobin Concent 34.4, Mean Platelet Volume 9.4, Neutrophils (%) (Auto) 65.9, Lymphocytes (%) (Auto) 20.2, Monocytes (%) (Auto) 12.4, Eosinophils (%) (Auto) 0.9, Basophils (%) (Auto) 0.3, Neutrophils # (Auto ) 2.18, Lymphocytes # (Auto) 0.67, Monocytes # (Auto) 0.41, Eosinophils # (Auto ) 0.03, Basophils # (Auto) 0.01 09/24/17 15:15 Test 09/24/17 15:00 09/24/17 15:15 09/24/17 21:10 Influenza Type A (RT-PCR) Neg for Influ A (NEG) Influenza Type A Antigen Neg for Influ A (NEG) Influenza Type B Antigen Neg for Influ B (NEG) Influenza Type B (RT-PCR) Neg for Influ B (NEG) White Blood Count 3.31 K/uL (4.8-10.8) Red Blood Count 3.91 M/uL (4.2-5.4) Hemoglobin 11.7 g/dL (12.0-16.0) Hematocrit 34.0 % (37-47) Mean Corpuscular Volume 87.0 fL (80-100) Mean Corpuscular Hemoglobin 29.9 pg (25-34) Mean Corpuscular Hemoglobin Concent 34.4 g/dl (32-36) Platelet Count 67 K/uL (130-400) Mean Platelet Volume 9.4 fL (7.4-10.4) Neutrophils (%) (Auto) 65.9 % Lymphocytes (%) (Auto) 20.2 % Monocytes (%) (Auto) 12.4 % Eosinophils (%) (Auto) 0.9 % Basophils (%) (Auto) 0.3 % Neutrophils # (Auto) 2.18 K/uL (1.4-6.5) Lymphocytes # (Auto) 0.67 K/uL (1.2-3.4) Monocytes # (Auto) 0.41 K/uL (0.11-0.59) Eosinophils # (Auto) 0.03 K/uL (0-0.5) Basophils # (Auto) 0.01 K/uL (0-0.2) RDW Standard Deviation 51.8 fL (36.4-46.3) RDW Coefficient of Variation 16.4 % (11.5-14.5) Immature Granulocyte % (Auto) 0.3 % Immature Granulocyte # (Auto) 0.01 K/uL (0.00-0.02) Anion Gap 10.0 mmol/L (3-11) Est Creatinine Clear Calc Drug Dose 57.0 ml/min Estimated GFR () 74.2 Estimated GFR (Non- 64.0 BUN/Creatinine Ratio 14.9 (10-20) Lactic Acid Level 3.0 mmol/L (0.4-2.0) Calcium Level 9.1 mg/dl (8.5-10.1) Total Bilirubin 0.8 mg/dl (0.2-1) Direct Bilirubin 0.3 mg/dl (0-0.2) Aspartate Amino Transf (AST/SGOT) 39 U/L (15-37) Alanine Aminotransferase (ALT/SGPT) 35 U/L (12-78) Alkaline Phosphatase 122 U/L (45-117) Troponin I < 0.015 ng/ml (0-0.045) Pro-B-Type Natriuretic Peptide 104 pg/ml (0-900) Total Protein 7.5 gm/dl (6.4-8.2) Albumin 2.8 gm/dl (3.4-5.0) Lipase 200 U/L (73-393) Bedside Lactic Acid Venous 1.74 mmol/L (0.90-1.70) Laboratory results reviewed by me Medications Administered Medications (Trade) Dose Ordered Sig/Gay Route Start Time Stop Time Status Last Admin Dose Admin Sodium Chloride 500 ml @ 999 mls/hr Q31M STAT IV 09/24/17 14:37 09/24/17 15:07 DC 09/24/17 15:20 999 MLS/HR Albuterol/ Ipratropium (Duoneb) 3 ml NOW STAT INH 09/24/17 14:37 09/24/17 14:44 DC 09/24/17 15:23 3 ML Guaifenesin (Mucinex Contr Rel Tab) 600 mg NOW STAT PO 09/24/17 14:37 09/24/17 14:44 DC 09/24/17 15:21 600 MG Sodium Chloride ([place] Nasal [place]) 2 sprays NOW ONCE NA 09/24/17 14:45 09/24/17 14:46 DC 09/24/17 15:22 2 SPRAYS Ondansetron HCl (Zofran Inj) 4 mg NOW STAT IV 09/24/17 14:43 09/24/17 14:44 DC 09/24/17 15:20 4 MG Acetaminophen (Tylenol Tab) 1,000 mg STK-MED ONCE PO 09/24/17 15:58 09/24/17 15:59 DC 09/24/17 16:01 1,000 MG Ketorolac Tromethamine (Toradol Inj) 15 mg NOW STAT IV 09/24/17 16:38 09/24/17 16:41 DC 09/24/17 16:52 15 MG Albuterol/ Ipratropium (Duoneb) 12 ml ONE ONCE INH 09/24/17 16:45 09/24/17 16:46 DC 09/24/17 16:55 12 ML Sodium Chloride 1,000 ml @ 999 mls/hr Q1H1M STAT IV 09/24/17 16:38 09/24/17 17:38 DC 09/24/17 16:52 999 MLS/HR Albuterol (Ventolin Hfa Inhaler) 2 puffs NOW STAT INH 09/24/17 18:53 09/24/17 18:56 DC 09/24/17 19:03 2 PUFFS Azithromycin (Zithromax Tab) 500 mg NOW STAT PO 09/24/17 18:53 09/24/17 18:56 DC 09/24/17 19:02 500 MG Oseltamivir Phosphate (Tamiflu Cap) 75 mg NOW STAT PO 09/24/17 18:53 09/24/17 18:56 DC 09/24/17 19:03 75 MG ECG Per My Interpretation Indication: nausea Rate (beats per minute): 99 Rhythm: normal sinus Findings: no acute ischemic change, left axis deviation ED Course 1436: The patient was evaluated in room C11. A complete history and physical exam was performed. 163: I reevaluated the patient who is feeling somewhat better. The patient states that se only put the nebulizer in her mouth because she did not realize the mist coming out was her medicine. Will repeat nebulizer. 1756: I reevaluated the patient, who was resting. 2106: I reevaluated the patient. Discussed results and discharge instructions: she verbalized understanding and agreement. The patient is ready for discharge. Medical Decision I reviewed the patient's past medical history, medications, and the nursing notes as described above. Differential diagnosis: Etiologies such as infections, reactive airway disease, pneumonia, pneumothorax , COPD, CHF, cardiac ischemia, pulmonary embolism, musculoskeletal, gastrointestinal, as well as others were entertained. 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 On arrival the patient is fatigued appearing but in NAD, AFVSS. Of note, during ED eval the patient did develop a fever to 39.4 but then resolved with hydration and APAP. Given recent PPM placement Blood cx sent. WBC 3 c/w patient's flu-like sx. Otherwise lactate elevated to 3.0 but in the setting of patient's clinically dry appearance. PPM site c/d/i without signs of infection. CXR negative. UA negative. Flu negative. Patient feeling improved after IVF, nebs, saline nasal spray. Lactate wnl after IVF. Given patient's Flu- like sx will treat empirically despite negative test given her recently recovered for the Flu (after having a positive test). Otherwise, will treat for bronchitis given the patient's fevers. Findings and plan for follow-up reviewed with patient. Patient agreeable and d/c'd per discharge instructions. Medication Reconcilliation Current Medication List: was personally reviewed by me Blood Pressure Screening Patient's blood pressure: Normal blood pressure Blood pressure disposition: Did not require urgent referral Impression Primary Impression: Influenza-like symptoms Additional Impression: Bronchitis Scribe Attestation The scribe's documentation has been prepared under my direction and personally reviewed by me in its entirety. I confirm that the note above accurately reflects all work, treatment, procedures, and medical decision making performed by me. Departure Information Dispostion Home / Self-Care Prescriptions Oseltamivir Phosphate (Tamiflu) 75 Mg Cap 75 MG PO BID, #10 CAP Prov: Raji Díaz M.D. 09/24/17 Azithromycin (Zithromax) 250 Mg Tab 250 MG PO DAILY, #4 TAB Prov: Raji Díaz M.D. 09/24/17 Referrals Landen Shah M.D. (PCP) Forms HOME CARE DOCUMENTATION FORM, IMPORTANT VISIT INFORMATION Patient Instructions ED Bronchitis Asthmatic, ED Flu, My [facility] Additional Instructions Please follow up with your primary care physician in the next 1-3 days for re- evaluation. You likely have a viral illness that could be the flu (although your screen was negative today) Otherwise, your exam, EKG, chest xray, and lab results did not show signs of an emergent condition at this time. Acetaminophen for pain and fevers as needed. Saline nasal spray and [id number] Mucinex to help thin and clear mucus. Tamiflu for possible flu as directed. Azithromycin for possible bacterial component as directed. Drink plenty of fluids to ensure hydration. Return to the emergency department for worsening symptoms as described in the accompanying instructions. Problem Qualifiers
[2017-09-24 15:25] VITALS: O2SAT 96
[2017-09-24 15:33] LABS: HEMOGLOBIN 11.7 g/dL (12.0-16.0); MEAN CORPUSCULAR HEMOGLOBIN 29.9 pg (25-34); MEAN CORPUSCULAR HGB CONC 34.4 g/dl (32-36); RED CELL DISTRIBUTION WIDTH CV 16.4 % (11.5-14.5); RED CELL DISTRIBUTION WIDTH SD 51.8 fL (36.4-46.3); WHITE BLOOD COUNT 3.31 K/uL (4.8-10.8)
[2017-09-24 15:49] LABS: ALBUMIN 2.8 gm/dl (3.4-5.0); ALT/SGPT 35 U/L (12-78); AST/SGOT 39 U/L (15-37); BLOOD UREA NITROGEN 14 mg/dl (7-18); CALCIUM 9.1 mg/dl (8.5-10.1); CARBON DIOXIDE 23 mmol/L (21-32); CREATININE 0.92 mg/dl (0.60-1.20); GLUCOSE 140 mg/dl (70-99); LIPASE 200 U/L (73-393); POTASSIUM 3.6 mmol/L (3.5-5.1); SODIUM 134 mmol/L (136-145)
[2017-09-24 15:53] LABS: MEAN PLATELET VOLUME 9.4 fL (7.4-10.4); PLATELET COUNT 67 K/uL (130-400)
--- NOTE | 2017-09-24 15:53 | DIAGNOSTIC IMAGING REPORT ---
SINGLE VIEW CHEST CLINICAL HISTORY: Cough. Atypical chest pain. FINDINGS: An AP, portable, upright chest radiograph is compared to study dated 09/15/2017. The examination is mildly degraded by portable technique and patient rotation. A 2-lead cardiac pacemaker is unchanged and partially obscures the left upper chest. The heart is top normal for projection and there is atherosclerotic calcification of the thoracic aorta. The pulmonary vasculature is noncongested. There is mild bibasilar atelectasis. No airspace consolidation or pleural effusion is identified. No pneumothorax is seen. The skeletal structures are osteopenic. The bony thorax is grossly intact. IMPRESSION: No acute cardiopulmonary abnormality. Electronically signed by: Hugo Barros M.D. 09/24/2017 3:52 PM Dictated Date/Time: 09/24/2017 3:50 PM
[2017-09-24 15:54] LABS: ALKALINE PHOSPHATASE 122 U/L (45-117); BASO % 0.3 %; BASO ABS # 0.01 K/uL (0-0.2); EOS % 0.9 %; EOS ABS # 0.03 K/uL (0-0.5); IG# 0.01 K/uL (0.00-0.02); LYMPH % 20.2 %; LYMPH ABS # 0.67 K/uL (1.2-3.4); MONO % 12.4 %; MONO ABS # 0.41 K/uL (0.11-0.59); NEUT % 65.9 %; NEUT ABS # 2.18 K/uL (1.4-6.5); TOTAL PROTEIN 7.5 gm/dl (6.4-8.2)
[2017-09-24] MEDS ORDERED: ACETAMINOPHEN 500 MG TAB PO ONE (15:58)
[2017-09-24] MEDS ORDERED: NURSING VERBAL MED ORDER ONE (16:00)
[2017-09-24 16:13] LABS: INFLUENZA B ANTIGEN Neg for Influ B (NEG)
[2017-09-24] MEDS ORDERED: SODIUM CHLORIDE 0.9% 1000ML 1,000 ML IV STA (16:38)
[2017-09-24] MEDS ORDERED: KETOROLAC TROMETHAMINE 30 MG/ML VIAL IV STA (16:38)
[2017-09-24] MEDS ORDERED: ALBUT/IPRATROP 3MG/0.5MG NEB 3 ML VIAL INH ONE (16:45)
[2017-09-24 16:59] VITALS: PULSE 81; O2SAT 96
[2017-09-24 17:31] LABS: INFLUENZA A PCR Neg for Influ A (NEG); INFLUENZA B PCR Neg for Influ B (NEG)
[2017-09-24] MEDS ORDERED: OSELTAMIVIR PHOSPHATE 75 MG CAP PO STA (18:53)
[2017-09-24] MEDS ORDERED: AZITHROMYCIN 250 MG TAB PO STA (18:53)
[2017-09-24] MEDS ORDERED: ALBUTEROL HFA 8 GM INHALER INH STA (18:53)
[2017-09-24 20:43] VITALS: BP 133/67; PULSE 84; TEMP 37; O2SAT 97
[2017-09-24] MEDS ORDERED: AZIT250T PO (21:04)
[2017-09-24] MEDS ORDERED: OSEL75CA23 PO (21:04)
== END 2017-09-24 22:05 | disposition home or self-care (01) ==
LOC: C.EDB 13:46 → C.EDC 22:05
DX: R05 Cough (principal); J40 Bronchitis, not specified as acute or chronic; Q89.9 Congenital malformation, unspecified; K74.60 Unspecified cirrhosis of liver; Z83.3 Family history of diabetes mellitus; Z82.49 Family history of ischemic heart disease and other diseases of the circulatory system; Z91.013 Allergy to seafood; Z91.018 Allergy to other foods

== ENCOUNTER → 2017-09-28 | Outpatient (CLI) | payer OTHER ==
[~2017-09-28] MED LIST changes: +AZIT250T PO; +OSEL75CA23 PO
[2017-09-28 17:01] LABS: BLOOD UREA NITROGEN 6 mg/dl (7-18); CALCIUM 9.8 mg/dl (8.5-10.1); CARBON DIOXIDE 27 mmol/L (21-32); CREATININE 0.87 mg/dl (0.60-1.20); GLUCOSE 164 mg/dl (70-99); POTASSIUM 3.6 mmol/L (3.5-5.1); SODIUM 136 mmol/L (136-145)
[2017-09-28 17:25] LABS: HEMATOCRIT 34.6 % (37-47); HEMOGLOBIN 11.7 g/dL (12.0-16.0); MEAN CELL VOLUME 88.9 fL (80-100); MEAN CORPUSCULAR HEMOGLOBIN 30.1 pg (25-34); MEAN CORPUSCULAR HGB CONC 33.8 g/dl (32-36); MEAN PLATELET VOLUME 9.6 fL (7.4-10.4); PLATELET COUNT 126 K/uL (130-400); RED CELL DISTRIBUTION WIDTH CV 16.1 % (11.5-14.5); RED CELL DISTRIBUTION WIDTH SD 51.9 fL (36.4-46.3); WHITE BLOOD COUNT 1.79 K/uL (4.8-10.8)
[2017-09-28 17:40] LABS: BASO % 0.6 %; BASO ABS # 0.01 K/uL (0-0.2); EOS % 2.8 %; EOS ABS # 0.05 K/uL (0-0.5); IG# 0.01 K/uL (0.00-0.02); LYMPH % 41.9 %; LYMPH ABS # 0.75 K/uL (1.2-3.4); MONO % 9.5 %; MONO ABS # 0.17 K/uL (0.11-0.59); NEUT % 44.6 %
== END | disposition home or self-care (01) ==
LOC: C.LABBFT 15:14
PROVIDERS: ATTEND Internal Medicine
DX: R77.1 Abnormality of globulin (principal); K92.1 Melena

== ENCOUNTER → 2017-10-04 | Outpatient (CLI) | payer OTHER ==
[2017-10-05 06:38] LABS: HEMOGLOBIN A1C 6.5 % (4.5-5.6)
== END | disposition home or self-care (01) ==
LOC: C.LABBFT 13:11
PROVIDERS: ATTEND Internal Medicine
DX: E11.42 Type 2 diabetes mellitus with diabetic polyneuropathy (principal); E11.9 Type 2 diabetes mellitus without complications; R77.1 Abnormality of globulin; R39.9 Unspecified symptoms and signs involving the genitourinary system

== ENCOUNTER → 2017-12-18 | Outpatient (CLI) | payer OTHER ==
[~2017-12-18] MED LIST changes: -AZIT250T PO; -OSEL75CA23 PO; -PROP10TA7 PO; -RXC5 PO
[2017-12-18 16:40] LABS: HEMATOCRIT 34.3 % (37-47); HEMOGLOBIN 11.7 g/dL (12.0-16.0); MEAN CELL VOLUME 88.6 fL (80-100); MEAN CORPUSCULAR HEMOGLOBIN 30.2 pg (25-34); MEAN CORPUSCULAR HGB CONC 34.1 g/dl (32-36); MEAN PLATELET VOLUME 9.8 fL (7.4-10.4); PLATELET COUNT 82 K/uL (130-400); RED CELL DISTRIBUTION WIDTH SD 51.4 fL (36.4-46.3); WHITE BLOOD COUNT 2.01 K/uL (4.8-10.8)
[2017-12-18 19:03] LABS: EOS % 3.5 %; EOS ABS # 0.07 K/uL (0-0.5); IG# 0.01 K/uL (0.00-0.02); LYMPH % 37.8 %; LYMPH ABS # 0.76 K/uL (1.2-3.4); MONO % 12.9 %; MONO ABS # 0.26 K/uL (0.11-0.59); NEUT % 45.3 %; NEUT ABS # 0.91 K/uL (1.4-6.5)
== END | disposition home or self-care (01) ==
LOC: C.LABCP 15:39
PROVIDERS: ATTEND Internal Medicine Hematology & Oncology
DX: D47.2 Monoclonal gammopathy (principal)

== ENCOUNTER → 2018-02-28 | Outpatient (CLI) | payer OTHER ==
[~2018-02-28] MED LIST changes: -INSDGI SC
== END | disposition home or self-care (01) ==
LOC: C.LABSPEC 17:42
PROVIDERS: ATTEND Internal Medicine
DX: N39.3 Stress incontinence (female) (male) (principal); R39.9 Unspecified symptoms and signs involving the genitourinary system

== ENCOUNTER 2018-12-18 02:54 | Inpatient (IN) ==
[2018-12-18] MEDS ORDERED: PANTOprazole 80 MG in DEXTROSE 5% 100 ML IV STA (04:33)
[2018-12-18 04:34] LABS: Hematocrit (blood only) 33.7 % (37-47); Hemoglobin 11.9 g/dL (12.0-16.0); Mean Corpuscular Hgb Conc 35.3 g/dL (32-36); Mean Corpuscular Volume 89.6 fL (80-100); RDW Coefficient of Variation 14.2 % (11.5-14.5); RDW Standard Deviation 46.9 fL (36.4-46.3); Red Blood Count 3.76 M/uL (4.2-5.4); White Blood Count 3.32 K/uL (4.8-10.8)
[2018-12-18] MEDS ORDERED: OCTREOTIDE BOLUS FROM BAG IV STA (04:34)
[2018-12-18 04:44] LABS: Alanine Aminotransferase 50 U/L (12-78); Aspartate Aminotransferase 52 U/L (15-37); BUN Creatinine Ratio 20.9 (10-20); Bilirubin Direct 0.2 mg/dl (0-0.2); Blood Urea Nitrogen 19 mg/dl (7-18); Calcium 9.4 mg/dl (8.5-10.1); Carbon Dioxide 29 mmol/L (21-32); Chloride 103 mmol/L (98-107); Est GFR (African American) 72.2; Est GFR (Non-African American) 62.3; Glucose 166 mg/dl (70-99); INR 1.1 (0.9-1.1); Partial Thromboplastin Ratio 0.9; Partial Thromboplastin Time 24.8 Seconds (21.0-31.0); Prothrombin Time 11.5 Seconds (9.0-12.0); Sodium 137 mmol/L (136-145)
[2018-12-18 04:46] LABS: Alkaline Phosphatase 82 U/L (45-117); Bilirubin,Total 0.5 mg/dl (0.2-1); Total Protein 7.2 gm/dl (6.4-8.2); Troponin I < 0.015 ng/ml (0-0.045)
[2018-12-18 05:14] LABS: Mean Platelet Volume 10.4 fL (7.4-10.4); Platelet Count 76 K/uL (130-400)
[2018-12-18 05:15] LABS: Basophils # (auto) 0.01 K/uL (0-0.2); Basophils % (auto) 0.3 %; Eosinophils # (auto) 0.08 K/uL (0-0.5); Eosinophils % (auto) 2.4 %; Immature Granulocytes # (auto) 0.01 K/uL (0.00-0.02); Immature Granulocytes % (auto) 0.3 %; Lymphocytes # (auto) 0.91 K/uL (1.2-3.4); Lymphocytes % (auto) 27.4 %; Monocytes # (auto) 0.47 K/uL (0.11-0.59); Monocytes % (auto) 14.2 %; Neutrophils # (auto) 1.84 K/uL (1.4-6.5); Neutrophils % (auto) 55.4 %; Platelet Estimate Decreased (Normal); RBC Morphology Unremarkable
[2018-12-18] MEDS: OCTREOTIDE ACETATE 500 MCG in 0.9 % SODIUM CHLORIDE 100 ML IV SCH ×2 (05:37→13:52)
--- NOTE | 2018-12-18 06:00 | Emergency Department Note ---
Entered by Gilberto Bautista acting as a scribe for ED Provider Note Name: Alma Nolen Age: 68 Arrives Via: EMS Informant: Self CC: Increased black stools and blood in vomit HPI: 68 y/o female arrives for evaluation of four episodes of vomiting with blood present that occurred this afternoon. The patient states she has a history of SHARMA cirrhosis of the liver and stopped drinking alcohol three years ago. She reports she has had several episodes of GI bleeding in the past with banding of varices in 2017. The patient notes she periodically vomits a small amount of blood and has black stools. She states for the past few days she has had amanda stools. The patient reports this evening she has had four episodes of bloody emesis. She notes she has not taken medication prior to arrival, and she is not on blood thinning medication. The patient states nothing makes her symptoms better or worse. She denies recent trauma and NSAID use as well. The patient reports she has chronic left leg pain which she has been evaluated for. She notes she has also been experiencing chronic left flank pain that she has been evaluated for and attributes it to an enlarged spleen. The patient states she also has periodic left upper chest pain that has been unchanged for years. She reports a history of urinary hesitancy that is also chronical and that she follows up with urology for. The patient denies acute pain, syncope, fevers, and feeling confused. The notes she is at her normal mental state. ROS: See above HPI for pertinent positives & negatives. A total of 10 systems reviewed and were otherwise negative. Past Medical History: HLD, DM type 2, pacemaker, SHARMA liver cirrhosis, hypothyroidism, GI bleed Past Surgical History: thyroidectomy, cholectomy, EGD Family History: DM, Seizures Social History: Lives with spouse Home Medications: see Below Allergies NKDA Physical: Vitals: BP 103/45, Pulse 62, Resp 18, O2 Sat 100 Exam: GENERAL: Patient is tired appearing and in no acute distress. Slightly confused. EYES: No scleral icterus, unremarkable pupils. ENT: Mucous membranes moist, no nasal congestion. NECK: No masses appreciated, no meningismus, trachea is midline. RESPIRATORY: No dyspnea. Clear to auscultation and equal bilaterally. No wheeze, no rhonchi. CARDIOVASCULAR: Regular rate and rhythm. No murmurs, rubs, gallops appreciated. GASTROINTESTINAL: Abdomen soft, non-tender, no peritonitis. Bowel sounds positive. No masses appreciated. BACK: No midline tenderness, no CVA tenderness EXTREMITIES: Normal motion all extremities, no cyanosis, no edema. NEUROLOGIC: Alert and oriented, no acute motor or sensory deficits, no focal weakness, cranial nerves grossly intact. SKIN: No rash, mild jaundice, no diaphoresis. ED Course: Prior Medical Record, Triage/Nursing Notes, Medications, Allergies reviewed by Me Vital Signs: reviewed and remarkable for wnl Labs: Reviewed and remarkable for anemia stable, thrombocytopenia stable, elevated ammonia Interventions: Saline Lock, Protonix Bolus/Gtt, Octreotide Bolus/Gtt Imaging: None EKG: none Consults: Hospitalist Reassessments/Times: 0309: The patient was evaluated in room B11B. A complete history and physical exam was performed. 0410: I reevaluated the patient. Patients IV was placed. She has not vomited since arriving here. 0449: Medical system just came back on. 0452: Paged Dr. Shah, [facility] Hospitalist. 0524: Dr. Shah, [facility] Hospitalist, is at the bedside evaluating the patient. Blood pressure: Normal. No Referral necessary Disposition: Hospitalization Differentials: Diverticulosis, AVM, coagulopathy, colitis, inflammatory bowel disease, malignancy, Norma-Santos tear, esophagitis, peptic ulcer disease, variceal bleed, gastritis, epistaxis, fissure, hemorrhoids, as well as others were entertained. Medical Decision Makin yr old mildly confused female with history of Cirrhosis related to SHARMA arrives after several episodes of vomiting blood. Vitals OK. HgB stable with chronic thrombocytopenia. Ammonia elevated consistent with her confusion though with GI bleed will hold on giving any oral meds for the moment. With varicel bleed history felt that starting Octreotide and Protonix indicated. Stable over next few hours without further vomiting. She has minimal abdominal pain and no TTP. Will bring in to hospitalist service for further management. Impression: Upper GI bleed Hepatic Encephalopathy Abelardo Joe MD This patient was seen during [facility] down-time and chart was completed at later date/time. Please note that times of orders, medications, and testing as well as re-evaluations and consultations may not accurately reflect actual times they were placed/preformed. The scribe's documentation has been prepared under my direction and personally reviewed by me in its entirety. I confirm that the note above accurately reflects all work, treatment, procedures, and medical decision making performed by me. Impression & Plan Acute upper GI bleed, Acute hepatic encephalopathy Past Med/Surg History Family History Other Diabetes FHx: seizures Social History Preferred Language: Chinese Communication Ability: Effective Beliefs That Will Affect Care: None Current Living Situation: Spouse Feels Safe at Home: Yes Smoking Status: Never smoker Second Hand Exposure: No Hx Alcohol Use: No Hx Substance Use: No Results & Data Vital Signs Vital Signs - 24 hr 12/18/18 05:14 Pulse Rate [Finger] 62 Respiratory Rate 18 Blood Pressure [Left Arm] 103/45 L Blood Pressure Mean [Left Arm] 64 Pulse Oximetry 100 Oxygen Delivery Method Room Air Home Medications Current Medication List: was personally reviewed by me Laboratory Data Attestation: I reviewed the patient's lab results. Result diagrams: 12/18/18 04:13 12/18/18 04:13 Lab Results 12/18/18 12/18/18 12/18/18 Range/Units 04:13 04:13 04:13 WBC 3.32 L (4.8-10.8) K/uL RBC 3.76 L (4.2-5.4) M/uL Hgb 11.9 L (12.0-16.0) g/dL Hct 33.7 L (37-47) % MCV 89.6 (80-100) fL MCH 31.6 (25-34) pg MCHC 35.3 (32-36) g/dL RDW Std Deviation 46.9 H (36.4-46.3) fL RDW Coeff of Bright 14.2 (11.5-14.5) % Plt Count 76 L (130-400) K/uL MPV 10.4 (7.4-10.4) fL Immature Gran % (Auto) 0.3 % Neut % (Auto) 55.4 % Lymph % (Auto) 27.4 % [place] % (Auto) 14.2 % Eos % (Auto) 2.4 % Baso % (Auto) 0.3 % Immature Gran # (Auto) 0.01 (0.00-0.02) K/uL Neut # (Auto) 1.84 (1.4-6.5) K/uL Lymph # (Auto) 0.91 L (1.2-3.4) K/uL [place] # (Auto) 0.47 (0.11-0.59) K/uL Eos # (Auto) 0.08 (0-0.5) K/uL Baso # (Auto) 0.01 (0-0.2) K/uL Platelet Estimate Decreased L (Normal) RBC Morphology Unremarkable PT 11.5 (9.0-12.0) Seconds INR 1.1 (0.9-1.1) APTT 24.8 (21.0-31.0) Seconds PTT Ratio 0.9 Sodium 137 (136-145) mmol/L Potassium 4.0 (3.5-5.1) mmol/L Chloride 103 (98-107) mmol/L Carbon Dioxide 29 (21-32) mmol/L Anion Gap 5.0 (3-11) BUN 19 H (7-18) mg/dl Creatinine 0.93 (0.6-1.2) mg/dl Est Cr Clr Drug Dosing Not Reportable Est GFR ( Amer) 72.2 Est GFR (Non-Af Amer) 62.3 BUN/Creatinine Ratio 20.9 H (10-20) Glucose 166 H (70-99) mg/dl Calcium 9.4 (8.5-10.1) mg/dl Total Bilirubin 0.5 (0.2-1) mg/dl Direct Bilirubin 0.2 (0-0.2) mg/dl AST 52 H (15-37) U/L ALT 50 (12-78) U/L Alkaline Phosphatase 82 (45-117) U/L Ammonia (11-32) umol/L Troponin I < 0.015 (0-0.045) ng/ml Total Protein 7.2 (6.4-8.2) gm/dl Albumin 3.0 L (3.4-5.0) gm/dl Lipase 445 H (73-393) U/L Ethyl Alcohol mg/dL (0-3) mg/dl Blood Type Antibody Screen 12/18/18 12/18/18 12/18/18 Range/Units 04:13 04:13 04:13 WBC (4.8-10.8) K/uL RBC (4.2-5.4) M/uL Hgb (12.0-16.0) g/dL Hct (37-47) % MCV (80-100) fL MCH (25-34) pg MCHC (32-36) g/dL RDW Std Deviation (36.4-46.3) fL RDW Coeff of Bright (11.5-14.5) % Plt Count (130-400) K/uL MPV (7.4-10.4) fL Immature Gran % (Auto) % Neut % (Auto) % Lymph % (Auto) % [place] % (Auto) % Eos % (Auto) % Baso % (Auto) % Immature Gran # (Auto) (0.00-0.02) K/uL Neut # (Auto) (1.4-6.5) K/uL Lymph # (Auto) (1.2-3.4) K/uL [place] # (Auto) (0.11-0.59) K/uL Eos # (Auto) (0-0.5) K/uL Baso # (Auto) (0-0.2) K/uL Platelet Estimate (Normal) RBC Morphology PT (9.0-12.0) Seconds INR (0.9-1.1) APTT (21.0-31.0) Seconds PTT Ratio Sodium (136-145) mmol/L Potassium (3.5-5.1) mmol/L Chloride (98-107) mmol/L Carbon Dioxide (21-32) mmol/L Anion Gap (3-11) BUN (7-18) mg/dl Creatinine (0.6-1.2) mg/dl Est Cr Clr Drug Dosing Est GFR ( Amer) Est GFR (Non-Af Amer) BUN/Creatinine Ratio (10-20) Glucose (70-99) mg/dl Calcium (8.5-10.1) mg/dl Total Bilirubin (0.2-1) mg/dl Direct Bilirubin (0-0.2) mg/dl AST (15-37) U/L ALT (12-78) U/L Alkaline Phosphatase (45-117) U/L Ammonia 74.0 H (11-32) umol/L Troponin I (0-0.045) ng/ml Total Protein (6.4-8.2) gm/dl Albumin (3.4-5.0) gm/dl Lipase (73-393) U/L Ethyl Alcohol mg/dL < 3.0 (0-3) mg/dl Blood Type Cancelled Antibody Screen Cancelled Administered Medications Octreotide Acetate 500 mcg/ (Sodium Chloride) 105 mls @ 10 mls/hr IV .[id number] ESTHER Stop: 12/18/18 15:14 Last Admin: 12/18/18 05:37 Dose: 10 mls/hr Documented by: [id number] Discontinued Medications Pantoprazole Sodium 80 mg/ (Dextrose) 120 mls @ 480 mls/hr IV NOW STA Stop: 12/18/18 04:47 Last Infusion: 12/18/18 05:33 Dose: 0 mls/hr Documented by: [id number] Admin: 12/18/18 05:12 Dose: 480 mls/hr Documented by: [id number] Octreotide Acetate (Sandostatin Bolus From Bag) 50 mcg IV NOW STA Stop: 12/18/18 04:35 Last Admin: 12/18/18 05:37 Dose: 50 mcg Documented by: [id number] Blood Pressure Blood Pressure Findings: Normal blood pressure Blood Pressure Disposition: did not require urgent referral Discharge Plan Visit Data Chief Complaint: GI Bleed ED Provider: Abelardo Joe Discharge Problem: Acute upper GI bleed, Acute hepatic encephalopathy Patient Disposition: Being Evaluated by Hospitalist Forms Stand Alone Forms: My [facility] Prescriptions Prescriptions: No Action levothyroxine 50 mcg Capsule 50 mcg PO HS RF: 0 tamsulosin 0.4 mg Capsule 0.4 mg PO HS RF: 0 bumetanide 1 mg Tablet 1 mg PO DAILY RF: 0 spironolactone 50 mg Tablet 50 mg PO DAILY RF: 0 Lantus Solostar U-100 Insulin 100 unit/mL (3 mL) Insulin Pen 30 unit SUBCUT HS RF: 0 metformin 500 mg Tablet 500 mg PO BID RF: 0 pravastatin 10 mg Tablet 10 mg PO DAILY RF: 0 ferrous sulfate 325 mg (65 mg iron) Tablet,Delayed Release (Dr/Ec) 325 mg PO DAILY RF: 0 multivitamin Capsule 1 cap PO QAM RF: 0 vitamin E 400 unit Capsule 400 unit PO DAILY RF: 0 cholecalciferol (vitamin D3) [Vitamin D3] 1,000 unit Capsule 1,000 unit PO DAILY RF: 0 levothyroxine 100 mcg Capsule 100 mcg PO QAM RF: 0 cyanocobalamin (vitamin B-12) 1,000 mcg Capsule 1,000 mcg PO DAILY RF: 0 propranolol 10 mg Tablet 10 mg PO BID RF: 0 Referrals Referrals: Foster Shah MD [Primary Care Provider] - The scribe's documentation has been prepared under my direction and personally reviewed by me in its entirety. I confirm that the note above accurately reflects all work, treatment, procedures, and medical decision making performed by me.
--- NOTE | 2018-12-18 06:09 | History & Physical Report ---
Date of Service December 18, 2018 Assessment & Plan (1) Acute upper GI bleed: Acute on chronic upper GI bleed/grade 1 esophageal varices/cirrhosis/acute hepatic encephalopathy- Admit to monitored bed. NPO H&H every 6 hours. Pantoprazole drip. Octreotide drip. For now holding bumetanide, ferrous sulfate, propranolol and spironolactone until assessed by GI. Consult gastroenterology Dr. Ontiveros. Present on Admission?: Yes (2) Esophageal varices: Last EGD on 08/28/2018 showed grade 1 esophageal varices. Present on Admission?: Yes (3) Acute hepatic encephalopathy: Hold on administration of lactulose until bleeding status determined Present on Admission?: Yes (4) Cirrhosis: See above Present on Admission?: Yes (5) Hyperlipidemia: Hold pravastatin 10 mg p.o. daily while n.p.o. Present on Admission?: Yes (6) Hypothyroidism (acquired): Hold levothyroxine 100 mcg p.o. every morning and 50 mcg p.o. at bedtime while n.p.o. Present on Admission?: Yes (7) Diabetes mellitus: Decrease Lantus from 30 units subcu bedtime to 10 units subcu at bedtime. Placed on Accu-Cheks before meals and at bedtime with NovoLog coverage per scale. Hold metformin. Present on Admission?: Yes (8) Vitamin B12 deficiency: Hold 1000 mcg p.o. daily supplement while n.p.o. Present on Admission?: Yes History of Present Illness Chief Complaint: The patient reports to the emergency department with complaint of throwing up blood every morning for the past several months. 2 weeks ago she had dark stools that resolved after a few days, but then returned last evening. Yesterday she also developed bringing up blood at nighttime for the first time. Primary Care Provider: Landen Shah MD The patient is a 68-year-old female with a past medical history including liver cirrhosis, hepatic encephalopathy, GI bleed, anemia, depression, diabetic neuropathy, occipital neuralgia, pacemaker placement who presents to the emergency department with acute worsening of chronic GI bleeding. Patient has been spitting up blood every morning for the past several months, and last evening for the first time brought up blood. Combined with the reappearance of dark stools from 2 weeks ago to yesterday, she called Dr. Ontiveros's office, advised her to come the emergency department for assessment. Allergies Allergy/AdvReac Type Severity Reaction Status Date / Time shrimp Allergy Intermediate Funny Verified 12/18/18 05:14 sensation around mouth Vinegar AdvReac Intermediate Mouth/tongue Uncoded 12/18/18 05:14 irritation/burning sensation Home Medications Home Medications Medication Instructions Recorded Confirmed Type Lantus Solostar U-100 Insulin 30 unit SUBCUT HS 08/19/18 12/18/18 History bumetanide 1 mg PO DAILY 08/19/18 12/18/18 History cholecalciferol (vitamin D3) 1,000 unit PO DAILY 08/19/18 12/18/18 History [Vitamin D3] cyanocobalamin (vitamin B-12) 1,000 mcg PO DAILY 08/19/18 12/18/18 History ferrous sulfate 325 mg PO DAILY 08/19/18 12/18/18 History levothyroxine 100 mcg PO QAM 08/19/18 12/18/18 History metformin 500 mg PO BID 08/19/18 12/18/18 History multivitamin 1 cap PO QAM 08/19/18 12/18/18 History pravastatin 10 mg PO DAILY 08/19/18 12/18/18 History spironolactone 50 mg PO DAILY 08/19/18 12/18/18 History vitamin E 400 unit PO DAILY 08/19/18 12/18/18 History propranolol 10 mg PO BID 08/28/18 12/18/18 History levothyroxine 50 mcg PO HS 12/18/18 12/18/18 History tamsulosin 0.4 mg PO HS 12/18/18 12/18/18 History Past Med/Surg History Family History Other Diabetes FHx: seizures Social History Preferred Language: [place] Communication Ability: Effective Beliefs That Will Affect Care: None Current Living Situation: Spouse Feels Safe at Home: Yes Smoking Status: Never smoker Second Hand Exposure: No Hx Alcohol Use: No Hx Substance Use: No Review of Systems Review of Systems: The patient denies chest pain, palpitations, shortness of breath, dyspnea on exertion, lower extremity swelling, sore throat, fevers, chills, sweats, weight change, nausea, vomiting, diarrhea , constipation, abdominal pain, pelvic pain, blood in urine, dysuria, urinary frequency or urgency, lightheadedness, dizziness, headache, loss of consciousness, rash, imbalance, focal or generalized weakness, numbness or tingling in arms or legs, generalized arthralgias or myalgias, back or neck pain, or night sweats. The review of systems is otherwise negative other than for that already noted above, and at least 10 systems have been reviewed. Physical Exam Physical Exam: The patient is awake, alert and oriented 3, normocephalic and atraumatic, sitting upright in bed and in no acute distress. HEENT--PERRL, EOMI, mucous membranes and oropharynx dry. Neck--supple. No JVD. No bruits. Thyroid normal, trachea midline, no adenopathy. Heart--normal S1 and S2. No murmurs, rubs or gallops. Lungs--clear bilaterally, no respiratory distress, no accessory muscle use. Abdomen--normal bowel sounds and soft. Nontender. Nondistended. Extremities--1+ bilateral pretibial pitting edema. There are good distal pulses b/l. Dermatologic--normal skin turgor, normal color, no abnormal lymph nodes, no rash. Neurologic--cranial nerves II through XII grossly intact. Rheumatologic--normal range of motion. Psychiatric--normal affect. Results & Data Vital Signs (Past 12 Hours) Vital Signs Pulse Resp BP Pulse Ox 12/18/18 05:14 62 18 103/45 L 100 Laboratory Results Laboratory Results WBC 3.32 K/uL (4.8-10.8) L 12/18/18 04:13 RBC 3.76 M/uL (4.2-5.4) L 12/18/18 04:13 Hgb 11.9 g/dL (12.0-16.0) L 12/18/18 04:13 Hct 33.7 % (37-47) L 12/18/18 04:13 MCV 89.6 fL (80-100) 12/18/18 04:13 MCH 31.6 pg (25-34) 12/18/18 04:13 MCHC 35.3 g/dL (32-36) 12/18/18 04:13 RDW Std Deviation 46.9 fL (36.4-46.3) H 12/18/18 04:13 RDW Coeff of Bright 14.2 % (11.5-14.5) 12/18/18 04:13 Plt Count 76 K/uL (130-400) L 12/18/18 04:13 MPV 10.4 fL (7.4-10.4) 12/18/18 04:13 Immature Gran % (Auto) 0.3 % 12/18/18 04:13 Neut % (Auto) 55.4 % 12/18/18 04:13 Lymph % (Auto) 27.4 % 12/18/18 04:13 [place] % (Auto) 14.2 % 12/18/18 04:13 Eos % (Auto) 2.4 % 12/18/18 04:13 Baso % (Auto) 0.3 % 12/18/18 04:13 Immature Gran # (Auto) 0.01 K/uL (0.00-0.02) 12/18/18 04:13 Neut # (Auto) 1.84 K/uL (1.4-6.5) 12/18/18 04:13 Lymph # (Auto) 0.91 K/uL (1.2-3.4) L 12/18/18 04:13 [place] # (Auto) 0.47 K/uL (0.11-0.59) 12/18/18 04:13 Eos # (Auto) 0.08 K/uL (0-0.5) 12/18/18 04:13 Baso # (Auto) 0.01 K/uL (0-0.2) 12/18/18 04:13 Decreased (Normal) L 12/18/18 04:13 RBC Morphology Unremarkable 12/18/18 04:13 PT 11.5 Seconds (9.0-12.0) 12/18/18 04:13 INR 1.1 (0.9-1.1) 12/18/18 04:13 APTT 24.8 Seconds (21.0-31.0) 12/18/18 04:13 PTT Ratio 0.9 12/18/18 04:13 Sodium 137 mmol/L (136-145) 12/18/18 04:13 Potassium 4.0 mmol/L (3.5-5.1) 12/18/18 04:13 Chloride 103 mmol/L (98-107) 12/18/18 04:13 Carbon Dioxide 29 mmol/L (21-32) 12/18/18 04:13 5.0 (3-11) 12/18/18 04:13 BUN 19 mg/dl (7-18) H 12/18/18 04:13 0.93 mg/dl (0.6-1.2) 12/18/18 04:13 Est Cr Clr Drug Dosing Not Reportable 12/18/18 04:13 Est GFR ( Amer) 72.2 12/18/18 04:13 Est GFR (Non-Af Amer) 62.3 12/18/18 04:13 20.9 (10-20) H 12/18/18 04:13 Glucose 166 mg/dl (70-99) H 12/18/18 04:13 Calcium 9.4 mg/dl (8.5-10.1) 12/18/18 04:13 0.5 mg/dl (0.2-1) 12/18/18 04:13 0.2 mg/dl (0-0.2) 12/18/18 04:13 AST 52 U/L (15-37) H 12/18/18 04:13 ALT 50 U/L (12-78) 12/18/18 04:13 82 U/L (45-117) 12/18/18 04:13 74.0 umol/L (11-32) H 12/18/18 04:13 < 0.015 ng/ml (0-0.045) 12/18/18 04:13 7.2 gm/dl (6.4-8.2) 12/18/18 04:13 3.0 gm/dl (3.4-5.0) L 12/18/18 04:13 445 U/L (73-393) H 12/18/18 04:13 < 3.0 mg/dl (0-3) 12/18/18 04:13 Blood Type A Positive 12/18/18 04:58 Antibody Screen POSITIVE A 12/18/18 04:58 Code Status & VTE Plan Code Status Full code VTE Prophylaxis Plan VTE Prophylaxis will be ordered: Yes
[2018-12-18] MEDS ORDERED: ONDANSETRON INJ 2 MG/ML 2 ML VIAL IV PRN (08:45)
[2018-12-18] MEDS ORDERED: GLUCOSE 40% GEL 15 GM TUBE PO PRN (08:45)
[2018-12-18] MEDS ORDERED: DEXTROSE 50% 50 ML SYRINGE IV PRN (08:45)
[2018-12-18] MEDS ORDERED: CARBOHYDRATES FOR HYPOGLYCEMIA PO PRN (08:45)
[2018-12-18] MEDS ORDERED: GLUCOSE 10 TABS/TUBE PO PRN (08:45)
[2018-12-18] MEDS ORDERED: GLUCAGON FOR INJ 1 MG VIAL SQ PRN (08:45)
[2018-12-18 09:18] LABS: Hematocrit (blood only) 34.6 % (37-47); Hemoglobin 11.9 g/dL (12.0-16.0)
[2018-12-18] MEDS ORDERED: NSS + 20MEQ KCL 20 MEQ/1,000 ML BAG IV SCH (09:30)
[2018-12-18] MEDS: PANTOprazole 40 MG in DEXTROSE 5% 100 ML IV SCH ×2 (09:32→13:30)
[2018-12-18] MEDS: INSULIN ASPART 100 UNITS/ML 3 ML PEN SC SCH ×4 (09:57→21:03)
[2018-12-18] MEDS ORDERED: LIDOCAINE HCL 2% 2 ML VIAL/AMP(20MG/ML) INFIL ONE ×2 (15:03→15:39)
[2018-12-18] MEDS ORDERED: PROPOFOL IV EMULSION 10 MG/ML 20 ML VIAL IV ONE ×2 (15:03→15:39)
--- NOTE | 2018-12-18 15:03 | Anesthesiology Consultation ---
Date of Service December 18, 2018 Assessment & Plan (1) Encounter for pre-operative examination: Chart Review Chart Review: Acceptable Risk for Surgery and Patient NOT seen in Pre Admission Testing Consults Requested none ASA ASA4 Proposed Anesthesia Anesthesia Type: MAC Risk / Benefits Reviewed With: PT / POA / Parent / Guardian, Accepts Plan and Informed Consent Obtained History Surgery Operation Date: 12/18/18 09:30 Proposed Procedures p Esophagogastroduodenoscopy Dr Rama Ontiveros Height/Weight Height: 5 ft 3 in Weight: 84.6 kg Allergies Allergy/AdvReac Type Severity Reaction Status Date / Time shrimp Allergy Intermediate Funny Verified 12/18/18 05:14 sensation around mouth Vinegar AdvReac Intermediate Mouth/tongue Uncoded 12/18/18 05:14 irritation/burning sensation Medications Home Medications Medication Instructions Recorded Confirmed Last Taken Lantus Solostar U-100 Insulin 30 unit SUBCUT HS 08/19/18 12/18/18 08/27/18 23:00 bumetanide 1 mg PO DAILY 08/19/18 12/18/18 08/27/18 cholecalciferol (vitamin D3) 1,000 unit PO DAILY 08/19/18 12/18/18 08/27/18 [Vitamin D3] cyanocobalamin (vitamin B-12) 1,000 mcg PO DAILY 08/19/18 12/18/18 08/27/18 ferrous sulfate 325 mg PO DAILY 08/19/18 12/18/18 08/27/18 levothyroxine 100 mcg PO QAM 08/19/18 12/18/18 08/28/18 01:00 metformin 500 mg PO BID 08/19/18 12/18/18 08/27/18 multivitamin 1 cap PO QAM 08/19/18 12/18/18 08/12/18 pravastatin 10 mg PO DAILY 08/19/18 12/18/18 08/27/18 spironolactone 50 mg PO DAILY 08/19/18 12/18/18 08/27/18 vitamin E 400 unit PO DAILY 08/19/18 12/18/18 08/27/18 propranolol 10 mg PO BID 08/28/18 12/18/18 08/27/18 23:00 levothyroxine 50 mcg PO HS 12/18/18 12/18/18 Unknown tamsulosin 0.4 mg PO HS 12/18/18 12/18/18 Unknown Active Medications Generic Name Dose Route Start Last Admin Trade Name Keithq PRN Reason Stop Dose Admin Octreotide Acetate 500 mcg/ 105 mls @ 10 mls/hr 12/18/18 04:45 12/18/18 13:52 Sodium Chloride IV 01/17/19 04:44 10 mls/hr .[id number] ESTHER Administration Pantoprazole Sodium 40 mg/ 100 mls @ 20 mls/hr 12/18/18 06:00 12/18/18 13:30 Dextrose IV 01/17/19 05:59 20 mls/hr Q5H ESTHER Administration Potassium Chloride/Sodium Chloride 20 meq in 1,000 mls @ 100 mls/hr 12/18/18 09:30 12/18/18 09:32 Normal Saline W/20 Meq Kcl IV 01/17/19 09:29 100 mls/hr .Q10H ESTHER Administration Insulin Aspart 0 units 12/18/18 08:45 12/18/18 13:15 Novolog Flexpen SC 01/17/19 08:44 Not Given ACHS ESTHER NPO Date Last Intake of Fluids: 12/17/18 Time Last Intake of Fluids: 21:00 Date Last Intake of Solids: 12/17/18 Time Last Intake of Solids: 21:00 Past Medical History Medical History Arnold-Chiari malformation Surgery to revise 2009 Cirrhosis Diabetes mellitus, type 2 History of colitis History of hysterectomy History of thyroid cancer Hyperlipidemia Hypothyroidism Pacemaker SEP 2017. HX OF SYMPTOMATIC BRADYCARDIA WHEN ON BETA LUDWIG Symptomatic bradycardia Exercise / Class Metabolic Activity III < 4 Walking/Shop/Light housework Past Family History Family History Other Diabetes FHx: seizures Past Surgical History Surgical History History of brain surgery CHIARI MALFORMATION History of cholecystectomy History of colonoscopy History of esophagogastroduodenoscopy (EGD) History of thyroidectomy Past Anesthesia History No Hx of Anesthesia Complications and No Family Hx of Anesthesia Complications History of PONV No Hx of PONV and No Hx of Motion Sickness Social History Smoking Status: Never smoker Hx Alcohol Use: No alcohol intake frequency: 0-2 drinks per day Hx Substance Use: No substance use type: does not use Physical Exam Vital Signs Last Vital Signs Temp 36.6 C 12/18/18 14:40 Pulse 68 12/18/18 14:40 Resp 18 12/18/18 14:40 BP 124/57 L 12/18/18 14:40 Pulse Ox 98 12/18/18 14:40 ENMT Mouth: no dentition abnormality Thyromental Distance: > or= 3.5 Finger Breadths Mallampati Class: II Neck normal visual inspection Respiratory normal respiratory effort Auscultation: lungs clear to auscultation bilaterally Cardiovascular Rate/Rhythm: regular rate and regular rhythm Psychiatric Orientation: alert Testing Laboratory Results 12/18/18 09:01 12/18/18 04:13 PT 11.5 Seconds (9.0-12.0) 12/18/18 04:13 INR 1.1 (0.9-1.1) 12/18/18 04:13 APTT 24.8 Seconds (21.0-31.0) 12/18/18 04:13 Blood Type A Positive 12/18/18 04:58 Antibody Screen POSITIVE A 12/18/18 04:58 12/18/18 12/18/18 11:18 09:35 POC Glucose 147 H 163 H
--- NOTE | 2018-12-18 15:22 | History & Physical Report ---
Date of Service December 18, 2018 History of Present Illness Chief Complaint: hematemesis Primary Care Provider: Landen Shah MD For EGD Allergies Allergy/AdvReac Type Severity Reaction Status Date / Time shrimp Allergy Intermediate Funny Verified 12/18/18 05:14 sensation around mouth Vinegar AdvReac Intermediate Mouth/tongue Uncoded 12/18/18 05:14 irritation/burning sensation Home Medications Home Medications Medication Instructions Recorded Confirmed Type Lantus Solostar U-100 Insulin 30 unit SUBCUT HS 08/19/18 12/18/18 History bumetanide 1 mg PO DAILY 08/19/18 12/18/18 History cholecalciferol (vitamin D3) 1,000 unit PO DAILY 08/19/18 12/18/18 History [Vitamin D3] cyanocobalamin (vitamin B-12) 1,000 mcg PO DAILY 08/19/18 12/18/18 History ferrous sulfate 325 mg PO DAILY 08/19/18 12/18/18 History levothyroxine 100 mcg PO QAM 08/19/18 12/18/18 History metformin 500 mg PO BID 08/19/18 12/18/18 History multivitamin 1 cap PO QAM 08/19/18 12/18/18 History pravastatin 10 mg PO DAILY 08/19/18 12/18/18 History spironolactone 50 mg PO DAILY 08/19/18 12/18/18 History vitamin E 400 unit PO DAILY 08/19/18 12/18/18 History propranolol 10 mg PO BID 08/28/18 12/18/18 History levothyroxine 50 mcg PO HS 12/18/18 12/18/18 History tamsulosin 0.4 mg PO HS 12/18/18 12/18/18 History Past Med/Surg History Medical History Arnold-Chiari malformation Surgery to revise 2010 Cirrhosis Diabetes mellitus, type 2 History of colitis History of hysterectomy History of thyroid cancer Hyperlipidemia Hypothyroidism Pacemaker SEP 2017. HX OF SYMPTOMATIC BRADYCARDIA WHEN ON BETA LUDWIG Symptomatic bradycardia Surgical History History of brain surgery CHIARI MALFORMATION History of cholecystectomy History of colonoscopy History of esophagogastroduodenoscopy (EGD) History of thyroidectomy Family History Other Diabetes FHx: seizures Social History Preferred Language: Romansh Communication Ability: Effective Soap Inspector Required: No Beliefs That Will Affect Care: None Current Living Situation: Spouse Other Information That Helps Us Care for You: No Feels Safe at Home: Yes Safety Concerns: Feels Safe At This Time Smoking Status: Never smoker Second Hand Exposure: No Hx Alcohol Use: No Hx Substance Use: No Physical Exam Vital Signs (Past 24 Hours): Last Vital Signs Temp 36.6 C 12/18/18 14:40 Pulse 68 12/18/18 14:40 Resp 18 12/18/18 14:40 BP 124/57 L 12/18/18 14:40 Pulse Ox 98 12/18/18 14:40 Constitutional: + obese Respiratory: normal respiratory effort Cardiovascular: Rate/Rhythm: regular rate and regular rhythm Gastrointestinal (Abdomen): Percussion/Palpation: abdomen soft Code Status & VTE Plan VTE Prophylaxis Plan VTE Prophylaxis will be ordered: Yes
[2018-12-18] MEDS ORDERED: SODIUM CHLORIDE 0.9% 1000ML 1,000 ML IV SCH (15:30)
--- NOTE | 2018-12-18 15:43 | GI REPORT ---
Patient Name: Alma Nolen Procedure Date: 12/18/2018 3:02 PM Date of : 1950 Admit Type: Inpatient Age: 68 Gender: Female Attending MD: Ramez Ontiveros MD Procedure: Upper GI endoscopy Providers: Ramez Ontiveros MD Referring MD: Landen Shah Indications: Hematemesis Medicines: Propofol total dose 90 mg IV, Lidocaine 80 mg IV Complications: No immediate complications. Estimated Blood Loss: Estimated blood loss: none. Procedure: Pre-Anesthesia Assessment: - Prior to the procedure, a History and Physical was performed, and patient medications, allergies and sensitivities were reviewed. The patient's tolerance of previous anesthesia was reviewed. - The risks and benefits of the procedure and the sedation options and risks were discussed with the patient. All questions were answered and informed consent was obtained. After obtaining informed consent, the endoscope was passed under direct vision. Throughout the procedure, the patient's blood pressure, pulse, and oxygen saturations were monitored continuously. The Endoscope was introduced through the mouth, and advanced to the second part of duodenum. The upper GI endoscopy was accomplished without difficulty. The patient tolerated the procedure well. Findings: The Z-line was regular and was found 40 cm from the incisors. Grade I varices were found in the lower third of the esophagus. The entire examined stomach was normal. The examined duodenum was normal. Impression: - Z-line regular, 40 cm from the incisors. - Grade I esophageal varices. - Normal stomach. - Normal examined duodenum. - No specimens collected. Recommendation: - [facility] care. Ramez Ontiveros M.D. Ramez Ontiveros MD 12/18/2018 3:43:38 PM This report has been signed electronically. Note Initiated On: 12/18/2018 3:02 PM Number of Addenda: 0 I attest to the content of the Intraoperative Record and orders documented therein, exceptions below {[id number]}
--- NOTE | 2018-12-18 15:59 | Consultation Report ---
DATE OF CONSULTATION: 12/18/2018 GI CONSULT NOTE REASON FOR EVALUATION: Hematemesis. 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 For the last several weeks, she has been having a little bit of blood when she coughs up in the morning. It is not clear whether this is coming from her sinuses, her lungs or her stomach. She also had some dark stools 2 weeks ago, but resolved. She presented to the hospital today and had a hemoglobin of 11.9, which is not far off her baseline. She was admitted for further evaluation. GI consultation has been requested. The patient is not taking any aspirin or nonsteroidals and does take propranolol for grade 1 esophageal varices found in the past. MEDICATIONS: Per list. ALLERGIES: SHRIMP AND VINEGAR. FAMILY HISTORY: Noncontributory other than for diabetes and seizures. SOCIAL HISTORY: The patient is , does not smoke, does not use alcohol. REVIEW OF SYSTEMS: Negative for 12 systems. PHYSICAL EXAMINATION: GENERAL: The patient is a little bit overweight, no acute distress. No obvious ascites or peripheral edema. ABDOMEN: Soft and nontender. IMPRESSION: The patient has little bit of blood coming from her mouth. It is not clear whether this is sinus, stomach or lungs. I plan on scheduling her for an EGD to further evaluate her symptoms.
--- NOTE | 2018-12-18 16:00 | Anesthesiology Progress Note ---
Date of Service December 18, 2018 Anesthesia Post Procedure Vital Signs Vital Signs: Temp Pulse Resp BP Pulse Ox 12/18/18 15:57 60 18 131/67 98 12/18/18 15:42 36.8 C 63 18 120/74 98 12/18/18 14:40 36.6 C 68 18 124/57 L 98 12/18/18 12:09 36.9 C 60 17 97/60 L 97 12/18/18 07:01 36.8 C 68 16 111/69 96 12/18/18 05:14 62 18 103/45 L 100 Pain Intensity Bilateral Posterior Ribs: Pain Intensity: 3 Transfer of Care Handoff Completed per policy Notes Mental Status: alert / awake / arousable Patient Amnestic to Procedure: Yes Nausea / Vomiting: adequately controlled Pain: adequately controlled Airway Patency, RR, SpO2: stable & adequate BP & HR: stable & adequate Hydration State: stable & adequate Anesthetic Complications: no major complications apparent and Pt Satisfied with anesthetic care
--- NOTE | 2018-12-18 17:02 | Hospitalist Progress Note ---
Date of Service December 18, 2018 Assessment & Plan (1) Bleeding: intial concern was UGI bleeding - fortunately after EGD, this is not the case. can stop protonix gtt and octreotide. advance diet. more than likely sinus related - but since not 100% clear follow into tomorrow to ensure nothing evolves. (2) Esophageal varices: not bleeding (3) Cirrhosis: home meds (4) Hyperlipidemia: home meds (5) Hypothyroidism (acquired): home meds (6) Diabetes mellitus: continue to hold metformin, continue insulin management. await A1c (7) Vitamin B12 deficiency: supplementation (8) DVT prophylaxis: pharmacologic contraindicated due to bleeding. ambulate as possible (9) Discharge planning issues: med surg, hopefully home in AM if no further bleeding Subjective feeling good post EGD. no UGI bleeding identified. notes sinusitis - actually was to start augmentin last night but felt nauseated. for repeat CT after about 2wks on abx. has had hematemesis/melena. no significant cough or respiratory complaints. believes sinus as cause of bleeding is quite plausible. Results & Data Vital Signs (Past 12 Hours) Vital Signs Temp Pulse Resp BP Pulse Ox 12/18/18 16:30 36.7 C 80 18 144/70 H 99 12/18/18 16:13 62 18 123/55 L 100 12/18/18 15:57 60 18 131/67 98 12/18/18 15:42 36.8 C 63 18 120/74 98 12/18/18 14:40 36.6 C 68 18 124/57 L 98 12/18/18 12:09 36.9 C 60 17 97/60 L 97 12/18/18 07:01 36.8 C 68 16 111/69 96 12/18/18 05:14 62 18 103/45 L 100
[2018-12-18] MEDS: PROPRANOLOL HCL 10 MG TAB PO SCH (19:45)
[2018-12-18] MEDS ORDERED: PRAVASTATIN SOD 10 MG TAB PO SCH (21:00)
[2018-12-18] MEDS ORDERED: LEVOTHYROXINE SODIUM 50 MCG TABLET PO SCH (21:00)
[2018-12-18] MEDS ORDERED: TAMSULOSIN HCL 0.4 MG CAP PO SCH (21:00)
[2018-12-19 06:14] LABS: Hematocrit (blood only) 35.3 % (37-47); Hemoglobin 12.4 g/dL (12.0-16.0); Mean Corpuscular Hgb Conc 35.1 g/dL (32-36); RDW Coefficient of Variation 14.4 % (11.5-14.5); RDW Standard Deviation 48.5 fL (36.4-46.3); Red Blood Count 3.88 M/uL (4.2-5.4); White Blood Count 2.14 K/uL (4.8-10.8)
[2018-12-19] MEDS ORDERED: LEVOTHYROXINE SODIUM 100 MCG TABLET PO SCH (06:30)
[2018-12-19 06:46] LABS: Basophils # (auto) 0.01 K/uL (0-0.2); Basophils % (auto) 0.5 %; Eosinophils # (auto) 0.05 K/uL (0-0.5); Eosinophils % (auto) 2.3 %; Lymphocytes # (auto) 0.82 K/uL (1.2-3.4); Lymphocytes % (auto) 38.3 %; Mean Platelet Volume 9.4 fL (7.4-10.4); Monocytes # (auto) 0.17 K/uL (0.11-0.59); Monocytes % (auto) 7.9 %; Neutrophils # (auto) 1.09 K/uL (1.4-6.5); Platelet Count 66 K/uL (130-400)
[2018-12-19 06:47] LABS: BUN Creatinine Ratio 18.3 (10-20); Calcium 8.9 mg/dl (8.5-10.1); Est GFR (African American) 67.7; Est GFR (Non-African American) 58.4; Potassium 4.5 mmol/L (3.5-5.1)
[2018-12-19 07:19] VITALS: BP 113/58; PULSE 67; TEMP 97.9; O2SAT 97
[2018-12-19 07:19] LABS: Estimated Average Glucose 212 mg/dl
[2018-12-19] MEDS ORDERED: BUMETANIDE 1 MG TAB PO SCH (09:00)
[2018-12-19] MEDS ORDERED: CYANOCOBALAMIN 500 MCG TABLET (VITAMIN B-12) PO SCH (09:00)
[2018-12-19] MEDS ORDERED: PRAVASTATIN SOD 10 MG TAB PO SCH (09:00)
[2018-12-19] MEDS ORDERED: MULTIVITAMIN TAB PO SCH (09:00)
[2018-12-19] MEDS ORDERED: TOCOPHERYL, DL-ALPHA 400 UNITS CAP PO SCH (09:00)
[2018-12-19] MEDS ORDERED: CHOLECALCIFEROL 1,000 UNITS TAB PO SCH (09:00)
[2018-12-19] MEDS ORDERED: SPIRONOLACTONE 25 MG TAB PO SCH (09:00)
[2018-12-19] MEDS: PANTOprazole 40 MG in DEXTROSE 5% 100 ML IV SCH (09:21)
[2018-12-19] MEDS: INSULIN ASPART 100 UNITS/ML 3 ML PEN SC SCH ×2 (10:18→12:55)
[2018-12-19] MEDS: PROPRANOLOL HCL 10 MG TAB PO SCH (10:20)
--- NOTE | 2018-12-19 22:06 | Discharge Summary ---
Date of Service December 19, 2018 Admission HPI Per Admitting Provider Chief Complaint: The patient reports to the emergency department with complaint of throwing up blood every morning for the past several months. 2 weeks ago she had dark stools that resolved after a few days, but then returned last evening. Yesterday she also developed bringing up blood at nighttime for the first time. Primary Care Provider: Landen Shah MD The patient is a 68-year-old female with a past medical history including liver cirrhosis, hepatic encephalopathy, GI bleed, anemia, depression, diabetic neuropathy, occipital neuralgia, pacemaker placement who presents to the emergency department with acute worsening of chronic GI bleeding. Patient has been spitting up blood every morning for the past several months, and last evening for the first time brought up blood. Combined with the reappearance of dark stools from 2 weeks ago to yesterday, she called Dr. Ontiveros's office, advised her to come the emergency department for assessment. Admission Exam Per Admitting Provider The patient is awake, alert and oriented 3, normocephalic and atraumatic, sitting upright in bed and in no acute distress. HEENT--PERRL, EOMI, mucous membranes and oropharynx dry. Neck--supple. No JVD. No bruits. Thyroid normal, trachea midline, no adenopathy. Heart--normal S1 and S2. No murmurs, rubs or gallops. Lungs--clear bilaterally, no respiratory distress, no accessory muscle use. Abdomen--normal bowel sounds and soft. Nontender. Nondistended. Extremities--1+ bilateral pretibial pitting edema. There are good distal pulses b/l. Dermatologic--normal skin turgor, normal color, no abnormal lymph nodes, no rash. Neurologic--cranial nerves II through XII grossly intact. Rheumatologic--normal range of motion. Psychiatric--normal affect. Principal Diagnosis Chronic Sinusitis Discharge Exam Constitutional well developed, well nourished, cooperative and comfortable; no acute distress Eyes PERRL, conjunctivae normal, anicteric sclerae Respiratory normal respiratory effort, lungs clear to auscultation Cardiovascular RRR, no murmur, no edema Gastrointestinal (Abdomen) normal bowel sounds, soft, nontender, no hepatosplenomegaly Skin no rashes, warm and dry Discharge Data Consultations 12/18/18 04:52 ED Decision to Admit Stat 12/18/18 08:45 Consult Case Management - Discharge Planning Routine Consult Gastroenterology Routine Procedures Performed Operation Date: 12/18/18 09:30 Actual Procedures p Esophagogastroduodenoscopy - [facility] (1) Acute upper GI bleed: Alma Nolen initially presented to the emergency department with a history of SHARMA and esophageal varices with symptoms of upper GI bleed (Hematemesis and dark tarry stools). Signs of upper GI Bleed Her vital signs were within normal limits and her hemoglobin remained stable around 12. She hada positive hemoccult and was scheduled for a upper endoscopy. Endoscopy showed stable mild esophageal varices. After discussion with patient it appears she's been having symptoms of hematemesis for some time and is being followed by ENT who believe she may have a bad sinusitis that is bleeding. She is due to take augmentin and follow up with CT imaging. With no evidence for current GI bleed, and a possible source of bleeding from the sinuses dripping back into the esophagus, we recommended discharge to home and finishing full course of augmentin. A1C Discussed elevated A1c, she tells me she has been in contact with her ground host/hostess through [place] and is due to add humalog to her regimen for better control. She had a series of lows in the past and now is reworking her insulin regimen. Expressed good understanding of her disease and encourage close follow up to get blood sugar under better control. (2) Esophageal varices: (3) Vitamin B12 deficiency: (4) Diabetes mellitus: Total Time Total Time Spent Total Time Spent (In Minutes): 25 Total Time Includes: Examination of the Patient, Medication Reconciliation and Communication With Other Providers Discharge Plan Discharge Items Patient Disposition: Home - Self-Care Reason For Visit: UGI BLEED, HEMATEMESIS Discharge Diagnosis: Sinusitis with post nasal bleeding Discharge Goals: Learn about illness and Therapeutic intervention Activity: Resume your previous activity Non-emergency contact: Primary Care Provider and Specialist Call non-emergency contact if: you have any medication questions and your symptoms worsen Follow-up/Referrals: Foster Shah MD [Primary Care Provider] - 12/24/18 2:30 pm (Please, follow up with Dr. Shah's associate, Conchis Elmore PA-C, on SundayDecember 24 at 2:30 pm. THIS APPOINTMENT WILL BE IN [address] [facility]. *If you need to change this appointment, call the office at [phone].) Diet: Carb Consistent or DM2 Addtl Provider Instructions: Ms Nolen, We had the privilege of evaluating you for your symptoms of bleeding and darkened stools. After careful examination of you we decided it would be [place] to do a procedure called an esophagogastroduodenoscopy or upper endoscopy which involved passing a camera into your upper GI tract to look for any signs of bleeding. The GI doctors were unable to see any signs of bleeding or other abnormalities on the scope. Based on this and your history of chronic sinus congestion followed by ENT with coughing and vomiting up blood, we believe that this blood is likely secondary to your sinus infection. We recommend taking and finishing your augmentin course and following up with your primary care doctor. We also have noticed that your A1C level is higher than we want it to be at 9.0 I would recommend continuing to follow the suggestions made by your ground host/hostess and trying to achieve better control over your blood sugar levels. Like we discussed in person, if the amount of blood in your vomit or stool changes significantly, you feel very ill, weak or lightheaded, or you have any other new or concerning symptoms, please return to medical care. Besides adding and finishing the augmentin we encourage you to continue taking your home medications and following the advice of your ground host/hostess. It was a pleasure meeting you Martin TamannaDaniel MD Prescriptions: Continued levothyroxine 50 mcg Capsule 50 mcg PO HS RF: 0 tamsulosin 0.4 mg Capsule 0.4 mg PO HS RF: 0 bumetanide 1 mg Tablet 1 mg PO DAILY RF: 0 spironolactone 50 mg Tablet 50 mg PO DAILY RF: 0 Lantus Solostar U-100 Insulin 100 unit/mL (3 mL) Insulin Pen 30 unit SUBCUT HS RF: 0 metformin 500 mg Tablet 500 mg PO BID RF: 0 pravastatin 10 mg Tablet 10 mg PO DAILY RF: 0 ferrous sulfate 325 mg (65 mg iron) Tablet,Delayed Release (Dr/Ec) 325 mg PO DAILY RF: 0 multivitamin Capsule 1 cap PO QAM RF: 0 vitamin E 400 unit Capsule 400 unit PO DAILY RF: 0 cholecalciferol (vitamin D3) [Vitamin D3] 1,000 unit Capsule 1,000 unit PO DAILY RF: 0 levothyroxine 100 mcg Capsule 100 mcg PO QAM RF: 0 cyanocobalamin (vitamin B-12) 1,000 mcg Capsule 1,000 mcg PO DAILY RF: 0 propranolol 10 mg Tablet 10 mg PO BID RF: 0 Stand-Alone Forms: [facility]/Other Patient Handouts: Amoxicillin Trihydrate Clavulanate Potassium Oral tablet Discharge Orders: Discharge Order (Routine); Ordered 12/19/18 Ordered By: Daniel Aldridge Admission Data Admit Date/Time: 12/18/18 06:08 Attending Provider: Pillo Shah Admit Provider: Pillo Shah Primary Care Provider: Foster Shah Other Providers: Pillo Shah ; Ramez Ontiveros Service: Medical Other Interventions: Discharge Summary Assessment (RN) Last Done: 12/19/18 14:23 DC Date/Time DO NOT enter until pt leaves facility: 12/19/18 15:26 Supervising Physician Co-Signing Physician Notes I personally examined the patient and verified all bernal points of history and exam, discussed case, and agree with decision making with Dr Aldridge. Feeling better. Wants to go home. No further bleeding. Vitals noted, in general she is awake and alert pleasant no distress. HEENT normocephalic atraumatic mucous membranes moist. Breathing unlabored no acc essory muscle use good effort. Skin shows no rashes no pallor or icterus. Hematemesisalmost certainly a posterior nosebleed. Stable for home, already has ENT follow-up scheduled. Follow PCP otherwise follow-up GI as scheduled. Resident Activity Tracking Resident Involvement: Resident Care Provided Care Provided: Adult Hospital Medicine
== END 2018-12-19 15:26 | disposition home or self-care (01) | DRG 152 ==
LOC: ED 02:54 → 2S 06:08 → 4W 21:16

== ENCOUNTER 2021-06-27 09:10 | Inpatient (IN) ==
--- NOTE | 2021-06-27 09:42 | Emergency Department Note ---
Impression & Plan Acute confusion, Somnolence, Thrombocytopenia, Hyperammonemia ED Provider Note NAME: CALLIE CLIFFORD AGE: 70 SEX: F : 1950 ARRIVES VIA: Ambulance INFORMANT: [Patient][nursing] ED PROVIDER(S): [Hugo Joe MD] CHIEF COMPLAINT: Confusion HISTORY OF PRESENT ILLNESS: The patient is a 70-year-old female who reportedly did not feel completely herself yesterday. This morning, her noticed she was confused and she seemed almost lethargic. He called the EMS crew. Blood sugar was adequate in route. Patient currently complains of some lower leg discomfort but this is chronic. She has no chest pain or shortness of breath. No abdominal pain. No headache. No one-sided weakness. She is not sure why she feels so poorly, she described herself as lethargic. No recent changes in medications. REVIEW OF SYSTEMS: See HPI for pertinent positives and negatives. A total of ten systems were reviewed and were otherwise negative. PMHx/PSHx: See Below SOCIAL HISTORY: See Below. PHYSICAL EXAM: GENERAL: Patient is in no acute distress. HEENT: No acute trauma, normocephalic atraumatic, mucous membranes moist, no nasal congestion, no scleral icterus. Pupils equal and reactive to light. NECK: No stridor, no adenopathy, no meningismus, trachea is midline. LUNGS: Clear to auscultation bilaterally, no wheeze, no rhonchi, breath sounds equal. HEART: Without murmurs gallops or rubs, regular rate and rhythm. ABDOMEN: Soft, nontender, bowel sounds positive, no hernias, no peritonitis. EXTREMITIES: No cyanosis or edema, full range of motion of all the joints without pain or difficulty, no signs for acute trauma. NEUROLOGIC: No speech slur, no extremity drift or weakness noted. No facial droop. She did not know the upcoming holiday , she did not know the year. She did know her name. SKIN: No rash, no jaundice, no diaphoresis. DIFFERENTIAL DIAGNOSIS: Infection, dehydration, metabolic abnormality, UTI, COVID-19, hypo/hyperglycemia, electrolyte disturbance, anemia, hypoxia, cardiac sources, drug or alcohol use, medication reaction, intracerebral event, toxicologic issues, stroke, TIA, as well as other pathologies. EMERGENCY DEPARTMENT COURSE/PROCEDURES: ECG: Indication was weakness. The ECG shows an unusual P axis consistent with a possible ectopic atrial rhythm. The rate is at 75. There is no ST elevation, no PVCs. The QTc is 457. Continuous Cardiac Monitoring: An order was placed for continuous cardiac monitoring. The monitor shows a rate of 75 with normal sinus rhythm. Critical Care Note: I have personally spent 39 minutes of critical care time in the direct management of this patient. This includes bedside care, interpretation of diagnostic studies, and testing, discussion with consultants, patient, and family members, and other required patient management activities. This 39 minutes is in excess of all separately billable procedures. MEDICAL DECISION MAKING: There is a low white count, the patient has a history of the same. There is a low platelet count, the patient has a history of the same. No anemia. Lactic acid level was somewhat elevated, possibly consistent with infection or dehydration. No renal failure. No concerning electrolyte abnormality. There were some subtle liver enzyme elevations. Ammonia level was high at 81. The patient did have a high TSH however, the T4 was normal. Urinalysis did not show infection. Aspirin and Tylenol levels were undetectable. Urine tox was negative. Alcohol level was undetectable. Covid testing was negative. Chest film did not show pneumonia or CHF. Brain CT showed no acute bleed or mass- effect. ECG showed a potential ectopic atrial rhythm, no acute ischemia. Cardiac enzyme testing x1 is not consistent with acute cardiac injury. On exam, the patient was confused and somnolent. No focal neurologic deficits, no speech slur. The patient was ordered for IV saline, 1 L. She was ordered for a dose of oral lactulose. She was given IV cefepime as empiric antibiotic coverage. The patient presents with confusion and somnolence. Her presentation is likely related to her high ammonia level. Infection though certainly is also possible. Given the findings, given her presentation, I do think a hospital stay is warranted. 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 The on-call hospitalist was consulted. 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 Following with Dr. Ontiveros. Some ascites; has been on Bumex and spironolactone. 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 [employer]. Most recent interrogation 09/2017 . Peripheral neuropathy Symptomatic bradycardia s/p PPM Thrombocytopenia Baseline ranges 60-100k per record review. Urinary retention Tx with Flomax Surgical History History of brain surgery CHIARI MALFORMATION History of cholecystectomy History of colonoscopy with polypectomy History of endoscopic sinus surgery x2 History of esophagogastroduodenoscopy (EGD) History of hysterectomy with bilateral oophorectomy History of nasal septoplasty History of thyroidectomy x2 History of tonsillectomy History of tooth extraction Family History Mother Diabetes Cancer Father Diabetes Cardiac disorder Stroke Brother Diabetes Stroke syndrome Cancer Hypertension Sister Diabetes Aneurysm Cardiac disorder Stroke syndrome Hypertension Grandfather (Maternal) Diabetes Grandmother (Maternal) Diabetes Sister Family hx colonic polyps Hypertension Other FHx: seizures No family history of adverse response to anesthesia Denies family history of Ovarian cancer Prostate cancer Myocardial infarction Breast cancer Colorectal cancer Social History Smoking Status: Never smoker Second Hand Exposure: No; Hx Alcohol Use: No (quit 2000) Hx Substance Use: No Preferred Language: Tajik Communication Ability: Effective Receptionist Scheduler Required: No Beliefs That Will Affect Care: None Current Living Situation: Spouse current occupational status: retired Feels Safe at Home: Yes Assistive Devices: Glasses Allergies Allergies Allergy/AdvReac Type Severity Reaction Status Date / Time No Known Drug Allergies Allergy Verified 06/13/21 14:50 Home Meds Home Medications Medication Instructions Recorded Confirmed bumetanide 1 mg tablet 1 mg PO QAM 08/19/18 06/27/21 ferrous sulfate 325 mg (65 mg 325 mg PO QAM 08/19/18 06/27/21 iron) tablet,delayed release spironolactone 50 mg tablet 50 mg PO QAM 08/19/18 06/27/21 vitamin E 400 unit capsule 400 unit PO QAM 08/19/18 06/27/21 cholecalciferol (vitamin D3) 25 1,000 units PO QAM 03/31/19 06/27/21 mcg (1,000 unit) capsule multivitamin (Multiple Vitamins) 1 tab PO QAM 03/31/19 06/27/21 cyanocobalamin (vitamin B-12) 1,000 mcg PO QAM tab 04/16/19 06/27/21 1,000 mcg tablet metformin 1,000 mg tablet 1,000 mg PO BID 11/20/19 06/27/21 zinc acetate 50 mg (zinc) capsule 50 mg PO QAM 06/24/20 06/27/21 levothyroxine 100 mcg tablet See Rx Instructions PO QAM tab 07/19/20 06/27/21 insulin glargine 100 unit/mL See Rx Instructions SUBCUT HS 07/22/20 06/27/21 subcutaneous solution (Lantus U-100 Insulin) pravastatin 10 mg tablet 10 mg PO HS 10/11/20 06/27/21 glimepiride 1 mg tablet 0.5 mg PO DAILY 05/30/21 06/27/21 dgmhhiqo-bqs-hxrxsv 5 mg-zeaxanth 1 cap PO DAILY 05/30/21 06/27/21 1 mg-bilberry 7.5 mg-herbal capsule ([facility] Formula) Previous Rx's Medication Instructions Recorded blood sugar diagnostic (OneTouch #300 ea 11/24/19 Ultra Blue Test Strip) blood-glucose meter (OneTouch #1 ea 03/16/20 Ultra2 Meter) ondansetron HCl 4 mg tablet 4 mg PO Q8H PRN #30 tab 05/21/20 zolpidem 5 mg tablet 5 mg PO HS PRN #30 tab 08/04/20 gabapentin 300 mg capsule 300 mg PO HS #90 cap 11/01/20 lactulose 20 gram/30 mL oral 20 g PO TID #1500 ml 05/30/21 solution azithromycin 250 mg tablet See Rx Instructions PO .COMPLEX #6 06/21/21 tab benzonatate 100 mg capsule 100 mg PO TID PRN #30 cap 06/21/21 Results & Data (ED) Vital Signs Vital Signs - 24 hr 06/27/21 09:20 06/27/21 09:27 06/27/21 09:30 Temperature 36.8 C Temperature Source Oral Pulse Rate 75 78 78 Pulse Rate from SpO2 Sensor Pulse Rhythm Regular Respiratory Rate 18 21 19 Blood Pressure 146/62 H Blood Pressure Mean 90 Pulse Oximetry 99 Oxygen Delivery Method Room Air Sepsis Recent Fever Within 48 Hours No Sepsis New/Unexplained Change in Mental Status Yes Sepsis Action Taken by Nursing No Action Required 06/27/21 09:36 06/27/21 09:40 06/27/21 09:50 Temperature Temperature Source Pulse Rate 72 72 Pulse Rate from SpO2 Sensor Pulse Rhythm Respiratory Rate 13 12 Blood Pressure Blood Pressure Mean Pulse Oximetry Oxygen Delivery Method Room Air Sepsis Recent Fever Within 48 Hours Sepsis New/Unexplained Change in Mental Status Sepsis Action Taken by Nursing 06/27/21 11:05 06/27/21 11:10 06/27/21 11:20 Temperature Temperature Source Pulse Rate 85 77 91 H Pulse Rate from SpO2 Sensor Pulse Rhythm Respiratory Rate 25 H 14 18 Blood Pressure Blood Pressure Mean Pulse Oximetry Oxygen Delivery Method Sepsis Recent Fever Within 48 Hours Sepsis New/Unexplained Change in Mental Status Sepsis Action Taken by Nursing 06/27/21 11:30 06/27/21 11:40 06/27/21 11:50 Temperature Temperature Source Pulse Rate 95 H 106 H 79 Pulse Rate from SpO2 Sensor 80 Pulse Rhythm Respiratory Rate 26 H 25 H 15 Blood Pressure Blood Pressure Mean Pulse Oximetry 100 Oxygen Delivery Method Sepsis Recent Fever Within 48 Hours Sepsis New/Unexplained Change in Mental Status Sepsis Action Taken by Nursing 06/27/21 12:00 06/27/21 12:10 06/27/21 12:20 Temperature Temperature Source Pulse Rate 85 82 81 Pulse Rate from SpO2 Sensor 80 82 81 Pulse Rhythm Respiratory Rate 17 14 13 Blood Pressure 156/59 H Blood Pressure Mean 91 Pulse Oximetry 99 98 98 Oxygen Delivery Method Sepsis Recent Fever Within 48 Hours Sepsis New/Unexplained Change in Mental Status Sepsis Action Taken by Nursing 06/27/21 12:30 06/27/21 12:40 06/27/21 12:50 Temperature Temperature Source Pulse Rate 81 79 77 Pulse Rate from SpO2 Sensor 80 76 77 Pulse Rhythm Respiratory Rate 13 13 12 Blood Pressure 165/81 H Blood Pressure Mean 109 Pulse Oximetry 99 97 97 Oxygen Delivery Method Sepsis Recent Fever Within 48 Hours Sepsis New/Unexplained Change in Mental Status Sepsis Action Taken by Nursing 06/27/21 13:00 06/27/21 13:10 06/27/21 13:20 Temperature Temperature Source Pulse Rate 79 78 79 Pulse Rate from SpO2 Sensor 79 78 79 Pulse Rhythm Respiratory Rate 23 16 27 H Blood Pressure 173/71 H Blood Pressure Mean 105 Pulse Oximetry 98 98 99 Oxygen Delivery Method Sepsis Recent Fever Within 48 Hours Sepsis New/Unexplained Change in Mental Status Sepsis Action Taken by Nursing 06/27/21 13:30 06/27/21 13:40 06/27/21 13:50 Temperature Temperature Source Pulse Rate 82 78 77 Pulse Rate from SpO2 Sensor 82 79 76 Pulse Rhythm Respiratory Rate 14 18 15 Blood Pressure 138/111 H Blood Pressure Mean 120 Pulse Oximetry 100 99 99 Oxygen Delivery Method Sepsis Recent Fever Within 48 Hours Sepsis New/Unexplained Change in Mental Status Sepsis Action Taken by Nursing 06/27/21 14:00 06/27/21 14:10 06/27/21 14:20 Temperature Temperature Source Pulse Rate 75 83 80 Pulse Rate from SpO2 Sensor 76 83 80 Pulse Rhythm Respiratory Rate 13 25 H 14 Blood Pressure 147/88 H Blood Pressure Mean 107 Pulse Oximetry 99 100 99 Oxygen Delivery Method Sepsis Recent Fever Within 48 Hours Sepsis New/Unexplained Change in Mental Status Sepsis Action Taken by Nursing 06/27/21 14:30 06/27/21 14:40 06/27/21 15:39 Temperature Temperature Source Pulse Rate 77 79 80 Pulse Rate from SpO2 Sensor 77 73 Pulse Rhythm Respiratory Rate 11 L 18 19 Blood Pressure 137/87 Blood Pressure Mean 103 Pulse Oximetry 99 99 Oxygen Delivery Method Sepsis Recent Fever Within 48 Hours Sepsis New/Unexplained Change in Mental Status Sepsis Action Taken by Nursing 06/27/21 15:40 06/27/21 15:50 Temperature Temperature Source Pulse Rate 81 75 Pulse Rate from SpO2 Sensor 81 75 Pulse Rhythm Respiratory Rate 21 14 Blood Pressure 136/58 L Blood Pressure Mean 84 Pulse Oximetry 99 98 Oxygen Delivery Method Sepsis Recent Fever Within 48 Hours Sepsis New/Unexplained Change in Mental Status Sepsis Action Taken by [facility] Medications Current Medication List: was personally reviewed by me Laboratory Data Attestation: I reviewed the patient's lab results. Result diagrams: 06/27/21 09:36 06/27/21 10:52 Lab Results 06/27/21 06/27/21 06/27/21 Range/Units 09:36 09:36 09:36 WBC 2.45 L (4.8-10.8) K/uL RBC 4.15 L (4.2-5.4) M/uL Hgb 13.1 (12.0-16.0) g/dL Hct 38.9 (37-47) % MCV 93.7 (80-100) fL MCH 31.6 (25-34) pg MCHC 33.7 (32-36) g/dL RDW Std Deviation 52.1 H (36.4-46.3) fL RDW Coeff of Bright 15.3 H (11.5-14.5) % Plt Count 78 L (130-400) K/uL MPV 10.3 (7.4-10.4) fL Immature Gran % (Auto) 0.4 % Neut % (Auto) 43.7 % Lymph % (Auto) 40.0 % [place] % (Auto) 13.9 % Eos % (Auto) 2.0 % Baso % (Auto) 0.0 % Neut # (Auto) 1.07 L (1.4-6.5) K/uL Lymph # (Auto) 0.98 L (1.2-3.4) K/uL [place] # (Auto) 0.34 (0.11-0.59) K/uL Eos # (Auto) 0.05 (0-0.5) K/uL Baso # (Auto) 0.00 (0-0.2) K/uL Immature Gran # (Auto) 0.01 (0.00-0.02) K/uL ABG pH (7.35-7.45) ABG pCO2 (35-46) mmHg ABG pO2 (80-95) mmHg ABG HCO3 (19-24) mmol/L ABG O2 Saturation (90-95) % ABG Base Excess (-9-1.8) mEq/L Richard Test (Pos) Barometric Pressure mm/Hg Oxygen Given Sodium 138 (136-145) mmol/L Potassium (3.5-5.1) mmol/L Chloride 106 (98-107) mmol/L Carbon Dioxide 24 (21-32) mmol/L Anion Gap 9.0 (3-11) BUN 13 (7-18) mg/dl Creatinine 0.93 (0.6-1.2) mg/dl Est Cr Clr Drug Dosing Not Reportable Est GFR ( Amer) 71.2 ml/min Est GFR (Non-Af Amer) 61.4 ml/min BUN/Creatinine Ratio 13.6 (10-20) Glucose 208 H (70-99) mg/dl Lactate (0.4-2.0) mmol/L Calcium 9.2 (8.5-10.1) mg/dl Magnesium (1.8-2.4) mg/dl Total Bilirubin 1.1 H (0.2-1) mg/dl AST (15-37) U/L ALT 71 (12-78) U/L Alkaline Phosphatase 83 (45-117) U/L Ammonia (11-32) umol/L Troponin I < 0.015 (0-0.045) ng/ml C-Reactive Protein (0-0.29) mg/dl Total Protein 8.4 H (6.4-8.2) gm/dl Albumin 3.0 L (3.4-5.0) gm/dl Globulin 5.4 H (2.5-4.0) gm/dl Albumin/Globulin Ratio 0.6 L (0.9-2) Procalcitonin (0-0.5) ng/ml TSH 4.780 H (0.300-4.500) uIu/ml Free T4 1.30 (0.8-1.6) ng/dl Specimen Hemolysis Urine Color Urine Appearance (Clear) Urine pH (4.5-7.5) Ur Specific [place] (1.000-1.030) Urine Protein (Negative) Urine Glucose (UA) (Negative) Urine Ketones (Negative) Urine Blood (Negative) Urine Nitrite (Negative) Urine Bilirubin (Negative) Urine Urobilinogen (Negative) Ur Leukocyte Esterase (Negative) Urine WBC (Auto) (0-5) /hpf Urine RBC (Auto) (0-4) /hpf U Hyaline Cast (Auto) (0-5) /lpf U Epithel Cells (Auto) (0-5) /lpf Urine Bacteria (Auto) (Negative) Salicylates < 1.7 L (2.8-20) mg/dl Urine Opiates Screen (Neg) Ur Methadone, Qual (Neg) Acetaminophen < 2 L (10-30) ug/ml Urine Barbiturates (Neg) Ur Phencyclidine (PCP) (Neg) U Amphetamin/Meth Scrn (Neg) MDMA (Ecstasy) Screen (Neg) U Benzodiazepines Scrn (Neg) Ur Cocaine Metabolite (Neg) U Marijuana (THC) Screen (Neg) Ethyl Alcohol mg/dL (0-3) mg/dl SARS-CoV-2, RNA, NAAT (NEGATIVE) 06/27/21 06/27/21 06/27/21 Range/Units 10:52 10:52 10:52 WBC (4.8-10.8) K/uL RBC (4.2-5.4) M/uL Hgb (12.0-16.0) g/dL Hct (37-47) % MCV (80-100) fL MCH (25-34) pg MCHC (32-36) g/dL RDW Std Deviation (36.4-46.3) fL RDW Coeff of Bright (11.5-14.5) % Plt Count (130-400) K/uL MPV (7.4-10.4) fL Immature Gran % (Auto) % Neut % (Auto) % Lymph % (Auto) % [place] % (Auto) % Eos % (Auto) % Baso % (Auto) % Neut # (Auto) (1.4-6.5) K/uL Lymph # (Auto) (1.2-3.4) K/uL [place] # (Auto) (0.11-0.59) K/uL Eos # (Auto) (0-0.5) K/uL Baso # (Auto) (0-0.2) K/uL Immature Gran # (Auto) (0.00-0.02) K/uL ABG pH (7.35-7.45) ABG pCO2 (35-46) mmHg ABG pO2 (80-95) mmHg ABG HCO3 (19-24) mmol/L ABG O2 Saturation (90-95) % ABG Base Excess (-9-1.8) mEq/L Richard Test (Pos) Barometric Pressure mm/Hg Oxygen Given Sodium (136-145) mmol/L Potassium (3.5-5.1) mmol/L Chloride (98-107) mmol/L Carbon Dioxide (21-32) mmol/L Anion Gap (3-11) BUN (7-18) mg/dl Creatinine (0.6-1.2) mg/dl Est Cr Clr Drug Dosing Est GFR ( Amer) ml/min Est GFR (Non-Af Amer) ml/min BUN/Creatinine Ratio (10-20) Glucose (70-99) mg/dl Lactate 3.2 H* (0.4-2.0) mmol/L Calcium (8.5-10.1) mg/dl Magnesium (1.8-2.4) mg/dl Total Bilirubin (0.2-1) mg/dl AST (15-37) U/L ALT (12-78) U/L Alkaline Phosphatase (45-117) U/L Ammonia 81.3 H (11-32) umol/L Troponin I (0-0.045) ng/ml C-Reactive Protein (0-0.29) mg/dl Total Protein (6.4-8.2) gm/dl Albumin (3.4-5.0) gm/dl Globulin (2.5-4.0) gm/dl Albumin/Globulin Ratio (0.9-2) Procalcitonin (0-0.5) ng/ml TSH (0.300-4.500) uIu/ml Free T4 (0.8-1.6) ng/dl Specimen Hemolysis Urine Color Urine Appearance (Clear) Urine pH (4.5-7.5) Ur Specific [place] (1.000-1.030) Urine Protein (Negative) Urine Glucose (UA) (Negative) Urine Ketones (Negative) Urine Blood (Negative) Urine Nitrite (Negative) Urine Bilirubin (Negative) Urine Urobilinogen (Negative) Ur Leukocyte Esterase (Negative) Urine WBC (Auto) (0-5) /hpf Urine RBC (Auto) (0-4) /hpf U Hyaline Cast (Auto) (0-5) /lpf U Epithel Cells (Auto) (0-5) /lpf Urine Bacteria (Auto) (Negative) Salicylates (2.8-20) mg/dl Urine Opiates Screen (Neg) Ur Methadone, Qual (Neg) Acetaminophen (10-30) ug/ml Urine Barbiturates (Neg) Ur Phencyclidine (PCP) (Neg) U Amphetamin/Meth Scrn (Neg) MDMA (Ecstasy) Screen (Neg) U Benzodiazepines Scrn (Neg) Ur Cocaine Metabolite (Neg) U Marijuana (THC) Screen (Neg) Ethyl Alcohol mg/dL < 3.0 (0-3) mg/dl SARS-CoV-2, RNA, NAAT (NEGATIVE) 06/27/21 06/27/21 06/27/21 Range/Units 10:52 13:32 14:30 WBC (4.8-10.8) K/uL RBC (4.2-5.4) M/uL Hgb (12.0-16.0) g/dL Hct (37-47) % MCV (80-100) fL MCH (25-34) pg MCHC (32-36) g/dL RDW Std Deviation (36.4-46.3) fL RDW Coeff of Bright (11.5-14.5) % Plt Count (130-400) K/uL MPV (7.4-10.4) fL Immature Gran % (Auto) % Neut % (Auto) % Lymph % (Auto) % [place] % (Auto) % Eos % (Auto) % Baso % (Auto) % Neut # (Auto) (1.4-6.5) K/uL Lymph # (Auto) (1.2-3.4) K/uL [place] # (Auto) (0.11-0.59) K/uL Eos # (Auto) (0-0.5) K/uL Baso # (Auto) (0-0.2) K/uL Immature Gran # (Auto) (0.00-0.02) K/uL ABG pH (7.35-7.45) ABG pCO2 (35-46) mmHg ABG pO2 (80-95) mmHg ABG HCO3 (19-24) mmol/L ABG O2 Saturation (90-95) % ABG Base Excess (-9-1.8) mEq/L Richard Test (Pos) Barometric Pressure mm/Hg Oxygen Given Sodium (136-145) mmol/L Potassium 3.9 (3.5-5.1) mmol/L Chloride (98-107) mmol/L Carbon Dioxide (21-32) mmol/L Anion Gap (3-11) BUN (7-18) mg/dl Creatinine (0.6-1.2) mg/dl Est Cr Clr Drug Dosing Est GFR ( Amer) ml/min Est GFR (Non-Af Amer) ml/min BUN/Creatinine Ratio (10-20) Glucose (70-99) mg/dl Lactate 2.6 H* (0.4-2.0) mmol/L Calcium (8.5-10.1) mg/dl Magnesium 1.9 (1.8-2.4) mg/dl Total Bilirubin (0.2-1) mg/dl AST 58 H (15-37) U/L ALT (12-78) U/L Alkaline Phosphatase (45-117) U/L Ammonia (11-32) umol/L Troponin I (0-0.045) ng/ml C-Reactive Protein 0.66 H (0-0.29) mg/dl Total Protein (6.4-8.2) gm/dl Albumin (3.4-5.0) gm/dl Globulin (2.5-4.0) gm/dl Albumin/Globulin Ratio (0.9-2) Procalcitonin (0-0.5) ng/ml TSH (0.300-4.500) uIu/ml Free T4 (0.8-1.6) ng/dl Specimen Hemolysis Urine Color Urine Appearance (Clear) Urine pH (4.5-7.5) Ur Specific [place] (1.000-1.030) Urine Protein (Negative) Urine Glucose (UA) (Negative) Urine Ketones (Negative) Urine Blood (Negative) Urine Nitrite (Negative) Urine Bilirubin (Negative) Urine Urobilinogen (Negative) Ur Leukocyte Esterase (Negative) Urine WBC (Auto) (0-5) /hpf Urine RBC (Auto) (0-4) /hpf U Hyaline Cast (Auto) (0-5) /lpf U Epithel Cells (Auto) (0-5) /lpf Urine Bacteria (Auto) (Negative) Salicylates (2.8-20) mg/dl Urine Opiates Screen (Neg) Ur Methadone, Qual (Neg) Acetaminophen (10-30) ug/ml Urine Barbiturates (Neg) Ur Phencyclidine (PCP) (Neg) U Amphetamin/Meth Scrn (Neg) MDMA (Ecstasy) Screen (Neg) U Benzodiazepines Scrn (Neg) Ur Cocaine Metabolite (Neg) U Marijuana (THC) Screen (Neg) Ethyl Alcohol mg/dL (0-3) mg/dl SARS-CoV-2, RNA, NAAT (NEGATIVE) 06/27/21 06/27/21 06/27/21 Range/Units 14:30 14:30 Unknown WBC (4.8-10.8) K/uL RBC (4.2-5.4) M/uL Hgb (12.0-16.0) g/dL Hct (37-47) % MCV (80-100) fL MCH (25-34) pg MCHC (32-36) g/dL RDW Std Deviation (36.4-46.3) fL RDW Coeff of Bright (11.5-14.5) % Plt Count (130-400) K/uL MPV (7.4-10.4) fL Immature Gran % (Auto) % Neut % (Auto) % Lymph % (Auto) % [place] % (Auto) % Eos % (Auto) % Baso % (Auto) % Neut # (Auto) (1.4-6.5) K/uL Lymph # (Auto) (1.2-3.4) K/uL [place] # (Auto) (0.11-0.59) K/uL Eos # (Auto) (0-0.5) K/uL Baso # (Auto) (0-0.2) K/uL Immature Gran # (Auto) (0.00-0.02) K/uL ABG pH 7.48 H (7.35-7.45) ABG pCO2 31 L (35-46) mmHg ABG pO2 114 H (80-95) mmHg ABG HCO3 22 (19-24) mmol/L ABG O2 Saturation 98.5 H (90-95) % ABG Base Excess -0.3 (-9-1.8) mEq/L Richard Test Pos (Pos) Barometric Pressure 730.2 mm/Hg Oxygen Given RA Sodium (136-145) mmol/L Potassium (3.5-5.1) mmol/L Chloride (98-107) mmol/L Carbon Dioxide (21-32) mmol/L Anion Gap (3-11) BUN (7-18) mg/dl Creatinine (0.6-1.2) mg/dl Est Cr Clr Drug Dosing Est GFR ( Amer) ml/min Est GFR (Non-Af Amer) ml/min BUN/Creatinine Ratio (10-20) Glucose (70-99) mg/dl Lactate (0.4-2.0) mmol/L Calcium (8.5-10.1) mg/dl Magnesium (1.8-2.4) mg/dl Total Bilirubin (0.2-1) mg/dl AST (15-37) U/L ALT (12-78) U/L Alkaline Phosphatase (45-117) U/L Ammonia (11-32) umol/L Troponin I (0-0.045) ng/ml C-Reactive Protein (0-0.29) mg/dl Total Protein (6.4-8.2) gm/dl Albumin (3.4-5.0) gm/dl Globulin (2.5-4.0) gm/dl Albumin/Globulin Ratio (0.9-2) Procalcitonin 0.13 (0-0.5) ng/ml TSH (0.300-4.500) uIu/ml Free T4 (0.8-1.6) ng/dl Specimen Hemolysis Urine Color Urine Appearance (Clear) Urine pH (4.5-7.5) Ur Specific [place] (1.000-1.030) Urine Protein (Negative) Urine Glucose (UA) (Negative) Urine Ketones (Negative) Urine Blood (Negative) Urine Nitrite (Negative) Urine Bilirubin (Negative) Urine Urobilinogen (Negative) Ur Leukocyte Esterase (Negative) Urine WBC (Auto) (0-5) /hpf Urine RBC (Auto) (0-4) /hpf U Hyaline Cast (Auto) (0-5) /lpf U Epithel Cells (Auto) (0-5) /lpf Urine Bacteria (Auto) (Negative) Salicylates (2.8-20) mg/dl Urine Opiates Screen (Neg) Ur Methadone, Qual (Neg) Acetaminophen (10-30) ug/ml Urine Barbiturates (Neg) Ur Phencyclidine (PCP) (Neg) U Amphetamin/Meth Scrn (Neg) MDMA (Ecstasy) Screen (Neg) U Benzodiazepines Scrn (Neg) Ur Cocaine Metabolite (Neg) U Marijuana (THC) Screen (Neg) Ethyl Alcohol mg/dL (0-3) mg/dl SARS-CoV-2, RNA, NAAT NEGATIVE (NEGATIVE) 06/27/21 06/27/21 Range/Units Unknown Unknown WBC (4.8-10.8) K/uL RBC (4.2-5.4) M/uL Hgb (12.0-16.0) g/dL Hct (37-47) % MCV (80-100) fL MCH (25-34) pg MCHC (32-36) g/dL RDW Std Deviation (36.4-46.3) fL RDW Coeff of Bright (11.5-14.5) % Plt Count (130-400) K/uL MPV (7.4-10.4) fL Immature Gran % (Auto) % Neut % (Auto) % Lymph % (Auto) % [place] % (Auto) % Eos % (Auto) % Baso % (Auto) % Neut # (Auto) (1.4-6.5) K/uL Lymph # (Auto) (1.2-3.4) K/uL [place] # (Auto) (0.11-0.59) K/uL Eos # (Auto) (0-0.5) K/uL Baso # (Auto) (0-0.2) K/uL Immature Gran # (Auto) (0.00-0.02) K/uL ABG pH (7.35-7.45) ABG pCO2 (35-46) mmHg ABG pO2 (80-95) mmHg ABG HCO3 (19-24) mmol/L ABG O2 Saturation (90-95) % ABG Base Excess (-9-1.8) mEq/L Richard Test (Pos) Barometric Pressure mm/Hg Oxygen Given Sodium (136-145) mmol/L Potassium (3.5-5.1) mmol/L Chloride (98-107) mmol/L Carbon Dioxide (21-32) mmol/L Anion Gap (3-11) BUN (7-18) mg/dl Creatinine (0.6-1.2) mg/dl Est Cr Clr Drug Dosing Est GFR ( Amer) ml/min Est GFR (Non-Af Amer) ml/min BUN/Creatinine Ratio (10-20) Glucose (70-99) mg/dl Lactate (0.4-2.0) mmol/L Calcium (8.5-10.1) mg/dl Magnesium (1.8-2.4) mg/dl Total Bilirubin (0.2-1) mg/dl AST (15-37) U/L ALT (12-78) U/L Alkaline Phosphatase (45-117) U/L Ammonia (11-32) umol/L Troponin I (0-0.045) ng/ml C-Reactive Protein (0-0.29) mg/dl Total Protein (6.4-8.2) gm/dl Albumin (3.4-5.0) gm/dl Globulin (2.5-4.0) gm/dl Albumin/Globulin Ratio (0.9-2) Procalcitonin (0-0.5) ng/ml TSH (0.300-4.500) uIu/ml Free T4 (0.8-1.6) ng/dl Specimen Hemolysis Urine Color Dark Yellow Urine Appearance Clear (Clear) Urine pH 7.5 (4.5-7.5) Ur Specific [place] 1.016 (1.000-1.030) Urine Protein Negative (Negative) Urine Glucose (UA) Negative (Negative) Urine Ketones Trace H (Negative) Urine Blood Negative (Negative) Urine Nitrite Negative (Negative) Urine Bilirubin Negative (Negative) Urine Urobilinogen Negative (Negative) Ur Leukocyte Esterase Trace H (Negative) Urine WBC (Auto) 1-5 (0-5) /hpf Urine RBC (Auto) 0-4 (0-4) /hpf U Hyaline Cast (Auto) 0 (0-5) /lpf U Epithel Cells (Auto) 5-10 H (0-5) /lpf Urine Bacteria (Auto) Negative (Negative) Salicylates (2.8-20) mg/dl Urine Opiates Screen Neg (Neg) Ur Methadone, Qual Neg (Neg) Acetaminophen (10-30) ug/ml Urine Barbiturates Neg (Neg) Ur Phencyclidine (PCP) Neg (Neg) U Amphetamin/Meth Scrn Neg (Neg) MDMA (Ecstasy) Screen Neg (Neg) U Benzodiazepines Scrn Neg (Neg) Ur Cocaine Metabolite Neg (Neg) U Marijuana (THC) Screen Neg (Neg) Ethyl Alcohol mg/dL (0-3) mg/dl SARS-CoV-2, RNA, NAAT (NEGATIVE) Administered Medications Discontinued Medications Sodium Chloride (Nss) 500 mls @ 999 mls/hr IV .Q31M ESTHER Stop: 06/27/21 10:15 Last Infusion: 06/27/21 11:14 Dose: 0 mls/hr Documented by: [id number] Infusion: 06/27/21 10:40 Dose: 0 mls/hr Documented by: [id number] Admin: 06/27/21 09:47 Dose: 999 mls/hr Documented by: [id number] Sodium Chloride (Nss 1000ml) 500 mls @ 999 mls/hr IV .Q31M ONE Stop: 06/27/21 11:04 Last Infusion: 06/27/21 11:14 Dose: 0 mls/hr Documented by: [id number] Admin: 06/27/21 10:40 Dose: 999 mls/hr Documented by: [id number] Cefepime HCl (Maxipime) 2,000 mg in 20 mls @ 5 mls/min IV NOW STA; Protocol Stop: 06/27/21 12:07 Last Admin: 06/27/21 12:12 Dose: 5 mls/min Documented by: [id number] Ioversol (Optiray 320 125ml) 120 ml IV ONCE ONE Stop: 06/27/21 14:23 Last Admin: 06/27/21 14:23 Dose: 120 ml Documented by: [id number] Ioversol (Optiray 320 100ml) 94 ml IV ONCE ONE Stop: 06/27/21 14:59 Last Admin: 06/27/21 14:58 Dose: 94 ml Documented by: [id number] Lactulose (Lactulose Syrup 20 Gm/30 Ml Udc) 20 gm PO NOW ONE Stop: 06/27/21 11:43 Last Admin: 06/27/21 11:57 Dose: 20 gm Documented by: [id number] Imaging Data Radiologist's Impression: Chest X-Ray 06/27/21 09:36 XR chest 1V portable CLINICAL HISTORY: weakness COMPARISON STUDY: Chest radiograph May 30, 2021. FINDINGS: Dual lead left subclavian pacer is in place. There is no pneumothorax or pleural effusion. There is no consolidation. Cardiomediastinal silhouette is stable. Mild interstitial prominence is noted. IMPRESSION: Mild interstitial prominence. This favors pulmonary vascular congestion. An infectious process could appear similar although is considered less likely. ACT 112: Negative or not required by law. Electronically signed by: Migue Pendleton M.D. 06/27/2021 10:[address] 06/27/21 09:36 CT head/brain wo con CLINICAL HISTORY: 70 years-old Female with confusion. Acutely altered mental status TECHNIQUE: Multiple axial CT images of the head were obtained without contrast. A dose lowering technique was utilized adhering to the principles of ALARA. CT DOSE: 537.48 mGy.cm COMPARISON: Head CT 05/30/2021. FINDINGS: No acute intracranial hemorrhage, midline shift, intracranial mass, hydrocephalus, territorial ischemia or abnormal extra-axial collection. Prior suboccipital craniectomy with low-lying cerebellar tonsils redemonstrated. Mild white matter hypodensities suggest chronic microvascular ischemic disease. Mild involutional changes. The calvarium is intact. Postoperative changes of the paranasal sinuses. The mastoid air cells are clear. IMPRESSION: No acute intracranial abnormality. ACT 112: Negative or not required by law. The above report was generated using voice recognition software. It may contain grammatical, syntax or spelling errors. Electronically signed by: Jareth Arana M.D. 06/27/2021 10:13 AM Venous Doppler Study 06/27/21 14:09 BILATERAL LOWER EXTREMITY VENOUS DOPPLER HISTORY: Acute pain and swelling of the lower legs b/l calf pain r/o DVT COMPARISON STUDY: Doppler study 05/30/2021 FINDINGS: There is normal compressibility, flow, and augmentation within the bilateral lower extremity deep venous systems. IMPRESSION: No DVT within the right or left lower extremity. ACT 112: Negative or not required by law. Electronically signed by: Jareth Arana M.D. 06/27/2021 3:45 PM Abdomen/Pelvis CT 06/27/21 14:12 CT OF THE ABDOMEN AND PELVIS WITH CONTRAST CLINICAL HISTORY: Left upper quadrant pain on palpation r/o infectious etiology COMPARISON STUDY: CT of the abdomen and pelvis July 16, 2020. TECHNIQUE: Following IV administration of 94 mL of Optiray, axial images of the abdomen and pelvis were obtained from the lung bases to the proximal femurs. Images were reviewed in the axial, sagittal, and coronal planes. IV contrast was administered without complication. Automated exposure control was utilized for the study. A dose lowering technique was utilized adhering to the principles of ALARA. CT DOSE: 1136.20 mGy.cm FINDINGS: Lung bases are unremarkable. No pneumatosis, free air or portal venous gas is present. The liver is cirrhotic. No hepatic lesions are identified although sensitivity for hypervascular lesions is diminished on this venous phase exam. Mild dilatation of the common bile duct is similar to prior exam. The gallbladder is not visualized. Splenomegaly is unchanged. Large perisplenic varices are again noted. No ascites is present. There is no evidence for a bowel obstruction. The adrenal glands, kidneys and pancreas are unremarkable. No hydronephrosis. There is no pancreatic ductal dilatation or. Pancreatic infiltration. The appendix is normal. No acute fracture or suspicious lesion is identified within visualized skeletal structures. The main, left and right portal veins are patent. IMPRESSION: 1. No acute process within the abdomen or pelvis. 2. Cirrhosis with manifestations of portal hypertension including splenomegaly and extensive varices formation. 3. No bowel obstruction. No bowel wall thickening. ACT 112: Negative or not required by law. Electronically signed by: Migue Pendleton M.D. 06/27/2021 3:17 PM Discharge Plan Visit Data Chief Complaint: Confusion Stated Complaint: CONFUSION ED Provider: Hugo Joe Discharge Problem: Acute confusion, Somnolence, Thrombocytopenia, Hyperammonemia Patient Disposition: Admitted As Inpatient Condition: Fair Forms Stand Alone Forms: [facility] Prescriptions Prescriptions: No Action (DME) blood sugar diagnostic [OneTouch Ultra Blue Test Strip] Strip See Rx Instructions .ROUTE .MEDSUPPLY Qty: 300 RF: 3 (DME) blood-glucose meter [OneTouch Ultra2 Meter] Misc See Rx Instructions .ROUTE .MEDSUPPLY Qty: 1 RF: 0 levothyroxine 100 mcg tablet See Rx Instructions PO QAM RF: 0 gabapentin 300 mg capsule 300 mg PO HS Qty: 90 RF: 3 metformin 1,000 mg tablet 1,000 mg PO BID RF: 0 azithromycin 250 mg tablet See Rx Instructions PO .COMPLEX Qty: 6 RF: 0 benzonatate 100 mg capsule 100 mg PO TID PRN (Reason: cough) Qty: 30 RF: 0 ondansetron HCl 4 mg tablet 4 mg PO Q8H PRN (Reason: nausea and vomiting) Qty: 30 RF: 1 zinc acetate 50 mg (zinc) capsule 50 mg PO QAM RF: 0 Lantus U-100 Insulin 100 unit/mL solution See Rx Instructions SUBCUT HS RF: 0 multivitamin [Multiple Vitamins] tablet 1 tab PO QAM RF: 0 cholecalciferol (vitamin D3) 1,000 unit capsule 1,000 units PO QAM RF: 0 cyanocobalamin (vitamin B-12) 1,000 mcg tablet 1,000 mcg PO QAM RF: 0 zolpidem 5 mg tablet 5 mg PO HS PRN (Reason: insomnia) Qty: 30 RF: 0 bumetanide 1 mg Tablet 1 mg PO QAM RF: 0 spironolactone 50 mg Tablet 50 mg PO QAM RF: 0 ferrous sulfate 325 mg (65 mg iron) Tablet,Delayed Release (Dr/Ec) 325 mg PO QAM RF: 0 vitamin E 400 unit Capsule 400 unit PO QAM RF: 0 pravastatin 10 mg tablet 10 mg PO HS RF: 0 glimepiride 1 mg tablet 0.5 mg PO DAILY RF: 0 Macular Health Formula 5-1-7.5 mg Capsule 1 cap PO DAILY RF: 0 lactulose 20 gram/30 mL solution 20 g PO TID Qty: 1500 RF: 0 Referrals Referrals: Landen Shah MD [Primary Care Provider] -
[2021-06-27] MEDS ORDERED: SODIUM CHLORIDE 0.9% 500 ML IV SCH (09:45)
[2021-06-27 09:59] LABS: Hematocrit (blood only) 38.9 % (37-47); Hemoglobin 13.1 g/dL (12.0-16.0); Mean Corpuscular Hemoglobin 31.6 pg (25-34); Mean Corpuscular Hgb Conc 33.7 g/dL (32-36); Mean Corpuscular Volume 93.7 fL (80-100); RDW Coefficient of Variation 15.3 % (11.5-14.5); RDW Standard Deviation 52.1 fL (36.4-46.3); Red Blood Count 4.15 M/uL (4.2-5.4); White Blood Count 2.45 K/uL (4.8-10.8)
[2021-06-27 10:01] LABS: Mean Platelet Volume 10.3 fL (7.4-10.4); Platelet Count 78 K/uL (130-400)
--- NOTE | 2021-06-27 10:15 | CT Scan Report ---
CT head/brain wo con CLINICAL HISTORY: 70 years-old Female with confusion. Acutely altered mental status TECHNIQUE: Multiple axial CT images of the head were obtained without contrast. A dose lowering tech nique was utilized adhering to the principles of ALARA. CT DOSE: 537.48 mGy.cm COMPARISON: Head CT 05/30/2021. FINDINGS: No acute intracranial hemorrhage, midline shift, intracranial mass, hydrocephalus, territorial ischem ia or abnormal extra-axial collection. Prior suboccipital craniectomy with low-lying cerebellar tonsi ls redemonstrated. Mild white matter hypodensities suggest chronic microvascular ischemic disease. Mi ld involutional changes. The calvarium is intact. Postoperative changes of the paranasal sinuses. The mastoid air cells are c lear. IMPRESSION: No acute intracranial abnormality. ACT 112: Negative or not required by law. The above report was generated using voice recognition software. It may contain grammatical, syntax o r spelling errors. Electronically signed by: Jareth Arana M.D. 06/27/2021 10:13 AM
[2021-06-27 10:17] LABS: Acetaminophen < 2 ug/ml (10-30)
[2021-06-27 10:18] LABS: Salicylate < 1.7 mg/dl (2.8-20)
[2021-06-27 10:19] LABS: Eosinophils # (auto) 0.05 K/uL (0-0.5); Immature Granulocytes # (auto) 0.01 K/uL (0.00-0.02); Immature Granulocytes % (auto) 0.4 %; Lymphocytes # (auto) 0.98 K/uL (1.2-3.4); Monocytes # (auto) 0.34 K/uL (0.11-0.59); Monocytes % (auto) 13.9 %; Neutrophils # (auto) 1.07 K/uL (1.4-6.5); Neutrophils % (auto) 43.7 %
--- NOTE | 2021-06-27 10:27 | XRay Report ---
XR chest 1V portable CLINICAL HISTORY: weakness COMPARISON STUDY: Chest radiograph May 30, 2021. FINDINGS: Dual lead left subclavian pacer is in place. There is no pneumothorax or pleural effusion. There is no consolidation. Cardiomediastinal silhouette is stable. Mild interstitial prominence is no bill. IMPRESSION: Mild interstitial prominence. This favors pulmonary vascular congestion. An infectious p rocess could appear similar although is considered less likely. ACT 112: Negative or not required by law. Electronically signed by: Migue Pendleton M.D. 06/27/2021 10:25 AM
[2021-06-27 10:32] LABS: Alanine Aminotransferase 71 U/L (12-78); Albumin Globulin Ratio 0.6 (0.9-2); Alkaline Phosphatase 83 U/L (45-117); BUN Creatinine Ratio 13.6 (10-20); Bilirubin,Total 1.1 mg/dl (0.2-1); Blood Urea Nitrogen 13 mg/dl (7-18); Calcium 9.2 mg/dl (8.5-10.1); Carbon Dioxide 24 mmol/L (21-32); Chloride 106 mmol/L (98-107); Est GFR (African American) 71.2 ml/min; Est GFR (Non-African American) 61.4 ml/min; Globulin 5.4 gm/dl (2.5-4.0); Glucose 208 mg/dl (70-99); Sodium 138 mmol/L (136-145); Total Protein 8.4 gm/dl (6.4-8.2); Troponin I < 0.015 ng/ml (0-0.045)
[2021-06-27] MEDS ORDERED: SODIUM CHLORIDE 0.9% 1000ML 500 ML IV ONE (10:34)
[2021-06-27 11:28] LABS: Potassium 3.9 mmol/L (3.5-5.1)
[2021-06-27 11:32] LABS: Appearance Urine Clear (Clear); Bacteria Urine Automated Negative (Negative); Bilirubin Urine Negative (Negative); Blood Urine Negative (Negative); Cast Urine Automated 0 /lpf (0-5); Color Urine Dark Yellow; Glucose Urine UA Negative (Negative); Ketones Urine Trace (Negative); Leukocyte Esterase Urine Trace (Negative); Nitrite Urine Negative (Negative); Protein Urine Negative (Negative); RBC Urine Automated 0-4 /hpf (0-4); Specific Gravity Urine 1.016 (1.000-1.030); Urobilinogen Urine Negative (Negative); pH Urine 7.5 (4.5-7.5)
[2021-06-27 11:38] LABS: Magnesium 1.9 mg/dl (1.8-2.4)
[2021-06-27] MEDS ORDERED: LACTULOSE SYRUP 20 GM/30 ML UDC PO ONE (11:42)
[2021-06-27 11:53] LABS: Amphetamines+Metham, Urine Neg (Neg); Barbiturates, Urine Neg (Neg); Benzodiazepine, Urine Neg (Neg); Cocaine, Urine Neg (Neg); MDMA (Ecstacy), Urine Neg (Neg); Methadone, Urine Neg (Neg); Opiate, Urine Neg (Neg); Phencyclidine, Urine Neg (Neg)
[2021-06-27] MEDS ORDERED: CEFEPIME 2,000 MG/20 ML VIAL IV STA (12:04)
--- NOTE | 2021-06-27 12:34 | History & Physical Report ---
Date of Service June 27, 2021 Assessment & Plan (1) Acute confusion: Plan: Unclear definitive etiology on admission but suspect hepatic encephalopathy. Unable to get collateral history. No infective source seen on CT A/P, CXR, UA. Procalcitonin negative. SARS-COV-[address] head unremarkable. Urine toxicology negative Follow up blood cultures but given lack of current source and not septic will discontinue further antibiotics on admission. (2) Hepatic encephalopathy: Plan: Lactulose 20g TID Start rifaximin 550mg BID (3) Cirrhosis: Plan: 2/2 SHARMA (4) Pancytopenia: Plan: Related to underlying liver cirrhosis per prior hematology workup. (5) Elevated lactic acid level: Plan: Improved with IV fluids given in the ER. Repeat with AM labs. (6) MGUS (monoclonal gammopathy of unknown significance): Plan: Stable IgM [place]. Followed by hematology (7) Hypothyroidism, postablative: Plan: TSH 4.78, free T4 WNL Continue usual levothyroxine dosing (8) Hypertension: Plan: Currently well controlled. Continue her usual diuretic regimen with Bumex and spironolactone. (9) Diabetes mellitus: Plan: HbA1C 7.2 07/2020, will repeat with AM labs Stop metformin and glimepiride. Reduce her usual Lantus as unclear how much she will be eating. Therefore will start with: Lantus 10units BID Novolog: Goal BSG Range: Low 110 mg/dL, High 140 mg/dL Correction Factor: 45 mg/dL/unit Carbohydrate ratio = 15 g/unit BSGs ACHS if eating, q6h if npo Plan: VTE Prophylaxis - Lovenox 40mg SQ daily Diet - Low Na, T2DM Disposition - admit to med/surg Admission and Anticipated Discharge Date Admission Date: June 27, 2021 History of Present Illness Chief Complaint: Generalized confusion and lethargy Primary Care Provider: Landen Shah MD Alma Nolen is a 70 year old female who presents to the ER with acute confusion and lethargy. History is limited due to patient confusion. No family members present at bedside and no answer by on number provided on EHR. She reports not feeling herself starting yesterday. Reports having a fever that started today. She notes chest and abdominal pain but cannot give me much of history of this. Mainly RUQ pain but on palpation she reports LUQ. No one sided weakness, change in speech, hearing or vision. Feels generally slow and confused. No headache, nasal congestion, sinus pain, cough, diarrhea, melena, nausea, vomiting, bright red blood in stool. On review of recent records she was recently treated with azithromycin for bronchitis 1 week ago after 3 weeks of cold symptoms. SARS-COV-2 PCR negative in the ER. In the ER CT head showed no intracranial abnormality, urine toxicology negative, CXR with possible mild pulmonary edema / viral pneumonia, lactate level 3.2, she is chronically leukopenic and thrombocytopenic at baseline, TSH 4.78, Procalcitonin 0.13, Ammonia level elevated 81.3 umol/L although has been similar levels over the last two years without requiring inpatient admissions. She was given cefepime for possible infective cause of her acute confusion however no source subsequently identified on CXR or UA. Allergies Allergy/AdvReac Type Severity Reaction Status Date / Time No Known Drug Allergies Allergy Verified 06/13/21 14:50 Home Medications Medication Instructions Recorded Confirmed Type bumetanide 1 mg tablet 1 mg PO QAM 08/19/18 06/27/21 History ferrous sulfate 325 mg (65 mg 325 mg PO QAM 08/19/18 06/27/21 History iron) tablet,delayed release spironolactone 50 mg tablet 50 mg PO QAM 08/19/18 06/27/21 History vitamin E 400 unit capsule 400 unit PO QAM 08/19/18 06/27/21 History cholecalciferol (vitamin D3) 25 1,000 units PO QAM 03/31/19 06/27/21 History mcg (1,000 unit) capsule multivitamin (Multiple Vitamins) 1 tab PO QAM 03/31/19 06/27/21 History cyanocobalamin (vitamin B-12) 1,000 mcg PO QAM tab 04/16/19 06/27/21 History 1,000 mcg tablet metformin 1,000 mg tablet 1,000 mg PO BID 11/20/19 06/27/21 History blood sugar diagnostic ([employer] #300 ea 11/24/19 06/27/21 Rx Ultra Blue Test Strip) blood-glucose meter (OneTouch #1 ea 03/16/20 06/27/21 Rx Ultra2 Meter) ondansetron HCl 4 mg tablet 4 mg PO Q8H PRN #30 tab 05/21/20 06/27/21 Rx zinc acetate 50 mg (zinc) capsule 50 mg PO QAM 06/24/20 06/27/21 History levothyroxine 100 mcg tablet See Rx Instructions PO QAM tab 07/19/20 06/27/21 History insulin glargine 100 unit/mL See Rx Instructions SUBCUT HS 07/22/20 06/27/21 History subcutaneous solution (Lantus U-100 Insulin) zolpidem 5 mg tablet 5 mg PO HS PRN #30 tab 08/04/20 06/27/21 Rx pravastatin 10 mg tablet 10 mg PO HS 10/11/20 06/27/21 History gabapentin 300 mg capsule 300 mg PO HS #90 cap 11/01/20 06/27/21 Rx glimepiride 1 mg tablet 0.5 mg PO DAILY 05/30/21 06/27/21 History lactulose 20 gram/30 mL oral 20 g PO TID #1500 ml 05/30/21 06/27/21 Rx solution [id number]-[id number]-[id number] 5 mg-zeaxanth 1 cap PO DAILY 05/30/21 06/27/21 History 1 mg-bilberry 7.5 mg-herbal capsule ([employer] Formula) azithromycin 250 mg tablet See Rx Instructions PO .COMPLEX #6 06/21/21 06/27/21 Rx tab benzonatate 100 mg capsule 100 mg PO TID PRN #30 cap 06/21/21 06/27/21 Rx Past Med/Surg History Medical History Anemia Arnold-Chiari malformation Surgical repair 2009 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 Following with Dr. Ontiveros. Some ascites; has been on Bumex and spironolactone. 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 [employer]. Most recent interrogation 09/2017 . Peripheral neuropathy Symptomatic bradycardia s/p PPM Thrombocytopenia Baseline ranges 60-100k per record review. Urinary retention Tx with Flomax Surgical History History of brain surgery CHIARI MALFORMATION History of cholecystectomy History of colonoscopy with polypectomy History of endoscopic sinus surgery x2 History of esophagogastroduodenoscopy (EGD) History of hysterectomy with bilateral oophorectomy History of nasal septoplasty History of thyroidectomy x2 History of tonsillectomy History of tooth extraction Family History Mother Diabetes Cancer Father Diabetes Cardiac disorder Stroke Brother Diabetes Stroke syndrome Cancer Hypertension Sister Diabetes Aneurysm Cardiac disorder Stroke syndrome Hypertension Grandfather (Maternal) Diabetes Grandmother (Maternal) Diabetes Sister Family hx colonic polyps Hypertension Other FHx: seizures No family history of adverse response to anesthesia Denies family history of Ovarian cancer Prostate cancer Myocardial infarction Breast cancer Colorectal cancer Social History Smoking Status: Never smoker Second Hand Exposure: No; Hx Alcohol Use: No Hx Substance Use: No Preferred Language: Sinhala Communication Ability: Effective Senior Vice President And Chief Information Officer Required: No Beliefs That Will Affect Care: None Current Living Situation: Spouse current occupational status: retired Feels Safe at Home: Yes Safety Concerns: Feels Safe At This Time Assistive Devices: None Review of Systems Review of Systems: All systems reviewed & are unremarkable except as noted in HPI & below Physical Exam Constitutional: WD/WN, vitals as above Eyes: PERRL, conjunctivae normal, anicteric sclerae ENMT: external ear and nose normal, oropharynx normal Neck: trachea midline, no thyromegaly Respiratory: normal respiratory effort, lungs clear to auscultation Cardiovascular: Extremities: normal capillary refill, + calf tenderness (L > R) and + pedal edema (trace ankles b/l equal) Gastrointestinal (Abdomen): Inspection/Auscultation: abdomen normal to inspection and normal bowel sounds; abdomen not distended Percussion/Palpation: + abdomen tender (mild LUQ) and abdomen soft; no guarding and abdomen not rigid Musculoskeletal: no cyanosis or clubbing, extremities motor strength 5/5 Skin: no rashes, warm and dry (no cellulitis areas) Neurologic: moves all extremities, awake and + confused; no focal motor deficits (no lateralizing deficit) Psychiatric: Orientation: alert and oriented to person (self); + not oriented to place and + not oriented to time Eye Contact: + fair eye contact Affect: euthymic affect Genitourinary: no CVA tenderness Results & Data Results & Data ([facility]) Vital Signs (Past 12 Hours) Vital Signs Temp Pulse Resp BP Pulse Ox 06/27/21 09:20 36.8 C 75 18 146/62 H 99 Laboratory Results Abnormal lab results 06/27/21 06/27/21 06/27/21 Range/Units 09:36 09:36 09:36 WBC 2.45 L (4.8-10.8) K/uL RBC 4.15 L (4.2-5.4) M/uL RDW Std Deviation 52.1 H (36.4-46.3) fL RDW Coeff of Bright 15.3 H (11.5-14.5) % Plt Count 78 L (130-400) K/uL Neut # (Auto) 1.07 L (1.4-6.5) K/uL Lymph # (Auto) 0.98 L (1.2-3.4) K/uL ABG pH (7.35-7.45) ABG pCO2 (35-46) mmHg ABG pO2 (80-95) mmHg ABG O2 Saturation (90-95) % Glucose 208 H (70-99) mg/dl POC Glucose (70-99) mg/dl Lactate (0.4-2.0) mmol/L Total Bilirubin 1.1 H (0.2-1) mg/dl AST (15-37) U/L Ammonia (11-32) umol/L C-Reactive Protein (0-0.29) mg/dl Total Protein 8.4 H (6.4-8.2) gm/dl Albumin 3.0 L (3.4-5.0) gm/dl Globulin 5.4 H (2.5-4.0) gm/dl Albumin/Globulin Ratio 0.6 L (0.9-2) TSH 4.780 H (0.300-4.500) uIu/ml Urine Ketones (Negative) Ur Leukocyte Esterase (Negative) U Epithel Cells (Auto) (0-5) /lpf Salicylates < 1.7 L (2.8-20) mg/dl Acetaminophen < 2 L (10-30) ug/ml 06/27/21 06/27/21 06/27/21 Range/Units 10:52 10:52 10:52 WBC (4.8-10.8) K/uL RBC (4.2-5.4) M/uL RDW Std Deviation (36.4-46.3) fL RDW Coeff of Bright (11.5-14.5) % Plt Count (130-400) K/uL Neut # (Auto) (1.4-6.5) K/uL Lymph # (Auto) (1.2-3.4) K/uL ABG pH (7.35-7.45) ABG pCO2 (35-46) mmHg ABG pO2 (80-95) mmHg ABG O2 Saturation (90-95) % Glucose (70-99) mg/dl POC Glucose (70-99) mg/dl Lactate 3.2 H* (0.4-2.0) mmol/L Total Bilirubin (0.2-1) mg/dl AST 58 H (15-37) U/L Ammonia 81.3 H (11-32) umol/L C-Reactive Protein (0-0.29) mg/dl Total Protein (6.4-8.2) gm/dl Albumin (3.4-5.0) gm/dl Globulin (2.5-4.0) gm/dl Albumin/Globulin Ratio (0.9-2) TSH (0.300-4.500) uIu/ml Urine Ketones (Negative) Ur Leukocyte Esterase (Negative) U Epithel Cells (Auto) (0-5) /lpf Salicylates (2.8-20) mg/dl Acetaminophen (10-30) ug/ml 06/27/21 06/27/21 06/27/21 Range/Units 13:32 14:30 14:30 WBC (4.8-10.8) K/uL RBC (4.2-5.4) M/uL RDW Std Deviation (36.4-46.3) fL RDW Coeff of Bright (11.5-14.5) % Plt Count (130-400) K/uL Neut # (Auto) (1.4-6.5) K/uL Lymph # (Auto) (1.2-3.4) K/uL ABG pH 7.48 H (7.35-7.45) ABG pCO2 31 L (35-46) mmHg ABG pO2 114 H (80-95) mmHg ABG O2 Saturation 98.5 H (90-95) % Glucose (70-99) mg/dl POC Glucose (70-99) mg/dl Lactate 2.6 H* (0.4-2.0) mmol/L Total Bilirubin (0.2-1) mg/dl AST (15-37) U/L Ammonia (11-32) umol/L C-Reactive Protein 0.66 H (0-0.29) mg/dl Total Protein (6.4-8.2) gm/dl Albumin (3.4-5.0) gm/dl Globulin (2.5-4.0) gm/dl Albumin/Globulin Ratio (0.9-2) TSH (0.300-4.500) uIu/ml Urine Ketones (Negative) Ur Leukocyte Esterase (Negative) U Epithel Cells (Auto) (0-5) /lpf Salicylates (2.8-20) mg/dl Acetaminophen (10-30) ug/ml 06/27/21 06/27/21 Range/Units 20:33 Unknown WBC (4.8-10.8) K/uL RBC (4.2-5.4) M/uL RDW Std Deviation (36.4-46.3) fL RDW Coeff of Bright (11.5-14.5) % Plt Count (130-400) K/uL Neut # (Auto) (1.4-6.5) K/uL Lymph # (Auto) (1.2-3.4) K/uL ABG pH (7.35-7.45) ABG pCO2 (35-46) mmHg ABG pO2 (80-95) mmHg ABG O2 Saturation (90-95) % Glucose (70-99) mg/dl POC Glucose 178 H (70-99) mg/dl Lactate (0.4-2.0) mmol/L Total Bilirubin (0.2-1) mg/dl AST (15-37) U/L Ammonia (11-32) umol/L C-Reactive Protein (0-0.29) mg/dl Total Protein (6.4-8.2) gm/dl Albumin (3.4-5.0) gm/dl Globulin (2.5-4.0) gm/dl Albumin/Globulin Ratio (0.9-2) TSH (0.300-4.500) uIu/ml Urine Ketones Trace H (Negative) Ur Leukocyte Esterase Trace H (Negative) U Epithel Cells (Auto) 5-10 H (0-5) /lpf Salicylates (2.8-20) mg/dl Acetaminophen (10-30) ug/ml Diagnostic Findings CT head/brain wo con CLINICAL HISTORY: 70 years-old Female with confusion. Acutely altered mental status TECHNIQUE: Multiple axial CT images of the head were obtained without contrast. A dose lowering technique was utilized adhering to the principles of ALARA. CT DOSE: 537.48 mGy.cm COMPARISON: Head CT 05/30/2021. FINDINGS: No acute intracranial hemorrhage, midline shift, intracranial mass, hydrocephalus, territorial ischemia or abnormal extra-axial collection. Prior suboccipital craniectomy with low-lying cerebellar tonsils redemonstrated. Mild white matter hypodensities suggest chronic microvascular ischemic disease. Mild involutional changes. The calvarium is intact. Postoperative changes of the paranasal sinuses. The mastoid air cells are clear. IMPRESSION: No acute intracranial abnormality. XR chest 1V portable CLINICAL HISTORY: weakness COMPARISON STUDY: Chest radiograph May 30, 2021. FINDINGS: Dual lead left subclavian pacer is in place. There is no pneumothorax or pleural effusion. There is no consolidation. Cardiomediastinal silhouette is stable. Mild interstitial prominence is noted. IMPRESSION: Mild interstitial prominence. This favors pulmonary vascular congestion. An infectious process could appear similar although is considered less likely. CT OF THE ABDOMEN AND PELVIS WITH CONTRAST CLINICAL HISTORY: Left upper quadrant pain on palpation r/o infectious etiology COMPARISON STUDY: CT of the abdomen and pelvis July 16, 2020. TECHNIQUE: Following IV administration of 94 mL of Optiray, axial images of the abdomen and pelvis were obtained from the lung bases to the proximal femurs. Images were reviewed in the axial, sagittal, and coronal planes. IV contrast was administered without complication. Automated exposure control was utilized for the study. A dose lowering technique was utilized adhering to the principles of ALARA. CT DOSE: 1136.20 mGy.cm FINDINGS: Lung bases are unremarkable. No pneumatosis, free air or portal venous gas is present. The liver is cirrhotic. No hepatic lesions are identified although sensitivity for hypervascular lesions is diminished on this venous phase exam. Mild dilatation of the common bile duct is similar to prior exam. The gallbladder is not visualized. Splenomegaly is unchanged. Large perisplenic varices are again noted. No ascites is present. There is no evidence for a bowel obstruction. The adrenal glands, kidneys and pancreas are unremarkable. No hydronephrosis. There is no pancreatic ductal dilatation or. Pancreatic infiltration. The appendix is normal. No acute fracture or suspicious lesion is identified within visualized skeletal structures. The main, left and right portal veins are patent. IMPRESSION: 1. No acute process within the abdomen or pelvis. 2. Cirrhosis with manifestations of portal hypertension including splenomegaly and extensive varices formation. 3. No bowel obstruction. No bowel wall thickening. BILATERAL LOWER EXTREMITY VENOUS DOPPLER HISTORY: Acute pain and swelling of the lower legs b/l calf pain r/o DVT COMPARISON STUDY: Doppler study 05/30/2021 FINDINGS: There is normal compressibility, flow, and augmentation within the bilateral lower extremity deep venous systems. IMPRESSION: No DVT within the right or left lower extremity. Medications Administered ER Medications Given: NSS 500ml bolus x2 Lactulose 20g PO Cefepime 2000mg IV ECG Rate (beats per minute): 75 Rhythm: other (atrial ectopic rhythm) Comparison ECG Date: from (May 30, 2021) Change: the following changes noted (atrial ectopic rhythm replaced pacemaker) Code Status & VTE Plan Code Status Full VTE Prophylaxis Plan VTE Prophylaxis will be ordered: Yes PG Care Time/CCT Total # of Minutes Spent Total Time Spent with Patient: Total time spent is greater than 50% in coordination of care (as documented) at patient's floor/unit and/or counseling patient: Coding Level of Care Code 20254 Initial Inpt Care Lvl 3 Diagnoses Acute confusion R41.0 Elevated lactic acid level R79.89 Cirrhosis K74.60 MGUS (monoclonal gammopathy of unknown significance) D47.2 Hypothyroidism, postablative E89.0 Hypertension I10 Diabetes mellitus E11.9 Hepatic encephalopathy K72.90 Pancytopenia D61.818
[2021-06-27] MEDS ORDERED: OPTIRAY 320 125ml IV ONE (14:22)
[2021-06-27 14:46] LABS: Base Excess ABG -0.3 mEq/L (-9-1.8); HCO3 ABG 22 mmol/L (19-24); Oxygen Saturation ABG 98.5 % (90-95); PCO2 ABG 31 mmHg (35-46); PO2 ABG 114 mmHg (80-95); pH ABG 7.48 (7.35-7.45)
[2021-06-27 14:55] LABS: Allen Test Pos (Pos)
[2021-06-27] MEDS ORDERED: OPTIRAY 320 100ml IV ONE (14:58)
--- NOTE | 2021-06-27 15:18 | CT Scan Report ---
CT OF THE ABDOMEN AND PELVIS WITH CONTRAST CLINICAL HISTORY: Left upper quadrant pain on palpation r/o infectious etiology COMPARISON STUDY: CT of the abdomen and pelvis July 16, 2020. TECHNIQUE: Following IV administration of 94 mL of Optiray, axial images of the abdomen and pelvis we re obtained from the lung bases to the proximal femurs. Images were reviewed in the axial, sagittal, and coronal planes. IV contrast was administered without complication. Automated exposure control wa s utilized for the study. A dose lowering technique was utilized adhering to the principles of ALARA . CT DOSE: 1136.20 mGy.cm FINDINGS: Lung bases are unremarkable. No pneumatosis, free air or portal venous gas is present. The liver is cirrhotic. No hepatic lesions are identified although sensitivity for hypervascular lesions is diminished on this venous phase exam. Mild dilatation of the common bile duct is similar to prior exam. The gallbladder is not visualized. Splenomegaly is unchanged. Large perisplenic varices are aga in noted. No ascites is present. There is no evidence for a bowel obstruction. The adrenal glands, ki dneys and pancreas are unremarkable. No hydronephrosis. There is no pancreatic ductal dilatation or. Pancreatic infiltration. The appendix is normal. No acute fracture or suspicious lesion is identified within visualized skeletal structures. The main, left and right portal veins are patent. IMPRESSION: 1. No acute process within the abdomen or pelvis. 2. Cirrhosis with manifestations of portal hypertension including splenomegaly and extensive varices formation. 3. No bowel obstruction. No bowel wall thickening. ACT 112: Negative or not required by law. Electronically signed by: Migue Pendleton M.D. 06/27/2021 3:17 PM
--- NOTE | 2021-06-27 15:46 | Ultrasound Report ---
BILATERAL LOWER EXTREMITY VENOUS DOPPLER HISTORY: Acute pain and swelling of the lower legs b/l calf pain r/o DVT COMPARISON STUDY: Doppler study 05/30/2021 FINDINGS: There is normal compressibility, flow, and augmentation within the bilateral lower extremit y deep venous systems. IMPRESSION: No DVT within the right or left lower extremity. ACT 112: Negative or not required by law. Electronically signed by: Jareth Arana M.D. 06/27/2021 3:45 PM
[2021-06-27] MEDS ORDERED: ACETAMINOPHEN 325 MG TAB PO PRN (16:40)
[2021-06-27] MEDS ORDERED: BENZONATATE 100 MG CAPSULE PO PRN (19:00)
[2021-06-27] MEDS ORDERED: ZOLPIDEM TARTRATE 5 MG TAB PO PRN (19:00)
[2021-06-27] MEDS ORDERED: GLUCOSE 10 TABS/TUBE PO PRN (19:04)
[2021-06-27] MEDS ORDERED: GLUCOSE 40% GEL 15 GM TUBE PO PRN (19:04)
[2021-06-27] MEDS ORDERED: GLUCAGON FOR INJ 1 MG VIAL SQ PRN (19:04)
[2021-06-27] MEDS ORDERED: DEXTROSE 50% 50 ML SYRINGE IV PRN (19:04)
[2021-06-27] MEDS ORDERED: CARBOHYDRATES FOR HYPOGLYCEMIA PO PRN (19:04)
[2021-06-27] MEDS: PRAVASTATIN SOD 10 MG TAB PO SCH (20:59)
[2021-06-27] MEDS: INSULIN GLARGINE SOLOSTAR 100 UNITS/ML 3 ML PEN SC SCH (20:59)
[2021-06-27] MEDS: GABAPENTIN 300 MG CAP PO SCH (20:59)
[2021-06-27] MEDS: LACTULOSE SYRUP 20 GM/30 ML UDC PO SCH (20:59)
[2021-06-27] MEDS: INSULIN ASPART 100 UNITS/ML 3 ML PEN SC SCH (21:00)
[2021-06-28 02:31] LABS: Influenza A virus by PCR Negative (Negative); Influenza B virus by PCR Negative (Negative)
[2021-06-28] MEDS: LEVOTHYROXINE SODIUM 50 MCG TABLET PO SCH (06:10)
[2021-06-28] MEDS ORDERED: LEVOTHYROXINE SODIUM 100 MCG TABLET PO SCH ×2 (06:30→09:00)
[2021-06-28 07:41] LABS: Hematocrit (blood only) 34.5 % (37-47); Hemoglobin 11.5 g/dL (12.0-16.0); Mean Corpuscular Hemoglobin 31.4 pg (25-34); Mean Corpuscular Hgb Conc 33.3 g/dL (32-36); Mean Corpuscular Volume 94.3 fL (80-100); RDW Coefficient of Variation 15.4 % (11.5-14.5); RDW Standard Deviation 53.6 fL (36.4-46.3); Red Blood Count 3.66 M/uL (4.2-5.4); White Blood Count 2.75 K/uL (4.8-10.8)
[2021-06-28 07:59] LABS: Albumin Level 2.4 gm/dl (3.4-5.0); BUN Creatinine Ratio 14.2 (10-20); Calcium 8.5 mg/dl (8.5-10.1); Creatinine Clr Calc Pharmacy 74.1 ml/min; Est GFR (African American) 86.7 ml/min; Est GFR (Non-African American) 74.8 ml/min
[2021-06-28 08:03] LABS: Albumin Globulin Ratio 0.6 (0.9-2); Bilirubin,Total 1.1 mg/dl (0.2-1); Globulin 4.4 gm/dl (2.5-4.0); Total Protein 6.8 gm/dl (6.4-8.2)
[2021-06-28 08:05] LABS: Eosinophils # (auto) 0.07 K/uL (0-0.5); Eosinophils % (auto) 2.5 %; Lymphocytes # (auto) 0.83 K/uL (1.2-3.4); Lymphocytes % (auto) 30.2 %; Mean Platelet Volume 10.4 fL (7.4-10.4); Monocytes # (auto) 0.38 K/uL (0.11-0.59); Monocytes % (auto) 13.8 %; Neutrophils # (auto) 1.47 K/uL (1.4-6.5); Neutrophils % (auto) 53.5 %; Platelet Count 62 K/uL (130-400)
[2021-06-28] MEDS: CYANOCOBALAMIN 500 MCG TABLET (VITAMIN B-12) PO SCH (09:35)
[2021-06-28] MEDS: TOCOPHERYL, DL-ALPHA 400 UNITS 180 MG CAP PO SCH (09:35)
[2021-06-28] MEDS: MULTIVITAMIN TAB PO SCH (09:36)
[2021-06-28] MEDS: CHOLECALCIFEROL 1,000 UNITS 25 MCG TAB PO SCH (09:36)
[2021-06-28] MEDS: FERROUS SULFATE 325 MG TAB PO SCH (09:36)
[2021-06-28] MEDS: SPIRONOLACTONE 25 MG TAB PO SCH (09:36)
[2021-06-28] MEDS: LACTULOSE SYRUP 20 GM/30 ML UDC PO SCH ×3 (09:37→20:32)
[2021-06-28] MEDS: BUMETANIDE 1 MG TAB PO SCH (09:37)
[2021-06-28 09:38] LABS: Estimated Average Glucose 186 mg/dl; Hemoglobin A1C 8.1 % (4.5-5.6)
[2021-06-28] MEDS: INSULIN GLARGINE SOLOSTAR 100 UNITS/ML 3 ML PEN SC SCH ×2 (09:38→20:34)
[2021-06-28] MEDS: ZINC SULFATE 220 MG CAPSULE PO SCH (09:38)
[2021-06-28] MEDS: INSULIN ASPART 100 UNITS/ML 3 ML PEN SC SCH ×4 (09:39→20:34)
[2021-06-28] MEDS: rifAXIMin 550 MG TABLET PO SCH ×2 (09:43→20:32)
[2021-06-28] MEDS: ENOXAPARIN INJ 40 MG/0.4 ML SYR SQ SCH (09:43)
--- NOTE | 2021-06-28 13:25 | Hospitalist Progress Note ---
Date of Service June 28, 2021 Assessment & Plan (1) Acute confusion: Plan: - Suspect hepatic encephalopathy - no other etiology has been found -- She was seen in the ED approx 1 month ago due to fatigue/generalized weakness/headache and ammonia noted to be 80s at that time. states she only took about one dose of Lactulose as she doesn't like the taste. Reviewed previous hospitalization with ammonia of 150 which she was noted to have hepatic encephalopathy at the time but it was thought likely due to her bradycardia causing perfusion mismatch and maybe some hepatic congestion from that. -- Family also notes she has had progressive issues with memory over this past month. She normally is very detailed with her answers and talkative but the daughter noticed she give more yes/no and direct answers. Her also states yesterday he had an appointment at the wound clinic in [place] and she was going to go with him. She came downstairs to leave and was not wearing pants but she thought she was. When he told her she was not she went back upstairs and said she would change. She came back with shoes but again no pants. - She has chronic pancytopenia; No infectious etiology on CT A/P, CXR, UA; COVID negative; procalcitonin negative; urine tox negative - BCx - NGTD - ABG noted for very mild abnormality that suggest a respiratory alkalosis - possibly related to the liver disease? - Has not required Lactulose/Rifaximin in the past - Will continue Lactulose and monitor for bowel movements and trend ammonia (2) Hepatic encephalopathy: Plan: - Started Lactulose 20g TID - Started rifaximin 550mg BID (3) Cirrhosis: Plan: - 2/2 SHARMA - Follows with Dr. Leigh - F/U appointment for 05 July (4) Pancytopenia: Plan: - Related to underlying liver cirrhosis per prior hematology workup. (5) Elevated lactic acid level: Plan: - RESOLVED with IV fluids (6) MGUS (monoclonal gammopathy of unknown significance): Plan: - Stable IgM [place]. Followed by hematology (7) Hypothyroidism, postablative: Plan: - TSH 4.78, free T4 WNL - Continue usual levothyroxine dosing (8) Hypertension: Plan: - Currently well controlled. Continue her usual diuretic regimen with Bumex and spironolactone. (9) Diabetes mellitus: Plan: HbA1C 7.2 07/2020 but now 8.1- maybe elevating sugars playing a role - Hold metformin and glimepiride while inpatient and cover with SSI and Lantus Plan: VTE Prophylaxis - Lovenox 40mg SQ daily Diet - Low Na, T2DM Disposition - Requires ongoing monitoring as not at baseline mentation; discussed with who states home services may be beneficial and updated case management Admission and Anticipated Discharge Date Admission Date: June 27, 2021 Subjective Reports feeling fine today minus her memory. States she is having some hard times recalling information. She is alert and oriented to self, place, but wasn't sure of the date. HOwever, after being told it was Sunday the she was able to recall it. She also could recall her GI doctor is Dr. Leigh and she has an appointment on the . Confirmed with her she does have this appointment. She is slower to answer but if given enough time she is able to recall the information accurately. She only complains of L achilles discomfort but states this has been going on for a very long time and is not new or c hanged. Discussed with daughter Adenike who notes there has been a progressive change in her memory over a longer duration of time. She tends to be very detailed with conversations and she has noticed she gives shorter answers and more direct answers. She was seen in seen in the ED with an elevated ammonia and prescribed lactulose. states she probably has only taken it once as she does not like the taste. It appears she has not required this in the past. However, when hospitalized due to bradycardia she did have elevated ammonias which were thought possibly related to the low heart rates causing perfusion issues/hepatic congestion leading to the elevated ammonia which she did have some encephalopathy at that time. Review of Systems Review of Systems: All systems reviewed & are unremarkable except as noted in Subjective Physical Exam Physical Exam: PHYSICAL EXAM General Appearance: WDWN in NAD who is A&O x 2 (did not know the day/date but was able to recall this later after being told) HEENT: Head is normocephalic/atraumatic; Hearing grossly intact; Mucous membranes moist Neck: Supple; Trachea midline; Neg JVD Heart: RRR with no M/G/R Lungs: CTA in all lung fay bilaterally; Respirations unlabored; Neg accessory muscle use Abdomen: Soft, non-tender, non-distended; Positive BS x 4 quadrants Extremities: Neg cyanosis or edema Neurological: Speech clear but responses are delayed but appropriate; Gross motor/sensory function intact; Neg focal neurologic deficits Psychiatric: Appropriate mood/affect Skin: Normal Color; Warm/Dry Results & Data Results & Data ([facility]) Vital Signs (Past 12 Hours) Vital Signs Temp Pulse Resp BP Pulse Ox 06/28/21 06:22 36.8 C 72 16 138/70 97 PG Care Time/CCT Total # of Minutes Spent Total Time Spent with Patient: Total time spent is greater than 50% in coordination of care (as documented) at patient's floor/unit and/or counseling patient: Coding Level of Care Code 83524 Subseq Hosp Care Lvl 3 Diagnoses Acute confusion R41.0 Hepatic encephalopathy K72.90 Cirrhosis K74.60 Pancytopenia D61.818 Elevated lactic acid level R79.89 MGUS (monoclonal gammopathy of unknown significance) D47.2 Hypothyroidism, postablative E89.0 Hypertension I10 Diabetes mellitus E11.9
[2021-06-28] MEDS: PRAVASTATIN SOD 10 MG TAB PO SCH (20:32)
[2021-06-28] MEDS: GABAPENTIN 300 MG CAP PO SCH (21:23)
[2021-06-29] MEDS: LEVOTHYROXINE SODIUM 100 MCG TABLET PO SCH (06:10)
--- NOTE | 2021-06-29 06:24 | Electrocardiogram Report ---
Test Reason : Blood Pressure : / mmHG Vent. Rate : 075 BPM Atrial Rate : 075 BPM P-R Int : 174 ms QRS Dur : 094 ms QT Int : 410 ms P-R-T Axes : 267 -18 051 degrees QTc Int : 457 ms Unusual P axis, possible ectopic atrial rhythm Abnormal ECG When compared with ECG of 30-MAY-2021 18:18, Ectopic atrial rhythm has replaced Electronic atrial pacemaker Confirmed by Helder Lo ([id number] on 06/29/2021 6:24:19 AM Referred By: REFERRED SELF Confirmed By:Helder Lo
[2021-06-29 07:02] LABS: Albumin Level 2.5 gm/dl (3.4-5.0); BUN Creatinine Ratio 15.4 (10-20); Calcium 8.8 mg/dl (8.5-10.1); Creatinine Clr Calc Pharmacy 71.4 ml/min; Est GFR (African American) 82.9 ml/min; Est GFR (Non-African American) 71.5 ml/min; Potassium 3.8 mmol/L (3.5-5.1)
[2021-06-29 07:04] LABS: Albumin Globulin Ratio 0.5 (0.9-2); Bilirubin,Total 1.2 mg/dl (0.2-1); Globulin 4.7 gm/dl (2.5-4.0); Total Protein 7.2 gm/dl (6.4-8.2)
[2021-06-29] MEDS: TOCOPHERYL, DL-ALPHA 400 UNITS 180 MG CAP PO SCH (08:37)
[2021-06-29] MEDS: rifAXIMin 550 MG TABLET PO SCH ×2 (08:37→21:37)
[2021-06-29] MEDS: FERROUS SULFATE 325 MG TAB PO SCH (08:37)
[2021-06-29] MEDS: ZINC SULFATE 220 MG CAPSULE PO SCH (08:37)
[2021-06-29] MEDS: MULTIVITAMIN TAB PO SCH (08:37)
[2021-06-29] MEDS: BUMETANIDE 1 MG TAB PO SCH (08:37)
[2021-06-29] MEDS: SPIRONOLACTONE 25 MG TAB PO SCH (08:37)
[2021-06-29] MEDS: CYANOCOBALAMIN 500 MCG TABLET (VITAMIN B-12) PO SCH (08:37)
[2021-06-29] MEDS: CHOLECALCIFEROL 1,000 UNITS 25 MCG TAB PO SCH (08:38)
[2021-06-29] MEDS: LACTULOSE SYRUP 20 GM/30 ML UDC PO SCH ×3 (08:38→21:36)
[2021-06-29] MEDS: ENOXAPARIN INJ 40 MG/0.4 ML SYR SQ SCH (08:39)
[2021-06-29] MEDS: INSULIN GLARGINE SOLOSTAR 100 UNITS/ML 3 ML PEN SC SCH ×2 (09:40→21:37)
[2021-06-29] MEDS: INSULIN ASPART 100 UNITS/ML 3 ML PEN SC SCH ×4 (09:40→21:38)
--- NOTE | 2021-06-29 16:16 | Hospitalist Progress Note ---
Date of Service June 29, 2021 Assessment & Plan (1) Acute confusion: Plan: - Suspect hepatic encephalopathy - no other etiology has been found -- She was seen in the ED approx 1 month ago due to fatigue/generalized weakness/headache and ammonia noted to be 80s at that time. states she only took about one dose of Lactulose as she doesn't like the taste. Reviewed previous hospitalization with ammonia of 150 which she was noted to have hepatic encephalopathy at the time but it was thought likely due to her bradycardia causing perfusion mismatch and maybe some hepatic congestion from that. -- Family also notes she has had progressive issues with memory over this past month. She normally is very detailed with her answers and talkative but the daughter noticed she give more yes/no and direct answers. Her also states on day of admission he had an appointment at the wound clinic in [place] and she was going to go with him. She came downstairs to leave and was not wearing pants but she thought she was. When he told her she was not she went back upstairs and said she would change. She came back with shoes but again no pants. - Mentation is much improved today. More conversant but still fatigued - ammonia improved to 60 and continues with the lactulose - She has chronic pancytopenia; No infectious etiology on CT A/P, CXR, UA; COVID negative; procalcitonin negative; urine tox negative - BCx - NGTD - ABG noted for very mild abnormality that suggest a respiratory alkalosis - possibly related to the liver disease? - Has not required Lactulose/Rifaximin in the past - Will continue Lactulose and monitor for bowel movements and trend ammonia (2) Hepatic encephalopathy: Plan: - Started Lactulose 20g TID - Started rifaximin 550mg BID (3) Cirrhosis: Plan: - 2/2 SHARMA - Follows with Dr. Leigh - F/U appointment for 05 July (4) Pancytopenia: Plan: - Related to underlying liver cirrhosis per prior hematology workup. (5) Elevated lactic acid level: Plan: - RESOLVED with IV fluids (6) MGUS (monoclonal gammopathy of unknown significance): Plan: - Stable IgM [place]. Followed by hematology (7) Hypothyroidism, postablative: Plan: - TSH 4.78, free T4 WNL - Continue usual levothyroxine dosing (8) Hypertension: Plan: - Currently well controlled. Continue her usual diuretic regimen with Bumex and spironolactone. (9) Diabetes mellitus: Plan: HbA1C 7.2 07/2020 but now 8.1 - Some higher BSGs this afternoon - was conservative with coverage initially due to confusion and uncertainty of how much she would eat - tightened scale - Hold metformin and glimepiride while inpatient and cover with SSI and Lantus Plan: VTE Prophylaxis - Lovenox 40mg SQ daily Diet - Low Na, T2DM Disposition - Mentation improved but still with fatigue - will continue current plan and monitor ammonia tomorrow - if back to baseline could consider D/C home tomorrow; no other obvious source of confusion found at this time; discussed with who states home services may be beneficial - they plan to start on Sunday Admission and Anticipated Discharge Date Admission Date: June 27, 2021 Subjective Reports overall feeling well just fatigued today. Able to converse much easier and not delayed with responding to questions. However is still fatigued. Her recall is very good and was able to remember Dr. Galindo from when she had in a few years ago when he stopped in to see her. Review of Systems Review of Systems: All systems reviewed & are unremarkable except as noted in Subjective Physical Exam Physical Exam: PHYSICAL EXAM General Appearance: WDWN in NAD who is A&O x 3 HEENT: Head is normocephalic/atraumatic; Hearing grossly intact; Mucous membranes moist Neck: Supple; Trachea midline; Neg JVD Heart: RRR with no M/G/R Lungs: CTA in all lung fay bilaterally; Respirations unlabored; Neg accessory muscle use Abdomen: Soft, non-tender, non-distended; Positive BS x 4 quadrants Extremities: Neg cyanosis or edema Neurological: Speech clear but responses are delayed but appropriate; Gross motor/sensory function intact; Neg focal neurologic deficits Psychiatric: Appropriate mood/affect Skin: Normal Color; Warm/Dry Results & Data Results & Data ([facility]) Vital Signs (Past 12 Hours) Vital Signs Temp Pulse Resp BP Pulse Ox 06/29/21 15:52 36.9 C 76 18 117/66 97 06/29/21 08:02 36.9 C 77 18 126/54 L 94 PG Care Time/CCT Total # of Minutes Spent Total Time Spent with Patient: Total time spent is greater than 50% in coordination of care (as documented) at patient's floor/unit and/or counseling patient: Coding Level of Care Code 23556 Subseq Hosp Care Lvl 3 Diagnoses Acute confusion R41.0 Hepatic encephalopathy K72.90 Cirrhosis K74.60 Pancytopenia D61.818 Elevated lactic acid level R79.89 MGUS (monoclonal gammopathy of unknown significance) D47.2 Hypothyroidism, postablative E89.0 Hypertension I10 Diabetes mellitus E11.9
[2021-06-29] MEDS: PRAVASTATIN SOD 10 MG TAB PO SCH (21:36)
[2021-06-29] MEDS: GABAPENTIN 300 MG CAP PO SCH (21:36)
[2021-06-29] MEDS: ONDANSETRON INJ 2 MG/ML 2 ML VIAL IV PRN (23:54)
[2021-06-30] MEDS: LEVOTHYROXINE SODIUM 50 MCG TABLET PO SCH (05:47)
[2021-06-30 07:22] LABS: Hematocrit (blood only) 36.5 % (37-47); Hemoglobin 12.4 g/dL (12.0-16.0); Mean Corpuscular Hemoglobin 31.6 pg (25-34); Mean Corpuscular Volume 92.9 fL (80-100); RDW Standard Deviation 51.5 fL (36.4-46.3); Red Blood Count 3.93 M/uL (4.2-5.4); White Blood Count 4.51 K/uL (4.8-10.8)
[2021-06-30 07:23] LABS: Mean Platelet Volume 9.4 fL (7.4-10.4); Platelet Count 62 K/uL (130-400)
[2021-06-30] MEDS: FERROUS SULFATE 325 MG TAB PO SCH (08:28)
[2021-06-30] MEDS: SPIRONOLACTONE 25 MG TAB PO SCH (08:29)
[2021-06-30] MEDS: BUMETANIDE 1 MG TAB PO SCH (08:29)
[2021-06-30] MEDS: ZINC SULFATE 220 MG CAPSULE PO SCH (08:29)
[2021-06-30] MEDS: CYANOCOBALAMIN 500 MCG TABLET (VITAMIN B-12) PO SCH (08:29)
[2021-06-30] MEDS: LACTULOSE SYRUP 20 GM/30 ML UDC PO SCH (08:29)
[2021-06-30] MEDS: CHOLECALCIFEROL 1,000 UNITS 25 MCG TAB PO SCH (08:29)
[2021-06-30] MEDS: ENOXAPARIN INJ 40 MG/0.4 ML SYR SQ SCH (08:29)
[2021-06-30] MEDS: MULTIVITAMIN TAB PO SCH (08:29)
[2021-06-30] MEDS: rifAXIMin 550 MG TABLET PO SCH ×2 (08:29→21:17)
[2021-06-30 08:33] LABS: BUN Creatinine Ratio 16.4 (10-20); Calcium 9.1 mg/dl (8.5-10.1); Creatinine Clr Calc Pharmacy 63.6 ml/min; Est GFR (African American) 72.1 ml/min; Est GFR (Non-African American) 62.2 ml/min; Potassium 4.2 mmol/L (3.5-5.1)
[2021-06-30] MEDS: INSULIN ASPART 100 UNITS/ML 3 ML PEN SC SCH ×4 (08:41→21:17)
[2021-06-30] MEDS: INSULIN GLARGINE SOLOSTAR 100 UNITS/ML 3 ML PEN SC SCH ×2 (08:41→21:17)
[2021-06-30] MEDS ORDERED: INSULIN ASPART PER SC STA (12:59)
[2021-06-30] MEDS: TOCOPHERYL, DL-ALPHA 400 UNITS 180 MG CAP PO SCH (13:01)
[2021-06-30] MEDS: LACTULOSE SYRUP 30 GM/45 ML UDP PO SCH ×11 (13:37→22:08)
--- NOTE | 2021-06-30 15:34 | Hospitalist Progress Note ---
Date of Service June 30, 2021 Assessment & Plan (1) Acute hepatic encephalopathy: Plan: Hospitalized on 06/27 with acute on chronic hepatic encephalopathy Presented to the ED with increased confusion and lethargy. Found to have an ammonia level of 81 Prescribed lactulose 20 g 3 times daily but reports only taking it twice a day Has underlying SHARMA Hospitalized and treated with lactulose 20 g 3 times daily but patient not responding to this. She has only had 1 BM since admission. Her Ammonia level remains elevated at 81 She is answering questions appropriately but seems very fatigued with intermittent periods of confusion Lengthy discussion with patient regarding the importance of medical compliance and why she needs to take this medication. Our goal is 2-3 BMs a day Will provide lactulose 30 g every hour until rapid defecation and then 30 g 3 times a day Patient has been started on Xifaxan since admission but unfortunately, I feel that insurance coverage for this medication will be an issue. Likely will need a prior authorization (2) Thrombocytopenia: Plan: Chronic and likely related to her SHARMA History of elevated INR but not repeated during this hospitalization. Will update this Noted to be on Lovenox for DVT prophylaxis. We will stop this as patient auto anticoagulated in the past (3) Nonalcoholic steatohepatitis (SHARMA): Plan: Seen by GI in the past Her GI has since retired but has an upcoming appointment next week (with Dr. Leigh) to establish care (4) Type 2 diabetes mellitus: Plan: Continue Lantus/log Provide additional log for correction dosing (5) Hypothyroidism (acquired): Plan: Continue Synthroid (6) Hyperlipidemia: Plan: - on Pravachol routine but with underlying liver disease, not sure that the benefit of this medication outweighs the risk at this point. - no h/o CAD. Plan: plan of care D/W Dr. Galindo Admission and Anticipated Discharge Date Admission Date: June 27, 2021 Subjective Patient seen on daily rounds today. Hospitalized 06/27 with acute on chronic hepatic encephalopathy. Ammonia level was 81. Is prescribed lactulose 20 g 3 times daily at home but reports that she only takes it twice a day. Was hopeful for discharge yesterday but was overly somnolent. Currently being treated with lactulose 20 g 3 times daily. Patient has only had 1 BM since hospitalization. She is awake and alert. She denies fevers, chills, chest pain, shortness of breath, abdominal pain, nausea or vomiting. Review of Systems Review of Systems: All systems reviewed and are unremarkable except as noted in HPI and below Denies fevers, chills, headache, nasal congestion, sore throat, cough, chest pain, shortness of breath, palpitations, orthopnea, PND, abdominal pain, nausea, vomiting, diarrhea, constipation, dysuria, hematuria, frequency, back pain, joint pain or swelling, easy bruising or bleeding, skin lesions or rashes. Physical Exam Physical Exam: General: Resting comfortably in her hospital bed. NAD. HEENT: Head is AT/NC buccal mucosa is moist and pink Neck: No JVD. Negative hepatojugular reflex Cardiac: RRR with 1/6 EUSE[place] Lungs: CTA without W/R/R Abdomen: Normoactive X4. Soft and nontender in all quadrants. Extremities: No peripheral clubbing cyanosis or edema Neuro: A&O X4 cranial nerves II through XII are grossly intact no focal neuro deficits Skin: No obvious skin lesions or rashes Psych: Appropriate affect pleasant and cooperative Results & Data Results & Data ([facility]) Vital Signs (Past 12 Hours) Vital Signs Temp Pulse Resp BP Pulse Ox 06/30/21 07:50 36.7 C 73 18 113/60 96 PG Care Time/CCT Total # of Minutes Spent Total Time Spent with Patient: Total time spent is greater than 50% in coordination of care (as documented) at patient's floor/unit and/or counseling patient: Coding Level of Care Code 17071 Subseq Hosp Care Lvl 2 Diagnoses Acute hepatic encephalopathy K72.00 Thrombocytopenia D69.6 Nonalcoholic steatohepatitis (SHARMA) K75.81 Type 2 diabetes mellitus E11.9 Hypothyroidism (acquired) E03.9 Hyperlipidemia E78.5
[2021-06-30] MEDS: ONDANSETRON INJ 2 MG/ML 2 ML VIAL IV PRN (19:08)
[2021-06-30] MEDS: GABAPENTIN 300 MG CAP PO SCH (21:16)
[2021-06-30] MEDS ORDERED: CONSULT PHARMACY STA (22:25)
[2021-07-01] MEDS: LEVOTHYROXINE SODIUM 100 MCG TABLET PO SCH (06:03)
[2021-07-01 06:59] LABS: Hematocrit (blood only) 37.9 % (37-47); Hemoglobin 13.5 g/dL (12.0-16.0); Mean Corpuscular Hemoglobin 33.2 pg (25-34); Mean Corpuscular Hgb Conc 35.6 g/dL (32-36); Mean Corpuscular Volume 93.1 fL (80-100); RDW Coefficient of Variation 14.8 % (11.5-14.5); RDW Standard Deviation 50.2 fL (36.4-46.3); Red Blood Count 4.07 M/uL (4.2-5.4); White Blood Count 4.44 K/uL (4.8-10.8)
[2021-07-01 07:01] LABS: Mean Platelet Volume 10.8 fL (7.4-10.4); Platelet Count 72 K/uL (130-400)
[2021-07-01 07:15] LABS: INR 1.2 (0.9-1.1); Prothrombin Time 12.1 Seconds (9.0-12.0)
[2021-07-01 07:29] LABS: Albumin Level 2.7 gm/dl (3.4-5.0); BUN Creatinine Ratio 14.5 (10-20); Calcium 9.2 mg/dl (8.5-10.1); Creatinine Clr Calc Pharmacy 50.9 ml/min; Est GFR (Non-African American) 47.5 ml/min; Potassium 3.9 mmol/L (3.5-5.1)
[2021-07-01 07:31] LABS: Albumin Globulin Ratio 0.5 (0.9-2); Bilirubin,Total 1.4 mg/dl (0.2-1); Globulin 5.1 gm/dl (2.5-4.0); Total Protein 7.8 gm/dl (6.4-8.2)
[2021-07-01] MEDS: BUMETANIDE 1 MG TAB PO SCH (09:11)
[2021-07-01] MEDS: TOCOPHERYL, DL-ALPHA 400 UNITS 180 MG CAP PO SCH (09:12)
[2021-07-01] MEDS: MULTIVITAMIN TAB PO SCH (09:12)
[2021-07-01] MEDS: rifAXIMin 550 MG TABLET PO SCH (09:12)
[2021-07-01] MEDS: SPIRONOLACTONE 25 MG TAB PO SCH (09:12)
[2021-07-01] MEDS: ZINC SULFATE 220 MG CAPSULE PO SCH (09:12)
[2021-07-01] MEDS: FERROUS SULFATE 325 MG TAB PO SCH (09:12)
[2021-07-01] MEDS: CHOLECALCIFEROL 1,000 UNITS 25 MCG TAB PO SCH (09:12)
[2021-07-01] MEDS: CYANOCOBALAMIN 500 MCG TABLET (VITAMIN B-12) PO SCH (09:12)
[2021-07-01] MEDS: INSULIN GLARGINE SOLOSTAR 100 UNITS/ML 3 ML PEN SC SCH (09:15)
[2021-07-01] MEDS: INSULIN ASPART 100 UNITS/ML 3 ML PEN SC SCH ×2 (09:16→13:53)
[2021-07-01] MEDS: LACTULOSE SYRUP 30 GM/45 ML UDP PO SCH ×2 (10:26→13:27)
--- NOTE | 2021-07-01 16:47 | Discharge Summary ---
Date of Service July 01, 2021 Admission HPI Per Admitting Provider History of Present Illness Chief Complaint: Generalized confusion and lethargy Primary Care Provider: Landen Shah MD Alma Nolen is a 70 year old female who presents to the ER with acute confusion and lethargy. History is limited due to patient confusion. No family members present at bedside and no answer by on number provided on EHR. She reports not feeling herself starting yesterday. Reports having a fever that started today. She notes chest and abdominal pain but cannot give me much of history of this. Mainly RUQ pain but on palpation she reports LUQ. No one sided weakness, change in speech, hearing or vision. Feels generally slow and confused. No headache, nasal congestion, sinus pain, cough, diarrhea, melena, nausea, vomiting, bright red blood in stool. On review of recent records she was recently treated with azithromycin for bronchitis 1 week ago after 3 weeks of cold symptoms. SARS-COV-2 PCR negative in the ER. In the ER CT head showed no intracranial abnormality, urine toxicology negative, CXR with possible mild pulmonary edema / viral pneumonia, lactate level 3.2, she is chronically leukopenic and thrombocytopenic at baseline, TSH 4.78, Procalcitonin 0.13, Ammonia level elevated 81.3 umol/L although has been similar levels over the last two years without requiring inpatient admissions. She was given cefepime for possible infective cause of her acute confusion however no source subsequently identified on CXR or UA Principal Diagnosis 1. Acute Hepatic Encephalopathy Discharge Exam General: Resting comfortably in her hospital bed. NAD. HEENT: Head is AT/NC buccal mucosa is moist and pink Neck: No JVD. Negative hepatojugular reflex Cardiac: RRR with 1/6 EUSEBIO Lungs: CTA without W/R/R Abdomen: Normoactive X4. Soft and nontender in all quadrants. Extremities: No peripheral clubbing cyanosis or edema Neuro: A&O X4 cranial nerves II through XII are grossly intact no focal neuro deficits Skin: No obvious skin lesions or rashes Psych: Appropriate affect pleasant and cooperative Discharge Data Allergies Allergy/AdvReac Type Severity Reaction Status Date / Time No Known Drug Allergies Allergy Verified 06/13/21 14:50 Consultations 06/27/21 12:15 ED Decision to Admit Stat Ordered Studies 06/27/21 09:36 CT head/brain wo con Stat IMPRESSION: No acute intracranial abnormality. 06/27/21 14:09 US venous doppler LE BI Stat IMPRESSION: No DVT within the right or left lower extremity. 06/27/21 14:12 CT abd pelvis IV con only Stat IMPRESSION: 1. No acute process within the abdomen or pelvis. 2. Cirrhosis with manifestations of portal hypertension including splenomegaly and extensive varices formation. 3. No bowel obstruction. No bowel wall thickening. Hospital Course (1) Acute hepatic encephalopathy: Hospitalized on 06/27 with acute on chronic hepatic encephalopathy Presented to the ED with increased confusion and lethargy. Found to have an ammonia level of 81 Prescribed lactulose 20 g 3 times daily but reports only taking it twice a day Has underlying SHARMA Hospitalized and treated with lactulose 20 g 3 times daily but patient not res ponding to this. She had only had 1 BM since admission. Her Ammonia level remained elevated at 81 and she remained excessively somnolent Lengthy discussion with patient regarding the importance of medical compliance and why she needs to take this medication. Our goal is 2-3 BMs a day given lactulose 30 g every hour until rapid defecation and then 30 g 3 times a day (45mL or 9 tsp TID) Patient has been started on Xifaxan since admission but unfortunately, I feel that insurance coverage for this medication will be an issue. Likely will need a prior authorization. can hold off for now and just use the lactulose as increased dose Follow-up with GI on Sunday as scheduled (2) Thrombocytopenia: Chronic and likely related to her SHARMA Is slightly auto anticoagulated (INR 1.5) Initially given Lovenox for DVT prophylaxis however this was subsequently stopped given her thrombocytopenia and auto anticoagulation (3) Nonalcoholic steatohepatitis (SHARMA): Seen by GI in the past Her GI has since retired but has an upcoming appointment next week (with Dr. Leigh) to establish care (4) Type 2 diabetes mellitus: Continue Lantus/log Provided additional log for correction dosing while in house (5) Hypothyroidism (acquired): Continue Synthroid (6) Hyperlipidemia: - on Pravachol routine but with underlying liver disease, not sure that the benefit of this medication outweighs the risk at this point. - no h/o CAD. - statin stopped plan of care D/W [facility] I certify that this patient is under my care and that I, or a physicians molding line assistant working with me, had a face to-face encounter that meets the home health [id number] encounter requirements with this patient. The encounter with the patient was in whole, or in part, for the following medical condition, which is the primary reason for home health care (list medical condition): I certify that, based on my findings, the following services are medically necessary home health services: My clinical findings support the need for the above services because: Skilled Nsg Assessment Further, I certify that my clinical findings support that this patient is homebound (i.e. absences from home require considerable and taxing effort and are for medical reasons or orthodoxy services or infrequently or of short duration when for other reasons) because: Certification for Home Health Services: Based on the above findings, I certify that this patient is confined to the home and needs intermittent jail care, physical therapy and/or speech therapy or continues to need occupational therapy. The patient is under my care, and I have initiated the establishment of the plan of care. This patient will be followed by a physician who will periodically review the plan of care. Total Time Total Time Spent Total Time Spent (In Minutes): 60 min including time spent with patient discussing importance of compliance, discussing with attending, and preparation of documentation Discharge Plan Discharge Items Patient Disposition: Home - Home Health Services Reason For Visit: ACUTE CONFUSION Discharge Diagnosis: 1. Hepatic Encephalopathy- (confusion from elevated ammonia level due to underlying liver disease) 2. Thrombocytopenia (low platelet count- due to liver disease) Activity: Resume your previous activity Non-emergency contact: Primary Care Provider and [employer] Call non-emergency contact if: you have any medication questions, your symptoms worsen and you have a fever Follow-up/Referrals: Landen Shah MD [Primary Care Provider] - 07/07/21 11:00 am Diet: Carb Consistent or DM2 Addtl Attending Provider Instructions: Confusion: - You were admitted due to confusion and having memory issues. You have had multiple tests completed in the hospital that was unremarkable. CAT scan of the head did not reveal any strokes. There is no signs of infection. - Your ammonia level was 80 on admission and now down to 39 (normal is < 30). When you have liver issues it is not uncommon to have a slightly elevated ammonia but when it gets too high it can cause confusion, fatigue, etc. - as discussed, IT IS IMPERATIVE TO TAKE THE LACTULOSE PRESCRIBED!!! (this has been increased to 30GM- 40mL or 9 tsp, to be taken 3x/day) - goal is for you to be moving your bowels 2-3x/day! - Sometimes taking it with flavored drinks can help mask some of the taste. -- Lactulose without having a bowel movement will not fix the ammonia level. You must be moving the bowels in order for it to remove from your body. - You may also need an additional medication- called Rifaximin. This is a medication that can help prevent high ammonia levels as well; however, is often not covered by the insurance company and require a prior authorization - would advise taking the lactulose as prescribed to see if this helps. If not, then would talk with GI about addition of the Rifaximin - keep appt with Dr. Leigh as scheduled (Sunday) Home Medications: - I have stopped your Pravachol (as this medication is metabolized through the liver and with your underlying liver disease, I do not feel that the benefit outweighs the risk any longer) Pending Studies at Discharge: No Stand-Alone Forms: [facility] Medications and DC Order Prescriptions: New lactulose 10 gram/15 mL solution 45 ml PO TID Qty: 946 RF: 0 Continued (DME) blood sugar diagnostic [OneTouch Ultra Blue Test Strip] Strip See Rx Instructions .ROUTE .MEDSUPPLY Qty: 300 RF: 3 (DME) blood-glucose meter [OneTouch Ultra2 Meter] Misc See Rx Instructions .ROUTE .MEDSUPPLY Qty: 1 RF: 0 levothyroxine 100 mcg tablet See Rx Instructions PO QAM RF: 0 gabapentin 300 mg capsule 300 mg PO HS Qty: 90 RF: 3 metformin 1,000 mg tablet 1,000 mg PO BID RF: 0 benzonatate 100 mg capsule 100 mg PO TID PRN (Reason: cough) Qty: 30 RF: 0 ondansetron HCl 4 mg tablet 4 mg PO Q8H PRN (Reason: nausea and vomiting) Qty: 30 RF: 1 zinc acetate 50 mg (zinc) capsule 50 mg PO QAM RF: 0 Lantus U-100 Insulin 100 unit/mL solution See Rx Instructions SUBCUT HS RF: 0 multivitamin [Multiple Vitamins] tablet 1 tab PO QAM RF: 0 cholecalciferol (vitamin D3) 1,000 unit capsule 1,000 units PO QAM RF: 0 cyanocobalamin (vitamin B-12) 1,000 mcg tablet 1,000 mcg PO QAM RF: 0 zolpidem 5 mg tablet 5 mg PO HS PRN (Reason: insomnia) Qty: 30 RF: 0 bumetanide 1 mg Tablet 1 mg PO QAM RF: 0 spironolactone 50 mg Tablet 50 mg PO QAM RF: 0 ferrous sulfate 325 mg (65 mg iron) Tablet,Delayed Release (Dr/Ec) 325 mg PO QAM RF: 0 vitamin E 400 unit Capsule 400 unit PO QAM RF: 0 glimepiride 1 mg tablet 0.5 mg PO DAILY RF: 0 Macular Health Formula 5-1-7.5 mg Capsule 1 cap PO DAILY RF: 0 Discontinued azithromycin 250 mg tablet See Rx Instructions PO .COMPLEX Qty: 6 RF: 0 pravastatin 10 mg tablet 10 mg PO HS RF: 0 lactulose 20 gram/30 mL solution 20 g PO TID Qty: 1500 RF: 0 Discharge Orders: Discharge Order (Routine); Ordered 07/01/21 Ordered By: Trina Goodman/Other Patient Handouts: A1C, Hepatic Encephalopathy, Managing Type 2 Diabetes Admission Data Admit Date/Time: 06/27/21 14:18 Attending Provider: Jemal Galindo Admit Provider: Yony Contreras Primary Care Provider: Landen Shah Other Providers: Yony Contreras Other Interventions: Discharge Summary Assessment (RN) Last Done: 07/01/21 13:32 Coding Level of Care Code D/C DAY MANAGEMENT >30 MINS Diagnoses Acute hepatic encephalopathy K72.00 Thrombocytopenia D69.6 Nonalcoholic steatohepatitis (SHARMA) K75.81 Type 2 diabetes mellitus E11.9 Hypothyroidism (acquired) E03.9 Hyperlipidemia E78.5
== END 2021-07-01 14:45 | disposition home health service (06) | DRG 442 ==
LOC: ED 09:10 → 3W 14:18 → SUATTDRO 14:18 → 3W 16:23

== ENCOUNTER 2022-10-27 12:45 | Inpatient (IN) ==
[2022-10-27 15:21] LABS: Albumin Globulin Ratio 0.8 (0.9-2); Albumin Level 3.2 gm/dl (3.4-5.0); BUN Creatinine Ratio 17.9 (10-20); Bilirubin,Total 3.3 mg/dl (0.2-1.0); Calcium 9.2 mg/dl (8.6-10.3); Est GFR (African American) 87.4 ml/min; Est GFR (Non-African American) 75.4 ml/min; Globulin 3.9 gm/dl (2.5-4.0); Potassium 4.3 mmol/L (3.5-5.1); Total Protein 7.1 gm/dl (6.0-8.3)
--- NOTE | 2022-10-27 16:36 | Emergency Department Note ---
Impression & Plan Abdominal pain, RUQ, Transaminitis, Hyperbilirubinemia ED Provider Note INFORMANT: Patient ED PROVIDER(S): Narciso Merrill DO CHIEF COMPLAINT: Right upper quadrant abdominal pain PLAN: Disposition: Admission Outpatient prescription management: none Discussion with: The radiologist at [facility], Dr. Stanley. I spoke with the hospitalist, who will see the patient for admission/observation and further evaluation and consultation. MEDICAL DECISION MAKING: This is a 71-year-old female who presents to the ED with a chief complaint of right upper quadrant abdominal pain. The patient states that she had some lesions on her liver. She was at [facility] on Sunday and had a chemoembolization. She states that starting yesterday she developed a sharp constant pain in the right upper quadrant. Denies any nausea, vomiting or diarrhea. The symptoms are worse with laying down and with breathing in. She does report a history of Wang and cirrhosis. The patient's exam reveals tenderness in the right upper quadrant. Exam was otherwise unremarkable. Her laboratory studies show a glucose of 282. She has a transaminitis with an AST of 434 and ALT of 334. Bilirubin is 3.3. She has no jaundice on my exam. Lipase was negative. Patient reports history of cholecystectomy. I did speak with the radiologist from [facility] who did the procedure. 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 She did recommend a triple phase scan of the liver, however, the CT scan was already performed with IV contrast prior to me speaking with her. She felt that the elevated bilirubin was somewhat abnormal. CT scan of the abdomen pelvis just shows cirrhosis and post chemoembolization appearance of the liver. Because of the patient's pain and abnormal test results, I spoke with the hospitalist about observation to monitor the patient's symptoms and laboratory studies. Dr. Stanley states that she would be available as she is on-call this weekend if any questions arise with regards to the procedure. Triage Nursing notes reviewed. Vital Signs: reviewed Prior /Outside records reviewed: Endocrine note from 06/10/2020 shows papillary thyroid cancer status post thyroidectomy in 2011. Type 2 diabetes. Nonalcoholic fatty liver disease. Cirrhosis. Differential diagnosis: Hepatitis, biliary obstruction, trauma, pancreatitis, electrolyte abnormality, other Diagnostics, as interpreted by me: 12 lead ECG: none Cardiac Monitoring ordered: Sinus rhythm in the 70s for Medical decision rules: none Imaging studies: CT scan of the abdomen pelvis: No intra-abdominal hemorrhage Procedures: none. Critical care: none. HPI: See MDM above. PAST MEDICAL HISTORY: See Below PAST SURGICAL HISTORY: See Below SOCIAL HISTORY: See Below HOME MEDICATIONS: See Below ALLERGIES: See Below VITALS: See Below PHYSICAL EXAMINATION: See MDM for positive findings otherwise unremarkable. CONSTITUTIONAL/VITAL SIGNS: Reviewed GENERAL:done as appropriate INTEGUMENTARY: done as appropriate HEAD: done as appropriate EYES: done as appropriate RESPIRATORY: done as appropriate CARDIOVASCULAR:done as appropriate GI/ABDOMEN:done as appropriate EXTREMITIES: done as appropriate NEUROLOGICAL: done as appropriate PSYCHIATRIC:done as appropriate MUSCULOSKELETAL:done as appropriate TRIAGE NURSING DOCUMENTATION REVIEWED. 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 Following with Dr. Ontiveros. Some ascites; has been on Bumex and spironolactone. Diabetes mellitus, type 2 IDDM Elevated lactic acid level Esophageal varices GI managing H/O malignant neoplasm of thyroid s/p radiation and thyroidectomy Hepatic encephalopathy History of COVID-19 Jun 08, 2022 > tested at [facility] site [place] > took treatment for 5 days, resolved per pt diagnosed 09/15/20 at [facility] through free testing through [facility] in [place]--chills, headache, diarrhea, fatigue History of vitamin D deficiency Hyperammonemia Hyperlipidemia Hypothyroidism Osteoarthritis Pacemaker For symptomatic bradycardia. Medtr[employer]. Most recent interrogation 06/26/22 > follows with Dr. Jarrett Peripheral neuropathy Symptomatic bradycardia s/p PPM Thrombocytopenia Baseline ranges 60-100k per record review. Surgical History History of brain surgery CHIARI MALFORMATION History of cholecystectomy History of colonoscopy with polypectomy History of endoscopic sinus surgery x2 History of esophagogastroduodenoscopy (EGD) History of hysterectomy with bilateral oophorectomy History of nasal septoplasty History of thyroidectomy x2 History of tonsillectomy History of tooth extraction Family History Mother Diabetes Cancer Father Diabetes Cardiac disorder Stroke Brother Diabetes Stroke syndrome Cancer Hypertension Sister Diabetes Aneurysm Cardiac disorder Stroke syndrome Hypertension Grandfather (Maternal) Diabetes Grandmother (Maternal) Diabetes Sister Family hx colonic polyps Hypertension Other FHx: seizures No family history of adverse response to anesthesia Denies family history of Ovarian cancer Prostate cancer Myocardial infarction Breast cancer Colorectal cancer Social History Smoking Status: Never smoker Second Hand Exposure: No; Hx Alcohol Use: No Hx Substance Use: No Preferred Language: Belarusian Communication Ability: Effective Hearing Ability: Hard of Hearing Foster Care Social Worker Required: No Beliefs That Will Affect Care: None marital status: Current Living Situation: Spouse current occupational status: retired How many Children do You have: 1 Feels Safe at Home: Yes Childhood Exposure to Second-Hand Smoke: No caffeine: Yes Dental Care, Regularly: Yes Physical Activity Frequency: 3-4 Times per Week Seatbelt Use: always Sunscreen Use: Yes (some times) Assistive Devices: Glasses Allergies Allergies Allergy/AdvReac Type Severity Reaction Status Date / Time No Known Drug Allergies Allergy . Verified 10/27/22 18:44 Home Meds Home Medications Medication Instructions Recorded Confirmed bumetanide 1 mg tablet 1 mg PO QAM 08/19/18 10/27/22 ferrous sulfate 325 mg (65 mg 325 mg PO QAM 08/19/18 10/27/22 iron) tablet,delayed release spironolactone 50 mg tablet 50 mg PO QAM 08/19/18 10/27/22 vitamin E 268 mg (400 unit) capsule 400 unit PO QAM 08/19/18 10/27/22 cholecalciferol (vitamin D3) 25 1,000 units PO QAM 03/31/19 10/27/22 mcg (1,000 unit) capsule multivitamin (Multiple Vitamins 1 tab PO QAM 03/31/19 10/27/22 tablet) cyanocobalamin (vitamin B-12) 1,000 mcg PO QAM 04/16/19 10/27/22 1,000 mcg tablet zinc acetate 50 mg (zinc) capsule 50 mg PO QAM 06/24/20 10/27/22 insulin glargine 100 unit/mL 36 unit subcut HS 07/22/20 10/27/22 subcutaneous solution zfyllzqz-emj-ittziu 5 mg-zeaxanth 1 cap PO QAM 05/30/21 10/27/22 1 mg-bilberry 7.5 mg-herbal capsule ([employer] Formula) metformin 1,000 mg tablet 500 mg PO BID 03/01/22 10/27/22 insulin lispro 100 unit/mL 0 sliding scale dose subcut 06/26/22 10/27/22 subcutaneous pen (Humalog KwikPen USEASDIRECTD (U-100) Insulin) levothyroxine 88 mcg tablet 88 mcg PO QAM 06/26/22 10/27/22 Previous Rx's Medication Instructions Recorded blood sugar diagnostic (ConfovisTouch #300 ea 11/24/19 Ultra Blue Test Strip) blood-glucose meter (ConfovisTouch #1 ea 03/16/20 Ultra2 Meter) zolpidem 5 mg tablet 5 mg PO HS PRN insomnia #30 tabs 08/04/20 lactulose 10 gram/15 mL oral 45 ml PO TID #946 mL 07/01/21 solution ondansetron HCl 4 mg tablet 4 mg PO Q8H PRN nausea and 07/07/21 vomiting #30 tabs lancets 33 gauge (OneTouch Delica #200 ea 09/09/21 Lancets) gabapentin 300 mg capsule 600 mg PO BID 90 days #360 caps 09/05/22 Results & Data (ED) Vital Signs Vital Signs - 24 hr 10/27/22 13:05 10/27/22 18:00 Temperature 37.1 C Temperature Source Skin Pulse Rate 87 Pulse Rate [Apical] 75 Pulse Rhythm [Apical] Regular Pulse Strength [Apical] Normal Respiratory Rate 20 20 Respiratory Effort / Characteristics Non-Labored Spontaneous Non-Labored Respiratory Depth Normal Normal Respiratory Pattern Regular Regular Blood Pressure 128/77 Blood Pressure [Left Arm] 117/67 Blood Pressure Mean 94 Blood Pressure Mean [Left Arm] 83 Blood Pressure Position [Left Arm] Lying Pulse Oximetry 99 97 Oxygen Delivery Method Room Air Room Air Sepsis Recent Fever Within 48 Hours No Sepsis New/Unexplained Change in Mental Status N/A Sepsis Action Taken by Nursing No Action Required Laboratory Data 10/27/22 14:38 10/27/22 14:38 Lab Results 10/27/22 10/27/22 10/27/22 Range/Units 14:38 14:38 14:38 WBC Cancelled RBC Cancelled Hgb Cancelled Hct Cancelled MCV Cancelled MCH Cancelled MCHC Cancelled RDW Std Deviation Cancelled RDW Coeff of Bright Cancelled Plt Count Cancelled MPV Cancelled Immature Gran % (Auto) Cancelled Neut % (Auto) Cancelled Lymph % (Auto) Cancelled [place] % (Auto) Cancelled Eos % (Auto) Cancelled Baso % (Auto) Cancelled Neut # (Auto) Cancelled Lymph # (Auto) Cancelled [place] # (Auto) Cancelled Eos # (Auto) Cancelled Baso # (Auto) Cancelled Immature Gran # (Auto) Cancelled Absolute Nucleated RBC Cancelled Nucleated RBC % (auto) Cancelled Neutrophils % (Manual) Cancelled Band Neutrophils % Cancelled Lymphocytes % (Manual) Cancelled Prolymphocyte % Cancelled Reactive Lymphs % (Man) Cancelled Monocytes % (Manual) Cancelled Eosinophils % (Manual) Cancelled Basophils % (Manual) Cancelled Metamyelocytes % (Man) Cancelled Myelocytes % (Man) Cancelled Promyelocytes % (Man) Cancelled Blast Cells % (Manual) Cancelled Plasma Cell % (Manual) Cancelled Other Cells % Cancelled Nucleated RBC % Cancelled Neutrophils # (Manual) Cancelled Band Neutrophils # Cancelled Total Absolute Neuts Cancelled Lymphocytes # (Manual) Cancelled Prolymphocyte # Cancelled Reactive Lymphs # Cancelled Total Abs Lymphocytes Cancelled Monocytes # (Manual) Cancelled Eosinophils # (Manual) Cancelled Basophils # (Manual) Cancelled Metamyelocytes # (Man) Cancelled Myelocytes # (Manual) Cancelled Promyelocytes # (Man) Cancelled Blast Cells # (Man) Cancelled Plasma Cell # (Manual) Cancelled Other Cells # Cancelled Nucleated RBCs # (Man) Cancelled Hypersegmented Neuts Cancelled Hyposegmented Neuts Cancelled Hypogranular Neuts Cancelled Large Granular Lymphs Cancelled # Lrg Granular Lymphs Cancelled Hairy Cells Cancelled Smudge Cells Cancelled Toxic Granulation Cancelled Toxic Vacuolation Cancelled Dohle Bodies Cancelled Tashia Rods Cancelled Platelet Estimate Cancelled Hypogranular Platelets Cancelled Giant Platelets Cancelled Platelet Satelliting Cancelled RBC Morphology Cancelled Polychromasia Cancelled Hypochromasia Cancelled Poikilocytosis Cancelled Basophilic Stippling Cancelled Anisocytosis Cancelled Microcytosis Cancelled Macrocytosis Cancelled Spherocytes Cancelled Pappenheimer Bodies Cancelled Sickle Cells Cancelled Target Cells Cancelled Tear Drop Cells Cancelled Ovalocytes Cancelled Stomatocytes Cancelled Dejesus-Hobgood Bodies Cancelled Echinocytes Cancelled Acanthocytes (Spur) Cancelled Rouleaux Cancelled RBC Agglutinates Cancelled Schistocytes Cancelled Sezary Cell Cancelled Sodium 131 L (136-145) mmol/L Potassium 4.3 (3.5-5.1) mmol/L Chloride 100 (98-107) mmol/L Carbon Dioxide 25 (21-32) mmol/L Anion Gap 6 (3-11) BUN 14 (6-23) mg/dl Creatinine 0.78 (0.6-1.2) mg/dl Est Cr Clr Drug Dosing 65.0 ml/min Est GFR ( Amer) 87.4 ml/min Est GFR (Non-Af Amer) 75.4 ml/min BUN/Creatinine Ratio 17.9 (10-20) Glucose 282 H (70-99(Fasting)) mg/dl Calcium 9.2 (8.6-10.3) mg/dl Total Bilirubin 3.3 H (0.2-1.0) mg/dl Direct Bilirubin 1.2 H (0-0.2) mg/dl AST 434 H (13-39) U/L ALT 334 H (7-52) U/L Alkaline Phosphatase 132 H (34-104) U/L Total Protein 7.1 (6.0-8.3) gm/dl Albumin 3.2 L (3.4-5.0) gm/dl Globulin 3.9 (2.5-4.0) gm/dl Albumin/Globulin Ratio 0.8 L (0.9-2) Lipase 38 (11-82) U/L HCG, Qual Negative (Negative) SARS-CoV-2, RNA, NAAT (NEGATIVE) Blood Parasites ID Cancelled 10/27/22 10/27/22 Range/Units 16:45 17:32 WBC 3.47 L RBC 3.61 L Hgb 11.5 L Hct 34.3 L MCV 95.0 MCH 31.9 MCHC 33.5 RDW Std Deviation 49.1 H RDW Coeff of Bright 14.1 Plt Count 53 L MPV 10.6 Immature Gran % (Auto) 0.6 Neut % (Auto) 81.5 Lymph % (Auto) 10.1 [place]upe % (Auto) 7.2 Eos % (Auto) 0.6 Baso % (Auto) 0.0 Neut # (Auto) 2.83 Lymph # (Auto) 0.35 L [place] # (Auto) 0.25 Eos # (Auto) 0.02 Baso # (Auto) 0.00 Immature Gran # (Auto) 0.02 Absolute Nucleated RBC Nucleated RBC % (auto) Neutrophils % (Manual) Band Neutrophils % Lymphocytes % (Manual) Prolymphocyte % Reactive Lymphs % (Man) Monocytes % (Manual) Eosinophils % (Manual) Basophils % (Manual) Metamyelocytes % (Man) Myelocytes % (Man) Promyelocytes % (Man) Blast Cells % (Manual) Plasma Cell % (Manual) Other Cells % Nucleated RBC % Neutrophils # (Manual) Band Neutrophils # Total Absolute Neuts Lymphocytes # (Manual) Prolymphocyte # Reactive Lymphs # Total Abs Lymphocytes Monocytes # (Manual) Eosinophils # (Manual) Basophils # (Manual) Metamyelocytes # (Man) Myelocytes # (Manual) Promyelocytes # (Man) Blast Cells # (Man) Plasma Cell # (Manual) Other Cells # Nucleated RBCs # (Man) Hypersegmented Neuts Hyposegmented Neuts Hypogranular Neuts Large Granular Lymphs # Lrg Granular Lymphs Hairy Cells Smudge Cells Toxic Granulation Toxic Vacuolation Dohle Bodies Tashia Rods Platelet Estimate Hypogranular Platelets Giant Platelets Platelet Satelliting RBC Morphology Polychromasia Hypochromasia Poikilocytosis Basophilic Stippling Anisocytosis Microcytosis Macrocytosis Spherocytes Pappenheimer Bodies Sickle Cells Target Cells Tear Drop Cells Ovalocytes Stomatocytes Dejesus-Hobgood Bodies Echinocytes Acanthocytes (Spur) Rouleaux RBC Agglutinates Schistocytes Sezary Cell Sodium (136-145) mmol/L Potassium (3.5-5.1) mmol/L Chloride (98-107) mmol/L Carbon Dioxide (21-32) mmol/L Anion Gap (3-11) BUN (6-23) mg/dl Creatinine (0.6-1.2) mg/dl Est Cr Clr Drug Dosing ml/min Est GFR ( Amer) ml/min Est GFR (Non-Af Amer) ml/min BUN/Creatinine Ratio (10-20) Glucose (70-99(Fasting)) mg/dl Calcium (8.6-10.3) mg/dl Total Bilirubin (0.2-1.0) mg/dl Direct Bilirubin (0-0.2) mg/dl AST (13-39) U/L ALT (7-52) U/L Alkaline Phosphatase (34-104) U/L Total Protein (6.0-8.3) gm/dl Albumin (3.4-5.0) gm/dl Globulin (2.5-4.0) gm/dl Albumin/Globulin Ratio (0.9-2) Lipase (11-82) U/L HCG, Qual (Negative) SARS-CoV-2, RNA, NAAT NEGATIVE (NEGATIVE) Blood Parasites ID Administered Medications Discontinued Medications Sodium Chloride (Nss 1000ml) 500 mls @ 999 mls/hr IV .Q31M ONE Stop: 10/27/22 17:07 Last Infusion: 10/27/22 18:01 Dose: 0 mls/hr Documented By: Admin: 10/27/22 17:02 Dose: 999 mls/hr Documented By: JOHN Ioversol (Optiray 350 100ml) 82 ml IV ONCE ONE Stop: 10/27/22 17:18 Last Admin: 10/27/22 17:18 Dose: 82 ml Documented By: MICHOACANO Morphine Sulfate (Morphine Sulfate 4 Mg/Ml 1 Ml Carp\Vial) 4 mg IV NOW STA Stop: 10/27/22 16:38 Last Admin: 10/27/22 17:02 Dose: 4 mg Documented By: JOHN Imaging Data Radiologist's Impression: Abdomen/Pelvis CT 10/27/22 16:34 CT abd pelvis IV con only CLINICAL HISTORY: ruq pain, chemoembolization procedure to liver 3da TECHNIQUE: Helical axial images of the abdomen and pelvis were obtained and displayed. Automated dose lowering techniques and/or adjustment according to patient size were utilized for this exam. This exam was performed with intravenous contrast. CT DOSE: 976.99 mGy.cm COMPARISON: Comparison is made to CT abdomen pelvis 08/23/2021 FINDINGS: Lower chest: Bibasilar atelectasis versus scarring is seen. Partial evaluation of cardiomegaly. Liver: Embolization material is seen in the right lobe of the liver. Nodular contour of the liver is seen compatible with cirrhosis. Gallbladder and biliary tree: Patient is status post cholecystectomy. No intra- or extrahepatic biliary ductal dilation. Pancreas: Unremarkable, no focal lesions. Spleen: Splenomegaly is seen with craniocaudal measurement of 15 cm. Adrenals: Unremarkable. Kidneys and ureters: Unremarkable. Bladder: Unremarkable. Reproductive organs: Unremarkable. Bowel: The appendix is normal. Lymph nodes Retroperitoneal: Unremarkable. Pelvic: Unremarkable. Mesenteric: Unremarkable. Peritoneum: Normal. Vessels: Atherosclerotic calcifications are seen. Extensive varices are noted. Splenic artery aneurysm is unchanged. Abdominal wall: Unremarkable. Bones: Degenerative changes in the visualized spine. IMPRESSION: 1. Post embolization appearance of the liver. No acute abnormalities are seen. 2. Cirrhosis and findings of pulmonary hypertension including extensive varices and splenomegaly. ACT 112: Negative or not required by law. Electronically signed by: Omer De Luna M.D. 10/27/2022 5:32 PM Chest X-Ray 10/27/22 16:34 XR chest 1V portable CLINICAL HISTORY: ruq pain TECHNIQUE: Single frontal radiograph of the chest was obtained. Comparison: Comparison is made to chest radiograph 06/27/2021 FINDINGS: Dual lead pacemaker is seen. The cardiomediastinal silhouette is normal. Lungs are underinflated but clear. No evidence of pleural effusion or pneumothorax. IMPRESSION: No acute chest disease. ACT 112: Negative or not required by law. Electronically signed by: Omer De Luna M.D. 10/27/2022 4:57 PM Discharge Plan Visit Data Chief Complaint: Abdominal Pain Stated Complaint: AB PAIN ED Provider: Narciso Merrill Discharge Problem: Abdominal pain, RUQ, Transaminitis, Hyperbilirubinemia Patient Disposition: Being Evaluated by Hospitalist Forms Stand Alone Forms: [facility] Prescriptions Prescriptions: No Action (DME) blood sugar diagnostic [OneTouch Ultra Blue Test Strip] Strip See Rx Instructions .ROUTE .MEDSUPPLY Qty: 300 3RF Rx Instructions: test twice daily (DME) blood-glucose meter [OneTouch Ultra2 Meter] [facility] See Rx Instructions .ROUTE .MEDSUPPLY Qty: 1 0RF Rx Instructions: Use to test twice daily (DME) lancets [OneTouch Delica Lancets] 33 gauge [facility] See Rx Instructions .Route Qty: 200 3RF Rx Instructions: use to test 2-3 times daily metformin 1,000 mg tablet 500 mg PO BID ondansetron HCl 4 mg tablet 4 mg PO Q8H PRN (Reason: nausea and vomiting) Qty: 30 1RF gabapentin 300 mg capsule 600 mg PO BID 90 Days Qty: 360 1RF zinc acetate 50 mg (zinc) capsule 50 mg PO QAM Rx Instructions: swallow whole; do not chew/break/dissolve/open levothyroxine 88 mcg tablet 88 mcg PO QAM insulin glargine 100 unit/mL solution 36 unit SUBCUT HS Patient Comments: pt states she takes 34 units multivitamin [Multiple Vitamins] tablet 1 tab PO QAM cholecalciferol (vitamin D3) 1,000 unit capsule 1,000 units PO QAM cyanocobalamin (vitamin B-12) 1,000 mcg tablet 1,000 mcg PO QAM zolpidem 5 mg tablet 5 mg PO HS PRN (Reason: insomnia) Qty: 30 0RF bumetanide 1 mg Tablet 1 mg PO QAM spironolactone 50 mg Tablet 50 mg PO QAM ferrous sulfate 325 mg (65 mg iron) Tablet,Delayed Release (Dr/Ec) 325 mg PO QAM vitamin E 400 unit Capsule 400 unit PO QAM Macular Health Formula 5-1-7.5 mg Capsule 1 cap PO QAM lactulose 10 gram/15 mL solution 45 ml PO TID Qty: 946 0RF insulin lispro [Humalog KwikPen Insulin] 100 unit/mL Insulin Pen 0 sliding scale dose SUBCUT USEASDIRECTD Referrals Referrals: Landen Shah MD [Primary Care Provider] -
[2022-10-27] MEDS ORDERED: MoRPHine SULFATE 4 MG/ML 1 ML CARP\\VIAL IV STA (16:37)
[2022-10-27] MEDS ORDERED: SODIUM CHLORIDE 0.9% 1000ML 500 ML IV ONE (16:37)
[2022-10-27 16:38] LABS: Pregnancy Test, Serum Negative (Negative)
--- NOTE | 2022-10-27 16:59 | XRay Report ---
XR chest 1V portable CLINICAL HISTORY: ruq pain TECHNIQUE: Single frontal radiograph of the chest was obtained. Comparison: Comparison is made to chest radiograph 06/27/2021 FINDINGS: Dual lead pacemaker is seen. The cardiomediastinal silhouette is normal. Lungs are underinflated but clear. No evidence of pleural effusion or pneumothorax. IMPRESSION: No acute chest disease. ACT 112: Negative or not required by law. Electronically signed by: Omer De Luna M.D. 10/27/2022 4:57 PM
[2022-10-27] MEDS ORDERED: OPTIRAY 350 100ml IV ONE (17:17)
--- NOTE | 2022-10-27 17:33 | CT Scan Report ---
CT abd pelvis IV con only CLINICAL HISTORY: ruq pain, chemoembolization procedure to liver 3da TECHNIQUE: Helical axial images of the abdomen and pelvis were obtained and displayed. Automated dose lowering techniques and/or adjustment according to patient size were utilized for this exam. This e xam was performed with intravenous contrast. CT DOSE: 976.99 mGy.cm COMPARISON: Comparison is made to CT abdomen pelvis 08/23/2021 FINDINGS: Lower chest: Bibasilar atelectasis versus scarring is seen. Partial evaluation of cardiomegaly. Liver: Embolization material is seen in the right lobe of the liver. Nodular contour of the liver is seen compatible with cirrhosis. Gallbladder and biliary tree: Patient is status post cholecystectomy. No intra- or extrahepatic bilia ry ductal dilation. Pancreas: Unremarkable, no focal lesions. Spleen: Splenomegaly is seen with craniocaudal measurement of 15 cm. Adrenals: Unremarkable. Kidneys and ureters: Unremarkable. Bladder: Unremarkable. Reproductive organs: Unremarkable. Bowel: The appendix is normal. Lymph nodes Retroperitoneal: Unremarkable. Pelvic: Unremarkable. Mesenteric: Unremarkable. Peritoneum: Normal. Vessels: Atherosclerotic calcifications are seen. Extensive varices are noted. Splenic artery aneurys m is unchanged. Abdominal wall: Unremarkable. Bones: Degenerative changes in the visualized spine. IMPRESSION: 1. Post embolization appearance of the liver. No acute abnormalities are seen. 2. Cirrhosis and findings of pulmonary hypertension including extensive varices and splenomegaly. ACT 112: Negative or not required by law. Electronically signed by: Omer De Luna M.D. 10/27/2022 5:32 PM
[2022-10-27 17:38] LABS: Bilirubin Direct 1.2 mg/dl (0-0.2)
[2022-10-27 18:12] LABS: Eosinophils # (auto) 0.02 K/uL (0-0.50); Eosinophils % (auto) 0.6 %; Hematocrit (blood only) 34.3 % (37.0-47.0); Hemoglobin 11.5 g/dl (12.0-16.0); Immature Granulocytes # (auto) 0.02 K/uL (0.01-0.20); Immature Granulocytes % (auto) 0.6 %; Lymphocytes # (auto) 0.35 K/uL (1.2-3.4); Lymphocytes % (auto) 10.1 %; Mean Corpuscular Hemoglobin 31.9 pg (25.0-34.0); Mean Corpuscular Hgb Conc 33.5 g/dL (32.0-36.0); Mean Platelet Volume 10.6 fL (9.4-12.4); Monocytes # (auto) 0.25 K/uL (0.11-0.59); Monocytes % (auto) 7.2 %; Neutrophils # (auto) 2.83 K/uL (1.40-6.50); Neutrophils % (auto) 81.5 %; Platelet Count 53 K/uL (130-400); RDW Coefficient of Variation 14.1 % (11.5-14.5); RDW Standard Deviation 49.1 fL (36.4-46.3); Red Blood Count 3.61 M/uL (4.20-5.40); White Blood Count 3.47 K/ul (4.8-10.8)
--- NOTE | 2022-10-27 19:54 | History & Physical Report ---
Date of Service October 27, 2022 Assessment & Plan (1) Abdominal pain, RUQ: Plan: 71-year-old female with history of hepatocellular carcinoma, SHARMA with cirrhosis, history of esophageal varices, history of hepatic encephalopathy on lactulose, history of ascites on diuretic therapy. Patient s/p chemoembolization of her hepatic lesions performed at [facility] on 10/24/22 presenting now with progressive RUQ pain. Patient reports RUQ discomfort, constant as well as fatigue. Elevation of liver studies in mixed hepatocellular/obstructive pattern (DWT=525, MZQ=077, KK=438, Tbili=3.3, Dbili=1.2.). She has chronic thrombocytopenia in setting of cirrhosis - platelets are slightly lower than baseline at 53 currently. Patient without ascites at present no evidence of hepatic encephalopathy. Per literature review, transient worsening of hepatic function is a common potential complication of chemoembolization - often see return to baseline in 3-4 weeks. -Admit to medical with telemetry -Check RUQ liver US with duplex to rule out clot -Triple phase CT of the liver ordered - is to be performed in AM 10/28/22 due to patient having already received contrast -Repeat LFTs in AM -INR pending -Procedure performed by Dr. Maria at [facility] [place]. She was contacted by the ER provider prior to admission request. She is available for questions. (2) Hepatocellular carcinoma: Plan: Patient with recently diagnosed hepatocellular carcinoma s/p chemoembolization/TACE. Patient is to undergo a three day evaluation at [facility] early next week to assess possible candidacy for liver transplant. (3) Cirrhosis: Plan: History of SHARMA with liver cirrhosis. History of non-bleeding esophageal varices. She was on propranolol in the past but subsequently developed symptomatic bradycardia and heart block therefore had a cardiac pacemaker placed. She has history of ascites on Spironolactone and Bumex therapy and prior hepatic encephalopathy on Lactulose. Worsening liver studies as discussed above. No evidence of acute decompensation on exam. -Low sodium diet -Continue Spironolactone and Bumex -Continue Lactulose -Repeat LFTs in AM (4) Anemia: Plan: Normochromic, normocytic anemia with Hgb=11.5, Hct=34.3. Slightly lower than baseline. No bleeding noted on CT of the abdomen. -Repeat CBC in AM (5) Hypothyroidism (acquired): Plan: Chronic. Stable. Last TSH 07/12/22 = 0.318 -Continue Synthroid (6) Diabetes mellitus: Plan: Chronic. Last HgbA1C = 7.6 on 07/12/22 -Hold Metformin -Lantus 12u BID, ISS -Goal blood sugar 110 - 140 F/E/N - [place]. Electrolytes WNL. CC/Low Na diet Ppx - SCDs Code - Full per discussion with patient Dispo - Admit to medical with telemetry History of Present Illness Chief Complaint: Right upper quadrant pain Primary Care Provider: Landen Shah MD Alma Nolen is a pleasant 71-year-old female presenting with RUQ pain. Patient has a history of hepatocellular carcinoma and biopsy-proven SHARMA cirrho sis with history of ascites, non-bleeding esophageal varices and hepatic encephalopathy. She was seen at [facility] on 10/24/2022 and had chemoembolization performed of her hepatic lesions. Patient began having worsening right upper quadrant pain on 10/26/2022. The pain has been constant and progressive. Today the pain was severe enough for her to come to the emergency room. She is also experiencing extreme fatigue and chills. Otherwise she denies fever, chest pain, cough, shortness of breath. Denies abdominal distention. Denies bruising. Denies nausea/vomiting/diarrhea/constipation. No additional complaints at this time. In the ER she is afebrile, hemodynamically stable and nontoxic in appearance. Labs as below reveal abnormal liver studies with AST = 434, ALT = 334, alk phos = 132. Elevation of T. bili = 3.3 and D bili = 1.2 CT of the abdomen performed with IV contrast reveals evidence of recent chemoembolization. No other acute processes ER course: Normal saline x500 mL Morphine 4 mg IV Allergies Allergy/AdvReac Type Severity Reaction Status Date / Time No Known Drug Allergies Allergy . Verified 10/27/22 18:44 Home Medications Medication Instructions Recorded Confirmed Type bumetanide 1 mg tablet 1 mg PO QAM 08/19/18 10/27/22 History ferrous sulfate 325 mg (65 mg 325 mg PO QAM 08/19/18 10/27/22 History iron) tablet,delayed release spironolactone 50 mg tablet 50 mg PO QAM 08/19/18 10/27/22 History vitamin E 268 mg (400 unit) capsule 400 unit PO QAM 08/19/18 10/27/22 History cholecalciferol (vitamin D3) 25 1,000 units PO QAM 03/31/19 10/27/22 History mcg (1,000 unit) capsule multivitamin (Multiple Vitamins 1 tab PO QAM 03/31/19 10/27/22 History tablet) cyanocobalamin (vitamin B-12) 1,000 mcg PO QAM 04/16/19 10/27/22 History 1,000 mcg tablet blood sugar diagnostic (OneTouch #300 ea 11/24/19 08/14/22 Rx Ultra Blue Test Strip) blood-glucose meter (OneTouch #1 ea 03/16/20 08/14/22 Rx Ultra2 Meter) zinc acetate 50 mg (zinc) capsule 50 mg PO QAM 06/24/20 10/27/22 History insulin glargine 100 unit/mL 36 unit subcut HS 07/22/20 10/27/22 History subcutaneous solution zolpidem 5 mg tablet 5 mg PO HS PRN insomnia #30 tabs 08/04/20 10/27/22 Rx yekxxlzm-jmr-oioubz 5 mg-zeaxanth 1 cap PO QAM 05/30/21 10/27/22 History 1 mg-bilberry 7.5 mg-herbal capsule ([employer] Formula) lactulose 10 gram/15 mL oral 45 ml PO TID #946 mL 07/01/21 10/27/22 Rx solution ondansetron HCl 4 mg tablet 4 mg PO Q8H PRN nausea and 07/07/21 10/27/22 Rx vomiting #30 tabs lancets 33 gauge (OneTouch Delica #200 ea 09/09/21 08/14/22 Rx Lancets) metformin 1,000 mg tablet 500 mg PO BID 03/01/22 10/27/22 History insulin lispro 100 unit/mL 0 sliding scale dose subcut 06/26/22 10/27/22 History subcutaneous pen (Humalog KwikPen USEASDIRECTD (U-100) Insulin) levothyroxine 88 mcg tablet 88 mcg PO QAM 06/26/22 10/27/22 History gabapentin 300 mg capsule 600 mg PO BID 90 days #360 caps 09/05/22 10/27/22 Rx Past Med/Surg History Medical History (Updated 10/27/22 @ 20:06 by Dayana Gutierrez DO) Anemia Arnold-Chiari malformation Surgical repair 2009 Asthma pt unaware 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 Following with Dr. Ontiveros. Some ascites; has been on Bumex and spironolactone. 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 [facility]. Most recent interrogation 06/26/22 > follows with Dr. Jarrett Peripheral neuropathy Symptomatic bradycardia s/p PPM Thrombocytopenia Baseline ranges 60-100k per record review. Surgical History History of brain surgery CHIARI MALFORMATION History of cholecystectomy History of colonoscopy with polypectomy History of endoscopic sinus surgery x2 History of esophagogastroduodenoscopy (EGD) History of hysterectomy with bilateral oophorectomy History of nasal septoplasty History of thyroidectomy x2 History of tonsillectomy History of tooth extraction Family History Mother Diabetes Cancer Father Diabetes Cardiac disorder Stroke Brother Diabetes Stroke syndrome Cancer Hypertension Sister Diabetes Aneurysm Cardiac disorder Stroke syndrome Hypertension Grandfather (Maternal) Diabetes Grandmother (Maternal) Diabetes Sister Family hx colonic polyps Hypertension Other FHx: seizures No family history of adverse response to anesthesia Denies family history of Ovarian cancer Prostate cancer Myocardial infarction Breast cancer Colorectal cancer Social History Smoking Status: Never smoker Second Hand Exposure: No; Hx Alcohol Use: No Hx Substance Use: No Preferred Language: Thai Communication Ability: Effective Hearing Ability: Hard of Hearing Quality Control Coordinator Required: No Beliefs That Will Affect Care: None marital status: Current Living Situation: Spouse current occupational status: retired How many Children do You have: 1 Feels Safe at Home: Yes Childhood Exposure to Second-Hand Smoke: No caffeine: Yes Dental Care, Regularly: Yes Physical Activity Frequency: 3-4 Times per Week Seatbelt Use: always Sunscreen Use: Yes (some times) Assistive Devices: Glasses Review of Systems Review of Systems: All systems reviewed & are unremarkable except as noted in HPI & below Physical Exam Physical Exam: General: patient resting comfortably, NAD, non-toxic in appearance, AA&O x 4 Skin: warm, dry, intact, no rashes or lesions HEENT: NC/AT, PERRL, EOMI, anicteric sclera, conjunctiva without injection, external ear normal to inspection and nontender, nares patent, moist mucus membranes, dentition intact, no oropharyngeal lesions, neck supple, trachea midline, no LAD, no thyromegaly, no JVD Heart: +S1/S2, regular, no m/r/g Lungs: equal air entry bilaterally, no rales/rhonchi/wheezes Abd: +BS, soft,Nondistended, right upper quadrant tenderness with no rebound/guarding/peritonitis,, no masses/organomegaly/ascites Ext: warm, 2+ pulses in UE/LE bilaterally, no clubbing/cyanosis or edema Neuro: nonfocal, patient AA&O x 4, speech intact, no facial droop, moving all extremities on command with equal strength 5/5, No asterixis Results & Data Results & Data Vital Signs (Past 12 Hours) Vital Signs Temp Pulse Pulse Resp BP BP Pulse Ox 10/27/22 18:00 75 20 117/67 97 10/27/22 13:05 37.1 C 87 20 128/77 99 O2 Del Method 10/27/22 18:00 Room Air 10/27/22 13:05 Room Air Laboratory Results Laboratory Results WBC 3.47 K/ul (4.8-10.8) L 10/27/22 17:32 RBC 3.61 M/uL (4.20-5.40) L 10/27/22 17:32 Hgb 11.5 g/dl (12.0-16.0) L 10/27/22 17:32 Hct 34.3 % (37.0-47.0) L 10/27/22 17:32 MCV 95.0 fL (80.0-100.0) 10/27/22 17:32 MCH 31.9 pg (25.0-34.0) 10/27/22 17:32 MCHC 33.5 g/dL (32.0-36.0) 10/27/22 17:32 RDW Std Deviation 49.1 fL (36.4-46.3) H 10/27/22 17:32 RDW Coeff of Bright 14.1 % (11.5-14.5) 10/27/22 17:32 Plt Count 53 K/uL (130-400) L 10/27/22 17:32 MPV 10.6 fL (9.4-12.4) 10/27/22 17:32 Immature Gran % (Auto) 0.6 % 10/27/22 17:32 Neut % (Auto) 81.5 % 10/27/22 17:32 Lymph % (Auto) 10.1 % 10/27/22 17:32 [place] % (Auto) 7.2 % 10/27/22 17:32 Eos % (Auto) 0.6 % 10/27/22 17:32 Baso % (Auto) 0.0 % 10/27/22 17:32 Neut # (Auto) 2.83 K/uL (1.40-6.50) 10/27/22 17:32 Lymph # (Auto) 0.35 K/uL (1.2-3.4) L 10/27/22 17:32 [place] # (Auto) 0.25 K/uL (0.11-0.59) 10/27/22 17:32 Eos # (Auto) 0.02 K/uL (0-0.50) 10/27/22 17:32 Baso # (Auto) 0.00 K/uL (0-0.2) 10/27/22 17:32 Immature Gran # (Auto) 0.02 K/uL (0.01-0.20) 10/27/22 17:32 Absolute Nucleated RBC Cancelled 10/27/22 14:38 Nucleated RBC % (auto) Cancelled 10/27/22 14:38 Neutrophils % (Manual) Cancelled 10/27/22 14:38 Band Neutrophils % Cancelled 10/27/22 14:38 Lymphocytes % (Manual) Cancelled 10/27/22 14:38 Prolymphocyte % Cancelled 10/27/22 14:38 Reactive Lymphs % (Man) Cancelled 10/27/22 14:38 Monocytes % (Manual) Cancelled 10/27/22 14:38 Eosinophils % (Manual) Cancelled 10/27/22 14:38 Basophils % (Manual) Cancelled 10/27/22 14:38 Metamyelocytes % (Man) Cancelled 10/27/22 14:38 Myelocytes % (Man) Cancelled 10/27/22 14:38 Promyelocytes % (Man) Cancelled 10/27/22 14:38 Blast Cells % (Manual) Cancelled 10/27/22 14:38 Plasma Cell % (Manual) Cancelled 10/27/22 14:38 Other Cells % Cancelled 10/27/22 14:38 Nucleated RBC % Cancelled 10/27/22 14:38 Neutrophils # (Manual) Cancelled 10/27/22 14:38 Band Neutrophils # Cancelled 10/27/22 14:38 Total Absolute Neuts Cancelled 10/27/22 14:38 Lymphocytes # (Manual) Cancelled 10/27/22 14:38 Prolymphocyte # Cancelled 10/27/22 14:38 Reactive Lymphs # Cancelled 10/27/22 14:38 Total Abs Lymphocytes Cancelled 10/27/22 14:38 Monocytes # (Manual) Cancelled 10/27/22 14:38 Eosinophils # (Manual) Cancelled 10/27/22 14:38 Basophils # (Manual) Cancelled 10/27/22 14:38 Metamyelocytes # (Man) Cancelled 10/27/22 14:38 Myelocytes # (Manual) Cancelled 10/27/22 14:38 Promyelocytes # (Man) Cancelled 10/27/22 14:38 Blast Cells # (Man) Cancelled 10/27/22 14:38 Plasma Cell # (Manual) Cancelled 10/27/22 14:38 Other Cells # Cancelled 10/27/22 14:38 Nucleated RBCs # (Man) Cancelled 10/27/22 14:38 Hypersegmented Neuts Cancelled 10/27/22 14:38 Hyposegmented Neuts Cancelled 10/27/22 14:38 Hypogranular Neuts Cancelled 10/27/22 14:38 Large Granular Lymphs Cancelled 10/27/22 14:38 # Lrg Granular Lymphs Cancelled 10/27/22 14:38 Hairy Cells Cancelled 10/27/22 14:38 Smudge Cells Cancelled 10/27/22 14:38 Toxic Granulation Cancelled 10/27/22 14:38 Toxic Vacuolation Cancelled 10/27/22 14:38 Dohle Bodies Cancelled 10/27/22 14:38 Tashia Rods Cancelled 10/27/22 14:38 Platelet Estimate Cancelled 10/27/22 14:38 Hypogranular Platelets Cancelled 10/27/22 14:38 Giant Platelets Cancelled 10/27/22 14:38 Platelet Satelliting Cancelled 10/27/22 14:38 RBC Morphology Cancelled 10/27/22 14:38 Polychromasia Cancelled 10/27/22 14:38 Hypochromasia Cancelled 10/27/22 14:38 Poikilocytosis Cancelled 10/27/22 14:38 Basophilic Stippling Cancelled 10/27/22 14:38 Anisocytosis Cancelled 10/27/22 14:38 Microcytosis Cancelled 10/27/22 14:38 Macrocytosis Cancelled 10/27/22 14:38 Spherocytes Cancelled 10/27/22 14:38 Pappenheimer Bodies Cancelled 10/27/22 14:38 Sickle Cells Cancelled 10/27/22 14:38 Target Cells Cancelled 10/27/22 14:38 Tear Drop Cells Cancelled 10/27/22 14:38 Ovalocytes Cancelled 10/27/22 14:38 Stomatocytes Cancelled 10/27/22 14:38 Dejesus-Jud Bodies Cancelled 10/27/22 14:38 Echinocytes Cancelled 10/27/22 14:38 Acanthocytes (Spur) Cancelled 10/27/22 14:38 Rouleaux Cancelled 10/27/22 14:38 RBC Agglutinates Cancelled 10/27/22 14:38 Schistocytes Cancelled 10/27/22 14:38 Sezary Cell Cancelled 10/27/22 14:38 Sodium 131 mmol/L (136-145) L 10/27/22 14:38 Potassium 4.3 mmol/L (3.5-5.1) 10/27/22 14:38 Chloride 100 mmol/L (98-107) 10/27/22 14:38 Carbon Dioxide 25 mmol/L (21-32) 10/27/22 14:38 Anion Gap 6 (3-11) 10/27/22 14:38 BUN 14 mg/dl (6-23) 10/27/22 14:38 Creatinine 0.78 mg/dl (0.6-1.2) 10/27/22 14:38 Est Cr Clr Drug Dosing 65.0 ml/min 10/27/22 14:38 Est GFR ( Amer) 87.4 ml/min 10/27/22 14:38 Est GFR (Non-Af Amer) 75.4 ml/min 10/27/22 14:38 BUN/Creatinine Ratio 17.9 (10-20) 10/27/22 14:38 Glucose 282 mg/dl (70-99(Fasting)) H 10/27/22 14:38 Calcium 9.2 mg/dl (8.6-10.3) 10/27/22 14:38 Total Bilirubin 3.3 mg/dl (0.2-1.0) H 10/27/22 14:38 Direct Bilirubin 1.2 mg/dl (0-0.2) H 10/27/22 14:38 AST 434 U/L (13-39) H 10/27/22 14:38 ALT 334 U/L (7-52) H 10/27/22 14:38 Alkaline Phosphatase 132 U/L (34-104) H 10/27/22 14:38 Total Protein 7.1 gm/dl (6.0-8.3) 10/27/22 14:38 Albumin 3.2 gm/dl (3.4-5.0) L 10/27/22 14:38 Globulin 3.9 gm/dl (2.5-4.0) 10/27/22 14:38 Albumin/Globulin Ratio 0.8 (0.9-2) L 10/27/22 14:38 Lipase 38 U/L (11-82) 10/27/22 14:38 HCG, Qual Negative (Negative) 10/27/22 14:38 SARS-CoV-2, RNA, NAAT NEGATIVE (NEGATIVE) 10/27/22 16:45 Blood Parasites ID Cancelled 10/27/22 14:38 Impressions Abdomen/Pelvis CT 10/27/22 16:34 CT abd pelvis IV con only CLINICAL HISTORY: ruq pain, chemoembolization procedure to liver 3da TECHNIQUE: Helical axial images of the abdomen and pelvis were obtained and displayed. Automated dose lowering techniques and/or adjustment according to patient size were utilized for this exam. This exam was performed with intravenous contrast. CT DOSE: 976.99 mGy.cm COMPARISON: Comparison is made to CT abdomen pelvis 08/23/2021 FINDINGS: Lower chest: Bibasilar atelectasis versus scarring is seen. Partial evaluation of cardiomegaly. Liver: Embolization material is seen in the right lobe of the liver. Nodular contour of the liver is seen compatible with cirrhosis. Gallbladder and biliary tree: Patient is status post cholecystectomy. No intra- or extrahepatic biliary ductal dilation. Pancreas: Unremarkable, no focal lesions. Spleen: Splenomegaly is seen with craniocaudal measurement of 15 cm. Adrenals: Unremarkable. Kidneys and ureters: Unremarkable. Bladder: Unremarkable. Reproductive organs: Unremarkable. Bowel: The appendix is normal. Lymph nodes Retroperitoneal: Unremarkable. Pelvic: Unremarkable. Mesenteric: Unremarkable. Peritoneum: Normal. Vessels: Atherosclerotic calcifications are seen. Extensive varices are noted. Splenic artery aneurysm is unchanged. Abdominal wall: Unremarkable. Bones: Degenerative changes in the visualized spine. IMPRESSION: 1. Post embolization appearance of the liver. No acute abnormalities are seen. 2. Cirrhosis and findings of pulmonary hypertension including extensive varices and splenomegaly. ACT 112: Negative or not required by law. Electronically signed by: Omer De Luna M.D. 10/27/2022 5:32 PM Chest X-Ray 10/27/22 16:34 XR chest 1V portable CLINICAL HISTORY: ruq pain TECHNIQUE: Single frontal radiograph of the chest was obtained. Comparison: Comparison is made to chest radiograph 06/27/2021 FINDINGS: Dual lead pacemaker is seen. The cardiomediastinal silhouette is normal. Lungs are underinflated but clear. No evidence of pleural effusion or pneumothorax. IMPRESSION: No acute chest disease. ACT 112: Negative or not required by law. Electronically signed by: Omer De Luna M.D. 10/27/2022 4:57 PM Code Status & VTE Plan VTE Prophylaxis Plan VTE Prophylaxis will be ordered: Yes PG Care Time/CCT Total # of Minutes Spent Total Time Spent with Patient: Total time spent is greater than 50% in coordination of care (as documented) at patient's floor/unit and/or counseling patient: Coding Level of Care Code 09050 INT INP/OBS CARE 3/75MIN Diagnoses Abdominal pain, RUQ R10.11 Hepatocellular carcinoma C22.0 Cirrhosis K74.60 Anemia D64.9 Hypothyroidism (acquired) E03.9 Diabetes mellitus E11.9
[2022-10-27 20:20] LABS: INR 1.4 (0.9-1.1); Prothrombin Time 14.5 Seconds (9.0-12.0)
--- NOTE | 2022-10-27 21:55 | Ultrasound Report ---
Exam(s): US OTHER EXAM: US Abdomen Limited CLINICAL HISTORY: Reason for exam: RUQ pain, recent chemoembolization. TECHNIQUE: Real-time ultrasound of the abdomen with image documentation. COMPARISON: January 04, 2022 The splenic the is patent with normal direction of flow, 20 cm/s. FINDINGS: Liver: The hepatic artery is patent with normal waveform, 91 cm/s. The portal vein is patent with normal hepatopetal flow, 25 cm/s. The left and right portal vein branches are patent. The hepatic veins are patent with normal direction of flow. The IVC is unremarkable. IMPRESSION: Vascular structures in the upper abdomen appear within normal limits as listed above. Electronically signed by: Laureano Gutierrez MD 10/27/22 21:54 PM
[2022-10-27] MEDS ORDERED: MoRPHine SULFATE 2 MG/ML CARP IV PRN (23:04)
[2022-10-27] MEDS ORDERED: DEXTROSE 50% 50 ML SYRINGE IV PRN (23:04)
[2022-10-27] MEDS ORDERED: ONDANSETRON INJ 2 MG/ML 2 ML VIAL IV PRN (23:04)
[2022-10-27] MEDS ORDERED: GLUCOSE 10 TAB/TUBE PO PRN (23:04)
[2022-10-27] MEDS ORDERED: GLUCAGON FOR INJ 1 MG VIAL SQ PRN (23:04)
[2022-10-27] MEDS ORDERED: GLUCOSE 40% GEL 15 GM TUBE PO PRN (23:04)
[2022-10-27] MEDS ORDERED: CARBOHYDRATES FOR HYPOGLYCEMIA PO PRN (23:04)
[2022-10-27 23:37] LABS: Appearance Urine Clear (Clear); Bacteria Urine Automated Negative (Negative); Blood Urine Negative (Negative); Color Urine Orange; Epithelial Cell Urine Auto >30 /lpf (0-5); Glucose Urine UA 1+ (Negative); Ketones Urine Negative (Negative); Leukocyte Esterase Urine Trace (Negative); Nitrite Urine Positive (Negative); Protein Urine Trace (Negative); RBC Urine Automated 0-4 /hpf (0-4); Specific Gravity Urine > 1.045 (1.000-1.030); Urobilinogen Urine Negative (Negative)
[2022-10-27 23:51] LABS: Bilirubin Urine 1+ (Negative)
[2022-10-28] MEDS: LANTUS PER UNIT CHARGE SQ SCH ×4 (00:20→21:21)
[2022-10-28] MEDS: INSULIN ASPART PER UNIT CHARGE SC SCH ×5 (00:28→21:20)
[2022-10-28 00:30] LABS: Magnesium 1.7 mg/dl (1.7-2.4); Phosphorus 2.5 mg/dl (2.5-4.9)
[2022-10-28] MEDS: LACTULOSE SYRUP 30 GM/45 ML UDP PO SCH ×4 (00:31→21:27)
[2022-10-28] MEDS: GABAPENTIN 300 MG CAP PO SCH ×3 (00:31→21:20)
[2022-10-28] MEDS: MoRPHine SULFATE 4 MG/ML 1 ML CARP\\VIAL IV PRN ×4 (02:26→14:52)
[2022-10-28] MEDS: ACETAMINOPHEN 500 MG TAB PO PRN ×2 (04:09→23:53)
[2022-10-28] MEDS: LEVOTHYROXINE SODIUM 88 MCG TABLET PO SCH (05:38)
[2022-10-28 06:44] LABS: Hematocrit (blood only) 30.7 % (37.0-47.0); Hemoglobin 10.6 g/dl (12.0-16.0); Mean Corpuscular Hemoglobin 31.9 pg (25.0-34.0); Mean Corpuscular Hgb Conc 34.5 g/dL (32.0-36.0); Mean Corpuscular Volume 92.5 fL (80.0-100.0); Platelet Count 54 K/uL (130-400); RDW Coefficient of Variation 13.8 % (11.5-14.5); RDW Standard Deviation 46.7 fL (36.4-46.3); Red Blood Count 3.32 M/uL (4.20-5.40)
[2022-10-28] MEDS ORDERED: OPTIRAY 350 100ml IV ONE (07:09)
[2022-10-28 07:12] LABS: Albumin Level 2.5 gm/dl (3.4-5.0); BUN Creatinine Ratio 20.3 (10-20); Bilirubin Direct 2.2 mg/dl (0-0.2); Bilirubin,Total 4.1 mg/dl (0.2-1.0); Calcium 7.9 mg/dl (8.6-10.3); Creatinine Clr Calc Pharmacy 64.1 ml/min; Est GFR (African American) 86.1 ml/min; Est GFR (Non-African American) 74.3 ml/min; Potassium 4.1 mmol/L (3.5-5.1); Total Protein 5.6 gm/dl (6.0-8.3)
[2022-10-28] MEDS: BUMETANIDE 1 MG TAB PO SCH (08:12)
[2022-10-28] MEDS: SPIRONOLACTONE 25 MG TAB PO SCH (08:12)
--- NOTE | 2022-10-28 09:51 | CT Scan Report ---
Exam(s): CT ABDOMEN + PELVIS W/WO Contrast IV Amt: 90 mls optiray 350 EXAM: CT Abdomen and Pelvis Without and With Intravenous Contrast CLINICAL HISTORY: Reason for exam: liver cancer, recent chemoembolization. TECHNIQUE: Axial computed tomography images of the abdomen and pelvis without and with intravenous contrast. Automated exposure control was utilized for the study. A dose lowering technique was utilized adhering to the principles of ALARA. CONTRAST: Patient received 90 mls optiray 350 of IV contrast COMPARISON: 10/27/22. FINDINGS: Lung bases: Small right pleural effusion with right basilar atelectasis. ABDOMEN: Liver: The liver is cirrhotic and has lobulated outline. Heterogeneous high density seen in the right liver parenchyma consistent with history of chemoembolization. Gallbladder and bile ducts: Gallbladder is not seen. No ductal dilation. Pancreas: Unremarkable. No mass. No ductal dilation. Spleen: Moderate splenomegaly. Adrenals: Unremarkable. No mass. Kidneys and ureters: Unremarkable. No solid mass. No obstructing stones. No hydronephrosis. Stomach and bowel: Unremarkable. No obstruction. No mucosal thickening. PELVIS: Appendix: No findings to suggest acute appendicitis. Bladder: Unremarkable. No mass. No stones. Reproductive: Unremarkable as visualized. ABDOMEN and PELVIS: Intraperitoneal space: There is trace perihepatic free fluid. Bones/joints: No acute fracture. No dislocation. Soft tissues: Unremarkable. Vasculature: Varices are seen in the left upper abdomen with prominent splenorenal shunt. Lymph nodes: Unremarkable. No enlarged lymph nodes. IMPRESSION: 1. Post chemoembolization changes seen in the right lobe of the liver. 2. Cirrhotic liver with splenomegaly and portal hypertension 3. Small right pleural effusion which has slightly increased since prior study Electronically signed by: Andriy Meyer MD 10/28/22 09:51 AM
[2022-10-28] MEDS: oxyCODONE HCL IR 5 MG TAB (IMMEDIATE RELEASE) PO SCH ×3 (17:49→23:54)
[2022-10-28] MEDS ORDERED: oxyCODONE HCL 10 MG TABCR (OxyCONTIN) PO SCH (21:00)
--- NOTE | 2022-10-28 23:00 | Hospitalist Progress Note ---
Date of Service October 28, 2022 Assessment & Plan (1) Abdominal pain, RUQ: Plan: 71-year-old female with history of hepatocellular carcinoma, SHARMA with cirrhosis, history of esophageal varices, history of hepatic encephalopathy on lactulose, history of ascites on diuretic therapy. Patient s/p chemoembolization of her hepatic lesions performed at [facility] on 10/24/22 presenting now with progressive RUQ pain. Patient reports RUQ discomfort, constant as well as fatigue. Elevation of liver studies in mixed hepatocellular/obstructive pattern (HFL=885, CSN=443, UJ=394, Tbili=3.3, Dbili=1.2.). She has chronic thrombocytopenia in setting of cirrhosis - platelets are slightly lower than baseline at 53 currently. Patient without ascites at present no evidence of hepatic encephalopathy. Per literature review, transient worsening of hepatic function is a common potential complication of chemoembolization - often see return to baseline in 3-4 weeks. -Admit to medical with telemetry -Check RUQ liver US with duplex to rule out clot -Triple phase CT of the liver ordered - is to be performed in AM 10/28/22 due to patient having already received contrast -LFTs worsening, however patient is clinically feeling better. will monitor overnight, with plan to discharge tomorrow given that she has an appointment on Sunday at [facility] for liver transplant. -Procedure performed by Dr. Maria at [facility]. She was contacted by the ER provider prior to admission request. She is available for questions. (2) Hepatocellular carcinoma: Plan: Patient with recently diagnosed hepatocellular carcinoma s/p chemoembolization/TACE. Patient is to undergo a three day evaluation at [facility] early next week to assess possible candidacy for liver transplant. (3) Cirrhosis: Plan: History of SHARMA with liver cirrhosis. History of non-bleeding esophageal varices. She was on propranolol in the past but subsequently developed symptomatic bradycardia and heart block therefore had a cardiac pacemaker placed. She has history of ascites on Spironolactone and Bumex therapy and prior hepatic encephalopathy on Lactulose. Worsening liver studies as discussed above. No evidence of acute decompensation on exam. -Low sodium diet -Continue Spironolactone and Bumex -Continue Lactulose (4) Anemia: Plan: Normochromic, normocytic anemia with Hgb=11.5, Hct=34.3. Slightly lower than baseline. No bleeding noted on CT of the abdomen. -Repeat CBC in AM (5) Hypothyroidism (acquired): Plan: Chronic. Stable. Last TSH 07/12/22 = 0.318 -Continue Synthroid (6) Diabetes mellitus: Plan: Chronic. Last HgbA1C = 7.6 on 07/12/22 -Hold Metformin -Lantus 12u BID, ISS -Goal blood sugar 110 - 140 F/E/N - [place]ock. Electrolytes WNL. CC/Low Na diet Ppx - SCDs Code - Full per discussion with patient Dispo - Admit to medical with telemetry Admission and Anticipated Discharge Date Admission Date: October 27, 2022 Subjective Patient having admominal pain. It appears better controlled. Review of Systems Review of Systems: All systems reviewed & are unremarkable except as noted in HPI & below Physical Exam Physical Exam: General: patient resting comfortably, NAD, non-toxic in appearance, AA&O x 4 Skin: warm, dry, intact, no rashes or lesions HEENT: NC/AT, PERRL, EOMI, anicteric sclera, conjunctiva without injection, external ear normal to inspection and nontender, nares patent, moist mucus membranes, dentition intact, no oropharyngeal lesions, neck supple, trachea midline, no LAD, no thyromegaly, no JVD Heart: +S1/S2, regular, no m/r/g Lungs: equal air entry bilaterally, no rales/rhonchi/wheezes Abd: +BS, soft,Nondistended, right upper quadrant tenderness with no rebound/guarding/peritonitis,, no masses/organomegaly/ascites Ext: warm, 2+ pulses in UE/LE bilaterally, no clubbing/cyanosis or edema Neuro: nonfocal, patient AA&O x 4, speech intact, no facial droop, moving all extremities on command with equal strength 5/5, No asterixis Results & Data Results & Data Vital Signs (Past 12 Hours) Vital Signs Temp Pulse Pulse Resp BP BP Pulse Ox 10/28/22 19:15 37.0 C 100 H 18 146/64 H 93 10/28/22 15:40 102 H 10/28/22 14:28 37.0 C 97 H 20 142/68 H 94 10/28/22 11:36 36.9 C 95 H 20 136/71 95 O2 Del Method 10/28/22 19:15 Room Air 10/28/22 15:40 10/28/22 14:28 Room Air 10/28/22 11:36 Room Air PG Care Time/CCT Total # of Minutes Spent Total Time Spent with Patient: Total time spent is greater than 50% in coordination of care (as documented) at patient's floor/unit and/or counseling patient: Coding Level of Care Code 22076 SUB INP/OBS CARE 2/35MIN Diagnoses Abdominal pain, RUQ R10.11 Hepatocellular carcinoma C22.0 Cirrhosis K74.60 Anemia D64.9 Hypothyroidism (acquired) E03.9 Diabetes mellitus E11.9
[2022-10-29] MEDS: oxyCODONE HCL IR 5 MG TAB (IMMEDIATE RELEASE) PO SCH ×2 (06:03→12:53)
[2022-10-29] MEDS: LEVOTHYROXINE SODIUM 88 MCG TABLET PO SCH (06:04)
[2022-10-29] MEDS: SPIRONOLACTONE 25 MG TAB PO SCH (08:02)
[2022-10-29] MEDS: LACTULOSE SYRUP 30 GM/45 ML UDP PO SCH (08:02)
[2022-10-29] MEDS: BUMETANIDE 1 MG TAB PO SCH (08:02)
[2022-10-29] MEDS: GABAPENTIN 300 MG CAP PO SCH (08:02)
[2022-10-29] MEDS: LANTUS PER UNIT CHARGE SQ SCH (08:05)
[2022-10-29] MEDS: INSULIN ASPART PER UNIT CHARGE SC SCH ×2 (08:10→12:51)
[2022-10-29 11:01] LABS: Hematocrit (blood only) 30.5 % (37.0-47.0); Hemoglobin 10.5 g/dl (12.0-16.0); Mean Corpuscular Hemoglobin 31.8 pg (25.0-34.0); Mean Corpuscular Hgb Conc 34.4 g/dL (32.0-36.0); Mean Corpuscular Volume 92.4 fL (80.0-100.0); Mean Platelet Volume 10.9 fL (9.4-12.4); Platelet Count 56 K/uL (130-400); RDW Coefficient of Variation 14.4 % (11.5-14.5); RDW Standard Deviation 48.6 fL (36.4-46.3)
[2022-10-29 11:12] LABS: INR 1.4 (0.9-1.1); Prothrombin Time 14.5 Seconds (9.0-12.0)
[2022-10-29 11:29] LABS: Albumin Level 2.4 gm/dl (3.4-5.0); Bilirubin,Total 3.3 mg/dl (0.2-1.0); Calcium 8.1 mg/dl (8.6-10.3); Potassium 4.2 mmol/L (3.5-5.1)
[2022-10-29 11:35] LABS: Albumin Globulin Ratio 0.7 (0.9-2); BUN Creatinine Ratio 16.9 (10-20); Creatinine Clr Calc Pharmacy 61.5 ml/min; Est GFR (African American) 81.1 ml/min; Globulin 3.3 gm/dl (2.5-4.0); Total Protein 5.7 gm/dl (6.0-8.3)
--- NOTE | 2022-10-29 14:14 | Discharge Summary ---
Date of Service October 29, 2022 Admission HPI Per Admitting Provider Alma Nolen is a pleasant 71-year-old female presenting with RUQ pain. Patient has a history of hepatocellular carcinoma and biopsy-proven SHARMA cirrhosis with history of ascites, non-bleeding esophageal varices and hepatic encephalopathy. She was seen at [facility] on 10/24/2022 and had chemoembolization performed of her hepatic lesions. Patient began having worsening right upper quadrant pain on 10/26/2022. The pain has been constant and progressive. Today the pain was severe enough for her to come to the emergency room. She is also experiencing extreme fatigue and chills. Otherwise she denies fever, chest pain, cough, shortness of breath. Denies abdominal distention. Denies bruising. Denies nausea/vomiting/diarrhea/constipation. No additional complaints at this time. In the ER she is afebrile, hemodynamically stable and nontoxic in appearance. Labs as below reveal abnormal liver studies with AST = 434, ALT = 334, alk phos = 132. Elevation of T. bili = 3.3 and D bili = 1.2 CT of the abdomen performed with IV contrast reveals evidence of recent chemoembolization. No other acute processes ER course: Normal saline x500 mL Morphine 4 mg IV Principal Diagnosis pain secondary to s/p chemoembolization of her hepatic lesions Discharge Exam General: patient resting comfortably, NAD, non-toxic in appearance, AA&O x 4 Skin: warm, dry, intact, no rashes or lesions HEENT: NC/AT, PERRL, EOMI, anicteric sclera, conjunctiva without injection, external ear normal to inspection and nontender, nares patent, moist mucus membranes, dentition intact, no oropharyngeal lesions, neck supple, trachea midline, no LAD, no thyromegaly, no JVD Heart: +S1/S2, regular, no m/r/g Lungs: equal air entry bilaterally, no rales/rhonchi/wheezes Abd: +BS, soft,Nondistended, right upper quadrant tenderness with no rebound/guarding/peritonitis,, no masses/organomegaly/ascites Ext: warm, 2+ pulses in UE/LE bilaterally, no clubbing/cyanosis or edema Neuro: nonfocal, patient AA&O x 4, speech intact, no facial droop, moving all extremities on command with equal strength 5/5, No asterixis Discharge Data Allergies Allergy/AdvReac Type Severity Reaction Status Date / Time No Known Drug Allergies Allergy . Verified 10/27/22 18:44 Ordered Studies 10/27/22 16:34 CT abd pelvis IV con only Stat 10/27/22 19:53 US portal veins duplex [US duplex portal hepatic veins] Stat 10/28/22 07:00 CT abdomen pelvis wo/w con Routine Hospital Course (1) Abdominal pain, RUQ: 71-year-old female with history of hepatocellular carcinoma, SHARMA with cirrhosis, history of esophageal varices, history of hepatic encephalopathy on lactulose, history of ascites on diuretic therapy. Patient s/p chem oembolization of her hepatic lesions performed at [facility] on 10/24/22 presenting now with progressive RUQ pain. Patient reports RUQ discomfort, constant as well as fatigue. Elevation of liver studies in mixed hepatocellular/obstructive pattern (OVE=286, ZVX=258, ZN=121, Tbili=3.3, Dbili=1.2.). She has chronic thrombocytopenia in setting of cirrhosis - platelets are slightly lower than baseline at 53 currently. Patient without ascites at present no evidence of hepatic encephalopathy. Per literature review, transient worsening of hepatic function is a common potential complication of chemoembolization - often see return to baseline in 3-4 weeks. -Admit to medical with telemetry -Check RUQ liver US with duplex to rule out clot -Triple phase CT of the liver ordered - is to be performed in AM 10/28/22 due to patient having already received contrast -LFTs worsening on 10/28, however patient is clinically feeling better. -LFTs are improving on 10/29, patient is doing well. - given that she has an appointment on Sunday at [facility] for liver transplant will discharge today. Will discharge on oxycodone and narcan. -Procedure performed by Dr. Maria at [facility]. She was contacted by the ER provider prior to admission request. (2) Hepatocellular carcinoma: Patient with recently diagnosed hepatocellular carcinoma s/p chemoembolization/TACE. Patient is to undergo a three day evaluation at [facility] early next week to assess possible candidacy for liver transplant. (3) Cirrhosis: History of SHARMA with liver cirrhosis. History of non-bleeding esophageal varices. She was on propranolol in the past but subsequently developed symptomatic bradycardia and heart block therefore had a cardiac pacemaker placed. She has history of ascites on Spironolactone and Bumex therapy and prior hepatic encephalopathy on Lactulose. Worsening liver studies as discussed above. No evidence of acute decompensation on exam. -Low sodium diet -Continue Spironolactone and Bumex -Continue Lactulose (4) Anemia: Normochromic, normocytic anemia with Hgb=11.5, Hct=34.3. Slightly lower than baseline. No bleeding noted on CT of the abdomen. -Repeat CBC in AM (5) Hypothyroidism (acquired): Chronic. Stable. Last TSH 07/12/22 = 0.318 -Continue Synthroid (6) Diabetes mellitus: Chronic. Last HgbA1C = 7.6 on 07/12/22 -Hold Metformin -Lantus 12u BID, ISS -Goal blood sugar 110 - 140 Total Time Total Time Spent Total Time Spent (In Minutes): 32 Discharge Plan Discharge Items Patient Disposition: Home - Self-Care Reason For Visit: ruq pain, abnormal lfts Discharge Diagnosis: RUQ abdominal pain Activity: Resume your previous activity Non-emergency contact: Primary Care Provider Call non-emergency contact if: you have any medication questions Follow-up/Referrals: Landen Shah MD [Primary Care Provider] - 11/06/22 2:00 pm Diet: Carb Consistent or DM2 and Low Sodium (2gm) Addtl Attending Provider Instructions: You have been hospitalized for an acute medical problem. During your stay at [facility], we have made an effort to correct the problem that brought you to the hospital while keeping you as comfortable as possible. Medications were used to bring your condition under control and your discharge instructions will include directions for any medications you should take after leaving the hospital. Please make sure you see your Primary Care Provider as part of your follow up plan. Pending Studies at Discharge: No Stand-Alone Forms: My [facility], Smoking Cessation Medications and DC Order Prescriptions: New oxycodone 5 mg Tablet 5 mg PO Q6 Qty: 14 0RF naloxone [Narcan] 4 mg/actuation spray,non-aerosol 1 spray intranasal Q3M PRN (Reason: opioid overdose) Qty: 2 0RF Rx Instructions: for oxycodone overdose Continued (DME) blood sugar diagnostic [[employer] SpaTouch Ultra Blue Test Strip] Strip See Rx Instructions .ROUTE .MEDSUPPLY Qty: 300 3RF Rx Instructions: test twice daily (DME) blood-glucose meter [OneTouch Ultra2 Meter] Misc See Rx Instructions .ROUTE .MEDSUPPLY Qty: 1 0RF Rx Instructions: Use to test twice daily (DME) lancets [OneTouch Delica Lancets] 33 gauge misc See Rx Instructions .Route Qty: 200 3RF Rx Instructions: use to test 2-3 times daily metformin 1,000 mg tablet 500 mg PO BID ondansetron HCl 4 mg tablet 4 mg PO Q8H PRN (Reason: nausea and vomiting) Qty: 30 1RF gabapentin 300 mg capsule 600 mg PO BID 90 Days Qty: 360 1RF zinc acetate 50 mg (zinc) capsule 50 mg PO QAM Rx Instructions: swallow whole; do not chew/break/dissolve/open levothyroxine 88 mcg tablet 88 mcg PO QAM insulin glargine 100 unit/mL solution 36 unit SUBCUT HS Patient Comments: pt states she takes 34 units multivitamin [Multiple Vitamins] tablet 1 tab PO QAM cholecalciferol (vitamin D3) 1,000 unit capsule 1,000 units PO QAM cyanocobalamin (vitamin B-12) 1,000 mcg tablet 1,000 mcg PO QAM zolpidem 5 mg tablet 5 mg PO HS PRN (Reason: insomnia) Qty: 30 0RF bumetanide 1 mg Tablet 1 mg PO QAM spironolactone 50 mg Tablet 50 mg PO QAM ferrous sulfate 325 mg (65 mg iron) Tablet,Delayed Release (Dr/Ec) 325 mg PO QAM vitamin E 400 unit Capsule 400 unit PO QAM Macular Health Formula 5-1-7.5 mg Capsule 1 cap PO QAM lactulose 10 gram/15 mL solution 45 ml PO TID Qty: 946 0RF insulin lispro [Humalog KwikPen Insulin] 100 unit/mL Insulin Pen 0 sliding scale dose SUBCUT USEASDIRECTD Discharge Orders: Discharge Order (Routine); Ordered 10/29/22 Ordered By: Cuate Goodman/Other Patient Handouts: Managing Type 2 Diabetes, Special [facility] for Diabetes Admission Data Admit Date/Time: 10/27/22 19:53 Attending Provider: Cuate Warren Admit Provider: Dayana Gutierrez Primary Care Provider: Landen Shah Coding Level of Care Code 57631 INP/OBS DISCH >30 MIN Diagnoses Abdominal pain, RUQ R10.11 Hepatocellular carcinoma C22.0 Cirrhosis K74.60 Anemia D64.9 Hypothyroidism (acquired) E03.9 Diabetes mellitus E11.9
[2022-10-29] MEDS ORDERED: LANTUS PER UNIT CHARGE SQ ONE (14:52)
[2022-10-29] MEDS ORDERED: INSULIN ASPART PER UNIT CHARGE SC ONE (14:52)
== END 2022-10-29 14:53 | disposition home or self-care (01) | DRG 948 ==
LOC: ED 12:45 → SUATTDRO 19:53 → EDINP 19:53 → 2N 22:55